=== PATIENT | male | born 1955 | race Caucasian/White ===

== ENCOUNTER 2017-05-01 21:41 | Inpatient (IN) | payer OTHER, SELFPAY ==
[2017-05-02 19:50] VITALS: BMI 29.1
--- NOTE | 2017-05-03 03:00 | PC.NURSE ---
PT IS A&OX3. HE HAS BEEN AWAKE PERIODICALLY T/O THE NIGHT. HIS BLE ARE RED AND WARM TO TOUCH. 2+ EDEMA ON BLE. BLE NOTED TO HAVE BLISTERS AND WEEPING AT TIMES. SCATTERED ABRASIONS ON BLE. PT REPORTS THAT HE IS ABLE TO WALK INDEPENDENTLY. HE IS ON 1LPM N/C WHILE SLEEPING. HE REPORTS SOA WHILE RESTING.
[2017-05-03 03:49] VITALS: BP 99/52; PULSE 71; RESP 20; TEMP 36.9; O2SAT 97
--- NOTE | 2017-05-03 07:30 | PC.NURSE ---
VERBAL REPORT GIVEN & HANDED OFF TO ZHANG- MARIKA MACIAS
[2017-05-03 08:00] VITALS: PULSE 70; O2SAT 93
[2017-05-03 08:55] VITALS: BP 119/79; PULSE 74; RESP 18; TEMP 36.8; O2SAT 93
--- NOTE | 2017-05-03 14:09 | PC.NURSE ---
report given to Francesca Vieyra
--- NOTE | 2017-05-03 15:31 | PC.NURSE ---
pt has edema and weeping in bliateral lower extermities. pt lungs are clear, bowel sounds active and heart sounds normal. call light in reach. pt has stated no complaints since arrival to unit. will continue to monitor pt condition.
[2017-05-03 16:00] VITALS: BP 100/71; PULSE 70; RESP 20; TEMP 36.1; O2SAT 97
[2017-05-03 16:50] LABS: Vancomycin,Trough 14.8 mcg/ml (10.0-20.0)
[2017-05-03 19:35] VITALS: BP 116/85; PULSE 71; TEMP 36.8; O2SAT 94
--- NOTE | 2017-05-03 20:23 | HMH.ACPN ---
Internal Medicine - PN: Subj *Date: 05/03/17 *Time: 20:00 Interval history: pt seen this pm with no c/o Exam Vital signs and Labs for Last 24 Hours: Temp Pulse Resp BP Pulse Ox 97.0 F L 70 20 100/71 97 05/03/17 16:00 05/03/17 16:00 05/03/17 16:00 05/03/17 16:00 05/03/17 16:00 Short CBC 05/02/17 Range/Units 05:50 WBC 9.1 (4.8 - 10.8) K/MM3 Hgb 13.5 L (14.1 - 18.0) g/dL Hct 44.7 (42.0 - 52.0) % Plt Count 170 (142 - 424) K/mm3 BMP 05/02/17 05:50 Sodium 142 Potassium 4.3 Chloride 109 H Carbon Dioxide 27 BUN 21 H Creatinine 1.0 D Glucose 98 Calcium 7.8 L I & O for Last 24 hours: Intake & Output 05/01/17 05/02/17 05/03/17 05/04/17 11:59 11:59 11:59 11:59 Intake Total 260 / 260 Output Total 800 / 800 Balance -540 / -540 no acute distress - *Routine HEENT Exam Head: Present: normocephalic Eye: Present: PERRL - *Routine Neck Exam Present: supple - *Routine Respiratory Exam Absent: respiratory distress - *Routine Cardiovascular Exam Present: RRR, murmur - *Routine Extremities Exam Present: edema, tenderness. Absent: calf tenderness - *Routine Skin Exam Present: erythema - *Routine Neurological Exam Present: alert, oriented X3, CN II-XII intact - Routine Psychiatric Exam Present: normal affect Assessment and Plan (1) Cellulitis Current visit: Yes Status: Acute Qualifiers: Site of cellulitis: extremity Site of cellulitis of extremity: lower extremity Laterality: right Qualified Code(s): L03.115 - Cellulitis of right lower limb Category: Medical Code(s): L03.90 - Cellulitis, unspecified
[2017-05-04] VITALS (7 sets, daily range): BP systolic 98–135; BP diastolic 68–96; PULSE 70–79; RESP 18–24; TEMP 35.9–36.5; O2SAT 92–98
--- NOTE | 2017-05-04 02:13 | PC.NURSE ---
at 195 PHARMACIST SHASHANK TERRELL NOTIFIED OF VANCO TROUGH 14.8 DRAWN @8320. MAY CONTINUE WITH CURRENT DOSING.
--- NOTE | 2017-05-04 04:51 | PC.NURSE ---
PT HAS BEEN AWAKE MOST OF NIGHT. ON 1L PER NC OF OXYGEN. WHEEZING NOTED LLL. BILAT LE WITH SWELLING AND REDNESS NOTED. MULTIPLE OPEN AREAS NOTED, SEEPING SEROUS DRAINAGE. NO COMPLAINTS OF PAIN. PT STATES HE GETS SOB WITH LYING HEAD FLAT. HOB UP.
--- NOTE | 2017-05-04 07:24 | CA_ITS ---
PROCEDURE: 2-D M-mode and color Doppler study INDICATIONS FOR THE TEST: Chest pain+ COPD Heart Murmur Tobacco Smoking+ Palpitations Fatigue Syncope Edema Hypertension+Diabetes Mellitus+ Rheumatic Fever SOB+OLMEDO Obesity Hyperlipidemia+ Family History HD Additional History Pacemaker, hx of [place], 1 stent, CHF. AFIB PATIENT INFORMATION HEIGHT: 72 WEIGHT: 230 GENDER: Male B/P: 124/74 2-D/M-MODE INTERPRETATION: Definity contrast used 2-D MEASUREMENTS OBSERVED VALUES IN CMS Right Ventricular Dimension (RVDd) Interventricular Septum (Thickness)(IVsd) 1.1 Left Ventricular Internal Dimensions(LVIDd) 6.5 Left Ventricular Posterior Wall (Thickness)(LVPWd) 1.1 Aortic Root 2.6 Aortic Cusp Separation 1.7 Left Atrial Dimensions (LAD) 4.5 2D 1. Left atrium is moderately enlarged, left ventricle is moderately dilated, there is severely reduced left ventricular systolic function, visually estimated ejection fraction 15-20%, left ventricle is globally hypokinetic. 2. The right atrium and right ventricle are normal size and contractility, there is a pacemaker lead seen in the right atrium and right ventricle. 3. The aortic valve is minimally thickened and calcified, 4. The mitral and tricuspid valve leaflets are minimally thickened. 5. The pulmonic valve is poorly visualized. 6. There is small circumferential pericardial effusion noted. DOPPLER INTERROGATION: Doppler interrogation of the aortic, mitral and tricuspid valve is presence of moderate mitral and moderate tricuspid regurgitation, calculated right ventricular systolic pressure is 63 mmHg consistent with the moderate pulmonary hypertension. CONCLUSION: 1. Moderately enlarged left atrium, moderately dilated left ventricle, severely reduced left ventricular systolic function, visually estimated ejection fraction 15-20%, left ventricle is globally hypokinetic, Doppler evidence of raised left ventricular end-diastolic pressure. 2. Moderate mitral and tricuspid regurgitation. 3. Thickened and calcified aortic valve without Doppler evidence of significant aortic stenosis or aortic insufficiency 4. Small circumferential pericardial effusion noted.
--- NOTE | 2017-05-04 09:45 | HMH.ACPN ---
Internal Medicine - PN: Subj *Date: 05/04/17 *Time: 09:45 Interval history: pt doing better and legs look better Exam Vital signs and Labs for Last 24 Hours: Temp Pulse Resp BP Pulse Ox 97.7 F 74 18 115/70 97 05/04/17 08:00 05/04/17 08:00 05/04/17 08:00 05/04/17 08:00 05/04/17 08:00 I & O for Last 24 hours: Intake & Output 05/01/17 05/02/17 05/03/17 05/04/17 11:59 11:59 11:59 11:59 Intake Total 260 / 260 760 / 760 Output Total 800 / 800 250 / 250 Balance -540 / -540 510 / 510 no acute distress - *Routine HEENT Exam Head: Present: normocephalic Eye: Present: EOMI, PERRL ENT: Present: mucous membranes moist - *Routine Neck Exam Present: supple - *Routine Respiratory Exam Absent: respiratory distress - *Routine Cardiovascular Exam Present: murmur - *Routine Abdominal Exam Present: soft - *Routine Extremities Exam Present: edema. Absent: calf tenderness (reddness improved) - *Routine Skin Exam Present: warm (see above) - *Routine Neurological Exam Present: alert, oriented X3 - Routine Psychiatric Exam Present: normal affect Assessment and Plan (1) Cellulitis Current visit: Yes Status: Acute Qualifiers: Site of cellulitis: extremity Site of cellulitis of extremity: lower extremity Laterality: right Qualified Code(s): L03.115 - Cellulitis of right lower limb Category: Medical Code(s): L03.90 - Cellulitis, unspecified The patient's infection will respond to the chosen ABx?: Yes (awaiting culture)
[2017-05-04 10:18] LABS: POC Glucose,Bedside 127 mg/dL
--- NOTE | 2017-05-04 11:22 | XR_ITS ---
XR chest 2V CLINICAL INDICATION: Congestive heart failure ITS.REASON: chf ORDERING PHYSICIAN: Jonny Freeman MD PATIENT AGE: 62 years COMPARISON: 01/30/2016 FINDINGS: There is cardiomegaly with pulmonary venous congestion along with interstitial and alveolar edema consistent with congestive heart failure with small bilateral pleural effusions. Tripolar cardiac pacemaker device is present. IMPRESSION: Congestive heart failure with pulmonary edema and bilateral effusions
[2017-05-04 11:40] LABS: POC Glucose,Bedside 137 mg/dL
[2017-05-04 11:44] LABS: POC Glucose,Bedside 133 mg/dL
[2017-05-04 11:46] LABS: POC Glucose,Bedside 109 mg/dL
[2017-05-04 11:47] LABS: POC Glucose,Bedside 105 mg/dL
--- NOTE | 2017-05-04 12:42 | HMH.CARDCON2 ---
History of Present Illness Consult date: 05/04/17 Requesting physician: Jonny Freeman Consult reason: congestive heart failure, shortness of breath Chief complaint: shortness of breath History of present illness: 62 yo WM with known ischemic cardiomyopathy and EF of 10-15% for which he has an AICD. He is followed by Dr. Woods in [place] and has an appointment next week. Recent wt gain of about 20 lbs with dietary indiscretion. Pt was admitted for increasing swelling into abdomen and scrotum along with increasing SOA. At this time he has noted some improvement with diuresis. Denies any chest pains. Review of Systems - *Respiratory Reports shortness of breath, Reports shortness of breath with activity [facility] History Medical History: Reports:: Congestive Heart Failure, Diabetes Mellitus Type 2 - *Social History Smoking Status: Current every day smoker Tobacco Type: cigarettes # Packs/Day (cigarettes): 1 Alcohol Intake: never Occupational Status: retired - Psychiatric History Expresses thoughts of harming self/others: None Suicide Plan Description: No Plan *Family Hx:: No significant family history Meds Home Medications Medication Instructions Recorded Confirmed Type Amiodarone HCl [Amiodarone 200mg 200 mg PO DAILY 05/02/17 05/03/17 History Tab] Bisoprolol Fumarate [Zebeta 5mg 2.5 mg PO DAILY 05/02/17 05/03/17 History tablet] Furosemide [Lasix 40mg tab] 40 mg PO DAILY 05/02/17 05/03/17 History Lisinopril [Lisinopril 2.5mg Tab] 2.5 mg PO DAILY 05/02/17 05/03/17 History Potassium Chloride [Klor-con 20 20 meq PO DAILY 05/02/17 05/03/17 History mEq tablet] Pravastatin Sodium [Pravachol] 40 mg PO HS 05/02/17 05/03/17 History Rivaroxaban [Xarelto] 20 mg PO DAILY 05/02/17 05/03/17 History Allergies Allergy/AdvReac Type Severity Reaction Status Date / Time No Known Allergies Allergy Unverified 05/01/17 18:09 Exam Vital signs and Labs for Last 24 Hours: Temp Pulse Resp BP Pulse Ox 97.7 F 74 18 115/70 96 05/04/17 08:00 05/04/17 08:00 05/04/17 08:00 05/04/17 08:00 05/04/17 08:00 I & O for Last 24 hours: Intake & Output 05/02/17 05/03/17 05/04/17 05/05/17 11:59 11:59 11:59 11:59 Intake Total 260 / 260 770 / 770 Output Total 800 / 800 250 / 250 Balance -540 / -540 520 / 520 Results 05/02/17 05:50 05/02/17 05:50 Intake and Output 05/04/17 05/04/17 05/04/17 03:59 11:59 19:59 Intake Total 770 / 770 Output Total 250 / 250 Balance 520 / 520 Intake: Intake, Other Amount 270 / 270 Intake, Total IV Amount 500 / 500 Vancomycin HCl 1,000 mg 500 / 500 Vancomycin HCl 500 mg In 0.9 % Sodium Chloride 250 ml @ 125 mls/hr IV Q12H [facility] Rx#:[id number] Output: Output, Urine Amount 250 / 250 Other: Intake, Other Source Saline Solution Number of Voids 3 Number of Unmeasured Voids 3 Number of Bowel Movements 3 Assessment and Plan (1) CHF (congestive heart failure), NYHA class IV Current visit: Yes Status: Acute Category: Medical Code(s): I50.9 - Heart failure, unspecified Patient with congestive heart failure class IV at this time. This is acute on chronic systolic congestive heart failure. He has responded well to diuresis. No further cardiac intervention at this time as echocardiogram at this time shows continued severly diffuse left ventricular ejection fraction in the 10-15% range. Recommend he follow-up with his lead etl developer next week. He has his AICD checked through his cardiology office in [place]. (2) Ischemic cardiomyopathy Current visit: Yes Status: Acute Category: Medical Code(s): I25.5 - Ischemic cardiomyopathy Continue current medical therapy of TAMAR inhibitor, beta-erasmo and adjusting diuretics as needed. (3) Cardiac arrhythmia Current visit: Yes Status: Acute Category: Medical Code(s): I49.9 - Cardiac arrhythmia, unspecif
--- NOTE | 2017-05-04 12:47 | P.CONS_ITS ---
History of Present Illness Consult date: 05/04/17 Requesting physician: Jonny Freeman Consult reason: congestive heart failure, shortness of breath Chief complaint: shortness of breath History of present illness: 62 yo WM with known ischemic cardiomyopathy and EF of 10-15% for which he has an AICD. He is followed by Dr. Woods in [place] and has an appointment next week. Recent wt gain of about 20 lbs with dietary indiscretion. Pt was admitted for increasing swelling into abdomen and scrotum along with increasing SOA. At this time he has noted some improvement with diuresis. Denies any chest pains. Review of Systems - *Respiratory Reports shortness of breath, Reports shortness of breath with activity [facility] History Medical History: Reports:: Congestive Heart Failure, Diabetes Mellitus Type 2 - *Social History Smoking Status: Current every day smoker Tobacco Type: cigarettes # Packs/Day (cigarettes): 1 Alcohol Intake: never Occupational Status: retired - Psychiatric History Expresses thoughts of harming self/others: None Suicide Plan Description: No Plan *Family Hx:: No significant family history Meds Home Medications Medication Instructions Recorded Confirmed Type Amiodarone HCl [Amiodarone 200mg 200 mg PO DAILY 05/02/17 05/03/17 History Tab] Bisoprolol Fumarate [Zebeta 5mg 2.5 mg PO DAILY 05/02/17 05/03/17 History tablet] Furosemide [Lasix 40mg tab] 40 mg PO DAILY 05/02/17 05/03/17 History Lisinopril [Lisinopril 2.5mg Tab] 2.5 mg PO DAILY 05/02/17 05/03/17 History Potassium Chloride [Klor-con 20 20 meq PO DAILY 05/02/17 05/03/17 History mEq tablet] Pravastatin Sodium [Pravachol] 40 mg PO HS 05/02/17 05/03/17 History Rivaroxaban [Xarelto] 20 mg PO DAILY 05/02/17 05/03/17 History Allergies Allergy/AdvReac Type Severity Reaction Status Date / Time No Known Allergies Allergy Unverified 05/01/17 18:09 Exam Vital signs and Labs for Last 24 Hours: Temp Pulse Resp BP Pulse Ox 97.7 F 74 18 115/70 96 05/04/17 08:00 05/04/17 08:00 05/04/17 08:00 05/04/17 08:00 05/04/17 08:00 I & O for Last 24 hours: Intake & Output 05/02/17 05/03/17 05/04/17 05/05/17 11:59 11:59 11:59 11:59 Intake Total 260 / 260 770 / 770 Output Total 800 / 800 250 / 250 Balance -540 / -540 520 / 520 Results 05/02/17 05:50 05/02/17 05:50 Intake and Output 05/04/17 05/04/17 05/04/17 03:59 11:59 19:59 Intake Total 770 / 770 Output Total 250 / 250 Balance 520 / 520 Intake: Intake, Other Amount 270 / 270 Intake, Total IV Amount 500 / 500 Vancomycin HCl 1,000 mg 500 / 500 Vancomycin HCl 500 mg In 0.9 % Sodium Chloride 250 ml @ 125 mls/hr IV Q12H [facility] Rx#:[id number] Output: Output, Urine Amount 250 / 250 Other: Intake, Other Source Saline Solution Number of Voids 3 Number of Unmeasured Voids 3 Number of Bowel Movements 3 Assessment and Plan (1) CHF (congestive heart failure), NYHA class IV Current visit: Yes Status: Acute Category: Medical Code(s): I50.9 - Heart failure, unspecified Patient with congestive
[2017-05-04 14:06] LABS: Blood Urea Nitrogen 20 mg/dL (7-18); Carbon Dioxide 29 mmol/L (21.0-32.0); Chloride 103 mmol/L (98-107); Creatinine Clearance Estimated 95 mg/ml (0-300); Creatinine,Serum 1.19 mg/dL (0.70-1.30); Estimated Glomerular Filt Rate > 60 ml/min (>60); GFR (African American) > 60 ML/MIN (>60); Glucose 210 mg/dL (74-106); Sodium 137 mmol/L (136-145)
--- NOTE | 2017-05-04 14:22 | HMH.PHACONS ---
- Pharmacy Consult Date: 05/04/17 Time: 14:22 Referring provider: RAJAN Reason for Consult:: VANCOMYCIN TROUGH LEVEL Allergies and ADEs:: Allergies Allergy/AdvReac Type Severity Reaction Status Date / Time No Known Allergies Allergy Unverified 05/01/17 18:09 Home Medications:: Home Medications Medication Instructions Recorded Confirmed Type Amiodarone HCl [Amiodarone 200mg 200 mg PO DAILY 05/02/17 05/03/17 History Tab] Bisoprolol Fumarate [Zebeta 5mg 2.5 mg PO DAILY 05/02/17 05/03/17 History tablet] Furosemide [Lasix 40mg tab] 40 mg PO DAILY 05/02/17 05/03/17 History Lisinopril [Lisinopril 2.5mg Tab] 2.5 mg PO DAILY 05/02/17 05/03/17 History Potassium Chloride [Klor-con 20 20 meq PO DAILY 05/02/17 05/03/17 History mEq tablet] Pravastatin Sodium [Pravachol] 40 mg PO HS 05/02/17 05/03/17 History Rivaroxaban [Xarelto] 20 mg PO DAILY 05/02/17 05/03/17 History Height: 1.83 m Weight: 104.326 kg Laboratory Results:: Laboratory Results - last 24 hr 05/03/17 05/03/17 05/03/17 05:56 12:29 16:27 Sodium Potassium Chloride Carbon Dioxide Anion Gap BUN Creatinine Estimated Creat Clear Estimated GFR Est GFR ( Amer) Glucose POC Glucose 105 mg/dL mg/dL 127 mg/dL mg/dL B-Natriuretic Peptide Vancomycin Trough 14.8 mcg/ml mcg/ml (10.0-20.0) 05/03/17 05/03/17 05/04/17 16:31 21:23 06:09 Sodium Potassium Chloride Carbon Dioxide Anion Gap BUN Creatinine Estimated Creat Clear Estimated GFR Est GFR ( Amer) Glucose POC Glucose 137 mg/dL mg/dL 133 mg/dL mg/dL 109 mg/dL mg/dL B-Natriuretic Peptide Vancomycin Trough 05/04/17 05/04/17 13:45 13:45 Sodium 137 mmol/L mmol/L (136-145) Potassium 5.0 mmoL/L mmoL/L (3.5-5.1) Chloride 103 mmol/L mmol/L (98-107) Carbon Dioxide 29 mmol/L mmol/L (21.0-32.0) Anion Gap 10.0 mEq/L mEq/L (5-15) BUN 20 mg/dL H mg/dL (7-18) Creatinine 1.19 mg/dL mg/dL (0.70-1.30) Estimated Creat Clear 95 mg/ml mg/ml (0-300) Estimated GFR > 60 ml/min ml/min (>60) Est GFR ( Amer) > 60 ML/MIN ML/MIN (>60) Glucose 210 mg/dL H mg/dL (74-106) POC Glucose B-Natriuretic Peptide 834 pg/mL H pg/mL (0-100) Vancomycin Trough Medical History: Reports:: Congestive Heart Failure, Diabetes Mellitus Type 2 Assessment and Plan (1) Cellulitis Current visit: Yes Status: Acute Qualifiers: Site of cellulitis: extremity Site of cellulitis of extremity: lower extremity Laterality: right Qualified Code(s): L03.115 - Cellulitis of right lower limb Category: Medical Code(s): L03.90 - Cellulitis, unspecified - Assessment and plan all Dx Assessment and Plan for all problems:: BASED ON VANCOMYCIN TROUGH LEVEL AND PATIENT FACTORS, RECOMMEND CONTINUING VANCOMYCIN 1500 MG IV Q12H. PHARMACY WILL CONTINUE TO MONITOR DAILY AND ADJUST APPROPRIATE.
--- NOTE | 2017-05-04 14:25 | P.CONPHA_ITS ---
- Pharmacy Consult Date: 05/04/17 Time: 14:22 Referring provider: RAJAN Reason for Consult:: VANCOMYCIN TROUGH LEVEL Allergies and ADEs:: Allergies Allergy/AdvReac Type Severity Reaction Status Date / Time No Known Allergies Allergy Unverified 05/01/17 18:09 Home Medications:: Home Medications Medication Instructions Recorded Confirmed Type Amiodarone HCl [Amiodarone 200mg 200 mg PO DAILY 05/02/17 05/03/17 History Tab] Bisoprolol Fumarate [Zebeta 5mg 2.5 mg PO DAILY 05/02/17 05/03/17 History tablet] Furosemide [Lasix 40mg tab] 40 mg PO DAILY 05/02/17 05/03/17 History Lisinopril [Lisinopril 2.5mg Tab] 2.5 mg PO DAILY 05/02/17 05/03/17 History Potassium Chloride [Klor-con 20 20 meq PO DAILY 05/02/17 05/03/17 History mEq tablet] Pravastatin Sodium [Pravachol] 40 mg PO HS 05/02/17 05/03/17 History Rivaroxaban [Xarelto] 20 mg PO DAILY 05/02/17 05/03/17 History Height: 1.83 m Weight: 104.326 kg Laboratory Results:: Laboratory Results - last 24 hr 05/03/17 05/03/17 05/03/17 05:56 12:29 16:27 Sodium Potassium Chloride Carbon Dioxide Anion Gap BUN Creatinine Estimated Creat Clear Estimated GFR Est GFR ( Amer) Glucose POC Glucose 105 mg/dL mg/dL 127 mg/dL mg/dL B-Natriuretic Peptide Vancomycin Trough 14.8 mcg/ml mcg/ml (10.0-20.0) 05/03/17 05/03/17 05/04/17 16:31 21:23 06:09 Sodium Potassium Chloride Carbon Dioxide Anion Gap BUN Creatinine Estimated Creat Clear Estimated GFR Est GFR ( Amer) Glucose POC Glucose 137 mg/dL mg/dL 133 mg/dL mg/dL 109 mg/dL mg/dL B-Natriuretic Peptide Vancomycin Trough 05/04/17 05/04/17 13:45 13:45 Sodium 137 mmol/L mmol/L (136-145) Potassium 5.0 mmoL/L mmoL/L (3.5-5.1) Chloride 103 mmol/L mmol/L (98-107) Carbon Dioxide 29 mmol/L mmol/L (21.0-32.0) Anion Gap 10.0 mEq/L mEq/L (5-15) BUN 20 mg/dL H mg/dL (7-18) Creatinine 1.19 mg/dL mg/dL (0.70-1.30) Estimated Creat Clear 95 mg/ml mg/ml (0-300) Estimated GFR > 60 ml/min ml/min (>60) Est GFR ( Amer) > 60 ML/MIN ML/MIN (>60) Glucose 210 mg/dL H mg/dL (74-106) POC Glucose B-Natriuretic Peptide 834 pg/mL H pg/mL (0-100) Vancomycin Trough Medical History: Reports:: Congestive Heart Failure, Diabetes Mellitus Type 2
--- NOTE | 2017-05-04 14:33 | CARE MANAGER ---
Addendum entered by Anjelica Blanco 05/04/17 15:51: Patients sister concurred with plan of being discharged to live with sister. Original Note: Spoke with patient regarding discharge plans. Patient stated that before admitting to hospital he was living in [place]. Patients plan at time of discharge is to go home with his sister in [place] on [facility]. I have called his sister Leyda to confirm this plan. There was no answer from Leyda but I left her a voice message to call me back. I will follow up with patient, sister, and MD once discharge plan is known.
[2017-05-05] VITALS (16 sets, daily range): BP systolic 102–175; BP diastolic 51–94; PULSE 70–84; RESP 13–24; TEMP 35.8–36.9; O2SAT 88–98
--- NOTE | 2017-05-05 09:04 | HMH.ACPN ---
Internal Medicine - PN: Subj *Date: 05/05/17 *Time: 09:05 Interval history: pt doing better with dec reddness and dr ruiz at bedside and has seen card Exam Vital signs and Labs for Last 24 Hours: Temp Pulse Resp BP Pulse Ox 97.0 F L 70 16 132/91 96 05/05/17 04:00 05/05/17 04:00 05/05/17 04:00 05/05/17 04:00 05/05/17 04:00 BMP 05/04/17 13:45 Sodium 137 Potassium 5.0 Chloride 103 Carbon Dioxide 29 BUN 20 H Creatinine 1.19 Glucose 210 H I & O for Last 24 hours: Intake & Output 05/02/17 05/03/17 05/04/17 05/05/17 11:59 11:59 11:59 11:59 Intake Total 260 / 260 770 / 770 167 / 167 Output Total 800 / 800 250 / 250 3450 / 3450 Balance -540 / -540 520 / 520 -3283 / -3283 Microbiology Reports for the Last 24 Hours: Microbiology 05/04/17 09:00 Leg,Right Gram Stain - Final 05/04/17 09:00 Leg,Right Wound Culture - Preliminary Gram Negative Rods Gram Positive Cocci no acute distress - *Routine HEENT Exam Head: Present: normocephalic Eye: Present: PERRL ENT: Present: mucous membranes dry - *Routine Neck Exam Absent: JVD - *Routine Respiratory Exam Present: decreased breath sounds, diminished air movement. Absent: respiratory distress - *Routine Cardiovascular Exam Present: murmur - *Routine Abdominal Exam Present: soft - *Routine Extremities Exam Present: edema. Absent: Amena's sign Comments: dec reddness lower ext - *Routine Skin Exam Present: erythema - *Routine Neurological Exam Present: alert, CN II-XII intact - Routine Psychiatric Exam Present: normal affect Assessment and Plan (1) Cellulitis Current visit: Yes Status: Acute Qualifiers: Site of cellulitis: extremity Site of cellulitis of extremity: lower extremity Laterality: right Qualified Code(s): L03.115 - Cellulitis of right lower limb Category: Medical Code(s): L03.90 - Cellulitis, unspecified (2) CHF (congestive heart failure), NYHA class IV Current visit: Yes Status: Acute Qualifiers: Congestive heart failure type: unspecified congestive heart failure type Qualified Code(s): I50.9 - Heart failure, unspecified Category: Medical Code(s): I50.9 - Heart failure, unspecified
--- NOTE | 2017-05-05 09:09 | US_ITS ---
US Arterial Ankle Brachial Ind ITS.REASON: Nonpalpable pedal pulses b/l, current smoker, diabetes, claudication, leg pain this: The ORDERING PHYSICIAN: Jonny Freeman MD PATIENT AGE: 62 years TECHNIQUE: Segmental pressures obtained of both right and left leg. These are compared to brachial blood pressure to yield index at each level sampled including summary LEO. The data sheets from the procedure are available in PACS FINDINGS Rest study only performed today No prior studies available for comparison. Blood pressures reported are in millimeters mercury. The pressures in the right ankle were obtained utilizing the calf cuff and not the ankle, due to overlying wound. RIGHT LEG LEO = 0.8. The TBI on the right is 0.5 Brachial BP: 120 Thigh BP: 111 Calf BP: 96 Ankle PT: Not obtained due to overlying wound Ankle DP : 95 Digit =52 LEFT LEG LEO = 0.9 The left TBI is 0.5 Brachial BPD: 122 Thigh BP: 103 Calf BP: 101 Ankle PT:111 Ankle DP: 78 Digit = 66 Pulses and waveforms: Depressed pulses and waveforms IMPRESSION: 1. Low TBI's bilaterally consistent with small vessel disease. 2. Slightly depressed right LEO and normal left LEO. 3. Depressed pulses and waveforms
--- NOTE | 2017-05-05 09:14 | HMH.ORTHOCON ---
*Admission Date: 05/01/17 *Chief complaint: Cellulitis *History of present illness: Mr. Gallego is a 62 y/o male who presented 05/01/17 with c/o cellulitis. Patient states that he has had weeping and drainage from both legs for several days. He denies this ever happening before. He is a Diabetic. Patient reports a history of osteomyelitis in October 2016, which required surgical intervention. He last followed up with Dr. Cristian Tiwari in [place] in December 2016. Review of Systems - Review of Systems Review of systems:: pertinent systems reviewed and negative unless documented below - Constitutional Comments: Denies N/V, F/C - *Cardiovascular Reports shortness of breath, Reports leg swelling - *Respiratory Reports shortness of breath - *Gastrointestinal Reports bloating - *Genitourinary Denies difficulty urinating - *Musculoskeletal Reports numbness, Reports tingling - *Neurologic Reports tingling/numbness/burning sensations [facility] History Medical History: Reports:: Congestive Heart Failure, Diabetes Mellitus Type 2 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) - *Social History Smoking Status: Current every day smoker Tobacco Type: cigarettes # Packs/Day (cigarettes): 1 Alcohol Intake: never Occupational Status: retired - Psychiatric History Expresses thoughts of harming self/others: None Suicide Plan Description: No Plan *Family Hx:: No significant family history Meds Home Medications Medication Instructions Recorded Confirmed Type Amiodarone HCl [Amiodarone 200mg 200 mg PO DAILY 05/02/17 05/03/17 History Tab] Bisoprolol Fumarate [Zebeta 5mg 2.5 mg PO DAILY 05/02/17 05/03/17 History tablet] Furosemide [Lasix 40mg tab] 40 mg PO DAILY 05/02/17 05/03/17 History Lisinopril [Lisinopril 2.5mg Tab] 2.5 mg PO DAILY 05/02/17 05/03/17 History Potassium Chloride [Klor-con 20 20 meq PO DAILY 05/02/17 05/03/17 History mEq tablet] Pravastatin Sodium [Pravachol] 40 mg PO HS 05/02/17 05/03/17 History Rivaroxaban [Xarelto] 20 mg PO DAILY 05/02/17 05/03/17 History Allergies Allergy/AdvReac Type Severity Reaction Status Date / Time No Known Allergies Allergy Unverified 05/01/17 18:09 Exam Vital signs and Labs for Last 24 Hours: Temp Pulse Resp BP Pulse Ox 97.0 F L 70 16 132/91 96 05/05/17 04:00 05/05/17 04:00 05/05/17 04:00 05/05/17 04:00 05/05/17 04:00 BMP 05/04/17 13:45 Sodium 137 Potassium 5.0 Chloride 103 Carbon Dioxide 29 BUN 20 H Creatinine 1.19 Glucose 210 H I & O for Last 24 hours: Intake & Output 05/02/17 05/03/17 05/04/17 05/05/17 11:59 11:59 11:59 11:59 Intake Total 260 / 260 770 / 770 167 / 167 Output Total 800 / 800 250 / 250 3450 / 3450 Balance -540 / -540 520 / 520 -3283 / -3283 Microbiology Reports for the Last 24 Hours: Microbiology 05/04/17 09:00 Leg,Right Gram Stain - Final 05/04/17 09:00 Leg,Right Wound Culture - Preliminary Gram Negative Rods Gram Positive Cocci - *Routine Extremities Exam Present: edema (b/l LE), amputation (Left partial 5th met). Absent: normal capillary refill Comments: Non palpable pedal pulses noted b/l. Erythema and 2+ pitting edema, b/l LE with right worse than the left. CFT delayed, skin temp cool to left warm secondary to cellulitis on the right. No calf or foot pain b/l. Several patches of erythema on the dorsal anterior leg, b/l. The legs have clear serous weeping fluids with no purulence noted. No deep ulcerations noted. No malodor. - *Routine Skin Exam Present: erythema (b/l LE), scars (Left 5th met healed incision) - *Routine Neurological Exam Present: oriented X3 Results - Labs Result Diagrams: 05/02/17 05:50 05/04/17 13:45 Labs: Abnormal lab results 05/04/17 05/04/17 Range/Units 13:45 13:45 BUN 20 H (7-18) mg/dL Glucose 210 H (74-106) mg/dL B-Natriu
--- NOTE | 2017-05-05 09:21 | P.CONS_ITS ---
*Admission Date: 05/01/17 *Chief complaint: Cellulitis *History of present illness: Mr. Gallego is a 62 y/o male who presented 05/01/17 with c/o cellulitis. Patient states that he has had weeping and drainage from both legs for several days. He denies this ever happening before. He is a Diabetic. Patient reports a history of osteomyelitis in October 2016, which required surgical intervention. He last followed up with Dr. Cristian Tiwari in [place] in December 2016. Review of Systems - Review of Systems Review of systems:: pertinent systems reviewed and negative unless documented below - Constitutional Comments: Denies N/V, F/C - *Cardiovascular Reports shortness of breath, Reports leg swelling - *Respiratory Reports shortness of breath - *Gastrointestinal Reports bloating - *Genitourinary Denies difficulty urinating - *Musculoskeletal Reports numbness, Reports tingling - *Neurologic Reports tingling/numbness/burning sensations [facility] History Medical History: Reports:: Congestive Heart Failure, Diabetes Mellitus Type 2 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) - *Social History Smoking Status: Current every day smoker Tobacco Type: cigarettes # Packs/Day (cigarettes): 1 Alcohol Intake: never Occupational Status: retired - Psychiatric History Expresses thoughts of harming self/others: None Suicide Plan Description: No Plan *Family Hx:: No significant family history Meds Home Medications Medication Instructions Recorded Confirmed Type Amiodarone HCl [Amiodarone 200mg 200 mg PO DAILY 05/02/17 05/03/17 History Tab] Bisoprolol Fumarate [Zebeta 5mg 2.5 mg PO DAILY 05/02/17 05/03/17 History tablet] Furosemide [Lasix 40mg tab] 40 mg PO DAILY 05/02/17 05/03/17 History Lisinopril [Lisinopril 2.5mg Tab] 2.5 mg PO DAILY 05/02/17 05/03/17 History Potassium Chloride [Klor-con 20 20 meq PO DAILY 05/02/17 05/03/17 History mEq tablet] Pravastatin Sodium [Pravachol] 40 mg PO HS 05/02/17 05/03/17 History Rivaroxaban [Xarelto] 20 mg PO DAILY 05/02/17 05/03/17 History Allergies Allergy/AdvReac Type Severity Reaction Status Date / Time No Known Allergies Allergy Unverified 05/01/17 18:09 Exam Vital signs and Labs for Last 24 Hours: Temp Pulse Resp BP Pulse Ox 97.0 F L 70 16 132/91 96 05/05/17 04:00 05/05/17 04:00 05/05/17 04:00 05/05/17 04:00 05/05/17 04:00 BMP 05/04/17 13:45 Sodium 137 Potassium 5.0 Chloride 103 Carbon Dioxide 29 BUN 20 H Creatinine 1.19 Glucose 210 H I & O for Last 24 hours: Intake & Output 05/02/17 05/03/17 05/04/17 05/05/17 11:59 11:59 11:59 11:59 Intake Total 260 / 260 770 / 770 167 / 167 Output Total 800 / 800 250 / 250 3450 / 3450 Balance -540 / -540 520 / 520 -3283 / -3283 Microbiology Reports for the Last 24 Hours: Microbiology 05/04/17 09:00 Leg,Right Gram Stain - Final 05/04/17 09:00 Leg,Right Wound Culture - Preliminary Gram Negative Rods Gram Positive Cocci - *Routine Extremities Exam Present: edema (b/l LE), amputation (Left partial 5th met). Absent: normal capillary refill Comments: Non palpable pe
[2017-05-05 12:11] LABS: POC Glucose,Bedside 136 mg/dL
--- NOTE | 2017-05-05 15:08 | HMH.CARDPN2 ---
Subjective PN (PG) Date: 05/05/17 Time: 14:30 Principal diagnosis: CHF, Isch CM, Cellulitis Interval history: No complaints of chest pain. SOA and Edema improving. Sitting in chair with puddle of fluid around feet due to weeping from legs. PN Exam ([facility] Owned) Vital signs: Temp Pulse Resp BP Pulse Ox 97.2 F L 71 18 102/69 93 L 05/05/17 12:30 05/05/17 12:30 05/05/17 12:30 05/05/17 12:30 05/05/17 12:30 - Routine Respiratory Exam Present: CTA bilaterally - Routine Cardiovascular Exam Present: RRR - Routine Extremities Exam Present: edema Comments: Redness and edema of LE's improving. A/P Progress Note ([facility] Owned) (1) CHF (congestive heart failure), NYHA class IV Status: Acute Assessment and plan: Will start IV milrinone to help with inotropic support. Increase lasix to 40 mg BID. Daily BMP. Current Visit: Yes (2) Ischemic cardiomyopathy Status: Acute Current Visit: Yes (3) Cardiac arrhythmia Status: Acute Assessment and plan: AICD in place. On amiodarone. Current Visit: Yes (4) CAD (coronary artery disease) Status: Acute Current Visit: Yes (5) Edema Status: Acute Assessment and plan: Likely some component of right heart failure and venous insufficiency also Current Visit: Yes
--- NOTE | 2017-05-05 15:12 | P.PN_ITS ---
Subjective PN (PG) Date: 05/05/17 Time: 14:30 Principal diagnosis: CHF, Isch CM, Cellulitis Interval history: No complaints of chest pain. SOA and Edema improving. Sitting in chair with puddle of fluid around feet due to weeping from legs. PN Exam ([facility] Owned) Vital signs: Temp Pulse Resp BP Pulse Ox 97.2 F L 71 18 102/69 93 L 05/05/17 12:30 05/05/17 12:30 05/05/17 12:30 05/05/17 12:30 05/05/17 12:30 - Routine Respiratory Exam Present: CTA bilaterally - Routine Cardiovascular Exam Present: RRR - Routine Extremities Exam Present: edema Comments: Redness and edema of LE's improving. A/P Progress Note ([facility] Owned) (1) CHF (congestive heart failure), NYHA class IV Status: Acute Assessment and plan: Will start IV milrinone to help with inotropic support. Increase lasix to 40 mg BID. Daily BMP. Current Visit: Yes (2) Ischemic cardiomyopathy Status: Acute Current Visit: Yes (3) Cardiac arrhythmia Status: Acute Assessment and plan: AICD in place. On amiodarone. Current Visit: Yes (4) CAD (coronary artery disease) Status: Acute Current Visit: Yes (5) Edema Status: Acute Assessment and plan: Likely some component of right heart failure and venous insufficiency also Current Visit: Yes
--- NOTE | 2017-05-05 18:07 | PC.NURSE ---
PATIENT IS CURRENTLY SITTING UP IN THE BED VISITING WITH FAMILY. HE HAS BEEN MOVED TO STEP DOWN BECAUSE HE IS ON A MILRINONE DRIP AT THIS TIME. HE IS PACED ON THE MONITOR. VSS ARE STABLE AT THIS TIME. DENIES PAIN. HE WEARS 1LNS AT TIMES WHEN HE IS FEELING SOA. FSBS HAVE BEEN IN 130S THIS SHIFT. HIS BLE CONTINUE TO WEEP AND PULSES ARE NOT PALPABLE. CALL LIGHT WITHIN REACH WILL CONTINUE TO MONITOR
[2017-05-05 21:29] LABS: POC Glucose,Bedside 204 mg/dL
[2017-05-05 21:29] LABS: POC Glucose,Bedside 133 mg/dL
[2017-05-06] VITALS (25 sets, daily range): BP systolic 100–146; BP diastolic 62–85; PULSE 70–84; RESP 14–20; TEMP 35.9–37.1; O2SAT 88–100
[2017-05-06 06:29] LABS: POC Glucose,Bedside 86 mg/dL
--- NOTE | 2017-05-06 06:42 | PC.NURSE ---
Pt had a good night, rested more so than not. Edema in legs has gone down and not weeping near as much as last night. Right leg > left leg, both legs with 2+pitting edema. Milrinone drip infusing per order with no problems identified. Pt had no c/o pain and remained safe this shift.
[2017-05-06 07:11] LABS: Blood Urea Nitrogen 19 mg/dL (7-18); Carbon Dioxide 30 mmol/L (21.0-32.0); Chloride 107 mmol/L (98-107); Creatinine Clearance Estimated 105 mg/ml (0-300); Creatinine,Serum 1.03 mg/dL (0.70-1.30); Estimated Glomerular Filt Rate > 60 ml/min (>60); GFR (African American) > 60 ML/MIN (>60); Glucose 94 mg/dL (74-106); Sodium 141 mmol/L (136-145)
[2017-05-06 07:54] LABS: POC Glucose,Bedside 133 mg/dL
[2017-05-06 07:57] LABS: POC Glucose,Bedside 140 mg/dL
[2017-05-06 07:57] LABS: POC Glucose,Bedside 160 mg/dL
[2017-05-06 08:01] LABS: POC Glucose,Bedside 99 mg/dL
--- NOTE | 2017-05-06 08:16 | HMH.CARDPN2 ---
Subjective PN (PG) Date: 05/06/17 Time: 07:45 Principal diagnosis: CHF, Isch CM, Cellulitis Interval history: No complaints of chest pain. SOA and Edema improving. Lieing in bed eating breakfast in NAD. Relates no further weeping from legs. Wt reportedly 220 lbs this AM (down from 230 on admission per patient). Continues on IV milrinone. PN Exam ([facility] Owned) Vital signs: Temp Pulse Resp BP Pulse Ox 98.6 F 74 16 111/73 93 L 05/06/17 04:52 05/06/17 06:00 05/06/17 06:00 05/06/17 06:00 05/06/17 06:00 - Routine Respiratory Exam Present: rales, rhonchi, wheezes - Routine Cardiovascular Exam Present: RRR, murmur - Routine Extremities Exam Present: edema, tenderness A/P Progress Note ([facility] Owned) (1) CHF (congestive heart failure), NYHA class IV Status: Acute Assessment and plan: Clinically improving with IV lasix and IV milrinone. BMP today ok. Likely will stop milrinone tomorrow and possibly discharge home. Current Visit: Yes (2) Ischemic cardiomyopathy Status: Chronic Current Visit: Yes (3) Cardiac arrhythmia Status: Chronic Current Visit: Yes (4) CAD (coronary artery disease) Status: Chronic Assessment and plan: clinically stable. Current Visit: Yes (5) Edema Status: Acute Current Visit: Yes
--- NOTE | 2017-05-06 08:19 | P.PN_ITS ---
Subjective PN (PG) Date: 05/06/17 Time: 07:45 Principal diagnosis: CHF, Isch CM, Cellulitis Interval history: No complaints of chest pain. SOA and Edema improving. Lieing in bed eating breakfast in NAD. Relates no further weeping from legs. Wt reportedly 220 lbs this AM (down from 230 on admission per patient). Continues on IV milrinone. PN Exam ([facility] Owned) Vital signs: Temp Pulse Resp BP Pulse Ox 98.6 F 74 16 111/73 93 L 05/06/17 04:52 05/06/17 06:00 05/06/17 06:00 05/06/17 06:00 05/06/17 06:00 - Routine Respiratory Exam Present: rales, rhonchi, wheezes - Routine Cardiovascular Exam Present: RRR, murmur - Routine Extremities Exam Present: edema, tenderness A/P Progress Note ([facility] Owned) (1) CHF (congestive heart failure), NYHA class IV Status: Acute Assessment and plan: Clinically improving with IV lasix and IV milrinone. BMP today ok. Likely will stop milrinone tomorrow and possibly discharge home. Current Visit: Yes (2) Ischemic cardiomyopathy Status: Chronic Current Visit: Yes (3) Cardiac arrhythmia Status: Chronic Current Visit: Yes (4) CAD (coronary artery disease) Status: Chronic Assessment and plan: clinically stable. Current Visit: Yes (5) Edema Status: Acute Current Visit: Yes
--- NOTE | 2017-05-06 08:45 | PC.NURSE ---
CALLED PHARMACY ABOUT UNABLE TO SEE TIME ON A MEDICATION (FUROSEMIDE). PHARMACY STATED ON THEIR END IT SHOWED DUE AT 9 AND IT WAS OKAY TO GIVE
--- NOTE | 2017-05-06 09:08 | HMH.ACPN ---
Internal Medicine - PN: Subj *Date: 05/06/17 *Time: 09:08 Interval history: No complaints of chest pain. SOA and Edema improving. Lieing in bed eating breakfast in NAD. Relates no further weeping from legs. Wt reportedly 220 lbs this AM (down from 230 on admission per patient). Continues on IV milrinone. Exam Vital signs and Labs for Last 24 Hours: Temp Pulse Resp BP Pulse Ox 97.5 F L 74 16 111/73 90 L 05/06/17 08:00 05/06/17 06:00 05/06/17 06:00 05/06/17 06:00 05/06/17 08:46 BMP 05/06/17 06:30 Sodium 141 Potassium 4.0 Chloride 107 Carbon Dioxide 30 BUN 19 H Creatinine 1.03 Glucose 94 I & O for Last 24 hours: Intake & Output 05/03/17 05/04/17 05/05/17 05/06/17 11:59 11:59 11:59 11:59 Intake Total 260 / 260 770 / 770 417 / 417 1463.013 / 1463.013 Output Total 800 / 800 250 / 250 4450 / 4450 2150 / 2150 Balance -540 / -540 520 / 520 -4033 / -4033 -686.987 / -686.987 Microbiology Reports for the Last 24 Hours: Microbiology 05/04/17 09:00 Leg,Right Gram Stain - Final 05/04/17 09:00 Leg,Right Wound Culture - Final Staphylococcus aureus Enterobact cloac comp no acute distress - *Routine HEENT Exam Head: Present: normocephalic Eye: Present: PERRL ENT: Present: mucous membranes moist - *Routine Neck Exam Present: supple, full ROM - *Routine Respiratory Exam Present: CTA bilaterally - *Routine Cardiovascular Exam Present: RRR, Normal S1, Normal S2 - *Routine Abdominal Exam Present: soft, normoactive bowel sounds - *Routine Extremities Exam Present: full ROM - Routine Back/Spine/Pelvis Exam Back/Spine: Present: full ROM - *Routine Skin Exam Comments: see note - Detailed Skin Exam right leg Type of rash: Present: blisters Description of rash: Present: crusting Body image: 1 - multiple open areas with dry skin Assessment and Plan (1) CHF (congestive heart failure), NYHA class IV Current visit: Yes Status: Acute Qualifiers: Congestive heart failure type: unspecified congestive heart failure type Qualified Code(s): I50.9 - Heart failure, unspecified Category: Medical Code(s): I50.9 - Heart failure, unspecified (2) Cellulitis Current visit: Yes Status: Acute Qualifiers: Site of cellulitis: extremity Site of cellulitis of extremity: lower extremity Laterality: right Qualified Code(s): L03.115 - Cellulitis of right lower limb Category: Medical Code(s): L03.90 - Cellulitis, unspecified (3) Edema Current visit: Yes Status: Acute Category: Medical Code(s): R60.9 - Edema, unspecified (4) CAD (coronary artery disease) Current visit: Yes Status: Chronic Category: Medical Code(s): I25.10 - Atherosclerotic heart disease of [place] coronary artery without angina pectoris (5) Cardiac arrhythmia Current visit: Yes Status: Chronic Category: Medical Code(s): I49.9 - Cardiac arrhythmia, unspecified (6) Ischemic cardiomyopathy Current visit: Yes Status: Chronic Category: Medical Code(s): I25.5 - Ischemic cardiomyopathy - Assessment and plan all Dx Assessment and Plan for all problems:: contiune care poss dc to swing bed once iv drips off
--- NOTE | 2017-05-06 09:11 | P.PN_ITS ---
Internal Medicine - PN: Subj *Date: 05/06/17 *Time: 09:08 Interval history: No complaints of chest pain. SOA and Edema improving. Lieing in bed eating breakfast in NAD. Relates no further weeping from legs. Wt reportedly 220 lbs this AM (down from 230 on admission per patient). Continues on IV milrinone. Exam Vital signs and Labs for Last 24 Hours: Temp Pulse Resp BP Pulse Ox 97.5 F L 74 16 111/73 90 L 05/06/17 08:00 05/06/17 06:00 05/06/17 06:00 05/06/17 06:00 05/06/17 08:46 BMP 05/06/17 06:30 Sodium 141 Potassium 4.0 Chloride 107 Carbon Dioxide 30 BUN 19 H Creatinine 1.03 Glucose 94 I & O for Last 24 hours: Intake & Output 05/03/17 05/04/17 05/05/17 05/06/17 11:59 11:59 11:59 11:59 Intake Total 260 / 260 770 / 770 417 / 417 1463.013 / 1463.013 Output Total 800 / 800 250 / 250 4450 / 4450 2150 / 2150 Balance -540 / -540 520 / 520 -4033 / -4033 -686.987 / -686.987 Microbiology Reports for the Last 24 Hours: Microbiology 05/04/17 09:00 Leg,Right Gram Stain - Final 05/04/17 09:00 Leg,Right Wound Culture - Final Staphylococcus aureus Enterobact cloac comp no acute distress - *Routine HEENT Exam Head: Present: normocephalic Eye: Present: PERRL ENT: Present: mucous membranes moist - *Routine Neck Exam Present: supple, full ROM - *Routine Respiratory Exam Present: CTA bilaterally - *Routine Cardiovascular Exam Present: RRR, Normal S1, Normal S2 - *Routine Abdominal Exam Present: soft, normoactive bowel sounds - *Routine Extremities Exam Present: full ROM - Routine Back/Spine/Pelvis Exam Back/Spine: Present: full ROM - *Routine Skin Exam Comments: see note - Detailed Skin Exam right leg Type of rash: Present: blisters Description of rash: Present: crusting Body image: 1 - multiple open areas with dry skin Assessment and Plan (1) CHF (congestive heart failure), NYHA class IV Current visit: Yes Status: Acute Qualifiers: Congestive heart failure type: unspecified congestive heart failure type Qualified Code(s): I50.9 - Heart failure, unspecified Category: Medical Code(s): I50.9 - Heart failure, unspecified (2) Cellulitis Current visit: Yes Status: Acute Qualifiers: Site of cellulitis: extremity Site of cellulitis of extremity: lower extremity Laterality: right Qualified Code(s): L03.115 - Cellulitis of right lower limb Category: Medical Code(s): L03.90 - Cellulitis, unspecified (3) Edema Current visit: Yes Status: Acute Category: Medical Code(s): R60.9 - Edema , unspecified (4) CAD (coronary artery disease) Current visit: Yes Status: Chronic Category: Medical Code(s): I25.10 - Atherosclerotic heart disease of [place] coronary artery without angina pectoris (5) Cardiac arrhythmia Current visit: Yes Status: Chronic Category: Medical Code(s): I49.9 - Cardiac arrhythmia, unspecified (6) Ischemic cardiomyopathy Current visit: Yes Status: Chronic Category: Medical Code(s): I25.5 - Ischemic cardiomyopathy - Assessment and plan all Dx Assessment and Plan for all problems::
--- NOTE | 2017-05-06 09:59 | HMH.ORTHPN ---
Subjective Date: 05/06/17 Time: 09:59 Principal diagnosis: CHF, Isch CM, Cellulitis Interval history: No complaints of chest pain. SOA and Edema improving. Lieing in bed eating breakfast in NAD. Relates no further weeping from legs. Wt reportedly 220 lbs this AM (down from 230 on admission per patient). Continues on IV milrinone. PN: Obj Ex Vital signs: Temp Pulse Resp BP Pulse Ox 97.5 F L 74 16 111/73 90 L 05/06/17 08:00 05/06/17 06:00 05/06/17 06:00 05/06/17 06:00 05/06/17 08:46 Narrative: Mr. Gallego is a 62 y/o male who presented 05/01/17 with c/o cellulitis. Patient states there is no pain to either leg. The redness and weeping drainage from both legs has improved. - Constitutional no acute distress Comments: Nonpalpable pedal pulses noted on right and weakly palpable DP 1+ on left. Erythema and 2+ pitting edema, b/l LE with right worse than the left. CFT delayed, skin temp cool to left, but warm secondary to cellulitis on the right. No calf or foot pain b/l. Several patches of erythema on the dorsal anterior leg, b/l. The legs have clear serous weeping fluids with no purulence noted. No deep ulcerations noted. No malodor. Overall less fluid drainage and improved cellulitis compared to yesterday. - Routine HEENT Exam Head: Present: normocephalic Eye: Present: PERRL ENT: Present: mucous membranes moist - Routine Neck Exam Present: trachea midline. Absent: JVD - Routine Cardiovascular Exam Comments: Weakly palpable 1+ DP left, non palpable pulses on right LE - Routine Extremities Exam Present: edema (right worse than left LE), amputation (left 5th partial met). Absent: normal capillary refill, calf tenderness - Detailed Extremities Exam: Vascular Peripheral pulses: 0 posterior tibialis (R), 0 dorsalis pedis (R), 1+ posterior tibialis (L), 1+ dorsalis pedis (L) - Detailed Lower Extremity Exam Lower leg: Right wound, Right warmth, Bilateral swelling, Bilateral erythema - Routine Skin Exam Present: erythema, scars, wounds - Routine Neurological Exam Present: alert, oriented X3 - Routine Psychiatric Exam Present: normal affect, normal thought process Progress Note: A&P (1) Cellulitis Start date: 04/30/17 Problem details: Cellulitis with seeping drainage< MRSA RLE Status: Acute Assessment and plan: Right > Left LE Cellulitis Cellulitis improving with IV Vanco. Wound cultures: positive for MRSA, Enterobacter 1. No plans for surgical podiatry intervention 2. Follow up on report for LEO/toe pressures b/l to evaluate vascular statues due to history of OM and delayed healing, weakly palpable pedal pulses 3. Discussed care with Maria Elena Gomez at [facility] 4. Applied unna boots b/l today, with coban 5. Continue antibiotics, agree with outpt oral abx therapy 6. Will need to follow up with [facility] upon discharge for continued therapy 7. Follow up with co out patient for routine DFC in 2 weeks Current Visit: Yes - Time Spent With Patient less than 15 minutes
[2017-05-06 12:00] LABS: POC Glucose,Bedside 167 mg/dL
--- NOTE | 2017-05-06 19:25 | PC.NURSE ---
PATIENT HAS HAD GOOD DAY. NO COMPLAINTS. DRESSING ON LEGS C/D/I. REMAINS PACED. VSS WILL CONTINUE TO MONITOR
[2017-05-06 19:38] LABS: POC Glucose,Bedside 113 mg/dL
[2017-05-07] VITALS (22 sets, daily range): BP systolic 91–124; BP diastolic 45–78; PULSE 70–86; RESP 15–20; TEMP 36.6–36.8; O2SAT 71–98
[2017-05-07 01:27] LABS: POC Glucose,Bedside 163 mg/dL
[2017-05-07 06:26] LABS: POC Glucose,Bedside 74 mg/dL
--- NOTE | 2017-05-07 07:46 | HMH.CARDPN2 ---
Subjective PN (PG) Date: 05/07/17 Time: 07:30 Principal diagnosis: CHF, Isch CM, Cellulitis Interval history: 62-year-old white male in bed eating breakfast in no acute distress. States he continues to improve. Weight is down to 215 pounds this morning. He has been ambulating in the room without difficulty. Both lower extremities are wrapped. He continues to have greater urine output than intake. He continues on IV milrinone. PN Exam ([facility]) Vital signs: Temp Pulse Resp BP Pulse Ox 97.8 F 74 17 97/60 98 05/07/17 06:15 05/07/17 02:00 05/07/17 01:00 05/07/17 02:00 05/07/17 06:39 - Constitutional no acute distress - Routine Respiratory Exam Comments: Improved breath sounds and air movement with no rales or wheezing. - Routine Cardiovascular Exam Present: RRR - Routine Extremities Exam Comments: Both lower extremities are wrapped below the knee. A/P Progress Note ([facility]) (1) CHF (congestive heart failure), NYHA class IV Status: Acute Assessment and plan: Patient continues on IV milrinone with Lasix 40 mg IV twice daily. Intake less than output. Will await BMP today. Ideally, we would continue milrinone and IV Lasix until creatinine starts to rise to find the patient's dry weight and to prevent readmission in the near future. Current Visit: Yes (2) Ischemic cardiomyopathy Status: Chronic Current Visit: Yes (3) Cardiac arrhythmia Status: Chronic Assessment and plan: No arrhythmias noted on telemetry he continues on amiodarone. Current Visit: Yes (4) CAD (coronary artery disease) Status: Chronic Assessment and plan: Likely stable without complaints. Current Visit: Yes (5) Edema Status: Acute Assessment and plan: Significant improvement since admission. Weight is down at least 15 pounds. Edema has resolved. Mild abdominal edema. Current Visit: Yes
[2017-05-07 07:48] LABS: Vancomycin,Trough 25.4 mcg/ml (10.0-20.0)
--- NOTE | 2017-05-07 07:50 | P.PN_ITS ---
Subjective PN (PG) Date: 05/07/17 Time: 07:30 Principal diagnosis: CHF, Isch CM, Cellulitis Interval history: 62-year-old white male in bed eating breakfast in no acute distress. States he continues to improve. Weight is down to 215 pounds this morning. He has been ambulating in the room without difficulty. Both lower extremities are wrapped. He continues to have greater urine output than intake. He continues on IV milrinone. PN Exam ([facility]) Vital signs: Temp Pulse Resp BP Pulse Ox 97.8 F 74 17 97/60 98 05/07/17 06:15 05/07/17 02:00 05/07/17 01:00 05/07/17 02:00 05/07/17 06:39 - Constitutional no acute distress - Routine Respiratory Exam Comments: Improved breath sounds and air movement with no rales or wheezing. - Routine Cardiovascular Exam Present: RRR - Routine Extremities Exam Comments: Both lower extremities are wrapped below the knee. A/P Progress Note ([facility]) (1) CHF (congestive heart failure), NYHA class IV Status: Acute Assessment and plan: Patient continues on IV milrinone with Lasix 40 mg IV twice daily. Intake less than output. Will await BMP today. Ideally, we would continue milrinone and IV Lasix until creatinine starts to rise to find the patient's dry weight and to prevent readmission in the near future. Current Visit: Yes (2) Ischemic cardiomyopathy Status: Chronic Current Visit: Yes (3) Cardiac arrhythmia Status: Chronic Assessment and plan: No arrhythmias noted on telemetry he continues on amiodarone. Current Visit: Yes (4) CAD (coronary artery disease) Status: Chronic Assessment and plan: Likely stable without complaints. Current Visit: Yes (5) Edema Status: Acute Assessment and plan: Significant improvement since admission. Weight is down at least 15 pounds. Edema has resolved. Mild abdominal edema. Current Visit: Yes
[2017-05-07 07:58] LABS: Anion Gap 9.3 mEq/L (5-15); Blood Urea Nitrogen 17 mg/dL (7-18); Carbon Dioxide 29 mmol/L (21.0-32.0); Chloride 104 mmol/L (98-107); Creatinine Clearance Estimated 106 mg/ml (0-300); Estimated Glomerular Filt Rate > 60 ml/min (>60); GFR (African American) > 60 ML/MIN (>60); Glucose 84 mg/dL (74-106); Potassium 4.3 mmoL/L (3.5-5.1); Sodium 138 mmol/L (136-145)
--- NOTE | 2017-05-07 08:25 | HMH.DCSUM ---
General - General Admission date: 05/01/17 Discharge date: 05/07/17 HPI HPI: 62 yo WM with known ischemic cardiomyopathy and EF of 10-15% for which he has an AICD. He is followed by Dr. Woods in [place] and has an appointment next week. Recent wt gain of about 20 lbs with dietary indiscretion. Pt was admitted for increasing swelling into abdomen and scrotum along with increasing SOA. At this time he has noted some improvement with diuresis. Denies any chest pains. Objective Vital signs: Temp Pulse Resp BP Pulse Ox 97.8 F 76 15 114/67 95 05/07/17 06:15 05/07/17 07:00 05/07/17 04:00 05/07/17 07:00 05/07/17 07:00 no acute distress - *Routine HEENT Exam Head: Present: normocephalic Eye: Present: PERRL ENT: Present: mucous membranes moist - *Routine Neck Exam Present: supple, full ROM - *Routine Respiratory Exam Present: CTA bilaterally - *Routine Cardiovascular Exam Present: RRR, Normal S1 - *Routine Abdominal Exam Present: soft, normoactive bowel sounds - *Routine Extremities Exam Present: full ROM - Detailed Lower Extremity Exam Leg image: 1 - unaboot in place 2 - unaboot in place Hospital Course Hospital Course: Patient was on IV milrinone with Lasix 40 mg IV twice daily. cardiology consult, duc consult- unaboot in place. will dc home if ok with cardiology. Pt will follow up with cardiology and duc as out pt. Results Labs on day of discharge: Labs from last 24 hours 05/07/17 05/07/17 05/07/17 06:21 06:21 06:17 Sodium 138 Potassium 4.3 Chloride 104 Carbon Dioxide 29 Anion Gap 9.3 BUN 17 Creatinine 1.00 Estimated Creat Clear 106 Estimated GFR > 60 Est GFR ( Amer) > 60 Glucose 84 POC Glucose 74 Vancomycin Trough 25.4 H 05/06/17 05/06/17 05/06/17 21:36 16:59 11:40 Sodium Potassium Chloride Carbon Dioxide Anion Gap BUN Creatinine Estimated Creat Clear Estimated GFR Est GFR ( Amer) Glucose POC Glucose 163 113 167 Vancomycin Trough DS: Diagnosis - Discharge Diagnosis (1) CHF (congestive heart failure), NYHA class IV Status: Chronic (2) Cellulitis Status: Acute (3) Edema Status: Acute (4) CAD (coronary artery disease) Status: Chronic (5) Cardiac arrhythmia Status: Chronic (6) Ischemic cardiomyopathy Status: Chronic Meds Home Medications Medication Instructions Recorded Confirmed Type Amiodarone HCl [Amiodarone 200mg 200 mg PO DAILY 05/02/17 05/06/17 History Tab] Bisoprolol Fumarate [Zebeta 5mg 2.5 mg PO DAILY 05/02/17 05/06/17 History tablet] Lisinopril [Lisinopril 2.5mg Tab] 2.5 mg PO DAILY 05/02/17 05/06/17 History Potassium Chloride [Klor-con 20 20 meq PO DAILY 05/02/17 05/06/17 History mEq tablet] Pravastatin Sodium [Pravachol] 40 mg PO HS 05/02/17 05/06/17 History Allergies Allergy/AdvReac Type Severity Reaction Status Date / Time No Known Allergies Allergy Verified 05/17/17 16:19 Discharge Plan - Patient Discharge Instructions Patient Instructions: DI for Cellulitis -- Adult, Heart Failure, Cellulitis, Arrhythmias, Antibiotic-associated Colitis -- C difficile, DI for Heart Failure - Follow up Plan Disposition: Home, Self-Retirement Medications: Home Medications Medication Instructions Recorded Confirmed Type Amiodarone HCl [Amiodarone 200mg 200 mg PO DAILY 05/02/17 05/06/17 History Tab] Bisoprolol Fumarate [Zebeta 5mg 2.5 mg PO DAILY 05/02/17 05/06/17 History tablet] Lisinopril [Lisinopril 2.5mg Tab] 2.5 mg PO DAILY 05/02/17 05/06/17 History Potassium Chloride [Klor-con 20 20 meq PO DAILY 05/02/17 05/06/17 History mEq tablet] Pravastatin Sodium [Pravachol] 40 mg PO HS 05/02/17 05/06/17 History Prescriptions/Medication Reconciliation: New Furosemide
--- NOTE | 2017-05-07 08:36 | HMH.ACPN ---
Internal Medicine - PN: Subj *Date: 05/07/17 *Time: 08:36 Interval history: 62-year-old white male in bed eating breakfast in no acute distress. States he continues to improve. Weight is down to 215 pounds this morning. He has been ambulating in the room without difficulty. Both lower extremities are wrapped. He continues to have greater urine output than intake. He continues on IV milrinone. Exam Vital signs and Labs for Last 24 Hours: Temp Pulse Resp BP Pulse Ox 97.8 F 76 15 114/67 95 05/07/17 06:15 05/07/17 07:00 05/07/17 04:00 05/07/17 07:00 05/07/17 07:00 BMP 05/07/17 06:21 Sodium 138 Potassium 4.3 Chloride 104 Carbon Dioxide 29 BUN 17 Creatinine 1.00 Glucose 84 I & O for Last 24 hours: Intake & Output 05/04/17 05/05/17 05/06/17 05/07/17 11:59 11:59 11:59 11:59 Intake Total 770 / 770 417 / 417 1563.013 / 3763.154 5606.697 / 1287.697 Output Total 250 / 250 4450 / 4450 2150 / 2150 2325 / 2325 Balance 520 / 520 -4033 / -4033 -586.987 / -586.987 -1037.303 / -1037.303 Microbiology Reports for the Last 24 Hours: Microbiology 05/04/17 09:00 Leg,Right Gram Stain - Final 05/04/17 09:00 Leg,Right Wound Culture - Final Staphylococcus aureus Enterobact cloac comp no acute distress - *Routine HEENT Exam Head: Present: normocephalic Eye: Present: PERRL ENT: Present: mucous membranes moist - *Routine Neck Exam Present: supple, full ROM - *Routine Respiratory Exam Present: CTA bilaterally - *Routine Cardiovascular Exam Present: RRR - *Routine Abdominal Exam Present: soft, normoactive bowel sounds - *Routine Extremities Exam Comments: unaboots in place bobbi lower ext - Detailed Lower Extremity Exam Leg image: 1 - unaboots in place Assessment and Plan (1) CHF (congestive heart failure), NYHA class IV Current visit: Yes Status: Acute Qualifiers: Congestive heart failure type: unspecified congestive heart failure type Qualified Code(s): I50.9 - Heart failure, unspecified Category: Medical Code(s): I50.9 - Heart failure, unspecified (2) Cellulitis Problem details: Cellulitis with seeping drainage< MRSA RLE Current visit: Yes Status: Acute Qualifiers: Site of cellulitis: extremity Site of cellulitis of extremity: lower extremity Laterality: right Qualified Code(s): L03.115 - Cellulitis of right lower limb Category: Medical Code(s): L03.90 - Cellulitis, unspecified (3) Edema Current visit: Yes Status: Acute Category: Medical Code(s): R60.9 - Edema, unspecified (4) CAD (coronary artery disease) Current visit: Yes Status: Chronic Category: Medical Code(s): I25.10 - Atherosclerotic heart disease of [place] coronary artery without angina pectoris (5) Cardiac arrhythmia Current visit: Yes Status: Chronic Category: Medical Code(s): I49.9 - Cardiac arrhythmia, unspecified (6) Ischemic cardiomyopathy Current visit: Yes Status: Chronic Category: Medical Code(s): I25.5 - Ischemic cardiomyopathy - Assessment and plan all Dx Assessment and Plan for all problems:: astrid frazier
--- NOTE | 2017-05-07 08:39 | P.PN_ITS ---
Internal Medicine - PN: Subj *Date: 05/07/17 *Time: 08:36 Interval history: 62-year-old white male in bed eating breakfast in no acute distress. States he continues to improve. Weight is down to 215 pounds this morning. He has been ambulating in the room without difficulty. Both lower extremities are wrapped. He continues to have greater urine output than intake. He continues on IV milrinone. Exam Vital signs and Labs for Last 24 Hours: Temp Pulse Resp BP Pulse Ox 97.8 F 76 15 114/67 95 05/07/17 06:15 05/07/17 07:00 05/07/17 04:00 05/07/17 07:00 05/07/17 07:00 BMP 05/07/17 06:21 Sodium 138 Potassium 4.3 Chloride 104 Carbon Dioxide 29 BUN 17 Creatinine 1.00 Glucose 84 I & O for Last 24 hours: Intake & Output 05/04/17 05/05/17 05/06/17 05/07/17 11:59 11:59 11:59 11:59 Intake Total 770 / 770 417 / 417 1563.013 / 3483.372 1259.697 / 1287.697 Output Total 250 / 250 4450 / 4450 2150 / 2150 2325 / 2325 Balance 520 / 520 -4033 / -4033 -586.987 / -586.987 -1037.303 / -1037.303 Microbiology Reports for the Last 24 Hours: Microbiology 05/04/17 09:00 Leg,Right Gram Stain - Final 05/04/17 09:00 Leg,Right Wound Culture - Final Staphylococcus aureus Enterobact cloac comp no acute distress - *Routine HEENT Exam Head: Present: normocephalic Eye: Present: PERRL ENT: Present: mucous membranes moist - *Routine Neck Exam Present: supple, full ROM - *Routine Respiratory Exam Present: CTA bilaterally - *Routine Cardiovascular Exam Present: RRR - *Routine Abdominal Exam Present: soft, normoactive bowel sounds - *Routine Extremities Exam Comments: unaboots in place bobbi lower ext - Detailed Lower Extremity Exam Leg image: 1 - unaboots in place Assessment and Plan (1) CHF (congestive heart failure), NYHA class IV Current visit: Yes Status: Acute Qualifiers: Congestive heart failure type: unspecified congestive heart failure type Qualified Code(s): I50.9 - Heart failure, unspecified Category: Medical Code(s): I50.9 - Heart failure, unspecified (2) Cellulitis Problem details: Cellulitis with seeping drainage< MRSA RLE Current visit: Yes Status: Acute Qualifiers: Site of cellulitis: extremity Site of cellulitis of extremity: lower extremity Laterality: right Qualified Code(s): L03.115 - Cellulitis of right lower limb Category: Medical Code(s): L03.90 - Cellulitis, unspecified (3) Edema Current visit: Yes Status: Acute Category: Medical Code(s): R60.9 - Edema , unspecified (4) CAD (coronary artery disease) Current visit: Yes Status: Chronic Category: Medical Code(s): I25.10 - Atherosclerotic heart disease of [place] coronary artery without angina pectoris (5) Cardiac arrhythmia Current visit: Yes Status: Chronic Category: Medical Code(s): I49.9 - Cardiac arrhythmia, unspecified (6) Ischemic cardiomyopathy Current visit: Yes Status: Chronic Category: Medical Code(s): I25.5 - Ischemic cardiomyopathy - Assessment and plan all Dx Assessment and Plan for all problems:: astrid frazier
--- NOTE | 2017-05-07 09:51 | HMH.PHACONS ---
- Pharmacy Consult Date: 05/07/17 Time: 09:51 Referring provider: DR. TOLENTINO Reason for Consult:: VANCOMYCIN TROUGH LEVEL Allergies and ADEs:: Allergies Allergy/AdvReac Type Severity Reaction Status Date / Time No Known Allergies Allergy Unverified 05/01/17 18:09 Home Medications:: Home Medications Medication Instructions Recorded Confirmed Type Amiodarone HCl [Amiodarone 200mg 200 mg PO DAILY 05/02/17 05/06/17 History Tab] Bisoprolol Fumarate [Zebeta 5mg 2.5 mg PO DAILY 05/02/17 05/06/17 History tablet] Furosemide [Lasix 40mg tab] 40 mg PO DAILY 05/02/17 05/06/17 History Lisinopril [Lisinopril 2.5mg Tab] 2.5 mg PO DAILY 05/02/17 05/06/17 History Potassium Chloride [Klor-con 20 20 meq PO DAILY 05/02/17 05/06/17 History mEq tablet] Pravastatin Sodium [Pravachol] 40 mg PO HS 05/02/17 05/06/17 History Rivaroxaban [Xarelto] 20 mg PO DAILY 05/02/17 05/06/17 History Height: 1.83 m Weight: 97.522 kg Laboratory Results:: Laboratory Results - last 24 hr 05/06/17 05/06/17 05/06/17 11:40 16:59 21:36 Sodium Potassium Chloride Carbon Dioxide Anion Gap BUN Creatinine Estimated Creat Clear Estimated GFR Est GFR ( Amer) Glucose POC Glucose 167 mg/dL mg/dL 113 mg/dL mg/dL 163 mg/dL mg/dL Vancomycin Trough 05/07/17 05/07/17 05/07/17 06:17 06:21 06:21 Sodium 138 mmol/L mmol/L (136-145) Potassium 4.3 mmoL/L mmoL/L (3.5-5.1) Chloride 104 mmol/L mmol/L (98-107) Carbon Dioxide 29 mmol/L mmol/L (21.0-32.0) Anion Gap 9.3 mEq/L mEq/L (5-15) BUN 17 mg/dL mg/dL (7-18) Creatinine 1.00 mg/dL mg/dL (0.70-1.30) Estimated Creat Clear 106 mg/ml mg/ml (0-300) Estimated GFR > 60 ml/min ml/min (>60) Est GFR ( Amer) > 60 ML/MIN ML/MIN (>60) Glucose 84 mg/dL mg/dL (74-106) POC Glucose 74 mg/dL mg/dL Vancomycin Trough 25.4 mcg/ml H mcg/ml (10.0-20.0) Medical History: Reports:: Congestive Heart Failure, Diabetes Mellitus Type 2 Assessment and Plan (1) Cellulitis Problem details: Cellulitis with seeping drainage< MRSA RLE Current visit: Yes Status: Acute Qualifiers: Site of cellulitis: extremity Site of cellulitis of extremity: lower extremity Laterality: right Qualified Code(s): L03.115 - Cellulitis of right lower limb Category: Medical Code(s): L03.90 - Cellulitis, unspecified - Assessment and plan all Dx Assessment and Plan for all problems:: BASED ON VANCOMYCIN TROUGH LEVEL, RECOMMEND HOLDING DOSE THIS MORNING. WILL RESTART VANCOMYCIN TONIGHT AT A LOWER DOSE, VANCOMYCIN 1 GM IV Q12H. PHARMACY WILL CONTINUE TO MONITOR DAILY AND ADJUST APPROPRIATE.
[2017-05-07 11:32] LABS: POC Glucose,Bedside 172 mg/dL
--- NOTE | 2017-05-07 19:16 | PC.NURSE ---
Report given to Pretty Woodard RN.
[2017-05-07 21:07] LABS: POC Glucose,Bedside 100 mg/dL
[2017-05-08] VITALS (21 sets, daily range): BP systolic 91–116; BP diastolic 59–76; PULSE 50–85; RESP 17–22; TEMP 36.1–37; O2SAT 71–99
[2017-05-08 04:01] LABS: POC Glucose,Bedside 238 mg/dL
--- NOTE | 2017-05-08 04:11 | PC.NURSE ---
PT IS A&OX3. HE CONTINUES ON A MILRINONE GTT. HIS BLE ARE WRAPPED. HE IS VOIDING PER THE URINAL. HIS URINE IS YELLOW, CLEAR. SCATTERED ABRASIONS ON ALL EXTREMITIES. HE HAS BEEN WEARING O2 AT NIGHT WHILE HE SLEEPS.
[2017-05-08 06:27] LABS: POC Glucose,Bedside 80 mg/dL
--- NOTE | 2017-05-08 07:25 | PC.PHONENOTE ---
REPORT GIVEN TO MANSI
--- NOTE | 2017-05-08 07:27 | PC.NURSE ---
Report given to Kal Hudson WC/SRNA
--- NOTE | 2017-05-08 08:53 | PC.NURSE ---
spoke with jayson in pharmacy who verifies that rocephin and vancomycin is compatible with milrinone
--- NOTE | 2017-05-08 09:43 | PC.NURSE ---
pt removes oxygen during the day. pt fell asleep and oz noted to drop to 82%-89% on RA. oxygen placed on pt and sats 94-98% while sleeping.
--- NOTE | 2017-05-08 12:00 | HMH.ACPN ---
Internal Medicine - PN: Subj *Date: 05/08/17 *Time: 12:00 Interval history: pt seen and no c/o - doing better Exam Vital signs and Labs for Last 24 Hours: Temp Pulse Resp BP Pulse Ox 97.0 F L 70 22 107/74 97 05/08/17 08:00 05/08/17 10:00 05/08/17 10:00 05/08/17 10:00 05/08/17 10:00 I & O for Last 24 hours: Intake & Output 05/06/17 05/07/17 05/08/17 05/09/17 11:59 11:59 11:59 11:59 Intake Total 1563.013 / 4231.200 3982.697 / 7450.786 7150 / 1080 Output Total 2150 / 2150 2325 / 2325 3345 / 3345 Balance -586.987 / -586.987 -797.303 / -797.303 -2265 / -2265 Microbiology Reports for the Last 24 Hours: Microbiology 05/04/17 09:00 Leg,Right Gram Stain - Final 05/04/17 09:00 Leg,Right Wound Culture - Final Staphylococcus aureus Enterobact cloac comp no acute distress - *Routine HEENT Exam Head: Present: normocephalic Eye: Present: PERRL ENT: Present: mucous membranes dry - *Routine Neck Exam Present: supple - *Routine Respiratory Exam Present: decreased breath sounds. Absent: respiratory distress - *Routine Cardiovascular Exam Present: murmur. Absent: S3 - *Routine Abdominal Exam Present: soft - *Routine Extremities Exam Present: edema - *Routine Skin Exam Present: intact - *Routine Neurological Exam Present: alert, oriented X3, CN II-XII intact - Routine Psychiatric Exam Present: normal affect Assessment and Plan (1) Cellulitis Problem details: Cellulitis with seeping drainage< MRSA RLE Current visit: Yes Status: Acute Qualifiers: Site of cellulitis: extremity Site of cellulitis of extremity: lower extremity Laterality: right Qualified Code(s): L03.115 - Cellulitis of right lower limb Category: Medical Code(s): L03.90 - Cellulitis, unspecified (2) CHF (congestive heart failure), NYHA class IV Current visit: Yes Status: Acute Qualifiers: Congestive heart failure type: unspecified congestive heart failure type Qualified Code(s): I50.9 - Heart failure, unspecified Category: Medical Code(s): I50.9 - Heart failure, unspecified
--- NOTE | 2017-05-08 12:04 | P.PN_ITS ---
Internal Medicine - PN: Subj *Date: 05/08/17 *Time: 12:00 Interval history: pt seen and no c/o - doing better Exam Vital signs and Labs for Last 24 Hours: Temp Pulse Resp BP Pulse Ox 97.0 F L 70 22 107/74 97 05/08/17 08:00 05/08/17 10:00 05/08/17 10:00 05/08/17 10:00 05/08/17 10:00 I & O for Last 24 hours: Intake & Output 05/06/17 05/07/17 05/08/17 05/09/17 11:59 11:59 11:59 11:59 Intake Total 1563.013 / 8170.593 6873.697 / 6626.269 9475 / 1080 Output Total 2150 / 2150 2325 / 2325 3345 / 3345 Balance -586.987 / -586.987 -797.303 / -797.303 -2265 / -2265 Microbiology Reports for the Last 24 Hours: Microbiology 05/04/17 09:00 Leg,Right Gram Stain - Final 05/04/17 09:00 Leg,Right Wound Culture - Final Staphylococcus aureus Enterobact cloac comp no acute distress - *Routine HEENT Exam Head: Present: normocephalic Eye: Present: PERRL ENT: Present: mucous membranes dry - *Routine Neck Exam Present: supple - *Routine Respiratory Exam Present: decreased breath sounds. Absent: respiratory distress - *Routine Cardiovascular Exam Present: murmur. Absent: S3 - *Routine Abdominal Exam Present: soft - *Routine Extremities Exam Present: edema - *Routine Skin Exam Present: intact - *Routine Neurological Exam Present: alert, oriented X3, CN II-XII intact - Routine Psychiatric Exam Present: normal affect Assessment and Plan (1) Cellulitis Problem details: Cellulitis with seeping drainage< MRSA RLE Current visit: Yes Status: Acute Qualifiers: Site of cellulitis: extremity Site of cellulitis of extremity: lower extremity Laterality: right Qualified Code(s): L03.115 - Cellulitis of right lower limb Category: Medical Code(s): L03.90 - Cellulitis, unspecified (2) CHF (congestive heart failure), NYHA class IV Current visit: Yes Status: Acute Qualifiers: Congestive heart failure type: unspecified congestive heart failure type Qualified Code(s): I50.9 - Heart failure, unspecified Category: Medical Code(s): I50.9 - Heart failure, unspecified
--- NOTE | 2017-05-08 12:44 | PC.NURSE ---
PT OXYGEN SATS IN THE MID 80s ON RA WHILE AWAKE AND EATING. PT PLACED BACK ON O2.
[2017-05-08 12:55] LABS: Anion Gap 7.4 mEq/L (5-15); Blood Urea Nitrogen 16 mg/dL (7-18); Carbon Dioxide 35 mmol/L (21.0-32.0); Chloride 101 mmol/L (98-107); Creatinine Clearance Estimated 98 mL/min (0-300); Creatinine,Serum 1.08 mg/dL (0.70-1.30); Estimated Glomerular Filt Rate > 60 ml/min (>60); GFR (African American) > 60 ML/MIN (>60); Glucose 127 mg/dL (74-106); Potassium 4.4 mmoL/L (3.5-5.1); Sodium 139 mmol/L (136-145)
--- NOTE | 2017-05-08 19:27 | PC.NURSE ---
report given to johnny briseno rn
[2017-05-09] VITALS (15 sets, daily range): BP systolic 99–127; BP diastolic 40–66; PULSE 60–701; RESP 15–20; TEMP 36.3–37.2; O2SAT 91–100
--- NOTE | 2017-05-09 02:10 | PC.NURSE ---
PT IS A&OX3. HE CONTINUES WITH NIKKI BOOTS ON BLE. SCATTERED ABRASIONS ON BUE. HE IS VOIDING PER URINAL. URINE IS YELLOW, CLEAR. PACED ON TELEMETRY.
[2017-05-09 02:43] LABS: POC Glucose,Bedside 140 mg/dL
[2017-05-09 06:21] LABS: POC Glucose,Bedside 110 mg/dL
[2017-05-09 06:48] LABS: Blood Urea Nitrogen 15 mg/dL (7-18); Carbon Dioxide 32 mmol/L (21.0-32.0); Chloride 103 mmol/L (98-107); Creatinine Clearance Estimated 97 mL/min (0-300); Creatinine,Serum 0.95 mg/dL (0.70-1.30); Estimated Glomerular Filt Rate > 60 ml/min (>60); GFR (African American) > 60 ML/MIN (>60); Sodium 139 mmol/L (136-145)
[2017-05-09 06:58] LABS: Glucose 98 mg/dL (74-106)
--- NOTE | 2017-05-09 08:00 | PC.NURSE ---
late entry: pt has bobbi unna boots in place
--- NOTE | 2017-05-09 09:49 | P.PN_ITS ---
Internal Medicine - PN: Subj *Date: 05/22/17 *Time: 09:26 Interval history: pt seen and no c/o - doing better Exam Vital signs and Labs for Last 24 Hours: Temp Pulse Resp BP Pulse Ox 97.5 F L 71 20 99/52 99 05/09/17 05:10 05/09/17 08:18 05/09/17 08:18 05/09/17 08:18 05/09/17 08:18 Laboratory Results - last 24 hr 05/08/17 12:40: Sodium 139, Potassium 4.4, Chloride 101, Carbon Dioxide 35 H D, Anion Gap 7.4, BUN 16, Creatinine 1.08, Estimated Creat Clear 98, Estimated GFR > 60, Est GFR ( Amer) > 60, Glucose 127 H 05/08/17 19:53: POC Glucose 140 05/09/17 06:03: POC Glucose 110 05/09/17 06:20: Sodium 139, Potassium 4.0, Chloride 103, Carbon Dioxide 32, Anion Gap 8.0, BUN 15, Creatinine 0.95, Estimated Creat Clear 97, Estimated GFR > 60, Est GFR ( Amer) > 60, Glucose 98 D I & O for Last 24 hours: Intake & Output 05/06/17 05/07/17 05/08/17 05/09/17 11:59 11:59 11:59 11:59 Intake Total 1563.013 / 2163.292 6177.697 / 5010.374 6394 / 1080 1200 / 1200 Output Total 2150 / 2150 2325 / 2325 3345 / 3345 5250 / 5250 Balance -586.987 / -586.987 -797.303 / -797.303 -2265 / -2265 -4050 / -4050 - Constitutional no acute distress - *Routine HEENT Exam Head: Present: normocephalic Eye: Present: PERRL ENT: Present: mucous membranes moist - *Routine Neck Exam Present: supple, full ROM - *Routine Respiratory Exam Present: wheezes - *Routine Cardiovascular Exam Present: RRR - *Routine Abdominal Exam Present: soft, normoactive bowel sounds Assessment and Plan (1) CHF (congestive heart failure), NYHA class IV Status: Chronic Qualifiers: Congestive heart failure type: unspecified congestive heart failure type Category: Medical Code(s): I50.9 - Heart failure, unspecified (2) Cellulitis Status: Acute Qualifiers: Site of cellulitis: extremity Site of cellulitis of extremity: lower extremity Laterality: right Qualified Code(s): L03.115 - Cellulitis of right lower limb Category: Medical Code(s): L03.90 - Cellulitis, unspecified (3) Edema Status: Acute Qualifiers: Edema type: unspecified Qualified Code(s): R60.9 - Edema, unspecified Category: Medical Code(s): R60.9 - Edema, unspecified (4) CAD (coronary artery disease) Status: Chronic Qualifiers: Coronary Disease-Associated Artery/Lesion type: [place] artery [place] vs. transplanted heart: eagle heart Associated angina: without angina Qualified Code(s): I25.10 - Atherosclerotic heart disease of eagle coronary artery without angina pectoris Category: Medical Code(s): I25.10 - Atherosclerotic heart disease of eagle coronary artery without angina pectoris (5) Cardiac arrhythmia Status: Chronic Qualifiers: Arrhythmia type: unspecified cardiac arrhythmia Qualified Code(s): I49.9 - Cardiac arrhythmia, unspecified Category: Medical Code(s): I49.9 - Cardiac arrhythmia, unspecified (6) Ischemic cardiomyopathy Status: Chronic Category: Medical Code(s): I25.5 - Ischemic cardiomyopathy - Assessment and plan all Dx Assessment and Plan for all problems:: cardiology consul;t
[2017-05-09 18:34] LABS: POC Glucose,Bedside 134 mg/dL
[2017-05-09 20:00] LABS: POC Glucose,Bedside 173 mg/dL
[2017-05-09 21:09] LABS: Adenovirus F 40/41, stool Not Detected (NotDetected); Astrovirus Not Detected (NotDetected); Campylobacter Not Detected (NotDetected); Cryptosporidium Not Detected (NotDetected); Cyclospora Cayetanesis Not Detected (NotDetected); Entamoeba histolytica Not Detected (NotDetected); Enteroaggregative E coli Not Detected (NotDetected); Enteropathogenic E coli Not Detected (NotDetected); Enterotoxigenic E coli Not Detected (NotDetected); Giardia lamblia Not Detected (NotDetected); Norovirus Not Detected (NotDetected); Plesimonas Shigalloides, PCR Not Detected (NotDetected); Rotavirus A Not Detected (NotDetected); Salmonella, PCR Not Detected (NotDetected); Sapovirus Not Detected (NotDetected); Shiga-like toxin E coli Not Detected (NotDetected); Shigella Enterovasive E coli Not Detected (NotDetected); Vibrio Cholerae Not Detected (NotDetected); Vibrio, PCR Not Detected (NotDetected); Yersinia Entercolitica, PCR Not Detected (NotDetected)
[2017-05-09 21:10] LABS: Clostridium Difficile A/B, PCR Detected (NotDetected)
[2017-05-10] VITALS (13 sets, daily range): BP systolic 91–112; BP diastolic 50–68; PULSE 68–80; RESP 12–20; TEMP 36.6–36.8; O2SAT 94–99
--- NOTE | 2017-05-10 05:02 | PC.NURSE ---
PT IS A&OX3. HE CONTINUES ON CONTACT PRECAUTIONS FOR CDIFF. HE HAD MULTIPLE LOOSE STOOLS T/O THE NIGHT. VOIDING PER URINAL. URINE IS YELLOW, CLEAR. VSS. HE CONTINUES ON MILIRINONE GTT.
[2017-05-10 05:41] LABS: Alanine Aminotransferase 18 U/L (12-78); Albumin Level 2.6 gm/dL (3.4-5.0); Albumin/Globulin Ratio 0.6 (1.1-1.8); Alkaline Phosphatase 138 U/L (46-116); Aspartate Amino Transferase 19 U/L (15-37); Bilirubin,Total 0.8 mg/dL (0.2-1.0); Blood Urea Nitrogen 17 mg/dL (7-18); Calcium 8.3 mg/dL (8.5-10.1); Carbon Dioxide 31 mmol/L (21.0-32.0); Chloride 102 mmol/L (98-107); Creatinine Clearance Estimated 81 mL/min (0-300); Creatinine,Serum 1.12 mg/dL (0.70-1.30); Estimated Glomerular Filt Rate > 60 ml/min (>60); GFR (African American) > 60 ML/MIN (>60); Globulin 4.6 gm/dl (1.3-3.2); Glucose 95 mg/dL (74-106); Sodium 138 mmol/L (136-145); Total Protein,Serum 7.2 gm/dL (6.4-8.2)
[2017-05-10 06:11] LABS: Basophils % 0.7 % (0.1-2.0); Hematocrit 45.6 % (42.0-52.0); Hemoglobin 14.1 g/dL (14.1-18.0); Lymphocytes % 12.7 K/mm3 (10-50); Mean Corpuscular Hemoglobin 29.3 pg (27.0-31.2); Mean Corpuscular Volume 94.6 fl (80-94); Mean Platelet Volume 9.4 fl (7.4-10.4); Monocytes % 6.4 % (1.7-9.3); Neutrophils # 7.8 K/mm3 (1.8-7.8); Neutrophils % 77.2 % (37.0-80.0); Platelet Count 194 K/mm3 (142-424); Red Blood Count 4.82 M/mm3 (4.60-6.20); Red Cell Distribution Width 14.9 % (11.5-17.5); White Blood Count 10.1 K/mm3 (4.8-10.8)
[2017-05-10 06:12] LABS: Basophils # 0.1 K/mm3 (0-0.2); Eosinophils # 0.3 K/mm3 (0.0-0.4); Lymphocytes # 1.3 K/mm3 (0.7-4.5); Monocytes # 0.7 K/mm3 (0.1-1.0)
[2017-05-10 06:31] LABS: POC Glucose,Bedside 83 mg/dL
--- NOTE | 2017-05-10 08:48 | HMH.ACPN ---
Internal Medicine - PN: Subj *Date: 05/10/17 *Time: 08:48 Interval history: doing better Exam Vital signs and Labs for Last 24 Hours: Temp Pulse Resp BP Pulse Ox 97.8 F 80 16 106/62 95 05/10/17 04:06 05/10/17 08:34 05/10/17 06:36 05/10/17 06:36 05/10/17 06:36 Laboratory Results - last 24 hr 05/09/17 17:32: POC Glucose 134 05/09/17 19:19: POC Glucose 173 05/09/17 : Stl Aeromonas (PCR) Not detected, Stl C. cayetanensis PCR Not detected, Stool Rotavirus (PCR) Not detected, Stl Adenov F 40/41 PCR Not detected, Stool Astrovirus (PCR) Not detected, Stool Cryptosporidium PCR Not detected, Stl E.coli Shiga Tox PCR Not detected, Stool E coli O157 PCR Not detected, Stl Enterotoxigenic E PCR Not detected, Stool EPEC (PCR) Not detected, Stool EAEC (PCR) Not detected, Stl E. histolytica PCR Not detected, Stool Giardia Lamblia PCR Not detected, Stool Sapovirus (PCR) Not detected, Stl P. shigelloides PCR Not detected, Stl Shigella/EIEC PCR Not detected, St Y.enterocolitica PCR Not detected, Stool Vibrio (PCR) Not detected, Stl Vibrio cholerae PCR Not detected, Stl Norovirus GI/GII PCR Not detected, Campylobacter (PCR) Not detected, C. difficile (PCR) Detected A, Salmonella (PCR) Not detected 05/10/17 05:20: Sodium 138, Potassium 4.0, Chloride 102, Carbon Dioxide 31, Anion Gap 9.0, BUN 17, Creatinine 1.12, Estimated Creat Clear 81, Estimated GFR > 60, Est GFR ( Amer) > 60, Glucose 95, Calcium 8.3 L, Total Bilirubin 0.8, AST 19, ALT 18, Alkaline Phosphatase 138 H, Total Protein 7.2, Albumin 2.6 L, Globulin 4.6 H, Albumin/Globulin Ratio 0.6 L 05/10/17 05:20: WBC 10.1, RBC 4.82, Hgb 14.1, Hct 45.6, MCV 94.6 H, MCH 29.3, MCHC 31.0 L, RDW 14.9, Plt Count 194, MPV 9.4, Neut % (Auto) 77.2, Lymph % (Auto) 12.7, [place] % (Auto) 6.4, Eos % (Auto) 3.0, Baso % (Auto) 0.7, Neut # (Auto) 7.8, Lymph # (Auto) 1.3, [place] # (Auto) 0.7, Eos # (Auto) 0.3, Baso # (Auto) 0.1 05/10/17 05:56: POC Glucose 83 I & O for Last 24 hours: Intake & Output 05/07/17 05/08/17 05/09/17 05/10/17 11:59 11:59 11:59 11:59 Intake Total 1527.697 / 5026.148 3775 / 1080 1200 / 1200 1388 / 1388 Output Total 2325 / 2325 3345 / 3345 5250 / 5250 2380 / 2380 Balance -797.303 / -797.303 -2265 / -2265 -4050 / -4050 -992 / -992 - Constitutional no acute distress - *Routine HEENT Exam Head: Present: normocephalic Eye: Present: EOMI, PERRL ENT: Present: mucous membranes dry - *Routine Neck Exam Present: supple - *Routine Respiratory Exam Present: decreased breath sounds. Absent: respiratory distress - *Routine Cardiovascular Exam Present: murmur - *Routine Abdominal Exam Present: soft - *Routine Extremities Exam Comments: bilat lower ext wraps - *Routine Skin Exam Comments: lower ext wraps - *Routine Neurological Exam Present: oriented X3, CN II-XII intact - Routine Psychiatric Exam Present: normal affect Assessment and Plan (1) Cellulitis Problem details: Cellulitis with seeping drainage< MRSA RLE Current visit: Yes Status: Acute Qualifiers: Site of cellulitis: extremity Site of cellulitis of extremity: lower extremity Laterality: right Qualified Code(s): L03.115 - Cellulitis of right lower limb Category: Medical Code(s): L03.90 - Cellulitis, unspecified (2) CHF (congestive heart failure), NYHA class IV Current visit: Yes Status: Acute Qualifiers: Congestive heart failure type: unspecified congestive heart failure type Qualified Code(s): I50.9 - Heart failure, unspecified Category: Medical Code(s): I50.9 - Heart failure, unspecified
--- NOTE | 2017-05-10 08:51 | HMH.DCSUM ---
General - General Admission date: 05/01/17 Discharge date: 05/10/17 HPI HPI: 62 yo WM with known ischemic cardiomyopathy and EF of 10-15% for which he has an AICD. He is followed by Dr. Woods in [place] and has an appointment next week. Recent wt gain of about 20 lbs with dietary indiscretion. Pt was admitted for increasing swelling into abdomen and scrotum along with increasing SOA. At this time he has noted some improvement with diuresis. Denies any chest pains. pt with reddness bilat lower ext consistent with cellulitis - Objective Vital signs: Temp Pulse Resp BP Pulse Ox 98.2 F 80 16 109/54 97 05/10/17 08:00 05/10/17 08:34 05/10/17 08:00 05/10/17 08:00 05/10/17 08:00 - *Routine HEENT Exam Eye: Present: EOMI, PERRL ENT: Present: mucous membranes dry - *Routine Neck Exam Absent: JVD - *Routine Respiratory Exam Present: decreased breath sounds. Absent: respiratory distress - *Routine Cardiovascular Exam Present: murmur, S4 - *Routine Extremities Exam Present: edema. Absent: Amena's sign - *Routine Skin Exam Comments: cellulitis lower ext - *Routine Neurological Exam Present: oriented X3, CN II-XII intact - Routine Psychiatric Exam Present: normal affect, normal thought process Hospital Course Hospital Course: pt with slow improvement in cellulitis in lower ext and on abx - he was seen by dr ruiz and had leg wraps and will be followed as op- he was seen by card with chf and has good response to diuretics Results Labs on day of discharge: Labs from last 24 hours 05/10/17 05/10/17 05/10/17 05:56 05:20 05:20 WBC 10.1 RBC 4.82 Hgb 14.1 Hct 45.6 MCV 94.6 H MCH 29.3 MCHC 31.0 L RDW 14.9 Plt Count 194 MPV 9.4 Neut % (Auto) 77.2 Lymph % (Auto) 12.7 [place] % (Auto) 6.4 Eos % (Auto) 3.0 Baso % (Auto) 0.7 Neut # (Auto) 7.8 Lymph # (Auto) 1.3 [place] # (Auto) 0.7 Eos # (Auto) 0.3 Baso # (Auto) 0.1 Sodium 138 Potassium 4.0 Chloride 102 Carbon Dioxide 31 Anion Gap 9.0 BUN 17 Creatinine 1.12 Estimated Creat Clear 81 Estimated GFR > 60 Est GFR ( Amer) > 60 Glucose 95 POC Glucose 83 Calcium 8.3 L Total Bilirubin 0.8 AST 19 ALT 18 Alkaline Phosphatase 138 H Total Protein 7.2 Albumin 2.6 L Globulin 4.6 H Albumin/Globulin Ratio 0.6 L Stl Aeromonas (PCR) Stl C. cayetanensis PCR Stool Rotavirus (PCR) Stl Adenov F 40/ PCR Stool Astrovirus (PCR) Stool Cryptosporidium PCR Stl E.coli Shiga Tox PCR Stool E coli O157 PCR Stl Enterotoxigenic E PCR Stool EPEC (PCR) Stool EAEC (PCR) Stl E. histolytica PCR Stool Giardia Lamblia PCR Stool Sapovirus (PCR) Stl P. shigelloides PCR Stl Shigella/EIEC PCR St Y.enterocolitica PCR Stool Vibrio (PCR) Stl Vibrio cholerae PCR Stl Norovirus GI/GII PCR Campylobacter (PCR) C. difficile (PCR) Salmonella (PCR) 05/09/17 05/09/17 05/09/17 Unknown 19:19 17:32 WBC RBC Hgb Hct MCV MCH MCHC RDW Plt Count MPV Neut % (Auto) Lymph % (Auto) [place] % (Auto) Eos % (Auto) Baso % (Auto) Neut # (Auto) Lymph # (Auto) [place] # (Auto) Eos # (Auto) Baso # (Auto) Sodium Potassium Chloride Carbon Dioxide Anion Gap BUN Creatinine Estimated Creat Clear Estimated GFR Est GFR ( Amer) Glucose POC Glucose 173 134 Calcium Total Bilirubin AST ALT Alkaline Phosphatase Total Protein Albumin Globulin Albumin/Globulin Ratio Stl Aeromonas (PCR) Not detected Stl C. cayetanensis PCR Not detected Stool Rotavirus (PCR) Not detected Stl Adenov F PCR Not detected Stool Astrovirus (PCR) Not detected Stool Cryptosporidium PCR Not detected Stl E.coli Shiga Tox PCR Not detected Sto
[2017-05-10 08:52] LABS: POC Glucose,Bedside 123 mg/dL
[2017-05-10 08:53] LABS: POC Glucose,Bedside 126 mg/dL
[2017-05-10 08:53] LABS: POC Glucose,Bedside 142 mg/dL
--- NOTE | 2017-05-10 08:53 | HMH.CARDPN2 ---
Subjective PN (PG) Date: 05/10/17 Time: 08:53 Principal diagnosis: CHF, Isch CM, Cellulitis Interval history: Feeling better. Relates the edema has resolved. No chest pains. Ready to go home. PN Exam ([facility]) Vital signs: Temp Pulse Resp BP Pulse Ox 98.2 F 80 16 109/54 97 05/10/17 08:00 05/10/17 08:34 05/10/17 08:00 05/10/17 08:00 05/10/17 08:00 - Routine Respiratory Exam Present: CTA bilaterally - Routine Cardiovascular Exam Present: RRR Comments: Telemetry shows intermittent pacing otherwise NSR. - Routine Extremities Exam Absent: edema Comments: both legs wrapped below the knee. - Routine Neurological Exam Present: alert, oriented X3 A/P Progress Note ([facility]) (1) CHF (congestive heart failure), NYHA class IV Status: Acute Assessment and plan: D/C milrinone. Switch lasix to PO 40 mg BID. Continue potassium 20 meq daily along with bisoprolol 2.5 mg daily and lisinopril 2.5 mg daily. OK for discharge home. Follow up in one week. Current Visit: Yes (2) Ischemic cardiomyopathy Status: Chronic Current Visit: Yes (3) Cardiac arrhythmia Status: Chronic Assessment and plan: continue amiodarone 200 mg daily and Xarelto 20 mg daily. Current Visit: Yes (4) CAD (coronary artery disease) Status: Chronic Assessment and plan: Clinically stable. Continue pravastatin 40 mg daily. Current Visit: Yes (5) Edema Status: Acute Current Visit: Yes
--- NOTE | 2017-05-10 08:55 | P.DS_ITS ---
General - General Admission date: 05/01/17 Discharge date: 05/10/17 HPI HPI: 62 yo WM with known ischemic cardiomyopathy and EF of 10-15% for which he has an AICD. He is followed by Dr. Woods in [place] and has an appointment next week. Recent wt gain of about 20 lbs with dietary indiscretion. Pt was admitted for increasing swelling into abdomen and scrotum along with increasing SOA. At this time he has noted some improvement with diuresis. Denies any chest pains. pt with reddness bilat lower ext consistent with cellulitis - Objective Vital signs: Temp Pulse Resp BP Pulse Ox 98.2 F 80 16 109/54 97 05/10/17 08:00 05/10/17 08:34 05/10/17 08:00 05/10/17 08:00 05/10/17 08:00 - *Routine HEENT Exam Eye: Present: EOMI, PERRL ENT: Present: mucous membranes dry - *Routine Neck Exam Absent: JVD - *Routine Respiratory Exam Present: decreased breath sounds. Absent: respiratory distress - *Routine Cardiovascular Exam Present: murmur, S4 - *Routine Extremities Exam Present: edema. Absent: Amena's sign - *Routine Skin Exam Comments: cellulitis lower ext - *Routine Neurological Exam Present: oriented X3, CN II-XII intact - Routine Psychiatric Exam Present: normal affect, normal thought process Hospital Course Hospital Course: pt with slow improvement in cellulitis in lower ext and on abx - he was seen by dr ruiz and had leg wraps and will be followed as op- he was seen by card with chf and has good response to diuretics Results Labs on day of discharge: Labs from last 24 hours 05/10/17 05/10/17 05/10/17 05:56 05:20 05:20 WBC 10.1 RBC 4.82 Hgb 14.1 Hct 45.6 MCV 94.6 H MCH 29.3 MCHC 31.0 L RDW 14.9 Plt Count 194 MPV 9.4 Neut % (Auto) 77.2 Lymph % (Auto) 12.7 [place] % (Auto) 6.4 Eos % (Auto) 3.0 Baso % (Auto) 0.7 Neut # (Auto) 7.8 Lymph # (Auto) 1.3 [place] # (Auto) 0.7 Eos # (Auto) 0.3 Baso # (Auto) 0.1 Sodium 138 Potassium 4.0 Chloride 102 Carbon Dioxide 31 Anion Gap 9.0 BUN 17 Creatinine 1.12 Estimated Creat Clear 81 Estimated GFR > 60 Est GFR ( Amer) > 60 Glucose 95 POC Glucose 83 Calcium 8.3 L Total Bilirubin 0.8 AST 19 ALT 18 Alkaline Phosphatase 138 H Total Protein 7.2 Albumin 2.6 L Globulin 4.6 H Albumin/Globulin Ratio 0.6 L Stl Aeromonas (PCR) Stl C. cayetanensis PCR Stool Rotavirus (PCR) Stl Adenov F 40/41 PCR Stool Astrovirus (PCR) Stool Cryptosporidium PCR Stl E.coli Shiga Tox PCR Stool E coli O157 PCR Stl Enterotoxigenic E PCR Stool EPEC (PCR) Stool EAEC (PCR) Stl E. histolytica PCR Stool Giardia Lamblia PCR Stool Sapovirus (PCR) Stl P. shigelloides PCR Stl Shigella/EIEC PCR St Y.enterocolitica PCR Stool Vibrio (PCR) Stl Vibrio cholerae PCR Stl Norovirus GI/GII PCR Campylobacter
--- NOTE | 2017-05-10 08:56 | P.PN_ITS ---
Subjective PN (PG) Date: 05/10/17 Time: 08:53 Principal diagnosis: CHF, Isch CM, Cellulitis Interval history: Feeling better. Relates the edema has resolved. No chest pains. Ready to go home. PN Exam ([facility]) Vital signs: Temp Pulse Resp BP Pulse Ox 98.2 F 80 16 109/54 97 05/10/17 08:00 05/10/17 08:34 05/10/17 08:00 05/10/17 08:00 05/10/17 08:00 - Routine Respiratory Exam Present: CTA bilaterally - Routine Cardiovascular Exam Present: RRR Comments: Telemetry shows intermittent pacing otherwise NSR. - Routine Extremities Exam Absent: edema Comments: both legs wrapped below the knee. - Routine Neurological Exam Present: alert, oriented X3 A/P Progress Note ([facility]) (1) CHF (congestive heart failure), NYHA class IV Status: Acute Assessment and plan: D/C milrinone. Switch lasix to PO 40 mg BID. Continue potassium 20 meq daily along with bisoprolol 2.5 mg daily and lisinopril 2.5 mg daily. OK for discharge home. Follow up in one week. Current Visit: Yes (2) Ischemic cardiomyopathy Status: Chronic Current Visit: Yes (3) Cardiac arrhythmia Status: Chronic Assessment and plan: continue amiodarone 200 mg daily and Xarelto 20 mg daily. Current Visit: Yes (4) CAD (coronary artery disease) Status: Chronic Assessment and plan: Clinically stable. Continue pravastatin 40 mg daily. Current Visit: Yes (5) Edema Status: Acute Current Visit: Yes
--- NOTE | 2017-05-10 08:57 | HMH.DCTXFX ---
Discharge/Transfer - Discharge Disposition: Home, Self-Care Condition: Good - Plan of Care Resident has been informed of condition and prognosis?: Yes Mobility Status: other (as tolerated) Goal of treatment:: indep adl and iadl Rehab Potential: Good I concur with the most recent H & P: Yes Date of most recent H & P: 05/10/17 Certification: I have reviewed and agree with this resident's plan of care. I certify that post-hospital senior care facility services are required to be given on an inpatient basis because of the need for senior care care on a continuing basis for the condition(s) for which he/she is receiving inpatient hospital services prior to admission to [facility] bed. I also certify that the resident meets existing SNF level of care definition.
--- NOTE | 2017-05-10 10:25 | HMH.ORTHPN ---
Subjective Date: 05/10/17 Time: 10:25 Principal diagnosis: CHF, Isch CM, Cellulitis Interval history: Feeling better. Relates the edema has resolved. No chest pains. Ready to go home. PN: Obj Ex Vital signs: Temp Pulse Resp BP Pulse Ox 98.2 F 80 16 109/54 97 05/10/17 08:00 05/10/17 08:34 05/10/17 08:00 05/10/17 08:00 05/10/17 08:00 Narrative: Mr. Gallego is a 62 y/o male who presented 05/01/17 with c/o cellulitis. Patient states there is mild pain to the right leg and none to the left leg. The redness has improved significantly and the weeping drainage from both legs has resolved. - Constitutional no acute distress - Routine HEENT Exam Head: Present: normocephalic - Routine Neck Exam Absent: JVD, tenderness - Routine Chest/Breast/Axilla Exam Chest wall: Absent: chest tube - Routine Respiratory Exam Absent: respiratory distress - Routine Abdominal Exam Absent: tenderness, guarding - Routine Extremities Exam Present: edema (improving b/l LE ). Absent: normal capillary refill (delayed) - Detailed Lower Extremity Exam Lower leg: Right swelling (improving), Right erythema (improving), Bilateral wound (dry scabs) - Routine Skin Exam Present: dry, wounds, gangrene Comments: Superficial dry dark discoloration noted to the tip of the medial hallux and lateral distal foot - Routine Neurological Exam Present: alert, oriented X3 - Routine Psychiatric Exam Present: normal affect, normal thought process - Additional findings Additional findings: Nonpalpable pedal pulses noted on right and weakly palpable DP 1+ on left. Erythema and nonpitting edema, b/l LE with right worse than the left. CFT delayed, skin temp cool. No calf or foot pain b/l. Several patches of erythema on the dorsal anterior leg, b/l have improved. The legs have no more weeping and no purulence noted. No deep ulcerations noted. No malodor. Progress Note: A&P (1) Cellulitis Start date: 05/01/17 Problem details: Cellulitis with seeping drainage< MRSA RLE Status: Acute Assessment and plan: Right > Left LE Cellulitis Wound cultures: positive for MRSA, Enterobacter 1. No plans for surgical podiatry intervention 2. Applied unna boots b/l today, with coban 3. Continue antibiotics, agree with outpt oral abx therapy 4. Will need to follow up with wcc upon discharge for continued therapy in one week 5. Follow up with me in 2 weeks Current Visit: Yes
[2017-05-10 12:05] LABS: POC Glucose,Bedside 195 mg/dL
== END 2017-05-10 12:56 | disposition home or self-care (01) | DRG 603 ==
LOC: ICU 05-03 14:18 → 2ND 05-03 14:18 → ICU 05-05 16:25 → 2ND 05-05 16:26 → ICU 05-10 08:59
PROVIDERS: Physician Assistant; Admitting Provider Family Medicine; Emergency Provider Emergency Medicine; Family Provider Nurse Practitioner Family; Visit Provider Emergency Medicine
DX: L03.115 Cellulitis of right lower limb (principal); I50.22 Chronic systolic (congestive) heart failure; Z72.0 Tobacco use; Z95.810 Presence of automatic (implantable) cardiac defibrillator; E11.9 Type 2 diabetes mellitus without complications; I25.5 Ischemic cardiomyopathy
CPT/HCPCS: 36415; 71046; 73590; 73630; 80048; 80053; 80202; 82962; 83605; 83880; 85025; 85651; 86140; 87040; 87070; 87077; 87186; 87205; 87507; 93306; 93922; 93970; 99284; J2260; J3370; Q9957

== ENCOUNTER → 2017-05-27 06:55 | Outpatient (CLI) | payer OTHER, SELFPAY ==
--- NOTE | 2017-05-27 09:12 | HMH.ITSHM ---
amiodarone furosemide atorvastatin lisinopril potassium rivaroxban
--- NOTE | 2017-05-27 09:22 | NM_ITS ---
History and Indications: History of HI, congestive heart failure hypertension, diabetes, tobacco use family history Procedure: Patient received a 0.4 mg of Lexiscan, resting heart rate was 75 bpm, resting blood pressure 107/71, with Lexiscan maximum heart rate achieved was 89 bpm just less than 85% of the maximum predicted heart rate and a blood pressure 90/50. With Lexiscan patient complained of shortness of breath and chest, discomfort. Electrocardiogram: Resting electrocardiogram showed electronically paced rhythm with left bundle branch morphology, with Lexiscan less than 1.[address] segment depression noted from the baseline EKG. The EKG portion of the Lexiscan is nondiagnostic Cardiac stress and resting SPECT images: Cardiac stress and the rest images were obtained using technetium 99 Myoview 10.6 mCi at rest and 31.6 mCi at stress, gated SPECT further analysis of segmental wall motion and calculation of ejection fraction also done. Cardiac stress and rest SPECT images show severely reduced tracer activity in the anterior, anteroapical, apex and inferior wall with partial reversibility suggestive of Lexiscan scar in that area, in addition there is reversible ischemia seen in the lateral wall. The left ventricle is markedly dilated both stress and rest, computer derived ejection fraction is less than 15%, with severe left ventricular global hypokinesis. Right ventricle is not well visualized. Conclusion: 1. The EKG portion of the Lexiscan Myoview is nondiagnostic 2. Scintigraphic evidence of reversible ischemia involving the lateral wall, in addition Ischemia and scar seen in the anteroapical and apical wall. Computer derived ejection fraction less than 15% as described above. 3. Abnormal Lexiscan Myoview study.
== END ==
PROVIDERS: Family Provider Nurse Practitioner Family; PCP Emergency Medicine; Visit Provider Internal Medicine
DX: I25.5 Ischemic cardiomyopathy (principal); I50.9 Heart failure, unspecified; I49.9 Cardiac arrhythmia, unspecified; R94.39 Abnormal result of other cardiovascular function study; Z95.0 Presence of cardiac pacemaker; L03.115 Cellulitis of right lower limb; I25.10 Atherosclerotic heart disease of native coronary artery without angina pectoris; R60.9 Edema, unspecified; E11.9 Type 2 diabetes mellitus without complications
CPT/HCPCS: 78452; 93017; A9502; J2785

== ENCOUNTER 2017-06-01 06:56 | Day surgery (SDC) | payer OTHER, SELFPAY ==
[2017-06-01] VITALS (14 sets, daily range): BP systolic 94–107; BP diastolic 52–73; PULSE 69–78; RESP 16; TEMP 36.6; O2SAT 93–100; BMI 25.2
--- NOTE | 2017-06-01 06:59 | IR_ITS ---
CARDIAC CATHETERIZATION DATE OF CATHETERIZATION:06/01/2017 4:59 PM PROCEDURES: 1. Left heart catheterization 2. Left ventriculogram 3. Selective coronary angiogram INDICATION FOR TEST: 1. Systolic congestive heart failure ejection fraction less than 15% 2. Coronary artery disease 3. Abnormal high risk Myoview Informed consent was obtained prior to the procedure. COMPLICATIONS: None ESTIMATED BLOOD LOSS: Less than 10 ml. TECHNIQUE: One percent lidocaine used to anesthetize the right anterior aspect of the wrist. The right radial artery was accessed via the Seldinger technique. A 6 Amharic sheath was placed in the right radial artery. 2.5 mg of verapamil, 800 mcg of nitroglycerin and 5000 U Heparin were given through the arterial sheath. The trap catheter was also used to perform left heart catheterization and left ventriculography. At the end of the procedure the patient was transferred to the post-op holding area in stable condition for arterial sheath removal. ANGIOGRAPHIC RESULTS: 1. The left main artery has an ostial 20-30% nonflow limiting stenosis 2. The left anterior descending artery has a very proximal stent which is widely patent with minimal in-stent restenosis. Immediately proximal to the stent is a 10% stenosis and distal to the stent is a 30-40% stenosis. The mid LAD then has additional 30 and 40% mid vessel stenoses first diagonal artery is a 2.25 mm vessel and has a proximal 99% stenosis. 3. The ramus intermedius is a 2.5 mm vessel and has an ostial proximal 80-90% stenosis 4. The circumflex artery appears to be a dominant system and has mid vessel 40% stenoses. 5. The right coronary artery is proximally occluded with the distal segment filling via left to right collaterals 6. The PALACIOS ventriculogram reveals severe left ventricular dilatation ejection fraction 10-15% 7. The left ventricular end-diastolic pressure 30 mmHg IMPRESSION: 1. Ischemic cardiomyopathy as described above 2. Severe stenoses in the first diagonal artery and first ramus intermedius 3. Severe left ventricular dilatation with severely reduced ejection fraction 4. Elevated LVEDP PLAN: 1. I would recommend medical management at this time. Although the diagonal artery and ramus intermedius could be stented I don't believe these stenoses are contributing to patient's cardiomyopathy. Based on the elevated LVEDP there is room for additional diuretics 2. LDL less than 55 3. Standard therapy for systolic heart failure 4. Risk factor modification
[2017-06-01 08:05] LABS: Basophils # 0.1 K/mm3 (0-0.2); Basophils % 0.6 % (0.1-2.0); Eosinophils # 0.3 K/mm3 (0.0-0.4); Eosinophils % 2.8 % (0.1-12.0); Hematocrit 48.7 % (42.0-52.0); Hemoglobin 15.6 g/dL (14.1-18.0); Lymphocytes # 2.5 K/mm3 (0.7-4.5); Lymphocytes % 24.9 K/mm3 (10-50); Mean Corpuscular HGB Conc 32.1 g/dL (31.8-35.4); Mean Corpuscular Hemoglobin 29.4 pg (27.0-31.2); Mean Corpuscular Volume 91.5 fl (80-94); Mean Platelet Volume 10.2 fl (7.4-10.4); Monocytes # 0.9 K/mm3 (0.1-1.0); Monocytes % 8.7 % (1.7-9.3); Neutrophils # 6.4 K/mm3 (1.8-7.8); Neutrophils % 63.1 % (37.0-80.0); Platelet Count 161 K/mm3 (142-424); Red Blood Count 5.32 M/mm3 (4.60-6.20); White Blood Count 10.2 K/mm3 (4.8-10.8)
[2017-06-01 08:10] LABS: Anion Gap 9.4 mEq/L (5-15); Blood Urea Nitrogen 19 mg/dL (7-18); Carbon Dioxide 32 mmol/L (21.0-32.0); Chloride 101 mmol/L (98-107); Creatinine Clearance Estimated 88 mL/min (0-300); Creatinine,Serum 1.04 mg/dL (0.70-1.30); Estimated Glomerular Filt Rate 72 ml/min (>60); GFR (African American) 88 ML/MIN (>60); Glucose 137 mg/dL (74-106); Potassium 4.4 mmoL/L (3.5-5.1); Sodium 138 mmol/L (136-145)
== END 2017-06-01 13:16 | disposition home or self-care (01) ==
LOC: CATHLAB 06:57
PROVIDERS: Family Provider Nurse Practitioner Family; PCP Emergency Medicine; Visit Provider Internal Medicine
DX: I25.5 Ischemic cardiomyopathy (principal); I25.10 Atherosclerotic heart disease of native coronary artery without angina pectoris; R94.39 Abnormal result of other cardiovascular function study; I48.2 Chronic atrial fibrillation; Z95.810 Presence of automatic (implantable) cardiac defibrillator; E11.9 Type 2 diabetes mellitus without complications; Z72.0 Tobacco use; I50.22 Chronic systolic (congestive) heart failure
CPT/HCPCS: 80048; 85025; 93458; 99152; C1725; C1769; J1644; Q9967

== ENCOUNTER → 2017-06-14 12:23 | Outpatient (CLI) | payer OTHER, SELFPAY ==
[2017-06-14 12:45] LABS: Basophils # 0.1 K/mm3 (0-0.2); Basophils % 0.4 % (0.1-2.0); Eosinophils # 0.2 K/mm3 (0.0-0.4); Eosinophils % 1.2 % (0.1-12.0); Hematocrit 49.6 % (42.0-52.0); Hemoglobin 15.8 g/dL (14.1-18.0); Lymphocytes # 1.3 K/mm3 (0.7-4.5); Lymphocytes % 9.8 K/mm3 (10-50); Mean Corpuscular HGB Conc 31.8 g/dL (31.8-35.4); Mean Corpuscular Hemoglobin 28.9 pg (27.0-31.2); Mean Platelet Volume 8.5 fl (7.4-10.4); Monocytes # 1.1 K/mm3 (0.1-1.0); Monocytes % 8.7 % (1.7-9.3); Neutrophils # 10.3 K/mm3 (1.8-7.8); Neutrophils % 79.8 % (37.0-80.0); Platelet Count 255 K/mm3 (142-424); Red Blood Count 5.45 M/mm3 (4.60-6.20); Red Cell Distribution Width 14.7 % (11.5-17.5); White Blood Count 12.9 K/mm3 (4.8-10.8)
[2017-06-14 13:02] LABS: Anion Gap 11.5 mEq/L (5-15); Blood Urea Nitrogen 22 mg/dL (7-18); Carbon Dioxide 29 mmol/L (21.0-32.0); Chloride 99 mmol/L (98-107); Creatinine,Serum 1.14 mg/dL (0.70-1.30); Estimated Glomerular Filt Rate 65 ml/min (>60); Free T4 (Free Thyroxine) 1.59 ng/dl (0.76-1.46); GFR (African American) 79 ML/MIN (>60); Glucose 318 mg/dL (74-106); Potassium 4.5 mmoL/L (3.5-5.1); Sodium 135 mmol/L (136-145); Thyroid Stimulating Hormone 4.76 uIU/ml (0.358-3.740)
== END ==
PROVIDERS: Visit Provider Physician Assistant
DX: I48.91 Unspecified atrial fibrillation (principal)
CPT/HCPCS: 36415; 80048; 83880; 84439; 84443; 85025; 93005

== ENCOUNTER → 2017-06-18 10:44 | Outpatient (CLI) | payer OTHER, SELFPAY | PROVIDERS: Family Provider Nurse Practitioner Family; PCP Emergency Medicine; Visit Provider Physician Assistant | DX: I73.9 Peripheral vascular disease, unspecified (principal) | CPT/HCPCS: 93925 ==

== ENCOUNTER 2017-06-28 09:00 | Outpatient (RCR) | payer OTHER, SELFPAY ==
--- NOTE | 2017-05-20 17:51 | HMH.PTOPWND ---
Rehab Outpt Wound Evaluation Rehab OP Wound Evaluation Start: 05/20/17 15:28 Freq: Status: Active Protocol: Document 05/20/17 15:28 [email or web address] (Rec: 05/20/17 15:37 [email or web address] [id number]) Electronically Signed By Manny Gillespie, AMANDA 05/20/17 15:28 Subjective/History History History This is the initial Physical Therapy wound Evaluation for Tim Gallego. PT is a 62 y/o male referred to PT wound care s/p attack of BLE cellulitis. Pt reports incident began right after deborah. Pt reports he noted significant swelling and redness and pain in BLE. Pt reports he was hospitalized x 10 days for IV antibiotics. Subjective Subjective Pt reports he is newly diagnosed diabetic Wound Eval Side Right Side central Wound Left Lower [place] Wound Type Abrasion Is This a Chronic Wound No Wound Length (cm) 0.1 Wound Width (cm) 2.0 Wound Bed Appearance Luther Percentage Granulated (%) 100 Wound Margins Description Well Defined Surrounding Tissue Appearance Luther Indurated Surrounding Tissue Temperature Cool Drainage Description Serous Drainage Amount None Drainage Odor No Odor Dressing Status Dry & Intact Changed Soiled Wound Topical Solution/Irrigant Saline Irrigant Primary Dressing Silver Dressing Comment polymem silver Wound Secondary Dressing Type Gauze Roll/Wrap Wound Debridement Method Gauze Mechanical Wound Debridement Amount of Tissue Minimal Removed Wound Debridement Result Healthy Tissue Revealed Dressing Change Date 05/20/17 Eval Complexity Eval Charge Codes 30004 - Low Complexity Wound Problems/Impairments Impairments Problems/Impairmments Palpation Tenderness Impaired Walking Wound Care Needs Subjective C/O Pain Impaired Self Care/Self Management Prognosis Rehab Potential Fair Comment sunil r2nd to newly dx of diabetes Clinical Impress
== END 2017-06-28 09:01 | disposition home or self-care (01) ==
LOC: PT 09:00
PROVIDERS: Family Provider Nurse Practitioner Family; PCP Emergency Medicine; Visit Provider Podiatrist
DX: E11.9 Type 2 diabetes mellitus without complications (principal); Z51.89 Encounter for other specified aftercare; L03.116 Cellulitis of left lower limb; L03.115 Cellulitis of right lower limb
CPT/HCPCS: 29580; 97161; 97597; 97598

== ENCOUNTER → 2018-09-27 14:24 | Outpatient (CLI) | payer OTHER, SELFPAY ==
[2018-09-27 15:02] LABS: Basophils # 0.1 K/mm3 (0-0.2); Basophils % 0.6 % (0.1-2.0); Eosinophils # 0.2 K/mm3 (0.0-0.4); Eosinophils % 2.1 % (0.1-12.0); Hematocrit 47.7 % (42.0-52.0); Hemoglobin 15.2 g/dL (14.1-18.0); Lymphocytes # 2.1 K/mm3 (0.7-4.5); Lymphocytes % 25.8 % (10-50); Mean Corpuscular HGB Conc 31.9 g/dL (31.8-35.4); Mean Corpuscular Hemoglobin 30.6 pg (27.0-31.2); Mean Corpuscular Volume 95.9 fl (80-94); Mean Platelet Volume 9.4 fl (7.4-10.4); Monocytes # 0.7 K/mm3 (0.1-1.0); Monocytes % 8.1 % (1.7-9.3); Neutrophils # 5.1 K/mm3 (1.8-7.8); Neutrophils % 63.4 % (37.0-80.0); Platelet Count 191 K/mm3 (142-424); Red Blood Count 4.98 M/mm3 (4.60-6.20); Red Cell Distribution Width 13.6 % (11.5-17.5); White Blood Count 8.1 K/mm3 (4.8-10.8)
[2018-09-27 15:13] LABS: Alanine Aminotransferase 23 U/L (12-78); Albumin Level 3.4 gm/dL (3.4-5.0); Alkaline Phosphatase 151 U/L (46-116); Anion Gap 16.6 mEq/L (5-15); Aspartate Amino Transferase 13 U/L (15-37); Bilirubin,Total 0.4 mg/dL (0.2-1.0); Blood Urea Nitrogen 22 mg/dL (7-18); Calcium 8.5 mg/dL (8.5-10.1); Carbon Dioxide 25 mmol/L (21.0-32.0); Chloride 106 mmol/L (98-107); Chol/HDL Ratio 3.9 (1-3.5); Cholesterol 138 mg/dL (140-200); Creatinine,Serum 0.96 mg/dL (0.70-1.30); Estimated Glomerular Filt Rate 79 ml/min (>60); Free T4 (Free Thyroxine) 1.04 ng/dl (0.76-1.46); GFR (African American) 96 ML/MIN (>60); Globulin 3.5 gm/dl (1.3-3.2); Glucose 106 mg/dL (74-106); HDL Cholesterol 35 mg/dL (27-67); LDL Cholesterol 94 mg/dL (0-130); Potassium 4.6 mmoL/L (3.5-5.1); Sodium 143 mmol/L (136-145); Thyroid Stimulating Hormone 5.72 uIU/ml (0.358-3.740); Total Protein,Serum 6.9 gm/dL (6.4-8.2); Triglycerides 44 mg/dL (30-200); VLDL Cholesterol 9 mg/dL (0-40)
[2018-09-27 17:07] LABS: Hemoglobin A1C 6.6 % (0.0-7.0)
[2018-09-29 08:31] LABS: Vitamin D 25 Hydroxy 11.1 ng/mL (30.0-100.0)
== END ==
PROVIDERS: Visit Provider Emergency Medicine
DX: E11.9 Type 2 diabetes mellitus without complications (principal); E55.9 Vitamin D deficiency, unspecified; Z79.84 Long term (current) use of oral hypoglycemic drugs
CPT/HCPCS: 80053; 80061; 82652; 83036; 84439; 84443; 85025

== ENCOUNTER → 2019-09-29 15:04 | Outpatient (CLI) | payer MEDICAID, SELFPAY ==
[2019-09-29 15:20] LABS: Chloride 105 mmol/L (98-107); Potassium 4.4 mmoL/L (3.5-5.1); Sodium 137 mmol/L (136-145)
[2019-09-29 15:21] LABS: Basophils # 0.1 K/mm3 (0-0.2); Eosinophils # 0.3 K/mm3 (0.0-0.4); Eosinophils % 3.7 % (0.1-12.0); Hematocrit 47.6 % (42.0-52.0); Hemoglobin 15.9 g/dL (14.1-18.0); Lymphocytes # 2.4 K/mm3 (0.7-4.5); Lymphocytes % 29.7 % (10-50); Mean Corpuscular HGB Conc 33.3 g/dL (31.8-35.4); Mean Corpuscular Hemoglobin 31.5 pg (27.0-31.2); Mean Corpuscular Volume 94.5 fl (80-94); Mean Platelet Volume 10.1 fl (7.4-10.4); Monocytes # 0.6 K/mm3 (0.1-1.0); Monocytes % 6.9 % (1.7-9.3); Neutrophils # 4.7 K/mm3 (1.8-7.8); Neutrophils % 58.6 % (37.0-80.0); Platelet Count 184 K/mm3 (142-424); Red Blood Count 5.04 M/mm3 (4.60-6.20)
[2019-09-29 15:22] LABS: Blood Urea Nitrogen 21 mg/dl (9-20); Estimated Glomerular Filt Rate 75 ml/min (>60); GFR (African American) 91 ML/MIN (>60)
[2019-09-29 15:23] LABS: Albumin Level 3.8 g/dl (3.5-5.0); Albumin/Globulin Ratio 1.1 (1.1-1.8); Alkaline Phosphatase 169 U/L (38-126); Anion Gap 11.4 mEq/L (5-15); Bilirubin,Total 0.7 mg/dl (0.2-1.3); Calcium 9.3 mg/dl (8.4-10.2); Carbon Dioxide 25 mmol/L (22.0-30.0); Chol/HDL Ratio 4.5 (1-3.5); Cholesterol 147 mg/dl (140-200); Globulin 3.5 g/dL (1.3-3.2); Glucose 120 mg/dl (74-100); HDL Cholesterol 33 mg/dl (40-60); Total Protein,Serum 7.3 g/dl (6.3-8.2); Triglycerides 79 mg/dl (30-150); VLDL Cholesterol 16 mg/dL (0-40)
[2019-09-29 15:28] LABS: Alanine Aminotransferase 21 U/L (12-78); Aspartate Amino Transferase 29 U/L (17-59)
[2019-09-29 15:38] LABS: Direct LDL Cholesterol 113.39 mg/dL (100-129)
[2019-09-29 15:45] LABS: Free T4 (Free Thyroxine) 1.27 ng/dl (0.78-2.19)
[2019-09-29 17:43] LABS: Hemoglobin A1C 6.5 % (4.0-6.0)
[2019-10-01 06:40] LABS: Creatinine, Urine 165.7 mg/dL (Not Estab.); Microalbumin, Urine 15.7 ug/mL (Not Estab.)
== END ==
PROVIDERS: Visit Provider Emergency Medicine
DX: E11.9 Type 2 diabetes mellitus without complications (principal); Z79.84 Long term (current) use of oral hypoglycemic drugs
CPT/HCPCS: 80053; 80061; 82043; 82570; 82652; 83036; 84439; 84443; 85025

== ENCOUNTER → 2019-10-24 13:17 | Outpatient (CLI) | payer MEDICAID, SELFPAY ==
--- NOTE | 2019-10-24 13:21 | US_ITS ---
APPROVED REPORT Exam Type: Lower Extremity Segmental Pressures Forming Process Worker: Margarita Palm RDCS Indications Non-healing Ulcer: Rest Pain: PAD Current Smoker History of Smoking Pressures/Indices Right Indices Left Indices Brachial Brachial 117.00 mmHg Low Thigh Low Thigh 86.00 mmHg 0.74 Calf Calf 108.00 mmHg 0.92 Ankle(DP) Ankle(DP) 250.00 mmHg 2.14 Digit Digit 31.00 mmHg 0.26 Findings RIGHT ABOVE KNEE AMPUTEE NO PRESSURES ABTAINED FROM RIGHT L LEO NON COMPRESSABLE' L TBI .3 NO WAVEFORMS FROM RIGHT WAVEFORMSON LEFT DIMINISHED AT ANKLES AND DIMINISHED PUSLSES Conclusion Medial calcinosis (rigid vessels) is suggested due to non compressible vessels. Electronically signed by : Bruno Delgado MD 10/26/2019 15:02:16
== END ==
PROVIDERS: PCP Emergency Medicine; Visit Provider Nurse Practitioner
DX: R09.89 Other specified symptoms and signs involving the circulatory and respiratory systems (principal)
CPT/HCPCS: 93923

== ENCOUNTER 2019-11-08 08:34 | Day surgery (SDC) | payer MEDICAID, SELFPAY ==
[2019-11-08] VITALS (13 sets, daily range): BP systolic 106–144; BP diastolic 60–89; PULSE 74–76; RESP 16; TEMP 36.6; O2SAT 95–100; BMI 29.1
--- NOTE | 2019-11-08 | IR_ITS ---
APPROVED REPORT Patient Location: Outpatient Operator And Truck Driver: ZHANNA Contreras RT (R) PROCEDURES Catheter placed in the abdominal aorta Abdominal aortography Repositioning of the catheter in the abdominal aorta Unilateral runoff to the left foot Attempted angioplasty of the left superficial femoral artery INDICATION Abnormal LEO, Peripheral artery disease Informed consent was obtained prior to the procedure. COMPLICATIONS None Estimated Blood Loss: less than 10ml TECHNIQUE 1% lidocaine used to anesthetize the right groin. The right femoral artery was accessed via the Salinger technique and a 4 [place] sheath was placed in the right femoral artery. Pigtail catheter was placed in the dominant aorta and abdominal iliofemoral angiography was performed. The catheter was then repositioned and unilateral runoff to the left foot was performed. At the end of the procedure the 4 [place] African sheath was exchanged for a 6 [place] sheath therapeutic heparin was administered and an advantage wire was placed distally into the SFA. The wire continually entered the collateral branching off the SFA therefore it was decided to terminate the procedure rather than proceeding and having potential complications. The apparatus was removed the patient was transferred to the postop holding in stable condition for sheath removal ANGIOGRAPHIC RESULTS The infrarenal abdominal aorta is mild to moderately atheromatous with no focal stenosis greater than 20%. The right common iliac artery has an ostial 20% stenosis and a distal 60 to 70% concentric stenosis. The right internal iliac artery is patent. The right external iliac artery has a long tubular 50% stenosis and extends into a [place]-Mic graft in the right common femoral artery which is widely patent. The right profunda femoris artery is patent whereas the right superficial femoral artery is occluded The left common iliac artery has an ostial 10 to 20% stenosis the distal 40 to 50% stenosis. The left internal iliac artery is diseased but widely patent. The left common femoral artery is moderately atheromatous with diffuse 30% stenoses. The left profunda femoris artery is patent. The left superficial femoral artery is patent as proximal segment and then occluded. A large collateral through the superficial femoral artery and the profunda femoris artery collateralizes a large caliber popliteal artery. The popliteal artery has distal 60% stenosis and then gives rise to the peroneal artery and the posterior tibialis artery. Both arteries appear to supply the left foot via distal collaterals. There is crossover into the dorsalis pedis artery. IMPRESSION Peripheral artery disease as described above PLAN 1. Medical management. 2. The very dense calcified and large collaterals of the left leg are providing adequate distal flow. I do not recommend trying to open this vessel unless limb threatening ischemia occurs. Due to the large dense collateralization in the superficial femoral artery only a popliteal artery retrograde revascularization approach would be advised. 3. Consideration of Xarelto 2.5 twice daily combined with aspirin 81 mg daily for PAD 4. Aggressive risk factor modification 5. Avoidance of tobacco products 6. LDL less than 55 Electronically signed by : Scout Stiles, 11/08/2019 13:31:37
[2019-11-08 09:19] LABS: Basophils # 0.1 K/mm3 (0-0.2); Basophils % 0.6 % (0.1-2.0); Eosinophils # 0.4 K/mm3 (0.0-0.4); Eosinophils % 3.4 % (0.1-12.0); Hematocrit 45.1 % (42.0-52.0); Hemoglobin 15.1 g/dL (14.1-18.0); Lymphocytes # 2.8 K/mm3 (0.7-4.5); Lymphocytes % 26.2 % (10-50); Mean Corpuscular HGB Conc 33.4 g/dL (31.8-35.4); Mean Corpuscular Volume 95.9 fl (80-94); Mean Platelet Volume 9.5 fl (7.4-10.4); Monocytes # 0.8 K/mm3 (0.1-1.0); Monocytes % 7.5 % (1.7-9.3); Neutrophils # 6.8 K/mm3 (1.8-7.8); Neutrophils % 62.4 % (37.0-80.0); Platelet Count 181 K/mm3 (142-424); Red Blood Count 4.71 M/mm3 (4.60-6.20); Red Cell Distribution Width 13.9 % (11.5-17.5); White Blood Count 10.8 K/mm3 (4.8-10.8)
[2019-11-08 10:08] LABS: Chloride 107 mmol/L (98-107)
[2019-11-08 10:09] LABS: Potassium 4.3 mmoL/L (3.5-5.1); Sodium 137 mmol/L (136-145)
[2019-11-08 10:12] LABS: Anion Gap 11.3 mEq/L (5-15); Blood Urea Nitrogen 19 mg/dl (9-20); Calcium 8.5 mg/dl (8.4-10.2); Carbon Dioxide 23 mmol/L (22.0-30.0); Creatinine Clearance Estimated 103 mL/min (50-200); Estimated Glomerular Filt Rate 85 ml/min (>60); GFR (African American) 103 ML/MIN (>60); Glucose 148 mg/dl (74-100)
[2019-11-08 14:43] LABS: CATHL Activated Clotting Time 359 SEC (74-125)
== END 2019-11-08 15:01 | disposition home or self-care (01) ==
LOC: CATHLAB 08:35
PROVIDERS: PCP Emergency Medicine; Visit Provider Internal Medicine
DX: I25.10 Atherosclerotic heart disease of native coronary artery without angina pectoris (principal); I77.1 Stricture of artery; I25.5 Ischemic cardiomyopathy; Z95.810 Presence of automatic (implantable) cardiac defibrillator; Z72.0 Tobacco use; Z89.511 Acquired absence of right leg below knee
CPT/HCPCS: 36247; 75716; 80048; 85025; 85347; 99152; 99153; C1725; C1760; C1766; C1769; C1894; J1644; Q9966

== ENCOUNTER 2020-05-21 07:48 | Day surgery (SDC) | payer MEDICARE, MEDICAID, SELFPAY ==
--- NOTE | 2020-05-21 | IR_ITS ---
APPROVED REPORT Patient Location: Outpatient Fire Sprinkler Fitter: ZHANNA Villa RT (R) PROCEDURES 1. Pocket Revision 2. Removal of old permanent cardiac resynchronization therapy with ICD implantation/biventricular pacemaker. 3. Implant of permanent cardiac resynchronization therapy with ICD implantation/biventricular pacemaker. INDICATION End of battery life Informed consent was obtained prior to the procedure. COMPLICATIONS None Estimated Blood Loss: less than 10ml TECHNIQUE 1% lidocaine with epinephrine used to anesthetize the left anterior aspect of the chest. Scalpel was used to make the initial cutaneous incision and then used to dissect down to the existing pacemaker generator. The generator was removed from the existing pocket. Digital manipulation was required along with intermittent usage of scalpel in order to revise the pocket. The leads were removed from the old generator. The new generator was screwed to the existing leads and secured into place. Electronic interrogation proved acceptable thresholds and voltage within the lead. Antibiotics were used to flush the pocket and the pacemaker was secured using 3-0 silk into the newly revised pocket. Monocryl was used to close the subcutaneous tissue and then bishnu were placed on the cutaneous area in order to approximate the incision. Patient was transferred to the postop holding area in stable condition. INTERROGATION Explanted Generator Model Number: Jacob Lennon Explanted Generator Serial number: [id number] New Generator Model number: [id number] New Generator Serial number: [id number] Chronic Atrial lead model number: Fineline II 4470 Chronic Atrial lead serial number: [id number] P-wave: 3.0 mV Impedence: AFIB Threshold: Chronic Left Ventricular lead model number: Chronic Left Ventricular lead serial number R-wave: Impedence: 428 Ohms Threshold: 0.4V @ 0.4ms Right Ventricular lead model number: 0175 [place] Chloe + Isabel Right Ventricular lead serial number: [id number] R-wave: Impedence: 699 Ohms Threshold: 0.8V @ 0.4ms Pacing Parameters: Mode: VVIR Base/Max Track: 75/130 ppm ICD Rate Cutoffs: VT: 200 bpm 2.5 sec Quick Convert, 41J x 8 VF: 170 bpm 5.0, Monitor Only No diaphragmatic stimulation at 10 volts. IMPRESSION Successful pocket Revision Successful removal of old Pacemaker Successful implant of Permanent Pacemaker. PLAN 1. Postop wound care. Electronically signed by : Scout Stiles, 05/22/2020 14:16:17
[2020-05-21 07:58] VITALS: BMI 29.8
[2020-05-21 08:13] VITALS: BP 123/83; PULSE 75; RESP 18; TEMP 36.7; O2SAT 98
[2020-05-21 08:37] LABS: Basophils # 0.1 K/mm3 (0-0.2); Basophils % 0.7 % (0.1-2.0); Eosinophils # 0.3 K/mm3 (0.0-0.4); Eosinophils % 2.6 % (0.1-12.0); Hematocrit 49.4 % (42.0-52.0); Hemoglobin 15.9 g/dL (14.1-18.0); Lymphocytes # 2.5 K/mm3 (0.7-4.5); Lymphocytes % 25.3 % (10-50); Mean Corpuscular HGB Conc 32.3 g/dL (31.8-35.4); Mean Corpuscular Hemoglobin 30.8 pg (27.0-31.2); Mean Corpuscular Volume 95.5 fl (80-94); Mean Platelet Volume 9.3 fl (7.4-10.4); Monocytes # 0.7 K/mm3 (0.1-1.0); Monocytes % 7.4 % (1.7-9.3); Neutrophils # 6.2 K/mm3 (1.8-7.8); Platelet Count 185 K/mm3 (142-424); Red Blood Count 5.17 M/mm3 (4.60-6.20); Red Cell Distribution Width 14.5 % (11.5-17.5); White Blood Count 9.7 K/mm3 (4.8-10.8)
[2020-05-21 08:38] LABS: Anion Gap 12.6 mEq/L (5-15); Blood Urea Nitrogen 23 mg/dl (9-20); Carbon Dioxide 24 mmol/L (22.0-30.0); Chloride 106 mmol/L (98-107); Creatinine Clearance Estimated 92 mL/min (50-200); Estimated Glomerular Filt Rate 67 ml/min (>60); GFR (African American) 81 ML/MIN (>60); Glucose 144 mg/dl (74-100); Potassium 4.6 mmoL/L (3.5-5.1); Sodium 138 mmol/L (136-145)
[2020-05-21 09:12] LABS: Coronavirus 19 IgG Antibody Negative (Negative); Coronavirus 19 IgM Antibody Negative (Negative)
[2020-05-21 11:05] VITALS: BP 106/67; PULSE 75; RESP 20; O2SAT 97
[2020-05-21 11:15] VITALS: BP 106/67; PULSE 75; RESP 20; O2SAT 95
[2020-05-21 11:30] VITALS: BP 97/68; PULSE 78; RESP 20; O2SAT 92
[2020-05-21 11:45] VITALS: BP 109/60; PULSE 78; RESP 20; O2SAT 95
== END 2020-05-21 12:23 | disposition home or self-care (01) ==
LOC: CATHLAB 07:49
PROVIDERS: PCP Emergency Medicine; Visit Provider Internal Medicine
DX: Z45.02 Encounter for adjustment and management of automatic implantable cardiac defibrillator (principal); I48.91 Unspecified atrial fibrillation; Z72.0 Tobacco use; I25.10 Atherosclerotic heart disease of native coronary artery without angina pectoris; I25.5 Ischemic cardiomyopathy; I50.20 Unspecified systolic (congestive) heart failure; I11.0 Hypertensive heart disease with heart failure; Z89.511 Acquired absence of right leg below knee; E03.9 Hypothyroidism, unspecified; Z79.82 Long term (current) use of aspirin; Z79.01 Long term (current) use of anticoagulants; Z79.84 Long term (current) use of oral hypoglycemic drugs; Z79.899 Other long term (current) drug therapy
CPT/HCPCS: 33264; 80048; 85025; 86328; C1882

== ENCOUNTER 2021-01-17 16:05 | Inpatient (IN) | payer MEDICARE, MEDICAID, SELFPAY ==
[2021-01-17] VITALS (10 sets, daily range): BP systolic 86–111; BP diastolic 39–70; PULSE 63–75; RESP 15–19; TEMP 37.2–37.5; O2SAT 92–99; BMI 27.8; BMI 28.5
--- NOTE | 2021-01-17 16:23 | XR_ITS ---
PROCEDURE INFORMATION: Exam: XR Left Foot Exam date and time: 01/17/2021 4:23 PM Age: 65 years old Clinical indication: Pain; Foot; Left; Prior surgery; Surgery date: 6+ months; Additional info: Necrosis TECHNIQUE: Imaging protocol: XR Left foot. Views: 3 or more views. COMPARISON: CR FTL3 FOOT-LT-3 VIEWS 05/01/2017 6:29 PM FINDINGS: Bones/joints: Again noted is diffuse osteopenia. Again noted is the osteotomy of the 5th metatarsal. No acute fractures. No dislocations. No periostitis or cortical erosion. Soft tissues: Extensive gas and swelling in the soft tissues of the forefoot. IMPRESSION: Extensive gas in the soft tissues of the forefoot are consistent with a gas-forming infection. No obvious evidence of osteomyelitis. If clinical concern remains, further evaluation with MRI is recommended.
[2021-01-17 17:14] LABS: Chloride 97 mmol/L (98-107); Potassium 5.5 mmoL/L (3.5-5.1); Sodium 132 mmol/L (136-145)
[2021-01-17 17:16] LABS: Alanine Aminotransferase 37 U/L (12-78); Aspartate Amino Transferase 52 U/L (17-59); Blood Urea Nitrogen 21 mg/dl (9-20); Creatinine Clearance Estimated 59 mL/min (50-200); Estimated Glomerular Filt Rate 44 ml/min (>60); GFR (African American) 53 ML/MIN (>60)
[2021-01-17 17:17] LABS: Albumin/Globulin Ratio 0.7 (1.1-1.8); Alkaline Phosphatase 133 U/L (38-126); Anion Gap 16.5 mEq/L (5-15); Bilirubin,Total 1.1 mg/dl (0.2-1.3); Calcium 8.3 mg/dl (8.4-10.2); Carbon Dioxide 24 mmol/L (22.0-30.0); Globulin 4.2 g/dL (1.3-3.2); Glucose 243 mg/dl (74-100); Total Protein,Serum 7.2 g/dl (6.3-8.2)
[2021-01-17 17:22] LABS: Lactic Acid 2.7 mmol/L (0.7-2.1)
[2021-01-17 17:26] LABS: Activated Partial Thrombo Time 35.9 seconds (22.8-30.6); Prothrombin Time 14.5 seconds (10.1-12.5)
--- NOTE | 2021-01-17 17:26 | PC.NURSE ---
Ortho board of [employer] secretary paged.
--- NOTE | 2021-01-17 17:27 | HMH.EDGENADL ---
ED Disposition Clinical Impression: Gas gangrene of foot, Acute sepsis, PAD (peripheral artery disease) Osteomyelitis of left foot Qualifiers: Osteomyelitis type: acute hematogenous Qualified Code(s): M86.072 - Acute hematogenous osteomyelitis, left ankle and foot Type 2 diabetes mellitus Qualifiers: Diabetes mellitus chcf insulin use: with research epidemiologist use Diabetes mellitus complication status: with kidney complications Diabetes mellitus complication detail: with chronic kidney disease Chronic kidney disease stage: unspecified stage Qualified Code(s): E11.22 - Type 2 diabetes mellitus with diabetic chronic kidney disease; Z79.4 - snf (current) use of insulin Cellulitis Qualifiers: Site of cellulitis: extremity Site of cellulitis of extremity: toe Laterality: left Qualified Code(s): L03.032 - Cellulitis of left toe Disposition: Admitted As Inpatient Condition on Discharge: Serious Instructions: DI for Laceration Repair Referrals: Jonny Freeman MD [Primary Care Provider] - - Critical Care Critical Care Time: No Attestation: On 01/17/21, the high probability of a clinically significant, sudden or life threatening deterioration of the following system(s) required my full and direct attention, intervention and personal management. The time I documented below is in addition to time spent performing reported procedures but includes the following listed in this critical care notation. Medical Decision Making - Medical Records Medical records reviewed: Yes: I reviewed the patient's medical records. - [place] Inquiry Pt receiving controlled substance: No Vital Signs: 01/17/21 16:05 01/17/21 16:30 01/17/21 17:00 Temperature 99.5 F Temperature Source Oral Pulse Rate 75 75 Pulse Rate [Left Radial] 73 Respiratory Rate 18 15 Blood Pressure 109/58 L 86/53 L Blood Pressure [Right Arm] 111/63 Blood Pressure Mean 72 64 Blood Pressure Mean [Right Arm] 79 Blood Pressure Source [Right Arm] Automatic Cuff Blood Pressure Position [Right Arm] Sitting 02 Sat by Pulse Oximetry 99 99 98 Oxygen Delivery Method Room Air - Lab Data Lab Results 01/17/21 16:45: WBC 25.0 H*, RBC 3.82 L, Hgb 11.7 L, Hct 36.0 L, MCV 94.4 H, MCH 30.6, MCHC 32.4, RDW 12.7, Plt Count 313, MPV 8.6, Neut % (Auto) 89.8 H, Lymph % (Auto) 2.6 L, [place] % (Auto) 7.4, Eos % (Auto) 0.1, Baso % (Auto) 0.1, Neut # (Auto) 22.4 H, Lymph # (Auto) 0.7, [place] # (Auto) 1.9 H, Eos # (Auto) 0.0, Baso # (Auto) 0.0 01/17/21 16:45: PT 14.5 H, INR 1.25 H, APTT 35.9 H 01/17/21 16:45: Sodium 132 L, Potassium 5.5 H, Chloride 97 L, Carbon Dioxide 24, Anion Gap 16.5 H, BUN 21 H, Creatinine 1.60 H, Estimated Creat Clear 59, Estimated GFR 44 L, Est GFR ( Amer) 53 L, Glucose 243 H, Calcium 8.3 L, Total Bilirubin 1.1, AST 52, ALT 37, Alkaline Phosphatase 133 H, Total Protein 7.2, Albumin 3.0 L, Globulin 4.2 H, Albumin/Globulin Ratio 0.7 L 01/17/21 16:45: Lactate 2.7 H Result diagrams: 01/17/21 16:45 01/17/21 16:45 Orders (Tests/Meds): ED MEDICATIONS Generic Name Dose Route Start Last Admin Trade Name Freq PRN Reason Stop Dose Admin Clindamycin Phosphate 600 mg/ 104 mls @ 100 mls/hr 01/17/21 17:00 01/17/21 17:29 Sodium Chloride IV 01/17/21 18:02 100 mls/hr Q6 STA Administration Calcium Gluconate 1,000 mg/ 35 mls @ 100 mls/hr 01/17/21 17:30 Sodium Chloride IV 01/17/21 17:50 ONCE ONE Sodium Chloride 2,260 mls @ 1,130 mls/hr 01/17/21 17:43 Sod Chlor 0.9% 1000ml Bag 30 ml/kg infuse over 2 hr (2260 ml) 01/17/21 19:42 IV .Q2H ONE Discontinued Medications Generic Name Dose Route Start Last Admin Trade Name Freq PRN Reason Stop Dose Admin Albuterol Sulfate 2.5 mg 01/17/21 17:30 Albuterol 0.083% 2.5 Mg/3 Ml Neb IH 01/17/21 17:31 ONCE ONE Dextrose 25 ml 01/17/21 17:30 Dextrose 50% 50ml Syringe (Crash Cart) IVP 01/17/21 17:31 ONCE ONE Sodium Chloride 1,000 mls @ 999 mls/hr
[2021-01-17 17:28] LABS: INR 1.25 (0.9-1.1)
[2021-01-17 17:41] LABS: Basophils % 0.1 % (0.1-2.0); Eosinophils % 0.1 % (0.1-12.0); Hemoglobin 11.7 g/dL (14.1-18.0); Lymphocytes # 0.7 K/mm3 (0.7-4.5); Lymphocytes % 2.6 % (10-50); Mean Corpuscular HGB Conc 32.4 g/dL (31.8-35.4); Mean Corpuscular Hemoglobin 30.6 pg (27.0-31.2); Mean Corpuscular Volume 94.4 fl (80-94); Mean Platelet Volume 8.6 fl (7.4-10.4); Monocytes # 1.9 K/mm3 (0.1-1.0); Monocytes % 7.4 % (1.7-9.3); Neutrophils # 22.4 K/mm3 (1.8-7.8); Neutrophils % 89.8 % (37.0-80.0); Platelet Count 313 K/mm3 (142-424); Red Blood Count 3.82 M/mm3 (4.60-6.20); Red Cell Distribution Width 12.7 % (11.5-17.5)
[2021-01-17 17:43] LABS: MANUAL DIFFERENTIAL MANUAL DIFFERENTIAL (MANUAL DIFF)
--- NOTE | 2021-01-17 18:00 | PC.NURSE ---
[id number] BED ASSIGNMENT REQUESTED ROOM 209, ALL STAFF NOTIFIED
[2021-01-17 18:19] LABS: Lymphocytes % 4 % (10-50); Monocytes % 1 % (2-9); Neutrophils % 88 % (42-76); Total Cells Counted 100
[2021-01-17 18:20] LABS: Platelet Estimate Normal; RBC Morphology Normal; Rouleaux 1+
[2021-01-17 18:35] LABS: Acetone, Serum (Rapid) None Detected (None Detect)
[2021-01-17 18:43] LABS: POC Glucose,Bedside 199 (70-110)
[2021-01-17 18:43] LABS: Coronavirus 19, PCR Not Detected (NotDetected); Influenza A, PCR Not Detected (NotDetected); Influenza B, PCR Not Detected (NotDetected)
--- NOTE | 2021-01-17 20:49 | PC.NURSE ---
patient up to floor via wheelchair
[2021-01-17 21:04] LABS: Reflex Lactic Add Lactic Reflex
[2021-01-17 21:16] LABS: POC Glucose,Bedside 83 (70-110)
[2021-01-17 21:40] LABS: Lactic Acid Follow Up (RFLX 1) 2.6 mmol/L (0.7-2.1)
[2021-01-17 23:27] LABS: Reflex Lactic (2 hrs) Add Lactic Reflex
[2021-01-17 23:52] LABS: Lactic Acid Follow up (RFLX 2) 0.9 mmol/L (0.7-2.1)
[2021-01-18] VITALS (21 sets, daily range): BP systolic 98–157; BP diastolic 49–77; PULSE 68–81; RESP 16–20; TEMP 36.4–37.2; O2SAT 91–97
--- NOTE | 2021-01-18 03:35 | PC.NURSE ---
A&OX4. TOLERATING RA WELL. PT IS ABLE TO MOVE HIMSELF WELL FROM WHEELCHAIR TO BED. PT HAS HAD NO C/O PAIN THUS FAR. R AKA PRESENT. LLE WARM AND REDDENED. WEAK PEDAL PULSE. L FOOT WITH GANGRENOUS ULCER PRESENT, BLACK ON BOTTOM OF FOOT. TOP OF FOOT RED WITH SEROSANG DRAINAGE, SOME SLOUGHING PRESENT. FOUL ODOR NOTED. WRAPPED FOOT LIGHTLY IN KERLEX, CHUCKS UNDERNEATH. PT HAS RECEIVED FLUIDS AND ABX PER JUL. HAS SLEPT MAJORITY OF SHIFT. TOLERATING NPO DIET SINCE MIDNIGHT. VSS WILL CONTINUE TO MONITOR.
--- NOTE | 2021-01-18 07:23 | PC.WOUNDNOTE ---
L FOOT. GANGRENOUS ULCER PRESENT.
--- NOTE | 2021-01-18 07:30 | HMH.ORTHOCON ---
*Admission Date: 01/17/21 *Reason for consult:: Left Foot gangrene *History of present illness: 65-year-old male with diabetes, multiple medical comorbidities, status post right lower extremity amputation previously, with multiple week history of worsening gangrenous changes to the left foot. He was admitted overnight, n.p.o. Consulted regarding his left foot. [facility] History Medical History: Reports:: Atrial Fibrillation, Congestive Heart Failure, Coronary Artery Disease, Diabetes Mellitus Type 2, Hyperlipidemia, Hypertension, Internal Pacemaker, Myocardial Infarction, Peripheral Artery Disease Denies:: Cancer, Diabetes Mellitus Type 1, MRSA, Seizures *Have you ever received a pneumonia vaccine?: No *Have you received a flu vaccine this season?: No Other Medical History: Reports: Arthritis, Hypothyroidism. Denies: Cataracts, Glaucoma, Thyroid Disease Laterality Cases: Left: Other Other Surgeries: Yes: Angiogram, Cardiac Catheterization, Coronary Stent, Pacemaker, Other Amputation: Yes (RT lower leg) Fractures: No - *Social History Smoking Status: Current every day smoker Tobacco Type: cigarettes # Packs/Day (cigarettes): 1 Alcohol Intake: never Alcohol Intake Frequency:: other Substance Use Type: denies use *Occupational Status:: disabled Housing: house Household Members: family *Travel in the last 8 weeks: None Family Hx:: Cancer, Coronary Artery Disease, Heart Attack Review of Systems - Review of Systems Review of systems:: pertinent systems reviewed and negative unless documented below - *Musculoskeletal Reports abnormal walking - *Neurologic Denies headache(s) Meds Home Medications Medication Instructions Recorded Confirmed Type bisoprolol fumarate 5 mg tablet 2.5 mg PO DAILY tab 09/20/20 01/17/21 History Aspirin [Low Dose Aspirin EC] 81 mg PO DAILY 01/17/21 01/17/21 History Atorvastatin Calcium [Lipitor 40mg 40 mg PO DAILY 01/17/21 01/17/21 History Tab] Docusate Sodium 100 mg PO DAILY 01/17/21 01/17/21 History Ergocalciferol (Vitamin D2) 1,250 mg PO DAILY 01/17/21 01/17/21 History [Drisdol] Furosemide [Furosemide 20mg Tab*] 20 mg PO DAILY 01/17/21 01/17/21 History Levothyroxine Sodium [Synthroid 50 mcg PO DAILY 01/17/21 01/17/21 History 50mcg (0.05mg) tab] Loratadine [Allergy Relief] 10 mg PO DAILY 01/17/21 01/17/21 History Rivaroxaban [Xarelto] 20 mg PO DAILY 01/17/21 01/17/21 History lisinopriL [Lisinopril 2.5mg Tab] 2.5 mg PO DAILY 01/17/21 01/17/21 History Allergies Allergy/AdvReac Type Severity Reaction Status Date / Time No Known Allergies Allergy Verified 09/20/20 11:50 Exam Vital signs and Labs for Last 24 Hours: Temp Pulse Resp BP Pulse Ox 98.7 F 75 16 109/59 L 93 L 01/18/21 04:00 01/18/21 04:00 01/18/21 04:00 01/18/21 04:00 01/18/21 04:00 Laboratory Results - last 24 hr 01/17/21 16:45: WBC 25.0 H*, RBC 3.82 L, Hgb 11.7 L, Hct 36.0 L, MCV 94.4 H, MCH 30.6, MCHC 32.4, RDW 12.7, Plt Count 313, MPV 8.6, Neut % (Auto) 89.8 H, Lymph % (Auto) 2.6 L, [place] % (Auto) 7.4, Eos % (Auto) 0.1, Baso % (Auto) 0.1, Neut # (Auto) 22.4 H, Lymph # (Auto) 0.7, [place] # (Auto) 1.9 H, Eos # (Auto) 0.0, Baso # (Auto) 0.0, Total Counted 100, Neutrophils % (Manual) 88 H, Band Neutrophils % 7.0, Lymphocytes % (Manual) 4 L, Monocytes % (Manual) 1 L, Platelet Estimate Normal, RBC Morphology Normal, Rouleaux 1+ 01/17/21 16:45: PT 14.5 H, INR 1.25 H, APTT 35.9 H 01/17/21 16:45: Sodium 132 L, Potassium 5.5 H, Chloride 97 L, Carbon Dioxide 24, Anion Gap 16.5 H, BUN 21 H, Creatinine 1.60 H, Estimated Creat Clear 59, Estimated GFR 44 L, Est GFR ( Amer) 53 L, Glucose 243 H, Calcium 8.3 L, Total Bilirubin 1.1, AST 52, ALT 37, Alkaline Phosphatase 133 H, Total Protein 7.2, Albumin 3.0 L, Globulin 4.2 H, Albumin/Globulin Ratio 0.7 L, Acetone Level None detected 01/17/21 16:45: Lactate 2.7 H 01/17/21 18:35: POC Glucose 199 H 01/17/21 18:38: SARS-CoV-2 (PCR) Not detected, Influenza A Untype (PCR
--- NOTE | 2021-01-18 09:34 | HMH.OPNOTE ---
Date of procedure: 01/18/21 Pre-op Diagnosis:: Left foot wet gangrene Post-op Diagnosis:: Same Procedure performed:: 58880: Left foot debridement, skin, subcutaneous tissue, muscle, bone 77012: Left foot transmetatarsal amputation 15875: Left foot wound vacuum-assisted closure placement Surgeon:: Javier Matos JR, MD Anesthesia: LMA Estimated blood loss (mL): 30 Operative findings:: There is significant necrotic tissue on the plantar aspect of the forefoot which reached proximally to just anterior of the plantar fascial origin as well as dorsally up near the first tarsometatarsal joint. All remaining tissue after thorough debridement appeared viable, but there was a resulting wound measuring approximately 10 cm x 3 cm. Operative note:: Indications: 65-year-old male with multiple medical comorbidities including diabetes, peripheral vascular disease. He continues to smoke. He developed necrotic, foul-smelling drainage of his left foot over period of weeks. He was admitted overnight, met septic criteria, was made n.p.o. over midnight. I had a discussion with him regarding the poor prognosis with regard to his foot given the extensive degree of necrosis and his multiple medical comorbidities. He previously underwent right above-knee amputation, and was adamant that he did not want to proceed with below-knee amputation acutely. As such, I told him we could plan for transmetatarsal amputation with wound vacuum-assisted closure. He understood that despite these efforts, he was still at high risk of losing his entire foot. He was amenable with the plan. Plan for left foot debridement, irrigation, transmetatarsal amputation, wound vacuum-assisted closure. Patient was identified in preoperative holding. Operative site was marked in indelible ink. History, physical, consent were reviewed and updated. Patient was surrendered to the anesthesia team, taken to the operative suite, placed supine on a well-padded operative table. Ipsilateral hip bump was placed as was a nonsterile thigh tourniquet. Anesthesia was induced. The operative extremity was prepped and draped in the usual sterile fashion. The operative team donned sterile gowns and gloves and a timeout was called. All in attendance agreed regarding the patient's identity, procedure, operative site. Weight-based dose of antibiotics was given prior to incision. My attention to the plantar foot. I took a swab specimen of the purulent drainage and sent this for culture. I made longitudinal incision along the first ray carried it dorsally over the metatarsal phalangeal joints, and proximally over the lateral aspect of the foot along the fifth ray. I raised full-thickness soft tissue flaps dorsally, identified the metatarsals, and transected them using a sagittal saw. I can continue the incision plantarly, was able to remove the toes and metatarsals which is sent for pathology. At this point I began debriding devitalized skin, subcutaneous tissue, muscle, bone. This was done sharply with a 15 blade scalpel as well as a rongeur. This was an excisional debridement. There was significant necrotic tissue that was not immediately apparent on physical examination. Tract proximally on the plantar aspect of the foot near the origin of the plantar fascia as well as undermine the medial skin near the first tarsometatarsal joint. After thorough debridement, I copiously irrigated the wound with normal saline to gravity flow through cystoscopy tubing. I let the tourniquet down, achieved hemostasis. I loosely close the medial lateral wound edges, incorporating some of the healthy skin and over laid the first metatarsal head medially over the first and second residual metatarsal shafts. This resulted in plantar wound measuring approximately 3 cm x 10 cm. I placed a wound vacuum-assisted closure device which was noted to have good seal. Sterile dressings applied. Counts were correct x2. There were no
--- NOTE | 2021-01-18 09:35 | HMH.ANESCL ---
[facility] Anesthesia Checklist - Patient Identification Patient Identification: Arm Band, Verbal (Name & ) - Structural Data Admitted From: Inpatient Planned Operative Procedure/s: left foot tma Consent for Planned Operative Procedure(s) Verified: Yes Verified Documents: History and Physical - NPO Status Verified Time NPO: 00:00 - Additional verifications Patient : No Anesthesia Reactions: No Hx Blood Transfusions: No Blood Transfusion Reaction: No Cephalosporin Allergy: No Previous Colonoscopy: No - Cardiovascular Assessment Heart Sounds: S1 & S2 Pulse Strength: Baseline Pulse Rhythm: Regular Peripheral Edema: No - Airway Assessment C-Spine Mobility Assessed: Yes TMJ Mobility Assessed: Yes Dentition: Poor Dentition - Neurological Assessment Level of Consciousness: Awake, Alert, Appropriate Hx Seizures: No Numbness or tingling in extremities: No - Anesthesia Plan Anesthesia Risk discussed: Yes Anesthesia Plan: Verified ASA Class: III Anesthesia Type: General [facility] History I have reviewed the patient's past medical history: Yes Medical History: Reports:: Atrial Fibrillation, Congestive Heart Failure, Coronary Artery Disease, Diabetes Mellitus Type 2, Hyperlipidemia, Hypertension, Internal Pacemaker, Myocardial Infarction, Peripheral Artery Disease Denies:: Cancer, Diabetes Mellitus Type 1, MRSA, Seizures *Have you ever received a pneumonia vaccine?: No *Have you received a flu vaccine this season?: No Other Medical History: Reports: Arthritis, Hypothyroidism. Denies: Cataracts, Glaucoma, Thyroid Disease Anesthesia experience/problems:: none Laterality Cases: Left: Other Other Surgeries: Yes: Angiogram, Cardiac Catheterization, Coronary Stent, Pacemaker, Other Amputation: Yes (RT lower leg) Fractures: No - *Social History Smoking Status: Current every day smoker Tobacco Type: cigarettes # Packs/Day (cigarettes): 1 Alcohol Intake: never Alcohol Intake Frequency:: other Substance Use Type: denies use *Occupational Status:: disabled Housing: house Household Members: family *Travel in the last 8 weeks: None Family Hx:: Cancer, Coronary Artery Disease, Heart Attack
--- NOTE | 2021-01-18 09:38 | HMH.ANESI ---
[facility] Anesthesia Record Part I Intake, IV Amount: 400 Estimated blood loss (mL): 10 Urine output (mL): 0 Blood Products used (#): none Blood Pressure: 106/68 SaO2: 95 Pulse Rate: 75 Respiratory Rate: 20 Temperature: 97.9 F Patient is:: Drowsy, Stable Stable to PACU at:: 08:33
--- NOTE | 2021-01-18 10:01 | SUR.PHASEI ---
0938-checked fsbs with results of 122, notified [employer] TECHNICIAN with no further orders at this time
--- NOTE | 2021-01-18 10:22 | PC.NURSE ---
1009-detailed report called to KENNETH Olsen 1014-pt transported to 2nd floor room 209 via hospital bed with bobbi rails up and left in care of KENNETH Olsen with bed locked in lowest position, vss, pt stable
--- NOTE | 2021-01-18 10:31 | HMH.HP ---
*Admission Date: 01/17/21 *Chief complaint: infected foot *History of present illness: this pt presented to the ed draining foul smelling wound on the left bottom foot for a few weeks, he thinks he bumped his foot on something at that is how it started This is a 65-year-old male presented to the emergency department with an ulcer on the bottom of his left foot. Patient is a longstanding history of diabetes. He had a right [id number] amputation secondary to necrotic ulcer. Patient states that a few weeks ago he stubbed his toe and he had open laceration to his left foot. He states that has been getting worse over the last few days. He noticed that it started getting black over the last week. Has had a foul smell. He is complaining of some minor pain in the area. He does not have any fevers or chills. No chest pain or shortness of breath. No headache or change in vision. No focal weakness. pt was admitted and will get surg consult [facility] History I have reviewed the patient's past medical history: Yes Medical History: Reports:: Atrial Fibrillation, Congestive Heart Failure, Coronary Artery Disease, Diabetes Mellitus Type 2, Hyperlipidemia, Hypertension, Internal Pacemaker, Myocardial Infarction, Peripheral Artery Disease Denies:: Cancer, Diabetes Mellitus Type 1, MRSA, Seizures *Have you ever received a pneumonia vaccine?: No *Have you received a flu vaccine this season?: No Other Medical History: Reports: Arthritis, Hypothyroidism. Denies: Blood Transfusion Reaction, Cataracts, Glaucoma, Thyroid Disease Anesthesia experience/problems:: none Laterality Cases: Left: Other Other Surgeries: Yes: Angiogram, Cardiac Catheterization, Coronary Stent, Pacemaker, Other Amputation: Yes (RT lower leg) Fractures: No - *Social History Smoking Status: Current every day smoker Tobacco Type: cigarettes # Packs/Day (cigarettes): 1 Alcohol Intake: never Alcohol Intake Frequency:: other Substance Use Type: denies use *Occupational Status:: disabled Housing: house Household Members: family *Travel in the last 8 weeks: None Family Hx:: Cancer, Coronary Artery Disease, Heart Attack Review of Systems - Review of Systems Review of systems:: pertinent systems reviewed and negative unless documented below - Constitutional Denies fever(s) - Eyes Denies change in vision - ENT Denies change in voice - *Cardiovascular Denies chest pain - *Respiratory Denies cough - *Gastrointestinal Denies abdominal pain - *Genitourinary Denies blood in urine - *Musculoskeletal Reports joint pain - Integumentary/Breasts Reports other (changes to foot lt) - *Neurologic Reports abnormal walking, Denies headache(s) - Psychiatric Denies behavioral changes Meds Home Medications Medication Instructions Recorded Confirmed Type bisoprolol fumarate 5 mg tablet 2.5 mg PO DAILY tab 09/20/20 01/17/21 History Aspirin [Low Dose Aspirin EC] 81 mg PO DAILY 01/17/21 01/17/21 History Atorvastatin Calcium [Lipitor 40mg 40 mg PO DAILY 01/17/21 01/17/21 History Tab] Docusate Sodium 100 mg PO BID 01/17/21 01/18/21 History Ergocalciferol (Vitamin D2) 1,250 mg PO WEEKLY 01/17/21 01/18/21 History [Drisdol] Furosemide [Furosemide 20mg Tab*] 20 mg PO DAILY 01/17/21 01/17/21 History Levothyroxine Sodium [Synthroid 50 mcg PO DAILY 01/17/21 01/17/21 History 50mcg (0.05mg) tab] Loratadine [Allergy Relief] 10 mg PO DAILY 01/17/21 01/17/21 History Rivaroxaban [Xarelto] 20 mg PO QPMWITHMEAL 01/17/21 01/18/21 History lisinopriL [Lisinopril 2.5mg Tab] 2.5 mg PO DAILY 01/17/21 01/17/21 History Allergies Allergy/AdvReac Type Severity Reaction Status Date / Time No Known Allergies Allergy Verified 09/20/20 11:50 Exam Vital signs and Labs for Last 24 Hours: Temp Pulse Resp BP Pulse Ox 98.1 F 76 18 111/50 L 97 01/18/21 10:03 01/18/21 10:13 01/18/21 10:13 01/18/21 10:13 01/18/21 10:13 Laboratory Results - last 24 hr
--- NOTE | 2021-01-18 11:39 | HMH.PHACONS ---
- Pharmacy Consult Date: 01/18/21 Time: 11:39 Referring provider: DR. TOLENTINO Reason for Consult:: VANCOMYCIN DOSING Allergies and ADEs:: Allergies Allergy/AdvReac Type Severity Reaction Status Date / Time No Known Allergies Allergy Verified 09/20/20 11:50 Home Medications:: Home Medications Medication Instructions Recorded Confirmed Type bisoprolol fumarate 5 mg tablet 2.5 mg PO DAILY tab 09/20/20 01/17/21 History Aspirin [Low Dose Aspirin EC] 81 mg PO DAILY 01/17/21 01/17/21 History Atorvastatin Calcium [Lipitor 40mg 40 mg PO DAILY 01/17/21 01/17/21 History Tab] Docusate Sodium 100 mg PO DAILY 01/17/21 01/17/21 History Ergocalciferol (Vitamin D2) 1,250 mg PO DAILY 01/17/21 01/17/21 History [Drisdol] Furosemide [Furosemide 20mg Tab*] 20 mg PO DAILY 01/17/21 01/17/21 History Levothyroxine Sodium [Synthroid 50 mcg PO DAILY 01/17/21 01/17/21 History 50mcg (0.05mg) tab] Loratadine [Allergy Relief] 10 mg PO DAILY 01/17/21 01/17/21 History Rivaroxaban [Xarelto] 20 mg PO DAILY 01/17/21 01/17/21 History lisinopriL [Lisinopril 2.5mg Tab] 2.5 mg PO DAILY 01/17/21 01/17/21 History Height: 1.8 m Weight: 92.7 kg Laboratory Results:: Laboratory Results - last 24 hr 01/17/21 16:45: WBC 25.0 H*, RBC 3.82 L, Hgb 11.7 L, Hct 36.0 L, MCV 94.4 H, MCH 30.6, MCHC 32.4, RDW 12.7, Plt Count 313, MPV 8.6, Neut % (Auto) 89.8 H, Lymph % (Auto) 2.6 L, [place] % (Auto) 7.4, Eos % (Auto) 0.1, Baso % (Auto) 0.1, Neut # (Auto) 22.4 H, Lymph # (Auto) 0.7, [place] # (Auto) 1.9 H, Eos # (Auto) 0.0, Baso # (Auto) 0.0, Total Counted 100, Neutrophils % (Manual) 88 H, Band Neutrophils % 7.0, Lymphocytes % (Manual) 4 L, Monocytes % (Manual) 1 L, Platelet Estimate Normal, RBC Morphology Normal, Rouleaux 1+ 01/17/21 16:45: PT 14.5 H, INR 1.25 H, APTT 35.9 H 01/17/21 16:45: Sodium 132 L, Potassium 5.5 H, Chloride 97 L, Carbon Dioxide 24, Anion Gap 16.5 H, BUN 21 H, Creatinine 1.60 H, Estimated Creat Clear 59, Estimated GFR 44 L, Est GFR ( Amer) 53 L, Glucose 243 H, Calcium 8.3 L, Total Bilirubin 1.1, AST 52, ALT 37, Alkaline Phosphatase 133 H, Total Protein 7.2, Albumin 3.0 L, Globulin 4.2 H, Albumin/Globulin Ratio 0.7 L, Acetone Level None detected 01/17/21 16:45: Lactate 2.7 H 01/17/21 18:35: POC Glucose 199 H 01/17/21 18:38: SARS-CoV-2 (PCR) Not detected, Influenza A Untype (PCR) Not detected, Influenza Type B (PCR) Not detected 01/17/21 20:56: POC Glucose 83 01/17/21 21:27: Lactate 2.6 H 01/17/21 23:38: Lactate 0.9 Medical History: Reports:: Atrial Fibrillation, Congestive Heart Failure, Coronary Artery Disease, Diabetes Mellitus Type 2, Hyperlipidemia, Hypertension, Internal Pacemaker, Myocardial Infarction, Peripheral Artery Disease Denies:: Cancer, Diabetes Mellitus Type 1, MRSA, Seizures Assessment and Plan (1) Acute sepsis Status: Acute Category: Medical Code(s): A41.9 - Sepsis, unspecified organism (2) Cellulitis Status: Acute Qualifiers: Site of cellulitis: extremity Site of cellulitis of extremity: toe Laterality: left Qualified Code(s): L03.032 - Cellulitis of left toe Category: Medical Code(s): L03.90 - Cellulitis, unspecified (3) Gas gangrene of foot Status: Acute Category: Medical Code(s): A48.0 - Gas gangrene (4) Osteomyelitis of left foot Status: Acute Qualifiers: Osteomyelitis type: acute hematogenous Qualified Code(s): M86.072 - Acute hematogenous osteomyelitis, left ankle and foot Category: Medical Code(s): M86.9 - Osteomyelitis, unspecified (5) Type 2 diabetes mellitus Status: Acute Qualifiers: Diabetes mellitus fci insulin use: with termite exterminator helper use Diabetes mellitus complication status: with kidney complications Diabetes mellitus complication detail: with chronic kidney disease Chronic kidney disease stage: unspecified stage Qualified Code(s): E11.22 - Type 2 diabetes mellitus with diabetic chronic kidney disease; Z79.4 - termite exterminator helper (current) use
[2021-01-18 11:42] LABS: POC Glucose,Bedside 199 (70-110)
[2021-01-18 11:50] LABS: POC Glucose,Bedside 116 (70-110)
--- NOTE | 2021-01-18 12:26 | HMH.ANESII ---
[facility] Anesthesia Record Part II Discharge Time: 10:03 Destination: Medical Surgical Department PACU nurse assessment reviewed?: Yes Patient Condition:: Good Anesthesia Complications:: None Swallowing reflex intact?: Yes Cyanosis?: No Blood Pressure: 111/50 Pulse Rate: 76 Temperature: 97.5 F Mental Status: Alert & Oriented Pain level:: 0 Nausea and/or vomitting:: None Intake, IV Amount: 35
[2021-01-18 12:55] LABS: Basophils % 0.2 % (0.1-2.0); Eosinophils % 0.1 % (0.1-12.0); Hematocrit 34.5 % (42.0-52.0); Hemoglobin 10.6 g/dL (14.1-18.0); Lymphocytes # 0.4 K/mm3 (0.7-4.5); Mean Corpuscular HGB Conc 30.8 g/dL (31.8-35.4); Mean Corpuscular Hemoglobin 29.7 pg (27.0-31.2); Mean Corpuscular Volume 96.3 fl (80-94); Mean Platelet Volume 8.4 fl (7.4-10.4); Monocytes # 1.2 K/mm3 (0.1-1.0); Monocytes % 5.8 % (1.7-9.3); Neutrophils # 18.2 K/mm3 (1.8-7.8); Neutrophils % 91.9 % (37.0-80.0); Platelet Count 238 K/mm3 (142-424); Red Blood Count 3.58 M/mm3 (4.60-6.20); Red Cell Distribution Width 12.8 % (11.5-17.5); White Blood Count 19.8 K/mm3 (4.8-10.8)
[2021-01-18 12:57] LABS: MANUAL DIFFERENTIAL MANUAL DIFFERENTIAL (MANUAL DIFF)
[2021-01-18 13:01] LABS: Chloride 104 mmol/L (98-107); Potassium 5.2 mmoL/L (3.5-5.1); Sodium 134 mmol/L (136-145)
[2021-01-18 13:04] LABS: Anion Gap 14.2 mEq/L (5-15); Blood Urea Nitrogen 25 mg/dl (9-20); Carbon Dioxide 21 mmol/L (22.0-30.0); Creatinine Clearance Estimated 64 mL/min (50-200); Estimated Glomerular Filt Rate 47 ml/min (>60); GFR (African American) 57 ML/MIN (>60)
[2021-01-18 13:05] LABS: Calcium 7.5 mg/dl (8.4-10.2); Glucose 238 mg/dl (74-100)
--- NOTE | 2021-01-18 13:10 | HMH.PHAVTE ---
[facility] Pharmacy VTE Monitoring - Patient Demographics Admission date: 01/17/21 Report Date: 01/18/21 Time: 13:10 Allergies/Adverse Reactions: Patient Allergies No Known Allergies Allergy (Verified 09/20/20 11:50) Height: 1.8 m Weight: 92.7 kg Patient Problems: Current Active Problems Gas gangrene of foot (Acute) Osteomyelitis of left foot (Acute) Acute sepsis (Acute) Abnormal ankle brachial index (LEO) (Acute) Discoloration of skin of lower leg (Acute) Type 2 diabetes mellitus (Acute) PAD (peripheral artery disease) (Chronic) Decreased pedal pulses (Acute) History of amputation below knee (Chronic) Diabetic foot (Acute) Tobacco use (Chronic) Systolic heart failure (Chronic) NYHA class 3 heart failure with reduced ejection fraction (Chronic) Abnormal stress test (Acute) Ischemic cardiomyopathy (Chronic) Cellulitis (Acute) - VTE Risk Labs: VTE Related Lab Results Hgb 10.6 g/dL (14.1-18.0) L 01/18/21 12:39 Hct 34.5 % (42.0-52.0) L 01/18/21 12:39 Plt Count 238 K/mm3 (142-424) 01/18/21 12:39 PT 14.5 seconds (10.1-12.5) H 01/17/21 16:45 INR 1.25 (0.9-1.1) H 01/17/21 16:45 APTT 35.9 seconds (22.8-30.6) H 01/17/21 16:45 BUN 25 mg/dl (9-20) H 01/18/21 12:39 Creatinine 1.50 mg/dl (0.66-1.25) H 01/18/21 12:39 Estimated Creat Clear 64 mL/min (50-200) 01/18/21 12:39 - Prophylaxis VTE Prophylaxis Ordered?: Yes Types of VTE Prophylaxis: Pharmacological Pharmacologic Type: Enoxaparin
--- NOTE | 2021-01-18 13:27 | HMH.PHAINT ---
MEDICATION RECONCILIATION COMPLETED ON PATIENT USING EXTERNAL FILL HISTORY FROM PHARMACY. -LIZETTE VALERO, JAMIED
[2021-01-18 13:46] LABS: Hypochromasia 1+; Lymphocytes % 2 % (10-50); Monocytes % 1 % (2-9); Neutrophils % 97 % (42-76); Platelet Estimate Normal; Total Cells Counted 100
[2021-01-18 18:00] LABS: POC Glucose,Bedside 315 (70-110)
--- NOTE | 2021-01-18 19:50 | PC.NURSE ---
PT IS RESTING IN BED. NO COMPLAINTS OF DISCOMFORT. EATING AND DRINKING WELL. ALERT AND ORIENTED X4. DRESSING WITH WOUND VAC NOTED TO LLE. PT HAS BEEN TURNING AND REPOSITIONING IN BED. POST OP VSS. WILL CONTINUE TO MONITOR.
[2021-01-18 21:01] LABS: POC Glucose,Bedside 340 (70-110)
[2021-01-19] VITALS: BP 109/57; PULSE 73; RESP 20; TEMP 36.7; O2SAT 91
--- NOTE | 2021-01-19 02:39 | PC.NURSE ---
Pt is A/O x4, no acute changes t/o night. Pt denies of any pain. Left foot has dressing C/D/I with wound vac in place. Pt can use the urinal independently. BKA on right side noted. IV is patent and infusing NS @ 100ml. VSS, call light within reach, will continue to monitor.
[2021-01-19 04:00] VITALS: BP 118/70; PULSE 75; RESP 16; TEMP 36.5; O2SAT 91
[2021-01-19 04:40] LABS: POC Glucose,Bedside 122 (70-110)
[2021-01-19 06:07] LABS: POC Glucose,Bedside 178 (70-110)
--- NOTE | 2021-01-19 07:33 | P.PN_ITS ---
Subjective Date: 01/19/21 Time: 07:33 Principal diagnosis: Left foot gangrene Interval history: Status post debridement irrigation, transmetatarsal amputation, wound vacuum- assisted closure January 18, 2021. He is comfortable. No fever or constitutional symptoms. PN: Obj Ex Vital signs: Temp Pulse Resp BP Pulse Ox 97.7 F 75 16 118/70 91 L 01/19/21 04:00 01/19/21 04:00 01/19/21 04:00 01/19/21 04:00 01/19/21 04:00 - Constitutional no acute distress - Routine HEENT Exam Head: Present: normocephalic Eye: Present: EOMI ENT: Present: mucous membranes moist - Routine Neck Exam Present: supple - Routine Respiratory Exam Absent: accessory muscle use, respiratory distress - Routine Cardiovascular Exam Present: RRR - Detailed Lower Extremity Exam Comments: Left lower extremity with wound VAC in place, good seal, surgical dressing in place. Progress Note: A&P (1) Acute sepsis Status: Acute (2) Cellulitis Status: Acute (3) Gas gangrene of foot Status: Acute Assessment and plan: He is status post debridement irrigation, transmetatarsal amputation, wound vacuum-assisted closure January 18, 2021. This is a limb threatening situation. I think in all likelihood he may eventually need a below-knee amputation. 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 He has known history of peripheral vascular disease. I plan to obtain a CTA to evaluate distal runoff and determine whether vascular intervention may potentially improve his blood flow and give him a chance to heal what is now a large, limb threatening foot wound. For now, protected, heel weightbearing only, every 72 hour wound VAC changes. Plan for him to follow-up with me every Wednesday versus follow-up in wound care with Dr. Moeller (4) Osteomyelitis of left foot Status: Acute (5) Type 2 diabetes mellitus Status: Acute (6) PAD (peripheral artery disease) Status: Chronic (7) Abnormal ankle brachial index (LEO) Status: Acute (8) Abnormal stress test Status: Acute (9) Decreased pedal pulses Status: Acute (10) Diabetic foot Status: Acute (11) Discoloration of skin of lower leg Status: Acute (12) History of amputation below knee Status: Chronic (13) Ischemic cardiomyopathy Status: Chronic (14) NYHA class 3 heart failure with reduced ejection fraction Status: Chronic (15) Systolic heart failure Status: Chronic (16) Tobacco use Status: Chronic
--- NOTE | 2021-01-19 07:38 | CT_ITS ---
PROCEDURE INFORMATION: Exam: CTA Left Lower Extremity With Contrast Exam date and time: 01/19/2021 7:38 AM Age: 65 years old Clinical indication: Pain; Foot; Left; Additional info: Left foot gangrene, peripheral vascular disease TECHNIQUE: Imaging protocol: Computed tomographic angiography of the Left lower extremity with intravenous contrast. 3D rendering (Not supervised by radiologist): MIP and/or 3D reconstructed images were created by the technologist. Radiation optimization: All CT scans at this facility use at least one of these dose optimization techniques: automated exposure control; mA and/or kV adjustment per patient size (includes targeted exams where dose is matched to clinical indication); or iterative reconstruction. Contrast material: ISOVUE; Contrast volume: 120 ml; Contrast route: INTRAVENOUS (IV); COMPARISON: US ARTERIAL LOWER EXT REST 10/24/2019 1:24 PM FINDINGS: There are 3.9 cm left and 2.9 cm right hypoattenuating adrenal adenomas. Bilateral nonspecific perinephric and retroperitoneal fat stranding. Small fat containing periumbilical hernia with mild inflammation. Mild generalized body wall edema. Small scrotal hydroceles. Severe calcified and noncalcified lobular atherosclerotic disease throughout the abdominal aorta without aneurysm or severe narrowing. Extensive atherosclerotic calcifications mildly narrowing the celiac axis and superior mesenteric arteries. Inferior mesenteric artery and renal arteries are patent. Right above the knee amputation. Severe atherosclerotic narrowing of the right common and internal iliac arteries. Surgical change from previous vascular access in the right inguinal region with fusiform dilation of the superficial femoral artery and vein. There is non opacification of the distal aspect of the right superficial femoral artery, on a background of severe calcified atherosclerosis. Severe calcified atherosclerosis of the left common, superficial and deep iliac arteries without severe narrowing. Severe atherosclerotic calcifications of the common and superficial femoral arteries., with severe narrowing and potential occlusion of the distal aspect of the superficial femoral artery, although with reconstitution at the popliteal artery with multifocal areas of severe atherosclerotic calcifications. The left lower extremity runoff vasculature is very poorly evaluated given the venous phase imaging provided, and extensive atherosclerotic calcifications which can obscure intraluminal enhancement. However, the anterior tibial artery is likely occluded at the ankle and the peroneal artery is likely occluded at the ankle. The posterior tibial artery is likely patent at the ankle. Soft tissue ulceration with associated cellulitis and gas along the left heel with extension along the flexor tendons. IMPRESSION: 1. Soft tissue ulceration with cellulitis and gas along the left heel extending along the flexor tendons with no appreciable abscess. 2. Severe vascular disease with extensive atherosclerotic calcifications and noncalcified atherosclerotic disease throughout the abdominal aorta. 3. Right hcizy-svu-pcip amputation with likely occlusion of the distal aspect of the superficial femoral artery. 4. Significantly degraded evaluation of the left lower extremity arterial vasculature given suboptimal venous phase contrast bolus timing on this study and severe atherosclerotic calcifications which can obscure luminal enhancement. However, there is likely severe narrowing or occlusion of the distal superficial femoral artery and reconstitution at the popliteal artery.
[2021-01-19 08:00] VITALS: BP 116/46; PULSE 76; RESP 16; TEMP 36.5; O2SAT 93
--- NOTE | 2021-01-19 08:07 | HMH.ITSTN ---
CALLED TO SPEAK TO RN ABOUT IV STATUS NO ANSWER
--- NOTE | 2021-01-19 08:15 | HMH.ITSTN ---
SPOKE WITH MAX COOPER,,SHE IS WORKING ON IV WILL KEEP ME INFORMED
--- NOTE | 2021-01-19 11:11 | HMH.ACPN2 ---
Internal Medicine - PN: Subj *Date: 01/19/21 *Time: 11:11 Interval history: pt doing better - s/p surg on foot Exam Vital signs and Labs for Last 24 Hours: Temp Pulse Resp BP Pulse Ox 97.7 F 76 16 116/46 L 93 L 01/19/21 08:00 01/19/21 08:00 01/19/21 08:00 01/19/21 08:00 01/19/21 08:00 Laboratory Results - last 24 hr 01/18/21 05:15: POC Glucose 116 H 01/18/21 09:38: POC Glucose 122 H 01/18/21 11:33: POC Glucose 199 H 01/18/21 12:39: WBC 19.8 H, RBC 3.58 L, Hgb 10.6 L, Hct 34.5 L, MCV 96.3 H, MCH 29.7, MCHC 30.8 L, RDW 12.8, Plt Count 238, MPV 8.4, Neut % (Auto) 91.9 H, Lymph % (Auto) 2.0 L, [place] % (Auto) 5.8, Eos % (Auto) 0.1, Baso % (Auto) 0.2, Neut # (Auto) 18.2 H, Lymph # (Auto) 0.4 L, [place] # (Auto) 1.2 H, Eos # (Auto) 0.0, Baso # (Auto) 0.0, Total Counted 100, Neutrophils % (Manual) 97 H, Lymphocytes % (Manual) 2 L, Monocytes % (Manual) 1 L, Platelet Estimate Normal, Hypochromasia 1+ 01/18/21 12:39: Sodium 134 L, Potassium 5.2 H, Chloride 104, Carbon Dioxide 21 L, Anion Gap 14.2, BUN 25 H, Creatinine 1.50 H, Estimated Creat Clear 64, Estimated GFR 47 L, Est GFR ( Amer) 57 L, Glucose 238 H, Calcium 7.5 L 01/18/21 17:02: POC Glucose 315 H* 01/18/21 19:57: POC Glucose 340 H* 01/19/21 05:56: POC Glucose 178 H I & O for Last 24 hours: Intake & Output 01/16/21 01/17/21 01/18/21 01/19/21 11:59 11:59 11:59 11:59 Intake Total 400 / 400 1115 / 1115 Output Total 425 / 425 350 / 350 Balance -25 / -25 765 / 765 Weight 204 lb 5.896 oz 214 lb 15.211 oz Microbiology Reports for the Last 24 Hours: Microbiology 01/18/21 08:50 Foot,Left - Wound Gram Stain - Final 01/18/21 08:50 Foot,Left - Wound Wound Culture - Preliminary 01/17/21 16:45 Blood Blood Culture - Preliminary - Constitutional no acute distress - *Routine HEENT Exam Head: Present: normocephalic Eye: Present: EOMI, PERRL ENT: Present: mucous membranes dry - *Routine Neck Exam Absent: JVD - *Routine Respiratory Exam Present: decreased breath sounds - *Routine Cardiovascular Exam Present: RRR - *Routine Abdominal Exam Present: soft - *Routine Extremities Exam Comments: s/p surg foot - *Routine Skin Exam Present: intact - *Routine Neurological Exam Present: alert, CN II-XII intact - Routine Psychiatric Exam Present: cooperative Assessment and Plan (1) Acute sepsis Status: Acute Category: Medical Code(s): A41.9 - Sepsis, unspecified organism (2) Cellulitis Status: Acute Qualifiers: Site of cellulitis: extremity Site of cellulitis of extremity: toe Laterality: left Qualified Code(s): L03.032 - Cellulitis of left toe Category: Medical Code(s): L03.90 - Cellulitis, unspecified (3) Gas gangrene of foot Status: Acute Category: Medical Code(s): A48.0 - Gas gangrene (4) Osteomyelitis of left foot Status: Acute Qualifiers: Osteomyelitis type: acute hematogenous Qualified Code(s): M86.072 - Acute hematogenous osteomyelitis, left ankle and foot Category: Medical Code(s): M86.9 - Osteomyelitis, unspecified (5) Type 2 diabetes mellitus Status: Acute Qualifiers: Diabetes mellitus half-way insulin use: with half-way use Diabetes mellitus complication status: with kidney complications Diabetes mellitus complication detail: with chronic kidney disease Chronic kidney disease stage: unspecified stage Qualified Code(s): E11.22 - Type 2 diabetes mellitus with diabetic chronic kidney disease; Z79.4 - marine oil terminal superintendent (current) use of insulin Category: Medical Code(s): E11.9 - Type 2 diabetes mellitus without complications (6) PAD (peripheral artery disease) Status: Chronic Category: Medical Code(s): I73.9 - Peripheral vascular disease, unspecified (7) Abnormal ankle brachial index (LEO) Status: Acute Category: Medical Code(s): R68.89 - Other general symptoms and signs (8) Abnormal stress test Status: Acute Category:
[2021-01-19 12:00] VITALS: BP 128/64; PULSE 75; RESP 21; TEMP 36.8; O2SAT 92
[2021-01-19 12:45] LABS: POC Glucose,Bedside 219 (70-110)
[2021-01-19 15:59] VITALS: BP 91/56; PULSE 69; RESP 16; TEMP 36.8; O2SAT 96
[2021-01-19 16:52] LABS: POC Glucose,Bedside 303 (70-110)
--- NOTE | 2021-01-19 18:34 | PC.NURSE ---
PT IS RESTING IN BED. ALERT AND ORIENTED X4. DRESSING TO THE LLE C/D/I WITH WOUND VAC ATTACHED. RBKA. LUNG SOUNDS CLEAR. ABDOMEN SOFT/NON TENDER WITH ACTIVE BOWEL SOUNDS. EATING AND DRINKING WELL. NEW IV ACCESS NOTED TO JERMAINE. WILL CONTINUE TO MONITOR.
[2021-01-19 20:00] VITALS: BP 122/58; PULSE 78; RESP 20; TEMP 37; O2SAT 94
[2021-01-19 20:57] LABS: Vancomycin,Trough 12.4 ug/mL (5.0-10.0)
--- NOTE | 2021-01-19 21:02 | PC.NURSE ---
Dawn from [facility] called with vanc trough results, gave ok to give 2100 vanc dose
[2021-01-19 22:34] LABS: POC Glucose,Bedside 186 (70-110)
[2021-01-20] VITALS: BP 106/60; PULSE 75; RESP 18; TEMP 37.3; O2SAT 94
[2021-01-20 01:23] LABS: Vancomycin,Peak 34.4 ug/ml (11-39)
[2021-01-20 04:00] VITALS: BP 95/52; PULSE 75; RESP 16; TEMP 36.6; O2SAT 91
[2021-01-20 04:57] VITALS: BMI 30.4
[2021-01-20 06:22] LABS: POC Glucose,Bedside 132 (70-110)
[2021-01-20 07:03] LABS: Basophils # 0.1 K/mm3 (0-0.2); Basophils % 0.3 % (0.1-2.0); Eosinophils # 0.2 K/mm3 (0.0-0.4); Eosinophils % 1.2 % (0.1-12.0); Hematocrit 32.3 % (42.0-52.0); Lymphocytes # 1.4 K/mm3 (0.7-4.5); Lymphocytes % 10.2 % (10-50); Mean Corpuscular HGB Conc 30.9 g/dL (31.8-35.4); Mean Corpuscular Hemoglobin 29.6 pg (27.0-31.2); Mean Corpuscular Volume 95.7 fl (80-94); Mean Platelet Volume 8.9 fl (7.4-10.4); Monocytes # 1.5 K/mm3 (0.1-1.0); Monocytes % 10.5 % (1.7-9.3); Neutrophils # 10.9 K/mm3 (1.8-7.8); Neutrophils % 77.7 % (37.0-80.0); Platelet Count 250 K/mm3 (142-424); Red Blood Count 3.37 M/mm3 (4.60-6.20); Red Cell Distribution Width 13.1 % (11.5-17.5)
[2021-01-20 07:11] LABS: Anion Gap 9.8 mEq/L (5-15); Blood Urea Nitrogen 24 mg/dl (9-20); Calcium 7.4 mg/dl (8.4-10.2); Carbon Dioxide 23 mmol/L (22.0-30.0); Chloride 107 mmol/L (98-107); Creatinine Clearance Estimated 79 mL/min (50-200); Estimated Glomerular Filt Rate 55 ml/min (>60); GFR (African American) 67 ML/MIN (>60); Glucose 125 mg/dl (74-100); Potassium 4.8 mmoL/L (3.5-5.1); Sodium 135 mmol/L (136-145)
[2021-01-20 08:00] VITALS: BP 96/59; PULSE 75; RESP 18; TEMP 36.7; O2SAT 94
[2021-01-20 10:44] VITALS: BMI 30.4
--- NOTE | 2021-01-20 10:50 | XR_ITS ---
PROCEDURE: XR CHEST PORTABLE PICC PLAC CLINICAL HISTORY: Confirm PICC line placement COMPARISON: CR CXR CHEST(2 VIEWS-NOT PORTABLE) from 02/03/2013 CR CXR CHEST(2 VIEWS-NOT PORTABLE) from 01/30/2016 CR CXR2V XR chest 2V from 05/04/2017 FINDINGS: Right upper extremity PICC line has been inserted. The line curls in the right axilla projecting back toward the arm area. The tip the catheter is not readily identified. There is cardiomegaly with mild CHF. Bipolar pacemaker is present from left subclavian approach. Chronic interstitial changes are noted. Tripolar cardiac pacemaker device is present IMPRESSION: Abnormal positioning of the PICC line curled in the axilla with the tip in the arm area Cardiomegaly with mild CHF and chronic interstitial changes. Dictated by: Bruno Delgado MD 01/20/2021 14:53 Bruno Delgado MD in [place] 01/20/2021 14:53
--- NOTE | 2021-01-20 10:53 | SW/DCPLANNER ---
Addendum entered by [facility] 01/21/21 10:36: Maria Elena with [facility] has stated that services will begin tomorrow 01/22 for IV Vanc at home and wound vac will be changed on Wednesday 01/24 (will be changed today prior to discharge). Addendum entered by [facility] 01/21/21 09:20: I have informed Conchita with [facility] [employer] that this patient is fine with paying $3/week and patient will discharge home today. Conchita has stated that she will follow up with patient regarding delivery. I have also faxed patient information to [facility]. I will follow up with [facility] once patient information/order is reviewed. I have informed patients nurse (Coty) that our wound vac is to be removed and [facility] delivered a wound vac to patients room last night that is to be placed prior to discharge. Addendum entered by [facility] 01/20/21 15:14: CORRECTION: Conchita with [employer] has stated that cost will be $3/week for IV Vanc. Addendum entered by [facility] 01/20/21 14:52: Aden with [facility] will deliver a wound VAC to this patients room today. [place] wound vac will be placed on patient tomorrow. Conchita with [employer] has stated that patients insurance covers IV Vanc at 100%. I will set up [facility] tomorrow at time of discharge pending no further setbacks. Original Note: I spoke with this patient this AM regarding discharge plans. Per Andra in outpatient office Dr Matos stated that patient will need wound vac change every 72 hours, PICC line placed and IV Vanc Q24 for 6 weeks. Patient stated that he has received IV antibiotics at home in the past. Patient stated that he would have family at home that can assist with IV antibiotics. Patient stated that he has used [facility] in the past and prefers to use them again at discharge. I will fax patient information to [employer] for IV Vanc at home and get an out of pocket expense and I will set patient up with [facility] for wound vac changes and IV Vanc. Patient stated that he does feel comfortable enough to return home and prefers to return home with home health services. Patient could discharge home later today or tomorrow.
--- NOTE | 2021-01-20 11:04 | HMH.PHACONS ---
- Pharmacy Consult Date: 01/20/21 Time: 11:15 Referring provider: DR. TOLENTINO Reason for Consult:: VANCOMYCIN PEAK AND TROUGH Allergies and ADEs:: Allergies Allergy/AdvReac Type Severity Reaction Status Date / Time No Known Allergies Allergy Verified 09/20/20 11:50 Home Medications:: Home Medications Medication Instructions Recorded Confirmed Type bisoprolol fumarate 5 mg tablet 2.5 mg PO DAILY tab 09/20/20 01/17/21 History Aspirin [Low Dose Aspirin EC] 81 mg PO DAILY 01/17/21 01/17/21 History Atorvastatin Calcium [Lipitor 40mg 40 mg PO DAILY 01/17/21 01/17/21 History Tab] Docusate Sodium 100 mg PO BID 01/17/21 01/18/21 History Ergocalciferol (Vitamin D2) 1,250 mg PO WEEKLY 01/17/21 01/18/21 History [Drisdol] Furosemide [Furosemide 20mg Tab*] 20 mg PO DAILY 01/17/21 01/17/21 History Levothyroxine Sodium [Synthroid 50 mcg PO DAILY 01/17/21 01/17/21 History 50mcg (0.05mg) tab] Loratadine [Allergy Relief] 10 mg PO DAILY 01/17/21 01/17/21 History Rivaroxaban [Xarelto] 20 mg PO QPMWITHMEAL 01/17/21 01/18/21 History lisinopriL [Lisinopril 2.5mg Tab] 2.5 mg PO DAILY 01/17/21 01/17/21 History Height: 1.8 m Weight: 98.6 kg Laboratory Results:: Laboratory Results - last 24 hr 01/19/21 12:33: POC Glucose 219 H 01/19/21 16:38: POC Glucose 303 H* 01/19/21 20:20: Vancomycin Trough 12.4 H 01/19/21 20:49: POC Glucose 186 H 01/20/21 00:25: Vancomycin Peak 34.4 01/20/21 05:50: POC Glucose 132 H 01/20/21 06:18: WBC 14.0 H D, RBC 3.37 L, Hgb 10.0 L, Hct 32.3 L, MCV 95.7 H, MCH 29.6, MCHC 30.9 L, RDW 13.1, Plt Count 250, MPV 8.9, Neut % (Auto) 77.7, Lymph % (Auto) 10.2, [place] % (Auto) 10.5 H, Eos % (Auto) 1.2, Baso % (Auto) 0.3, Neut # (Auto) 10.9 H, Lymph # (Auto) 1.4, [place] # (Auto) 1.5 H, Eos # (Auto) 0.2, Baso # (Auto) 0.1 01/20/21 06:18: Sodium 135 L, Potassium 4.8, Chloride 107, Carbon Dioxide 23, Anion Gap 9.8, BUN 24 H, Creatinine 1.30 H, Estimated Creat Clear 79, Estimated GFR 55 L, Est GFR ( Amer) 67, Glucose 125 H, Calcium 7.4 L Medical History: Reports:: Atrial Fibrillation, Congestive Heart Failure, Coronary Artery Disease, Diabetes Mellitus Type 2, Hyperlipidemia, Hypertension, Internal Pacemaker, Myocardial Infarction, Peripheral Artery Disease Denies:: Cancer, Diabetes Mellitus Type 1, MRSA, Seizures Assessment and Plan (1) Acute sepsis Status: Acute Category: Medical Code(s): A41.9 - Sepsis, unspecified organism (2) Cellulitis Status: Acute Qualifiers: Site of cellulitis: extremity Site of cellulitis of extremity: toe Laterality: left Qualified Code(s): L03.032 - Cellulitis of left toe Category: Medical Code(s): L03.90 - Cellulitis, unspecified (3) Gas gangrene of foot Status: Acute Category: Medical Code(s): A48.0 - Gas gangrene (4) Osteomyelitis of left foot Status: Acute Qualifiers: Osteomyelitis type: acute hematogenous Qualified Code(s): M86.072 - Acute hematogenous osteomyelitis, left ankle and foot Category: Medical Code(s): M86.9 - Osteomyelitis, unspecified (5) Type 2 diabetes mellitus Status: Acute Qualifiers: Diabetes mellitus manager long term care insulin use: with manager long term care use Diabetes mellitus complication status: with kidney complications Diabetes mellitus complication detail: with chronic kidney disease Chronic kidney disease stage: unspecified stage Qualified Code(s): E11.22 - Type 2 diabetes mellitus with diabetic chronic kidney disease; Z79.4 - FDC (current) use of insulin Category: Medical Code(s): E11.9 - Type 2 diabetes mellitus without complications (6) PAD (peripheral artery disease) Status: Chronic Category: Medical Code(s): I73.9 - Peripheral vascular disease, unspecified (7) Abnormal ankle brachial index (LEO) Status: Acute Category: Medical Code(s): R68.89 - Other general symptoms and signs (8) Abnormal stress test Status: Acute Category: Medical Code(s): R94.39 - Abnormal r
[2021-01-20 12:00] VITALS: BP 102/58; PULSE 74; RESP 20; TEMP 36.7; O2SAT 96
--- NOTE | 2021-01-20 12:34 | HMH.ACPN2 ---
Internal Medicine - PN: Subj *Date: 01/20/21 *Time: 08:00 Interval history: doing better - drain to lt foot Exam Vital signs and Labs for Last 24 Hours: Temp Pulse Resp BP Pulse Ox 98.0 F 75 18 96/59 L 94 L 01/20/21 08:00 01/20/21 08:00 01/20/21 08:00 01/20/21 08:00 01/20/21 08:00 Laboratory Results - last 24 hr 01/19/21 12:33: POC Glucose 219 H 01/19/21 16:38: POC Glucose 303 H* 01/19/21 20:20: Vancomycin Trough 12.4 H 01/19/21 20:49: POC Glucose 186 H 01/20/21 00:25: Vancomycin Peak 34.4 01/20/21 05:50: POC Glucose 132 H 01/20/21 06:18: WBC 14.0 H D, RBC 3.37 L, Hgb 10.0 L, Hct 32.3 L, MCV 95.7 H, MCH 29.6, MCHC 30.9 L, RDW 13.1, Plt Count 250, MPV 8.9, Neut % (Auto) 77.7, Lymph % (Auto) 10.2, [place] % (Auto) 10.5 H, Eos % (Auto) 1.2, Baso % (Auto) 0.3, Neut # (Auto) 10.9 H, Lymph # (Auto) 1.4, [place] # (Auto) 1.5 H, Eos # (Auto) 0.2, Baso # (Auto) 0.1 01/20/21 06:18: Sodium 135 L, Potassium 4.8, Chloride 107, Carbon Dioxide 23, Anion Gap 9.8, BUN 24 H, Creatinine 1.30 H, Estimated Creat Clear 79, Estimated GFR 55 L, Est GFR ( Amer) 67, Glucose 125 H, Calcium 7.4 L I & O for Last 24 hours: Intake & Output 01/18/21 01/19/21 01/20/21 01/21/21 11:59 11:59 11:59 11:59 Intake Total 400 / 400 1115 / 1115 960 / 960 Output Total 425 / 425 350 / 350 100 / 100 Balance -25 / -25 765 / 765 860 / 860 Weight 204 lb 5.896 oz 214 lb 15.211 oz 217 lb 6.012 oz Microbiology Reports for the Last 24 Hours: Microbiology 01/18/21 08:50 Foot,Left - Wound Gram Stain - Final 01/18/21 08:50 Foot,Left - Wound Wound Culture - Preliminary 01/18/21 08:50 Foot,Left - Wound - Final 01/17/21 16:22 Blood Blood Culture - Preliminary NO GROWTH AFTER 48 HOURS - Constitutional no acute distress - *Routine HEENT Exam Head: Present: normocephalic Eye: Present: EOMI, PERRL ENT: Present: mucous membranes dry - *Routine Neck Exam Absent: JVD - *Routine Respiratory Exam Present: CTA bilaterally - *Routine Cardiovascular Exam Present: RRR - *Routine Abdominal Exam Present: soft - *Routine Extremities Exam Comments: s/p surg lt foot - *Routine Skin Exam Comments: changes lt foot - *Routine Neurological Exam Present: alert, CN II-XII intact - Routine Psychiatric Exam Present: cooperative Assessment and Plan (1) Acute sepsis Status: Acute Category: Medical Code(s): A41.9 - Sepsis, unspecified organism (2) Cellulitis Status: Acute Qualifiers: Site of cellulitis: extremity Site of cellulitis of extremity: toe Laterality: left Qualified Code(s): L03.032 - Cellulitis of left toe Category: Medical Code(s): L03.90 - Cellulitis, unspecified (3) Gas gangrene of foot Status: Acute Category: Medical Code(s): A48.0 - Gas gangrene (4) Osteomyelitis of left foot Status: Acute Qualifiers: Osteomyelitis type: acute hematogenous Qualified Code(s): M86.072 - Acute hematogenous osteomyelitis, left ankle and foot Category: Medical Code(s): M86.9 - Osteomyelitis, unspecified (5) Type 2 diabetes mellitus Status: Acute Qualifiers: Diabetes mellitus intermediate card tender insulin use: with jail use Diabetes mellitus complication status: with kidney complications Diabetes mellitus complication detail: with chronic kidney disease Chronic kidney disease stage: unspecified stage Qualified Code(s): E11.22 - Type 2 diabetes mellitus with diabetic chronic kidney disease; Z79.4 - detention (current) use of insulin Category: Medical Code(s): E11.9 - Type 2 diabetes mellitus without complications (6) PAD (peripheral artery disease) Status: Chronic Category: Medical Code(s): I73.9 - Peripheral vascular disease, unspecified (7) Abnormal ankle brachial index (LEO) Status: Acute Category: Medical Code(s): R68.89 - Other general symptoms and signs (8) Abnormal stress test Status: Acute Categ
--- NOTE | 2021-01-20 15:13 | PC.NURSE ---
NO ACUTE CHANGES THIS SHIFT, PICC LINE PLACED THIS SHIFT, PT HOME HEALTH WOUND VAC DELIVERED TODAY. HE HAS NOT REQUIRED O2 SUPPORT. DENIES N/V/D. WOUND VAC IN PLACE RED SANGUINEOUS DRAINAGE NOTED IN CONTAINER, DSG C/D/I.
--- NOTE | 2021-01-20 15:20 | XR_ITS ---
PROCEDURE: XR CHEST PORTABLE CLINICAL HISTORY: PICC PLACEMENT; REPOSTITION COMPARISON: CR CXR CHEST(2 VIEWS-NOT PORTABLE) from 01/30/2016 CR CXR2V XR chest 2V from 05/04/2017 CR XR CHEST PORTABLE PICC PLAC from 01/20/2021 FINDINGS: Right upper extremity PICC line has been reposition. The tip is in the region of the superior vena cava. There is cardiomegaly without failure. Tripolar pacemaker remains present. No acute bony abnormalities. IMPRESSION: The right upper extremity PICC line tip in good position at the SVC area Dictated by: Bruno Delgado MD 01/20/2021 15:47 Bruno Delgado MD in [place] 01/20/2021 15:47
[2021-01-20 16:00] VITALS: BP 127/75; PULSE 75; RESP 18; TEMP 36.5; O2SAT 93
[2021-01-20 20:00] VITALS: BP 129/76; PULSE 78; RESP 18; TEMP 36.9; O2SAT 93
[2021-01-20 20:22] LABS: POC Glucose,Bedside 182 (70-110)
[2021-01-20 20:22] LABS: POC Glucose,Bedside 183 (70-110)
[2021-01-20 21:08] LABS: POC Glucose,Bedside 245 (70-110)
[2021-01-21] VITALS: BP 125/74; PULSE 76; RESP 18; TEMP 36.8; O2SAT 98
[2021-01-21 04:00] VITALS: BP 128/71; PULSE 74; RESP 18; TEMP 36.7; O2SAT 100
--- NOTE | 2021-01-21 04:22 | PC.NURSE ---
Patient has had no acute changes this RN's shift. Patient's dressing is clean, dry and intact. Wound vac functioning properly. Patient stated last BM was 01/17. VSS, Call light within reach, will continue to monitor.
[2021-01-21 05:53] VITALS: BMI 30.4
[2021-01-21 06:19] LABS: POC Glucose,Bedside 140 (70-110)
[2021-01-21 08:00] VITALS: BP 118/62; PULSE 75; RESP 20; TEMP 36.8; O2SAT 95
--- NOTE | 2021-01-21 08:55 | HMH.DCSUM ---
General - General Admission date:: 01/17/21 Discharge date: 01/21/21 HPI HPI: this pt presented to the ed draining foul smelling wound on the left bottom foot for a few weeks, he thinks he bumped his foot on something at that is how it started This is a 65-year-old male presented to the emergency department with an ulcer on the bottom of his left foot. Patient is a longstanding history of diabetes. He had a right [id number]-[id number] amputation secondary to necrotic ulcer. Patient states that a few weeks ago he stubbed his toe and he had open laceration to his left foot. He states that has been getting worse over the last few days. He noticed that it started getting black over the last week. Has had a foul smell. He is complaining of some minor pain in the area. He does not have any fevers or chills. No chest pain or shortness of breath. No headache or change in vision. No focal weakness. pt was admitted and will get surg consult Hospital Course Hospital Course: 65-year-old male patient was admitted with wound to left foot with purulent drainage Ortho was consulted and patient admitted 01/17/21 L Foot XR: IMPRESSION: Extensive gas in the soft tissues of the forefoot are consistent with a gas-forming infection. No obvious evidence of osteomyelitis. If clinical concern remains, further evaluation with MRI is recommended. Electronically signed by Janak Perez MD 01/19/21 LLE CTA: IMPRESSION: 1. Soft tissue ulceration with cellulitis and gas along the left heel extending along the flexor tendons with no appreciable abscess. 2. Severe vascular disease with extensive atherosclerotic calcifications and noncalcified atherosclerotic disease throughout the abdominal aorta. 3. Right afnsy-lit-amby amputation with likely occlusion of the distal aspect of the superficial femoral artery. 4. Significantly degraded evaluation of the left lower extremity arterial vasculature given suboptimal venous phase contrast bolus timing on this study and severe atherosclerotic calcifications which can obscure luminal enhancement. However, there is likely severe narrowing or occlusion of the distal superficial femoral artery and reconstitution at the popliteal artery. The posterior tibial artery is likely patent through the ankle, with the remaining runoff vasculature likely occluded distally. Doppler ultrasound may better evaluate vasculature given limitations of this CTA. Electronically signed by Jeremy Valdez MD 01/20/21 CXR: IMPRESSION: The right upper extremity PICC line tip in good position at the SVC area Dictated by: Bruno Delgado MD Ortho has seen and recommends: He is status post debridement irrigation, transmetatarsal amputation, wound vacuum-assisted closure January 18, 2021. This is a limb threatening situation. I think in all likelihood he may eventually need a below-knee amputation. 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 He has known history of peripheral vascular disease. I plan to obtain a CTA to evaluate distal runoff and determine whether vascular intervention may potentially improve his blood flow and give him a chance to heal what is now a large, limb threatening foot wound. For now, protected, heel weight bearing only, every 72 hour wound VAC changes. Plan for him to follow-up with me every Wednesday versus follow-up in wound care with Dr. Moeller 65-year-old male patient sitting up in bed resting quietly, denies any distress during the night reports pain is at a tolerable level. Discussed discharge home today with IV antibiotics he is in agreement with this. We will follow-up with Ortho every Wednesday and we will change out wound vacs today. His family at home and was willing to assist with his care denies any questions/comments/complaints. PLAN: 1. We will discharge home today 2
--- NOTE | 2021-01-21 10:28 | PC.NURSE ---
Per Adriana, Pharmd- 2100 vanocmycin can be given at 1500 so pt can be discharged home this afternoon.
--- NOTE | 2021-01-21 10:36 | HMH.PTEV ---
Physical Therapy Evaluation Rehab PT IP Evaluation Start: 01/21/21 08:54 Freq: ONCE Status: Active Protocol: Document 01/21/21 10:30 [email or web address] (Rec: 01/21/21 10:36 [email or web address] [id number]) Subjective/History History History This is the initial IP PT evaluation for Tim Gallego. Pt is a 65 y/o male admitted to [facility] s/p L foot TMA. Pt reports several weeks ago he stubbed hi toe which opened a wound that became infected. Pt is a diabetic w/ significant circulatory disease. Wound resulted in osteomyelitis and gas gangrene which required amputation Subjective Subjective No complainys from pt. Rehab PT IP Eval Objective Appearance Patient Behavior Appropriate,Cooperative Patient Orientation Person,Place,Time Difficulty following instructions none Speech Pattern Clear,Appropriate Ambulation Patient Able to Ambulate No Balance Ability to Arise Able, uses arms to help Sitting Balance Steady, safe Standing Balance Unsteady Dynamic Sitting Balance Ability Good Dynamic Standing Balance Ability Poor Transfers Bed Transfer Ability Contact Guard/Hand Hold Chair Transfer Ability Contact Guard/Hand Hold Sit to Stand Bed Transfer Ability Maximum x 1 (75% assist) Rehab PT IP prob,goals,plan Problems Date of Evaluation: 01/21/21 Rehab Potential Rehab Potential Innapropriate for Skilled Therapy Discharge Plan PT Discharge Plan Pt already dc'd at time of eval. Pt would benefit from skilled therapy from HHPT and wound care to do dressing changes. Pt would also benefit from nsg assistance for bathing and other ADL's as pt lives w/ sister and brother in law whom both work leaving pt alone for extended periods of time. G -code Required Yes Eval Complexity Eval Charge Codes 70281 - Moderate Complexity G Codes PT Current Status Mobility PT Current Status Modifier CL-At least 60% but less than 80% impaired, limited or restricted PT Goal Status Mobility
[2021-01-21 12:00] VITALS: BP 126/68; PULSE 82; RESP 19; TEMP 36.9; O2SAT 96
--- NOTE | 2021-01-21 14:18 | HMH.PHAINT ---
DISCHARGE MEDICATION COUNSELING COMPLETE BY MARIA ELENA BAHENA. PATIENT ENDORSED NO QUESTIONS AT THIS TIME.
[2021-01-21 17:15] LABS: POC Glucose,Bedside 191 (70-110)
--- NOTE | 2021-01-21 17:45 | PC.NURSE ---
Wound vac dressing and vac changed at this time. PICC line dressing changed as cuate
== END 2021-01-21 18:05 | disposition home or self-care (01) | DRG 853 ==
LOC: ER 17:46 → 2ND 18:02
PROVIDERS: Orthopaedic Surgery; Admitting Provider Emergency Medicine; Emergency Provider Emergency Medicine; PCP Emergency Medicine; Visit Provider Emergency Medicine
PROC: 0QBR0ZZ Excision of Left Toe Phalanx, Open Approach (ICD-10-PCS; principal; 2021-01-18 08:00)
DX: A41.9 Sepsis, unspecified organism (principal); A48.0 Gas gangrene; I13.0 Hypertensive heart and chronic kidney disease with heart failure and stage 1 through stage 4 chronic kidney disease, or unspecified chronic kidney disease; I50.22 Chronic systolic (congestive) heart failure; M86.072 Acute hematogenous osteomyelitis, left ankle and foot; E11.52 Type 2 diabetes mellitus with diabetic peripheral angiopathy with gangrene; Z20.822 Contact with and (suspected) exposure to COVID-19; I48.91 Unspecified atrial fibrillation; F17.210 Nicotine dependence, cigarettes, uncomplicated; E03.9 Hypothyroidism, unspecified; L03.032 Cellulitis of left toe; E11.22 Type 2 diabetes mellitus with diabetic chronic kidney disease; N18.9 Chronic kidney disease, unspecified; I25.5 Ischemic cardiomyopathy; E11.69 Type 2 diabetes mellitus with other specified complication; E11.621 Type 2 diabetes mellitus with foot ulcer; E78.5 Hyperlipidemia, unspecified; I25.10 Atherosclerotic heart disease of native coronary artery without angina pectoris; M19.90 Unspecified osteoarthritis, unspecified site; Z95.5 Presence of coronary angioplasty implant and graft; Z89.612 Acquired absence of left leg above knee
CPT/HCPCS: 28805; 36415; 36569; 71045; 73630; 73706; 80048; 80053; 80202; 82009; 82962; 83605; 85007; 85025; 85610; 85730; 87040; 87070; 87075; 87077; 87186; 87205; 88307; 88311; 96365; 96366; 96375; 97162; 99284; C1751; C9803; J2405; J3370; Q9967; U0003; U0005

== ENCOUNTER → 2021-01-22 11:16 | Outpatient (CLI) | payer MEDICARE, MEDICAID, SELFPAY ==
[2021-01-22 11:51] LABS: Hemoglobin A1C 9.4 % (4.0-6.0)
== END ==
LOC: LAB 11:18 → LAB.DROPOF 11:21
PROVIDERS: Visit Provider Emergency Medicine
DX: E11.9 Type 2 diabetes mellitus without complications (principal)
CPT/HCPCS: 83036

== ENCOUNTER → 2021-01-24 12:04 | Outpatient (CLI) | payer MEDICARE, MEDICAID, SELFPAY ==
--- NOTE | 2021-01-24 12:26 | XR_ITS ---
PROCEDURE: XR FOOT LT MIN 3V CLINICAL INDICATION: s/p left toe amputation COMPARISON: CR FTR3 FOOT-RT-3 VIEWS from 05/01/2017 CR FTL3 FOOT-LT-3 VIEWS from 05/01/2017 CR XR FOOT LT MIN 3V from 01/17/2021 FINDINGS: Status post transmetatarsal amputation. No bony erosive change evident. Drainage catheter noted overlying the amputation site. Prominent calcaneal spur. Other findings:None. IMPRESSION: Status post transmetatarsal amputation Dictated by: Bruno Delgado MD 01/24/2021 13:43 Bruno Delgado MD in [facility] 01/24/2021 13:43
[2021-01-24 12:31] LABS: Basophils # 0.1 K/mm3 (0-0.2); Basophils % 0.5 % (0.1-2.0); Eosinophils # 0.3 K/mm3 (0.0-0.4); Eosinophils % 2.3 % (0.1-12.0); Hematocrit 36.4 % (42.0-52.0); Lymphocytes # 1.3 K/mm3 (0.7-4.5); Lymphocytes % 10.8 % (10-50); Mean Corpuscular HGB Conc 30.2 g/dL (31.8-35.4); Mean Corpuscular Hemoglobin 29.6 pg (27.0-31.2); Mean Platelet Volume 9.6 fl (7.4-10.4); Monocytes # 0.8 K/mm3 (0.1-1.0); Monocytes % 7.2 % (1.7-9.3); Neutrophils # 9.3 K/mm3 (1.8-7.8); Neutrophils % 79.3 % (37.0-80.0); Platelet Count 225 K/mm3 (142-424); Red Blood Count 3.71 M/mm3 (4.60-6.20); Red Cell Distribution Width 13.4 % (11.5-17.5); White Blood Count 11.7 K/mm3 (4.8-10.8)
[2021-01-24 12:41] LABS: Alanine Aminotransferase 28 U/L (12-78); Albumin Level 2.7 g/dl (3.5-5.0); Albumin/Globulin Ratio 0.7 (1.1-1.8); Alkaline Phosphatase 125 U/L (38-126); Anion Gap 13.6 mEq/L (5-15); Aspartate Amino Transferase 31 U/L (17-59); Bilirubin,Total 0.6 mg/dl (0.2-1.3); Blood Urea Nitrogen 23 mg/dl (9-20); Calcium 8.3 mg/dl (8.4-10.2); Carbon Dioxide 25 mmol/L (22.0-30.0); Chloride 104 mmol/L (98-107); Estimated Glomerular Filt Rate 51 ml/min (>60); GFR (African American) 62 ML/MIN (>60); Globulin 4.1 g/dL (1.3-3.2); Glucose 274 mg/dl (74-100); Potassium 4.6 mmoL/L (3.5-5.1); Sodium 138 mmol/L (136-145); Total Protein,Serum 6.8 g/dl (6.3-8.2)
[2021-01-24 13:03] LABS: Erythrocyte Sedimentation Rate 81 mm/hr (0-20)
[2021-01-24 13:47] LABS: C-Reactive Protein 83.7 mg/L (0-4)
== END ==
PROVIDERS: Visit Provider Orthopaedic Surgery
DX: A48.0 Gas gangrene (principal); Z09 Encounter for follow-up examination after completed treatment for conditions other than malignant neoplasm
CPT/HCPCS: 36415; 73630; 80053; 85025; 85651; 86140

== ENCOUNTER → 2021-01-25 16:21 | Outpatient (CLI) | payer MEDICARE, MEDICAID, SELFPAY ==
[2021-01-25 16:49] LABS: Vancomycin,Trough 13.3 ug/mL (5.0-10.0)
== END ==
PROVIDERS: PCP Emergency Medicine; Visit Provider Emergency Medicine
DX: M86.9 Osteomyelitis, unspecified (principal); A48.0 Gas gangrene; Z51.81 Encounter for therapeutic drug level monitoring
CPT/HCPCS: 80202

== ENCOUNTER → 2021-01-27 20:47 | Outpatient (CLI) | payer MEDICARE, MEDICAID, SELFPAY ==
[2021-01-27 20:54] LABS: Basophils # 0.1 K/mm3 (0-0.2); Basophils % 0.5 % (0.1-2.0); Eosinophils # 0.2 K/mm3 (0.0-0.4); Eosinophils % 1.9 % (0.1-12.0); Hemoglobin 10.2 g/dL (14.1-18.0); Lymphocytes # 1.8 K/mm3 (0.7-4.5); Lymphocytes % 14.8 % (10-50); Mean Corpuscular Hemoglobin 29.8 pg (27.0-31.2); Mean Corpuscular Volume 96.3 fl (80-94); Mean Platelet Volume 12.8 fl (7.4-10.4); Monocytes # 0.9 K/mm3 (0.1-1.0); Monocytes % 7.4 % (1.7-9.3); Neutrophils # 9.3 K/mm3 (1.8-7.8); Neutrophils % 75.4 % (37.0-80.0); Platelet Count 125 K/mm3 (142-424); Red Blood Count 3.43 M/mm3 (4.60-6.20); Red Cell Distribution Width 14.6 % (11.5-17.5); White Blood Count 12.3 K/mm3 (4.8-10.8)
[2021-01-27 21:03] LABS: Alanine Aminotransferase 22 U/L (12-78); Albumin Level 2.7 g/dl (3.5-5.0); Albumin/Globulin Ratio 0.7 (1.1-1.8); Alkaline Phosphatase 119 U/L (38-126); Anion Gap 8.3 mEq/L (5-15); Aspartate Amino Transferase 32 U/L (17-59); Bilirubin,Total 0.5 mg/dl (0.2-1.3); Blood Urea Nitrogen 25 mg/dl (9-20); Calcium 8.1 mg/dl (8.4-10.2); Carbon Dioxide 29 mmol/L (22.0-30.0); Chloride 104 mmol/L (98-107); Estimated Glomerular Filt Rate 61 ml/min (>60); GFR (African American) 73 ML/MIN (>60); Globulin 3.9 g/dL (1.3-3.2); Glucose 207 mg/dl (74-100); Potassium 4.3 mmoL/L (3.5-5.1); Sodium 137 mmol/L (136-145); Total Protein,Serum 6.6 g/dl (6.3-8.2)
[2021-01-27 21:10] LABS: C-Reactive Protein 52.8 mg/L (0-4)
[2021-01-27 21:11] LABS: Vancomycin,Trough 9.7 ug/mL (5.0-10.0)
[2021-01-27 21:21] LABS: Erythrocyte Sedimentation Rate 91 mm/hr (0-20)
== END ==
PROVIDERS: Visit Provider Internal Medicine
DX: M86.9 Osteomyelitis, unspecified (principal); A48.0 Gas gangrene
CPT/HCPCS: 80053; 80202; 85025; 85651; 86140

== ENCOUNTER → 2021-01-29 08:00 | Outpatient (CLI) | payer MEDICARE, MEDICAID, SELFPAY ==
[2021-01-29 08:21] LABS: Basophils # 0.1 K/mm3 (0-0.2); Basophils % 0.5 % (0.1-2.0); Eosinophils # 0.3 K/mm3 (0.0-0.4); Eosinophils % 1.9 % (0.1-12.0); Hematocrit 36.5 % (42.0-52.0); Hemoglobin 10.9 g/dL (14.1-18.0); Lymphocytes # 1.7 K/mm3 (0.7-4.5); Mean Corpuscular Hemoglobin 29.4 pg (27.0-31.2); Mean Corpuscular Volume 98.2 fl (80-94); Mean Platelet Volume 10.5 fl (7.4-10.4); Monocytes # 0.8 K/mm3 (0.1-1.0); Monocytes % 5.3 % (1.7-9.3); Neutrophils # 12.6 K/mm3 (1.8-7.8); Neutrophils % 81.2 % (37.0-80.0); Platelet Count 305 K/mm3 (142-424); Red Blood Count 3.72 M/mm3 (4.60-6.20); Red Cell Distribution Width 14.2 % (11.5-17.5); White Blood Count 15.5 K/mm3 (4.8-10.8)
[2021-01-29 08:28] LABS: MANUAL DIFFERENTIAL MANUAL DIFFERENTIAL (MANUAL DIFF)
[2021-01-29 08:54] LABS: Eosinophils % 1 % (0-3); Lymphocytes % 15 % (10-50); Monocytes % 4 % (2-9); Neutrophils % 80 % (42-76); Total Cells Counted 100
[2021-01-29 08:55] LABS: Hypochromasia 2+; Macrocytosis 1+; Platelet Estimate Normal
[2021-01-29 08:56] LABS: Anion Gap 10.6 mEq/L (5-15); Blood Urea Nitrogen 17 mg/dl (9-20); Calcium 8.5 mg/dl (8.4-10.2); Carbon Dioxide 28 mmol/L (22.0-30.0); Chloride 105 mmol/L (98-107); Estimated Glomerular Filt Rate 55 ml/min (>60); GFR (African American) 67 ML/MIN (>60); Glucose 286 mg/dl (74-100); Potassium 4.6 mmoL/L (3.5-5.1); Sodium 139 mmol/L (136-145)
[2021-01-29 09:03] LABS: C-Reactive Protein 58.2 mg/L (0-4)
[2021-01-29 10:01] LABS: Erythrocyte Sedimentation Rate > 140 mm/hr (0-20)
== END ==
PROVIDERS: Visit Provider Orthopaedic Surgery
DX: M86.072 Acute hematogenous osteomyelitis, left ankle and foot (principal); A48.0 Gas gangrene
CPT/HCPCS: 36415; 80048; 85007; 85025; 85651; 86140; C9803; U0003; U0005

== ENCOUNTER 2021-01-29 13:55 | Outpatient (CLI) | payer MEDICARE, MEDICAID, SELFPAY ==
--- NOTE | 2021-01-29 16:53 | PC.NURSE ---
1410 - REMOVED DRESSING FROM REMAINING PART OF LEFT FOOT. PT HAS HAD TRANSMETATARSAL AMPUTATION ON LEFT FOOT. UNDERSIDE OF FOOT OPEN, VERY FOUL SMELLING, AND DRAINING, BROWN/RED FLUID. TISSUE APPEARS NECROTIC. CLEANED WITH NS AND APPLIED WOUND VAC.
== END 2021-01-29 14:55 | disposition home or self-care (01) ==
LOC: INF 13:56
PROVIDERS: PCP Emergency Medicine; Visit Provider Orthopaedic Surgery
DX: A48.0 Gas gangrene (principal); A41.9 Sepsis, unspecified organism; M86.9 Osteomyelitis, unspecified; Z20.822 Contact with and (suspected) exposure to COVID-19
CPT/HCPCS: 36415; 80048; 85007; 85025; 85651; 86140; C9803; G0463; U0003; U0005

== ENCOUNTER 2021-01-31 09:40 | Day surgery (SDC) | payer MEDICARE, MEDICAID, SELFPAY ==
[2021-01-30 12:55] VITALS: BMI 27.8
[2021-01-31] VITALS (11 sets, daily range): BP systolic 99–139; BP diastolic 52–77; PULSE 75–78; RESP 16–21; TEMP 36.4–43; O2SAT 90–98
--- NOTE | 2021-01-31 10:52 | HMH.ANESCL ---
[facility] Anesthesia Checklist - Patient Identification Patient Identification: Arm Band - Structural Data Admitted From: Home Planned Operative Procedure/s: I & D foot Consent for Planned Operative Procedure(s) Verified: Yes - NPO Status Verified Time NPO: 00:00 - Additional verifications Anesthesia Reactions: No Hx Blood Transfusions: No Blood Transfusion Reaction: No - Airway Assessment C-Spine Mobility Assessed: Yes TMJ Mobility Assessed: Yes Dentition: Poor Dentition - Neurological Assessment Level of Consciousness: Awake Hx Seizures: No Numbness or tingling in extremities: No - Anesthesia Plan Anesthesia Risk discussed: Yes Anesthesia Plan: Verified ASA Class: IV Anesthesia Type: General [facility] History I have reviewed the patient's past medical history: Yes Medical History: Reports:: Atrial Fibrillation, Congestive Heart Failure, Chronic Obstructive Pulmonary Disease (COPD), Coronary Artery Disease, Diabetes Mellitus Type 2, Hyperlipidemia, Hypertension, Internal Pacemaker, Myocardial Infarction, Peripheral Artery Disease Denies:: Cancer, Diabetes Mellitus Type 1, MRSA, Seizures *Have you ever received a pneumonia vaccine?: No *Have you received a flu vaccine this season?: No Other Medical History: Reports: Arthritis, Hypothyroidism. Denies: Blood Transfusion Reaction, Cataracts, Glaucoma, Thyroid Disease Anesthesia experience/problems:: None Laterality Cases: Left: Other Other Surgeries: Yes: Angiogram, Cardiac Catheterization, Coronary Stent, Pacemaker, Other Amputation: Yes Fractures: No - *Social History Last grade of school completed: GED Smoking Status: Current every day smoker Tobacco Type: cigarettes # Packs/Day (cigarettes): 1 Alcohol Intake: never Alcohol Intake Frequency:: other Substance Use Type: denies use *Occupational Status:: disabled Housing: house Household Members: family *Travel in the last 8 weeks: None Family Hx:: Cancer, Coronary Artery Disease, Heart Attack
--- NOTE | 2021-01-31 13:30 | P.PN_ITS ---
[facility] Anesthesia Record Part I Intake, IV Amount: 500 Estimated blood loss (mL): 10 Urine output (mL): 0 Blood Pressure: 99/65 SaO2: 90 Pulse Rate: 75 Respiratory Rate: 16 Temperature: 98.1 F Patient is:: Drowsy, Stable Stable to PACU at:: 13:30
[2021-01-31 13:40] LABS: POC Glucose,Bedside 230 (70-110)
--- NOTE | 2021-01-31 13:49 | HMH.OPNOTE ---
Date of procedure: 01/31/21 Pre-op Diagnosis:: Left foot infection/necrosis Post-op Diagnosis:: Left foot infection/necrosis Procedure performed:: Left foot debridement, irrigation, wound vacuum-assisted closure. Revision transmetatarsal amputation. Surgeon:: Javier Matos JR, MD Anesthesia: SAMRA Estimated blood loss (mL): 30 Operative findings:: Purulent fluid deep to his medial skin flap, readily apparent necrosis/osteomyelitis of the first metatarsal, exposed second and third metatarsals. Operative note:: Patient was identified in preoperative holding. Operative site was marked in indelible ink. History, physical, consent were reviewed and updated. Patient was surrendered to the anesthesia team, taken to the operative suite, placed supine on a well-padded operative table. Ipsilateral hip bump was placed as was a nonsterile thigh tourniquet. Anesthesia was induced. The operative extremity was prepped and draped in the usual sterile fashion. The operative team donned sterile gowns and gloves and a timeout was called. All in attendance agreed regarding the patient's identity, procedure, operative site. Weight-based dose of antibiotics was given prior to incision. Tourniquet was not inflated during this case. Removed the sutures. The medial wound had not healed. I elevated his medial skin flap, noted purulent fluid. I took swab specimens, sent this for culture. This left the first metatarsal exposed. I dissected along its length proximally, identified the first tarsometatarsal joint, and with minimal effort remove the first metatarsal. The second, third, and fourth metatarsals appeared osteomyelitic and were protruding into the wound. Using a sagittal saw I shorten the second, third, fourth metatarsals, which were discarded. I sharply debrided the devitalized skin predominantly on the medial portion of the wound. This left the distal aspect of the medial cuneiform exposed. I debrided devitalized tissue at the proximal aspect of the wound as well as lateral aspect of the wound. This was an excisional debridement. I copiously irrigated the wound, achieved hemostasis. I then applied a wound vacuum-assisted closure device which had good seal. Sterile dressings applied. Counts were correct x2. There were no apparent complications. I was present and scrubbed for the entire case. Patient will be discharged home once he meets PACU criteria. I had a lengthy discussion with his stepbrother, again reiterated that I think his best course of action will be for bloody amputation. I plan to see him back next Wednesday for wound VAC change in clinic. Condition: stable Disposition: PACU Specimens:: Swab specimen sent for culture Complications:: None apparent.
--- NOTE | 2021-01-31 14:08 | SUR.PHASEI ---
1359- detailed report called to marysol parker in post-op.
--- NOTE | 2021-01-31 21:05 | P.PN_ITS ---
[facility] Anesthesia Record Part II Discharge Time: 14:00 Destination: Surgical Day Care (OP Surgery) PACU nurse assessment reviewed?: Yes Patient Condition:: Good Anesthesia Complications:: None Swallowing reflex intact?: Yes Cyanosis?: No Blood Pressure: 130/72 Pulse Rate: 75 Temperature: 98.1 F Mental Status: Alert & Oriented Pain level:: 0 Nausea and/or vomitting:: None Intake, IV Amount: 0
[2021-02-01 09:03] LABS: POC Glucose,Bedside 260 (70-110)
== END 2021-01-31 14:30 | disposition home or self-care (01) ==
LOC: OR 09:41
PROVIDERS: PCP Emergency Medicine; Visit Provider Orthopaedic Surgery
PROC: (CPT 28805; principal; 2021-01-31 11:00)
DX: T87.81 Dehiscence of amputation stump (principal); E11.52 Type 2 diabetes mellitus with diabetic peripheral angiopathy with gangrene; A48.0 Gas gangrene; E11.621 Type 2 diabetes mellitus with foot ulcer; Z79.84 Long term (current) use of oral hypoglycemic drugs; F17.210 Nicotine dependence, cigarettes, uncomplicated; I11.0 Hypertensive heart disease with heart failure; I50.9 Heart failure, unspecified; I48.91 Unspecified atrial fibrillation; I25.10 Atherosclerotic heart disease of native coronary artery without angina pectoris; E03.9 Hypothyroidism, unspecified; J44.9 Chronic obstructive pulmonary disease, unspecified; M86.19 Other acute osteomyelitis, multiple sites
CPT/HCPCS: 28805; 82962; 87070; 87075; 87077; 87186; 87205; 94640; J2405; J3370

== ENCOUNTER → 2021-02-03 11:14 | Outpatient (CLI) | payer MEDICARE, MEDICAID, SELFPAY ==
[2021-02-03 11:42] LABS: Basophils # 0.1 K/mm3 (0-0.2); Basophils % 0.5 % (0.1-2.0); Eosinophils # 0.3 K/mm3 (0.0-0.4); Eosinophils % 2.7 % (0.1-12.0); Hematocrit 34.1 % (42.0-52.0); Hemoglobin 10.3 g/dL (14.1-18.0); Lymphocytes % 8.8 % (10-50); Mean Corpuscular HGB Conc 30.2 g/dL (31.8-35.4); Mean Corpuscular Hemoglobin 29.6 pg (27.0-31.2); Mean Platelet Volume 9.4 fl (7.4-10.4); Monocytes # 0.7 K/mm3 (0.1-1.0); Monocytes % 6.1 % (1.7-9.3); Neutrophils # 8.9 K/mm3 (1.8-7.8); Neutrophils % 81.9 % (37.0-80.0); Platelet Count 290 K/mm3 (142-424); Red Blood Count 3.48 M/mm3 (4.60-6.20); Red Cell Distribution Width 16.4 % (11.5-17.5); White Blood Count 10.9 K/mm3 (4.8-10.8)
[2021-02-03 11:50] LABS: Alanine Aminotransferase 17 U/L (12-78); Albumin Level 2.6 g/dl (3.5-5.0); Albumin/Globulin Ratio 0.7 (1.1-1.8); Alkaline Phosphatase 152 U/L (38-126); Anion Gap 9.3 mEq/L (5-15); Aspartate Amino Transferase 23 U/L (17-59); Bilirubin,Total 0.4 mg/dl (0.2-1.3); Blood Urea Nitrogen 22 mg/dl (9-20); Calcium 7.9 mg/dl (8.4-10.2); Carbon Dioxide 29 mmol/L (22.0-30.0); Chloride 103 mmol/L (98-107); Estimated Glomerular Filt Rate 61 ml/min (>60); GFR (African American) 73 ML/MIN (>60); Globulin 3.7 g/dL (1.3-3.2); Glucose 319 mg/dl (74-100); Potassium 4.3 mmoL/L (3.5-5.1); Sodium 137 mmol/L (136-145); Total Protein,Serum 6.3 g/dl (6.3-8.2)
[2021-02-03 11:55] LABS: C-Reactive Protein 35.1 mg/L (0-4)
[2021-02-03 11:56] LABS: Vancomycin,Trough 16.7 ug/mL (5.0-10.0)
[2021-02-03 12:12] LABS: Erythrocyte Sedimentation Rate 74 mm/hr (0-20)
== END ==
PROVIDERS: Visit Provider Emergency Medicine
DX: A48.0 Gas gangrene (principal); M86.072 Acute hematogenous osteomyelitis, left ankle and foot
CPT/HCPCS: 80053; 80202; 85025; 85651; 86140

== ENCOUNTER → 2021-02-07 12:49 | Outpatient (CLI) | payer MEDICARE, MEDICAID, SELFPAY ==
[2021-02-07 13:05] LABS: Basophils % 0.3 % (0.1-2.0); Eosinophils # 0.3 K/mm3 (0.0-0.4); Hematocrit 35.9 % (42.0-52.0); Hemoglobin 11.1 g/dL (14.1-18.0); Lymphocytes # 1.1 K/mm3 (0.7-4.5); Lymphocytes % 8.5 % (10-50); Mean Corpuscular Hemoglobin 30.3 pg (27.0-31.2); Mean Corpuscular Volume 97.6 fl (80-94); Monocytes % 7.4 % (1.7-9.3); Neutrophils # 10.5 K/mm3 (1.8-7.8); Neutrophils % 81.8 % (37.0-80.0); Platelet Count 241 K/mm3 (142-424); Red Blood Count 3.68 M/mm3 (4.60-6.20); Red Cell Distribution Width 15.9 % (11.5-17.5); White Blood Count 12.9 K/mm3 (4.8-10.8)
[2021-02-07 13:11] LABS: Hemoglobin A1C 9.4 % (4.0-6.0)
[2021-02-07 13:15] LABS: Chloride 96 mmol/L (98-107); Potassium 4.7 mmoL/L (3.5-5.1); Sodium 134 mmol/L (136-145)
[2021-02-07 13:18] LABS: Alanine Aminotransferase 20 U/L (12-78); Albumin Level 2.9 g/dl (3.5-5.0); Albumin/Globulin Ratio 0.8 (1.1-1.8); Alkaline Phosphatase 155 U/L (38-126); Anion Gap 10.7 mEq/L (5-15); Aspartate Amino Transferase 27 U/L (17-59); Bilirubin,Total 0.6 mg/dl (0.2-1.3); Blood Urea Nitrogen 21 mg/dl (9-20); Calcium 8.2 mg/dl (8.4-10.2); Carbon Dioxide 32 mmol/L (22.0-30.0); Estimated Glomerular Filt Rate 61 ml/min (>60); GFR (African American) 73 ML/MIN (>60); Globulin 3.8 g/dL (1.3-3.2); Glucose 316 mg/dl (74-100); Total Protein,Serum 6.7 g/dl (6.3-8.2)
[2021-02-07 13:23] LABS: C-Reactive Protein 35.3 mg/L (0-4)
[2021-02-07 13:28] LABS: Erythrocyte Sedimentation Rate 56 mm/hr (0-20)
--- NOTE | 2021-02-07 14:59 | CA_ITS ---
APPROVED REPORT Left Lower Extremity Venous Study for DVT. Insurance Salesperson: GREGORY Indications Lower Extremity Pain: Left Lower Extremity Edema: Left R/O DVT, debridment of the left foot 01/31/21. Bandage present today. Patient is a right BKA. Patient unable to lay back and was scanned upright. Very limited scanning. Risk Factors Immobility Obesity Post OP Vein Imaging FEM (L): compressive, spontaneous, phasic, augmentation POP (L): compressive, spontaneous, phasic, augmentation PTV (L): Compressible GSV (L): compressive, spontaneous, phasic, augmentation Findings No evidence of DVT or superficial thrombophlebitis in the veins scanned of the left lower extremity. B-Mode imaging of the left groin suggests prominent lymph nodes measuring approximately 2.8 x 1.05 cm. Conclusion No evidence of DVT or superficial thrombophlebitis in the veins scanned of the left lower extremity. B-Mode imaging of the left groin suggests prominent lymph nodes measuring approximately 2.8 x 1.05 cm. Electronically signed by : Bruno Delgado MD 02/10/2021 15:17:25
== END ==
PROVIDERS: PCP Emergency Medicine; Visit Provider Orthopaedic Surgery
DX: M86.9 Osteomyelitis, unspecified (principal); Z09 Encounter for follow-up examination after completed treatment for conditions other than malignant neoplasm; E11.9 Type 2 diabetes mellitus without complications; A48.0 Gas gangrene; R60.0 Localized edema; Z79.84 Long term (current) use of oral hypoglycemic drugs
CPT/HCPCS: 36415; 80053; 83036; 85025; 85651; 86140; 93971

== ENCOUNTER → 2021-02-12 17:14 | Outpatient (CLI) | payer MEDICARE, MEDICAID, SELFPAY ==
[2021-02-12 18:55] LABS: Alanine Aminotransferase 18 U/L (12-78); Albumin Level 2.7 g/dl (3.5-5.0); Albumin/Globulin Ratio 0.7 (1.1-1.8); Alkaline Phosphatase 143 U/L (38-126); Anion Gap 10.7 mEq/L (5-15); Aspartate Amino Transferase 24 U/L (17-59); Basophils % 0.3 % (0.1-2.0); Bilirubin,Total 0.5 mg/dl (0.2-1.3); Blood Urea Nitrogen 19 mg/dl (9-20); Calcium 8.3 mg/dl (8.4-10.2); Carbon Dioxide 30 mmol/L (22.0-30.0); Chloride 101 mmol/L (98-107); Chol/HDL Ratio 3.8 (1-3.5); Cholesterol 94 mg/dl (140-200); Eosinophils # 0.3 K/mm3 (0.0-0.4); Eosinophils % 3.2 % (0.1-12.0); Estimated Glomerular Filt Rate 55 ml/min (>60); GFR (African American) 67 ML/MIN (>60); Globulin 3.7 g/dL (1.3-3.2); Glucose 239 mg/dl (74-100); HDL Cholesterol 25 mg/dl (40-60); Hematocrit 36.2 % (42.0-52.0); Lymphocytes % 10.6 % (10-50); Mean Corpuscular HGB Conc 30.5 g/dL (31.8-35.4); Mean Corpuscular Hemoglobin 29.9 pg (27.0-31.2); Mean Corpuscular Volume 98.2 fl (80-94); Mean Platelet Volume 10.3 fl (7.4-10.4); Monocytes # 0.8 K/mm3 (0.1-1.0); Monocytes % 8.9 % (1.7-9.3); Neutrophils # 6.9 K/mm3 (1.8-7.8); Neutrophils % 77.1 % (37.0-80.0); Platelet Count 256 K/mm3 (142-424); Potassium 4.7 mmoL/L (3.5-5.1); Red Blood Count 3.69 M/mm3 (4.60-6.20); Red Cell Distribution Width 16.2 % (11.5-17.5); Sodium 137 mmol/L (136-145); Total Protein,Serum 6.4 g/dl (6.3-8.2); Triglycerides 80 mg/dl (30-150); VLDL Cholesterol 16 mg/dL (0-40)
[2021-02-12 19:06] LABS: Direct LDL Cholesterol 50.53 mg/dL (100-129)
[2021-02-12 19:12] LABS: T4 (Thyroxine) 7.9 ug/dl (5.53-11.0)
[2021-02-12 19:13] LABS: 25-OH Vitamin D, Total 34.5 ng/mL (30-100)
[2021-02-12 19:26] LABS: Prostate Specific Ag Screen 0.6 ng/ml (0.0-4.0); Thyroid Stimulating Hormone 2.58 uIU/mL (0.465-4.68)
== END ==
PROVIDERS: Visit Provider Nurse Practitioner Family
DX: A48.0 Gas gangrene (principal); E11.9 Type 2 diabetes mellitus without complications; E55.9 Vitamin D deficiency, unspecified; E78.5 Hyperlipidemia, unspecified; I10 Essential (primary) hypertension; M86.9 Osteomyelitis, unspecified; Z72.0 Tobacco use; Z12.5 Encounter for screening for malignant neoplasm of prostate; Z79.84 Long term (current) use of oral hypoglycemic drugs
CPT/HCPCS: 80053; 80061; 82306; 84436; 84443; 85025; G0103

== ENCOUNTER → 2021-02-17 11:45 | Outpatient (CLI) | payer MEDICARE, MEDICAID, SELFPAY ==
[2021-02-17 11:57] LABS: Basophils % 0.4 % (0.1-2.0); Eosinophils # 0.1 K/mm3 (0.0-0.4); Eosinophils % 1.1 % (0.1-12.0); Hematocrit 32.6 % (42.0-52.0); Hemoglobin 10.1 g/dL (14.1-18.0); Lymphocytes # 0.9 K/mm3 (0.7-4.5); Lymphocytes % 8.8 % (10-50); Mean Corpuscular Hemoglobin 30.2 pg (27.0-31.2); Mean Corpuscular Volume 97.3 fl (80-94); Mean Platelet Volume 9.2 fl (7.4-10.4); Monocytes % 9.5 % (1.7-9.3); Neutrophils # 8.3 K/mm3 (1.8-7.8); Neutrophils % 80.3 % (37.0-80.0); Platelet Count 209 K/mm3 (142-424); Red Blood Count 3.35 M/mm3 (4.60-6.20); Red Cell Distribution Width 15.4 % (11.5-17.5); White Blood Count 10.3 K/mm3 (4.8-10.8)
[2021-02-17 12:10] LABS: Alanine Aminotransferase 17 U/L (12-78); Albumin Level 2.8 g/dl (3.5-5.0); Albumin/Globulin Ratio 0.8 (1.1-1.8); Alkaline Phosphatase 117 U/L (38-126); Anion Gap 8.5 mEq/L (5-15); Aspartate Amino Transferase 23 U/L (17-59); Bilirubin,Total 0.9 mg/dl (0.2-1.3); Blood Urea Nitrogen 19 mg/dl (9-20); Calcium 8.2 mg/dl (8.4-10.2); Carbon Dioxide 28 mmol/L (22.0-30.0); Chloride 101 mmol/L (98-107); Estimated Glomerular Filt Rate 55 ml/min (>60); GFR (African American) 67 ML/MIN (>60); Globulin 3.7 g/dL (1.3-3.2); Glucose 236 mg/dl (74-100); Potassium 4.5 mmoL/L (3.5-5.1); Sodium 133 mmol/L (136-145); Total Protein,Serum 6.5 g/dl (6.3-8.2)
[2021-02-17 12:15] LABS: Vancomycin,Trough 15.4 ug/mL (5.0-10.0)
[2021-02-17 12:17] LABS: C-Reactive Protein 77.5 mg/L (0-4)
[2021-02-17 12:25] LABS: Erythrocyte Sedimentation Rate > 140 mm/hr (0-20)
== END ==
PROVIDERS: Visit Provider Emergency Medicine
DX: I10 Essential (primary) hypertension (principal); E78.5 Hyperlipidemia, unspecified; E11.9 Type 2 diabetes mellitus without complications; E55.9 Vitamin D deficiency, unspecified; A48.0 Gas gangrene; Z72.0 Tobacco use; Z12.5 Encounter for screening for malignant neoplasm of prostate; Z51.81 Encounter for therapeutic drug level monitoring; Z79.84 Long term (current) use of oral hypoglycemic drugs
CPT/HCPCS: 80053; 80202; 85025; 85651; 86140

== ENCOUNTER → 2021-02-21 08:45 | Outpatient (CLI) | payer MEDICARE, MEDICAID, SELFPAY ==
[2021-02-21 09:27] LABS: Basophils % 0.5 % (0.1-2.0); Eosinophils # 0.1 K/mm3 (0.0-0.4); Eosinophils % 1.4 % (0.1-12.0); Hematocrit 33.2 % (42.0-52.0); Hemoglobin 10.3 g/dL (14.1-18.0); Lymphocytes % 12.2 % (10-50); Mean Corpuscular Hemoglobin 29.9 pg (27.0-31.2); Mean Corpuscular Volume 96.5 fl (80-94); Monocytes # 0.8 K/mm3 (0.1-1.0); Monocytes % 9.3 % (1.7-9.3); Neutrophils # 6.4 K/mm3 (1.8-7.8); Neutrophils % 76.6 % (37.0-80.0); Platelet Count 196 K/mm3 (142-424); Red Blood Count 3.44 M/mm3 (4.60-6.20); Red Cell Distribution Width 14.8 % (11.5-17.5); White Blood Count 8.3 K/mm3 (4.8-10.8)
[2021-02-21 09:43] LABS: C-Reactive Protein 100.2 mg/L (0-4)
[2021-02-21 09:52] LABS: Erythrocyte Sedimentation Rate 103 mm/hr (0-20)
== END ==
PROVIDERS: Visit Provider Orthopaedic Surgery
DX: A48.0 Gas gangrene (principal); M86.9 Osteomyelitis, unspecified
CPT/HCPCS: 36415; 85025; 85651; 86140

== ENCOUNTER 2021-02-21 10:15 | Inpatient (IN) | payer MEDICARE, MEDICAID, SELFPAY ==
[2021-02-21] VITALS (18 sets, daily range): BP systolic 87–139; BP diastolic 50–68; PULSE 71–93; RESP 16–22; TEMP 36.4–43; O2SAT 92–100; BMI 27.2; BMI 27.4
--- NOTE | 2021-02-21 10:29 | PC.NURSE ---
pt arrived to the floor at this time
[2021-02-21 11:10] LABS: Coronavirus 19, PCR Not Detected (NotDetected); Influenza A, PCR Not Detected (NotDetected); Influenza B, PCR Not Detected (NotDetected)
[2021-02-21 12:32] LABS: POC Glucose,Bedside 165 (70-110)
--- NOTE | 2021-02-21 15:11 | HMH.ORTHOCON ---
*Reason for consult:: left foot osteomyelitis *History of present illness: s/p left foot transmetatarsal amputation. Worsening CRP, erythema. [facility] History Medical History: Reports:: Atrial Fibrillation, Congestive Heart Failure, Chronic Obstructive Pulmonary Disease (COPD), Coronary Artery Disease, Diabetes Mellitus Type 2, Hyperlipidemia, Hypertension, Internal Pacemaker, Myocardial Infarction, Peripheral Artery Disease Denies:: Cancer, Diabetes Mellitus Type 1, MRSA, Seizures *Have you ever received a pneumonia vaccine?: No *Have you received a flu vaccine this season?: No Other Medical History: Reports: Arthritis, Hypothyroidism. Denies: Blood Transfusion Reaction, Cataracts, Glaucoma, Thyroid Disease Laterality Cases: Left: Other Other Surgeries: Yes: Angiogram, Cardiac Catheterization, Coronary Stent, Pacemaker, Other Amputation: Yes (RT lower leg) Fractures: No - *Social History Last grade of school completed: GED Smoking Status: Current every day smoker Tobacco Type: cigarettes # Packs/Day (cigarettes): 1 Alcohol Intake: never Alcohol Intake Frequency:: other Substance Use Type: denies use *Occupational Status:: disabled Housing: house Household Members: family *Travel in the last 8 weeks: None Family Hx:: Diabetes, Heart Attack, Hyperlipidemia, Hypertension Review of Systems - Review of Systems Review of systems:: pertinent systems reviewed and negative unless documented below Meds Home Medications Medication Instructions Recorded Confirmed Type Aspirin [Low Dose Aspirin EC] 81 mg PO DAILY 01/17/21 02/21/21 History Atorvastatin Calcium [Lipitor 40mg 40 mg PO DAILY 01/17/21 02/21/21 History Tab] Docusate Sodium 100 mg PO BID 01/17/21 02/21/21 History Ergocalciferol (Vitamin D2) 1,250 mg PO WEEKLY 01/17/21 02/21/21 History [Drisdol] Levothyroxine Sodium [Synthroid 50 mcg PO DAILY 01/17/21 02/21/21 History 50mcg (0.05mg) tab] Loratadine [Allergy Relief] 10 mg PO DAILY 01/17/21 02/21/21 History Rivaroxaban [Xarelto 20mg Tablet*] 20 mg PO QPMWITHMEAL 01/17/21 02/21/21 History lisinopriL [Lisinopril 2.5mg Tab] 2.5 mg PO DAILY 01/17/21 02/21/21 History furosemide 20 mg tablet 20 mg PO DAILY 01/29/21 02/21/21 History Linagliptin [Tradjenta] 5 mg PO DAILY 01/30/21 02/21/21 History oxycodone 5 mg tablet 5 mg PO Q8H PRN #30 tab 01/31/21 02/21/21 Rx sulfamethoxazole 800 2 tab PO BID #60 tab 01/31/21 02/21/21 Rx mg-trimethoprim 160 mg tablet metformin 500 mg tablet 500 mg PO BID #60 tab 02/12/21 02/21/21 Rx bisoproloL fumarate [Bisoprolol 5 mg PO BID 02/21/21 02/21/21 History Fumarate] Allergies Allergy/AdvReac Type Severity Reaction Status Date / Time No Known Allergies Allergy Verified 02/21/21 09:56 Exam Vital signs and Labs for Last 24 Hours: Laboratory Results - last 24 hr 02/21/21 11:05: SARS-CoV-2 (PCR) Not detected, Influenza A Untype (PCR) Not detected, Influenza Type B (PCR) Not detected 02/21/21 12:19: POC Glucose 165 H I & O for Last 24 hours: Intake & Output 02/18/21 02/19/21 02/20/21 02/21/21 23:59 23:59 23:59 23:59 Weight 196 lb 3.382 oz - Constitutional no acute distress - *Routine HEENT Exam Head: Present: normocephalic Eye: Present: EOMI, PERRL ENT: Present: mucous membranes moist - *Routine Neck Exam Present: supple. Absent: lymphadenopathy - *Routine Respiratory Exam Present: CTA bilaterally - *Routine Cardiovascular Exam Present: RRR - *Routine Abdominal Exam Present: soft, normoactive bowel sounds. Absent: tenderness - *Routine Rectal Exam Rectal:: deferred - *Routine Genitalia Exam Genitalia:: deferred - *Routine Extremities Exam Absent: cyanosis, clubbing, edema - *Routine Skin Exam Present: warm. Absent: rash - *Routine Neurological Exam Present: alert, oriented X3 - Detailed Lower Extremity Exam Foot/Toes: Left amputation (foul smelling tissue, necrotic dorsal tissue, osteomyelitic appearing metatarsal bas
--- NOTE | 2021-02-21 15:28 | PC.NURSE ---
Pt went down for surgery at approx 1400. This RN did call several times to Dr. Redmond office for orders on pt. Spoke with Alexa Dukes APRN also aware of need for orders. Also spoke with Winnie Davis and made her aware pt needed orders. Surgery staff came to get pt, they were made aware of no orders and some labs from 02/17 and 02/21. PICC in [facility] will flush but no blood return is able to be obtained. Nurse Lift Truck Operator, also tried attempted to get return and was unsuccessful. Surgery staff was aware of need for IV. Awaiting update on pt at this time.
--- NOTE | 2021-02-21 16:20 | P.PN_ITS ---
[facility] Anesthesia Checklist - Patient Identification Patient Identification: Arm Band - Structural Data Admitted From: Home Planned Operative Procedure/s: BKA Consent for Planned Operative Procedure(s) Verified: Yes - NPO Status Verified Time NPO: 07:00 - Additional verifications Anesthesia Reactions: No Hx Blood Transfusions: No Blood Transfusion Reaction: No - Airway Assessment C-Spine Mobility Assessed: Yes TMJ Mobility Assessed: Yes Dentition: Poor Dentition - Neurological Assessment Level of Consciousness: Awake Hx Seizures: No Numbness or tingling in extremities: No - Anesthesia Plan Anesthesia Risk discussed: Yes Anesthesia Plan: Verified ASA Class: III Anesthesia Type: General [facility] History I have reviewed the patient's past medical history: Yes Medical History: Reports:: Atrial Fibrillation, Congestive Heart Failure, Chronic Obstructive Pulmonary Disease (COPD), Coronary Artery Disease, Diabetes Mellitus Type 2, Hyperlipidemia, Hypertension, Internal Pacemaker, Myocardial Infarction, Peripheral Artery Disease Denies:: Cancer, Diabetes Mellitus Type 1, MRSA, Seizures *Have you ever received a pneumonia vaccine?: No *Have you received a flu vaccine this season?: No Other Medical History: Reports: Arthritis, Hypothyroidism. Denies: Blood Transfusion Reaction, Cataracts, Glaucoma, Thyroid Disease Anesthesia experience/problems:: None Laterality Cases: Left: Other Other Surgeries: Yes: Angiogram, Cardiac Catheterization, Coronary Stent, Pacemaker, Other Amputation: Yes (RT lower leg) Fractures: No - *Social History Last grade of school completed: GED Smoking Status: Current every day smoker Tobacco Type: cigarettes # Packs/Day (cigarettes): 1 Alcohol Intake: former Alcohol Intake Frequency:: other Substance Use Type: denies use *Occupational Status:: retired Housing: house Household Members: family *Travel in the last 8 weeks: None Family Hx:: Diabetes, Heart Attack, Hyperlipidemia, Hypertension
--- NOTE | 2021-02-21 17:39 | PC.NURSE ---
Pt still remains off floor at this time, in surgery.
--- NOTE | 2021-02-21 17:48 | HMH.ANESI ---
[facility] Anesthesia Record Part I Intake, IV Amount: 600 Estimated blood loss (mL): 300 Urine output (mL): 0 Blood Pressure: 87/52 SaO2: 92 Pulse Rate: 75 Respiratory Rate: 18 Temperature: 97.5 F Patient is:: Drowsy Stable to PACU at:: 17:45
--- NOTE | 2021-02-21 17:54 | P.OP_ITS ---
Date of procedure: 02/21/21 Pre-op Diagnosis:: Left foot gangrene with osteomyelitis Post-op Diagnosis:: Same Procedure performed:: Left below-knee amputation 36840 Surgeon:: Javier Matos JR, MD Anesthesia: GETA Estimated blood loss (mL): 30 Operative findings:: Remaining tissue appeared healthy with mild cellulitis in the distal flap. Operative note:: 66-year-old male with multiple medical comorbidities, left foot wet gangrene with underlying osteomyelitis status post transmetatarsal amputation as well as revision transmetatarsal amputation with wound vacuum-assisted closure. Despite these efforts and IV antibiotics he developed worsening cellulitis, had foul- smelling tissue with infected appearing residual metatarsals on examination t johnathan. I had a discussion with him regarding further management, recommended left below-knee amputation. He was amenable with the plan, was admitted by his primary care physician, remained n.p.o. and was made ready for surgery. We discussed the risk and benefits of surgery. Risks included but were not limited to pain, bleeding, infection, damage to adjacent structures, need for further surgery, wound healing complications, loss of limb, . Patient expressed verbal consent and written consent was obtained for the above procedure. Patient was identified in preoperative holding. Operative site was marked in indelible ink. History, physical, consent were reviewed and updated. Patient was surrendered to the anesthesia team, taken to the operative suite, placed supine on a well-padded operative table. Ipsilateral hip bump was placed as was a nonsterile thigh tourniquet. Anesthesia was induced. The operative extremity was prepped and draped in the usual sterile fashion. The operative team donned sterile gowns and gloves and a timeout was called. All in attendance agreed regarding the patient's identity, procedure, operative site. Weight-based dose of antibiotics was given prior to incision. Made a transverse incision roughly 12 cm distal to the tibial tubercle, made along the posterior skin flap, dissected through fascia, used Bovie electrocautery to transect the muscles of the anterior compartment. Identified the underlying vascular bundle, tied this with a free tie and stick tie. I then placed an [place] deep to the tibia, transected the tibia near the anterior skin cut. Protecting the neurovascular bundle I transected the fibula approximately 1 cm proximal to the tibial cut. I then was able to remove the foot. I sent this for pathology. Divide the posterior neurovascular bundle, tied the vessel and injected the nerve which was cut. I removed remaining deep posterior compartment musculature, then made a chamfer cut on the anterior aspect of the tibia to ensure no anterior tibial prominence. This point the tourniquet was taken down I achieved hemostasis. Then using a #2 FiberWire I placed a running locking stitch along the gastrocnemius tendon, and through bone tunnels, was able to reapproximate this to the distal tibia. I placed a drain which exited superior laterally, secured this with a nylon suture. Wounds were closed in anatomic layers. Sterile dressings applied. Counts were correct x2. There were no apparent complications. I was present and scrubbed for the entire case. Condition: stable Disposition: PACU Complications:: None
[2021-02-21 18:02] LABS: POC Glucose,Bedside 146 (70-110)
--- NOTE | 2021-02-21 18:16 | PC.NURSE ---
1755-checked fsbs with results of 146, no further orders given
--- NOTE | 2021-02-21 18:43 | PC.NURSE ---
1820-detailed report called to KENNETH Stallings 1822-pt transported to med/surg room 204 via hospital bed w/bobbi rails up and left in care of KENNETH Stallings with bed in lowest position, vss, pt stable, family at bedside
--- NOTE | 2021-02-21 19:45 | PC.NURSE ---
Pt back to floor @ 1830. VSS. Report given to Dominick YuenRN
--- NOTE | 2021-02-21 20:14 | PC.NURSE ---
Pics on L Leg are uploaded on camera #'s 7 and 8.
[2021-02-21 22:07] LABS: POC Glucose,Bedside 137 (70-110)
[2021-02-22 00:15] VITALS: BP 109/60; PULSE 75; RESP 24; TEMP 36.8; O2SAT 95
[2021-02-22 01:15] VITALS: BP 110/61; PULSE 75; RESP 16; TEMP 36.8; O2SAT 94
--- NOTE | 2021-02-22 03:03 | PC.NURSE ---
Pt has been a+o x4. C/o pain to LLE 2x t/o shift. Tx with 1 mg Dilaudid per MAR with pt states favorable results. Pt has rested on and off t/o night and states he is not able to sleep lying down without feeling SOA. Pt has had multiple episodes of hypoxia t/o night while in deep sleep with o2 sats dropping in mid 70s. Once pt is woken up, O2 raises above 93%. 2 L nc was applied to pt and O2 sats have remained above 88%. Knee immobilizer in place. ERIC drain in place with serosanguineous drainage. JAYEG CDI. Pt currently resting in bed. VSS. CB in reach. Will continue to monitor.
[2021-02-22 04:00] VITALS: BP 126/62; PULSE 75; RESP 16; TEMP 37.7; O2SAT 97
--- NOTE | 2021-02-22 04:22 | PC.NURSE ---
Pt has been a+o x4. Pt has rested on and off t/o night and at beginning of shift he stated he is not able to sleep lying down without feeling SOA at home. Pt has had multiple apnea episodes t/o night with o2 sats dropping in mid 70s. Once pt is woken up, O2 raises above 93%. 2 L nc was applied to pt and O2 sats have remained above 88%. C/o pain to LLE 2x t/o shift. Tx per JUL and pt states favorable results. Knee immobilizer in place. ERIC drain in place with serosanguineous drainage. JAYEG CDI. Pt currently resting in bed. VSS. CB in reach. Will continue to monitor.
--- NOTE | 2021-02-22 05:16 | HMH.ORTHPN ---
Subjective Date: 02/22/21 Time: 05:16 Principal diagnosis: Left foot osteomyelitis status post below-knee amputation Interval history: Resting comfortably, says his pain is improved from preoperatively although he did had some acute episodes of pain overnight. No fever or constitutional symptoms. PN: Obj Ex Vital signs: Temp Pulse Resp BP Pulse Ox 99.9 F H 75 16 126/62 97 02/22/21 04:00 02/22/21 04:00 02/22/21 04:00 02/22/21 04:00 02/22/21 04:00 - Constitutional no acute distress, cooperative - Routine HEENT Exam Head: Present: normocephalic Eye: Present: EOMI ENT: Present: mucous membranes moist - Routine Respiratory Exam Absent: accessory muscle use, respiratory distress - Routine Cardiovascular Exam Present: RRR - Detailed Lower Extremity Exam Lower leg: Left normal inspection (Of lower extremity dressing clean, dry, intact, drain with serosanguineous output) Progress Note: A&P (1) Osteomyelitis of left foot Status: Acute Assessment and Plan for All Diagnoses:: 66-year-old male status post left below-knee amputation February 21, 2021. Nonweightbearing left lower extremity. Plan to leave drain. PT/OT. 23 hours antibiotics. Lovenox for DVT prophylaxis. Will follow.
[2021-02-22 05:33] VITALS: BMI 27.3
[2021-02-22 05:36] LABS: POC Glucose,Bedside 110 (70-110)
[2021-02-22 06:12] LABS: Chloride 103 mmol/L (98-107); Sodium 135 mmol/L (136-145)
[2021-02-22 06:13] LABS: Potassium 4.6 mmoL/L (3.5-5.1)
[2021-02-22 06:15] LABS: Blood Urea Nitrogen 20 mg/dl (9-20)
[2021-02-22 06:16] LABS: Anion Gap 12.6 mEq/L (5-15); Calcium 7.8 mg/dl (8.4-10.2); Carbon Dioxide 24 mmol/L (22.0-30.0); Creatinine Clearance Estimated 76 mL/min (50-200); Estimated Glomerular Filt Rate 61 ml/min (>60); GFR (African American) 73 ML/MIN (>60); Glucose 110 mg/dl (74-100)
[2021-02-22 06:23] LABS: Basophils # 0.1 K/mm3 (0-0.2); Basophils % 0.9 % (0.1-2.0); Eosinophils # 0.1 K/mm3 (0.0-0.4); Eosinophils % 0.9 % (0.1-12.0); Hematocrit 30.4 % (42.0-52.0); Hemoglobin 9.2 g/dL (14.1-18.0); Lymphocytes # 1.1 K/mm3 (0.7-4.5); Lymphocytes % 9.2 % (10-50); Mean Corpuscular HGB Conc 30.2 g/dL (31.8-35.4); Mean Corpuscular Hemoglobin 29.4 pg (27.0-31.2); Mean Corpuscular Volume 97.4 fl (80-94); Mean Platelet Volume 9.7 fl (7.4-10.4); Monocytes # 1.2 K/mm3 (0.1-1.0); Monocytes % 10.3 % (1.7-9.3); Neutrophils # 9.1 K/mm3 (1.8-7.8); Neutrophils % 78.7 % (37.0-80.0); Platelet Count 209 K/mm3 (142-424); Red Blood Count 3.12 M/mm3 (4.60-6.20); Red Cell Distribution Width 15.5 % (11.5-17.5); White Blood Count 11.5 K/mm3 (4.8-10.8)
[2021-02-22 07:59] VITALS: BP 103/53; PULSE 76; RESP 18; TEMP 37.4; O2SAT 96
[2021-02-22 08:00] VITALS: O2SAT 96
--- NOTE | 2021-02-22 10:41 | HMH.PHAINT ---
Addendum entered and electronically signed by Solo Short PharmD 02/22/21 12:59: MARIE NICHOLAS RN, PT BROUGHT IN BOTTLE. PATIENT HAS BEEN RECEIVING 1500 MG VANCOMYCIN EVERY 24 HOURS PER [facility]. Original Note: MEDICATION RECONCILIATION COMPLETE USING EXTERNAL PHARMACY FILL HISTORY. [facility] CLOSED ON THE WEEKEND, UNABLE TO CONFIRM THE DOSE OF VANCOMYCIN THE PATIENT WAS RECEIVING. WILL FOLLOW UP WHEN THEY ARE OPEN. OTHER THAN THAT THE LIST ENTERED IS COMPLETE.
--- NOTE | 2021-02-22 12:19 | HMH.HP ---
*Chief complaint: osteomyelitis requiring amputation *History of present illness: Patient is a 66-year-old white male, patient of Dr. Freeman, Multiple medical comorbidities. Patient developed aggressive cellulitis, wet gangrene of the left foot requiring below the knee amputation. He was taken to the operating room for Dr. Matos. Op note is reviewed. Patient is looking well this morning. He is alert lucid and cooperative. His current regimen is satisfactory for modulating his pain. [facility] History Medical History: Reports:: Atrial Fibrillation, Congestive Heart Failure, Chronic Obstructive Pulmonary Disease (COPD), Coronary Artery Disease, Diabetes Mellitus Type 2, Hyperlipidemia, Hypertension, Internal Pacemaker, Myocardial Infarction, Peripheral Artery Disease Denies:: Cancer, Diabetes Mellitus Type 1, MRSA, Seizures *Have you ever received a pneumonia vaccine?: No *Have you received a flu vaccine this season?: No Other Medical History: Reports: Arthritis, Hypothyroidism. Denies: Blood Transfusion Reaction, Cataracts, Glaucoma, Thyroid Disease Anesthesia experience/problems:: None Laterality Cases: Left: Other Other Surgeries: Yes: Angiogram, Cardiac Catheterization, Coronary Stent, Pacemaker, Other Amputation: Yes (RT lower leg) Fractures: No - *Social History Last grade of school completed: GED Smoking Status: Current every day smoker Tobacco Type: cigarettes # Packs/Day (cigarettes): 1 Alcohol Intake: former Alcohol Intake Frequency:: other Substance Use Type: denies use *Occupational Status:: retired Housing: house Household Members: family *Travel in the last 8 weeks: None Family Hx:: Diabetes, Heart Attack, Hyperlipidemia, Hypertension Review of Systems - Constitutional Denies fever(s) - Eyes Denies loss of vision - ENT Denies abnormal hearing - *Cardiovascular Denies chest pain, Denies chest pain at rest - *Respiratory Denies chest congestion - *Gastrointestinal Denies abdominal pain - *Genitourinary Denies difficulty urinating - *Musculoskeletal Reports abnormal walking, Reports muscle weakness - Integumentary/Breasts Reports lesions, Denies yellowing of the skin - *Neurologic Reports abnormal walking - Psychiatric Denies behavioral changes - Endocrine Denies increased thirst - Hematologic/Lymphatic Denies easy bleeding, Denies easy bruising - Allergic/Immunologic Denies hives Meds Home Medications Medication Instructions Recorded Confirmed Type Aspirin [Low Dose Aspirin EC] 81 mg PO DAILY 01/17/21 02/21/21 History Atorvastatin Calcium [Lipitor 40mg 40 mg PO DAILY 01/17/21 02/21/21 History Tab] Docusate Sodium 100 mg PO BID 01/17/21 02/21/21 History Ergocalciferol (Vitamin D2) 1,250 mg PO WEEKLY 01/17/21 02/21/21 History [Drisdol] Levothyroxine Sodium [Synthroid 50 mcg PO DAILY 01/17/21 02/21/21 History 50mcg (0.05mg) tab] Loratadine [Allergy Relief] 10 mg PO DAILY 01/17/21 02/21/21 History Rivaroxaban [Xarelto 20mg Tablet*] 20 mg PO QPMWITHMEAL 01/17/21 02/21/21 History lisinopriL [Lisinopril 2.5mg Tab] 2.5 mg PO DAILY 01/17/21 02/21/21 History furosemide 20 mg tablet 20 mg PO DAILY 01/29/21 02/21/21 History Linagliptin [Tradjenta] 5 mg PO DAILY 01/30/21 02/21/21 History metformin 500 mg tablet 500 mg PO BID #60 tab 02/12/21 02/21/21 Rx bisoproloL fumarate [Bisoprolol 2.5 mg PO DAILY 02/21/21 02/21/21 History Fumarate] Vancomycin HCl 0 gm IV DAILY 02/22/21 History Allergies Allergy/AdvReac Type Severity Reaction Status Date / Time No Known Allergies Allergy Verified 02/21/21 09:56 Exam Vital signs and Labs for Last 24 Hours: Temp Pulse Resp BP Pulse Ox 99.3 F 76 18 103/53 L 96 02/22/21 07:59 02/22/21 07:59 02/22/21 07:59 02/22/21 07:59 02/22/21 08:00 Laboratory Results - last 24 hr 02/21/21 12:19: POC Glucose 165 H 02/21/21 17:55: POC Glucose 146 H 02/21/21 20:26: POC Glucose 137 H 02/22/21 05:08: POC G
[2021-02-22 13:31] LABS: NT Pro Brain Natriuretic Pep. 7720 pg/mL (0-125)
--- NOTE | 2021-02-22 14:35 | ECG_ITS ---
APPROVED REPORT Exam: Resting ECG HR:75 bpm ECG Measurements Heart Rate 75 AXES WI 148 P 58 QRSd 112 QRS -55 QT 360 T 102 QTc 402 Conclusion Electronic ventricular pacemaker Electronically signed by : Dominik Burton MD 02/23/2021 08:46:33
[2021-02-22 15:41] VITALS: BP 107/52; PULSE 75; RESP 18; TEMP 37.9; O2SAT 96
[2021-02-22 17:20] LABS: POC Glucose,Bedside 183 (70-110)
[2021-02-22 17:20] LABS: POC Glucose,Bedside 185 (70-110)
[2021-02-22 20:56] LABS: POC Glucose,Bedside 157 (70-110)
[2021-02-23] VITALS: BP 110/69; PULSE 77; RESP 18; TEMP 37.6; O2SAT 93
--- NOTE | 2021-02-23 03:12 | PC.NURSE ---
A&OX4. TOLERATING 2LNC WELL. PT HAS C/O PAIN X1 THUS FAR. TX PER JUL. ON REASSESSMENT PT IS RESTING WELL. L LEG ELEVATED, DRESSING CDI. ERIC DRAIN WITH SEROSANG DRAINAGE NOTED. PT HAS HAD NO OTHER C/O THUS FAR. VSS WILL CONTINUE TO MONITOR.
[2021-02-23 04:00] VITALS: BP 125/57; PULSE 77; RESP 18; TEMP 37.2; O2SAT 93
[2021-02-23 04:39] VITALS: BMI 27.1
[2021-02-23 05:08] LABS: POC Glucose,Bedside 142 (70-110)
--- NOTE | 2021-02-23 06:00 | XR_ITS ---
PROCEDURE INFORMATION: Exam: XR Chest Exam date and time: 02/23/2021 6:00 AM Age: 66 years old Clinical indication: Shortness of breath; Additional info: Chf TECHNIQUE: Imaging protocol: XR of the chest. Views: 1 view. COMPARISON: CR XR CHEST PORTABLE 01/20/2021 3:24 PM FINDINGS: Tubes, catheters and devices: Cardiac rhythm maintenance device is in place. Right upper extremity PICC terminates in the region of the superior cavoatrial junction. Lungs: Mild interstitial pulmonary edema. Otherwise, no focal airspace disease. Pleural spaces: Small right pleural effusion with fluid trapped in the minor fissure. Heart/Mediastinum: Similar cardiomegaly. Bones/joints: Unremarkable. IMPRESSION: Similar cardiomegaly with interstitial pulmonary edema and small right pleural effusion.
--- NOTE | 2021-02-23 06:21 | HMH.ORTHPN ---
Subjective Date: 02/23/21 Time: 06: Principal diagnosis: Left foot osteomyelitis status post below-knee amputation Interval history: Pain is minimal. No fever or constitutional symptoms. PN: Obj Ex Vital signs: Temp Pulse Resp BP Pulse Ox 98.9 F 77 18 125/57 L 93 L 02/23/21 04:00 02/23/21 04:00 02/23/21 04:00 02/23/21 04:00 02/23/21 04:00 - Constitutional no acute distress - Routine HEENT Exam Head: Present: normocephalic - Routine Neck Exam Present: supple - Detailed Lower Extremity Exam Lower leg: Left normal inspection (Dressing clean, dry, intact, drain with serosanguineous output.) Progress Note: A&P (1) Osteomyelitis of left foot Status: Acute Assessment and plan: 66-year-old male with left foot wet gangrene, osteomyelitis status post left below-knee potation. To leave drain today, nonweightbearing, PT/OT. DVT prophylaxis. Will follow. (2) Type 2 diabetes mellitus Status: Acute (3) AICD (automatic cardioverter/defibrillator) present Status: Chronic (4) CAD (coronary artery disease) Status: Chronic (5) CHF (congestive heart failure), NYHA class IV Status: Chronic (6) Cardiac arrhythmia Status: Chronic (7) Diabetes mellitus Status: Chronic (8) HLD (hyperlipidemia) Status: Chronic (9) HTN (hypertension) Status: Chronic (10) History of amputation below knee Status: Chronic (11) Ischemic cardiomyopathy Status: Chronic (12) PAD (peripheral artery disease) Status: Chronic (13) Systolic heart failure Status: Chronic (14) Tobacco use Status: Chronic (15) Hypothyroid Status: Chronic
[2021-02-23 06:30] LABS: Chloride 102 mmol/L (98-107); Potassium 4.3 mmoL/L (3.5-5.1); Sodium 133 mmol/L (136-145)
[2021-02-23 06:32] LABS: Basophils % 0.2 % (0.1-2.0); Eosinophils % 0.3 % (0.1-12.0); Hematocrit 29.4 % (42.0-52.0); Hemoglobin 8.8 g/dL (14.1-18.0); Mean Corpuscular HGB Conc 29.8 g/dL (31.8-35.4); Mean Corpuscular Volume 97.1 fl (80-94); Mean Platelet Volume 9.4 fl (7.4-10.4); Monocytes # 1.5 K/mm3 (0.1-1.0); Monocytes % 12.3 % (1.7-9.3); Neutrophils # 9.9 K/mm3 (1.8-7.8); Neutrophils % 79.1 % (37.0-80.0); Platelet Count 214 K/mm3 (142-424); Red Blood Count 3.03 M/mm3 (4.60-6.20); Red Cell Distribution Width 15.7 % (11.5-17.5); White Blood Count 12.5 K/mm3 (4.8-10.8)
[2021-02-23 06:33] LABS: Anion Gap 10.3 mEq/L (5-15); Blood Urea Nitrogen 21 mg/dl (9-20); Calcium 7.8 mg/dl (8.4-10.2); Carbon Dioxide 25 mmol/L (22.0-30.0); Creatinine Clearance Estimated 75 mL/min (50-200); Estimated Glomerular Filt Rate 61 ml/min (>60); GFR (African American) 73 ML/MIN (>60); Glucose 133 mg/dl (74-100)
[2021-02-23 08:00] VITALS: BP 103/54; PULSE 75; RESP 16; TEMP 37.4; O2SAT 95
--- NOTE | 2021-02-23 10:56 | HMH.ACPN2 ---
Internal Medicine - PN: Subj *Date: 02/23/21 *Time: 11:02 Interval history: No significant issues overnight. Patient has good pain relief on his current regimen. He is eating and drinking without issue. Globin today is 8.8, kidney function is decent, mpead-od-mdew glucose have been acceptable. Natruretic peptide 7720. Chest x-ray shows cardiomegaly with a small pleural effusion. Patient denies shortness of breath. Surgery progress notes are reviewed. Exam Vital signs and Labs for Last 24 Hours: Temp Pulse Resp BP Pulse Ox 99.4 F 75 16 103/54 L 95 02/23/21 08:00 02/23/21 08:00 02/23/21 08:00 02/23/21 08:00 02/23/21 08:00 Laboratory Results - last 24 hr 02/22/21 12:22: POC Glucose 183 H 02/22/21 13:05: NT-Pro-B Natriuret Pep 7720 H 02/22/21 16:58: POC Glucose 185 H 02/22/21 20:04: POC Glucose 157 H 02/23/21 04:59: POC Glucose 142 H 02/23/21 05:50: TSH 3.70 02/23/21 05:58: WBC 12.5 H, RBC 3.03 L, Hgb 8.8 L, Hct 29.4 L, MCV 97.1 H, MCH 29.0, MCHC 29.8 L, RDW 15.7, Plt Count 214, MPV 9.4, Neut % (Auto) 79.1, Lymph % (Auto) 8.0 L, [place] % (Auto) 12.3 H, Eos % (Auto) 0.3, Baso % (Auto) 0.2, Neut # (Auto) 9.9 H, Lymph # (Auto) 1.0, [place] # (Auto) 1.5 H, Eos # (Auto) 0.0, Baso # (Auto) 0.0 02/23/21 05:58: Sodium 133 L, Potassium 4.3, Chloride 102, Carbon Dioxide 25, Anion Gap 10.3, BUN 21 H, Creatinine 1.20, Estimated Creat Clear 75, Estimated GFR 61, Est GFR ( Amer) 73, Glucose 133 H, Calcium 7.8 L I & O for Last 24 hours: Intake & Output 02/20/21 02/21/21 02/22/21 02/23/21 23:59 23:59 23:59 23:59 Intake Total 600 / 720 1200 / 1560 600 / 600 Output Total 485 / 485 Balance 600 / 720 1200 / 1110 115 / 115 Weight 196 lb 3.382 oz 195 lb 3 oz 194 lb - Constitutional no acute distress - *Routine HEENT Exam Head: Present: normocephalic Eye: Present: EOMI, PERRL ENT: Present: mucous membranes moist - *Routine Neck Exam Present: supple. Absent: lymphadenopathy - *Routine Respiratory Exam Absent: accessory muscle use, respiratory distress, wheezes - *Routine Cardiovascular Exam Present: RRR - *Routine Abdominal Exam Present: soft, normoactive bowel sounds. Absent: tenderness - *Routine Extremities Exam Present: amputation - *Routine Neurological Exam Present: alert, oriented X3, vision grossly intact, hearing grossly intact. Absent: altered mental status Assessment and Plan (1) Osteomyelitis of left foot Status: Acute Category: Medical Code(s): M86.9 - Osteomyelitis, unspecified (2) Type 2 diabetes mellitus Status: Acute Qualifiers: Diabetes mellitus ocean transportation intermediary insulin use: with ocean transportation intermediary use Diabetes mellitus complication status: with kidney complications Diabetes mellitus complication detail: with chronic kidney disease Chronic kidney disease stage: unspecified stage Qualified Code(s): E11.22 - Type 2 diabetes mellitus with diabetic chronic kidney disease; Z79.4 - director long term care (current) use of insulin Category: Medical Code(s): E11.9 - Type 2 diabetes mellitus without complications (3) AICD (automatic cardioverter/defibrillator) present Status: Chronic Category: Surgical Code(s): Z95.810 - Presence of automatic (implantable) cardiac defibrillator (4) CAD (coronary artery disease) Status: Chronic Qualifiers: Coronary Disease-Associated Artery/Lesion type: [place] artery [place] vs. transplanted heart: [place] heart Associated angina: without angina Qualified Code(s): I25.10 - Atherosclerotic heart disease of [place] coronary artery without angina pectoris Category: Medical Code(s): I25.10 - Atherosclerotic heart disease of [place] coronary artery without angina pectoris (5) CHF (congestive heart failure), NYHA class IV Status: Chronic Qualifiers: Congestive heart failure type: unspecified Qualified Code(s): I50.9 - Heart failure, unspecified Category: Medical Code(s): I50.9 - Heart failure, unspecified (
--- NOTE | 2021-02-23 11:21 | HMH.PHAVTE ---
[facility] Pharmacy VTE Monitoring - Patient Demographics Admission date: 02/21/21 Report Date: 02/23/21 Time: 11:21 Allergies/Adverse Reactions: Patient Allergies No Known Allergies Allergy (Verified 02/21/21 09:56) Height: 1.8 m Weight: 87.997 kg Patient Problems: Current Active Problems Osteomyelitis of left foot (Acute) Hypothyroid (Chronic) HLD (hyperlipidemia) (Chronic) HTN (hypertension) (Chronic) Type 2 diabetes mellitus (Acute) PAD (peripheral artery disease) (Chronic) History of amputation below knee (Chronic) Tobacco use (Chronic) Systolic heart failure (Chronic) CAD (coronary artery disease) (Chronic) Ischemic cardiomyopathy (Chronic) CHF (congestive heart failure), NYHA class IV (Chronic) AICD (automatic cardioverter/defibrillator) present (Chronic) Diabetes mellitus (Chronic) Cardiac arrhythmia (Chronic) - VTE Risk Labs: VTE Related Lab Results Hgb 8.8 g/dL (14.1-18.0) L 02/23/21 05:58 Hct 29.4 % (42.0-52.0) L 02/23/21 05:58 Plt Count 214 K/mm3 (142-424) 02/23/21 05:58 BUN 21 mg/dl (9-20) H 02/23/21 05:58 Creatinine 1.20 mg/dl (0.66-1.25) 02/23/21 05:58 Estimated Creat Clear 75 mL/min (50-200) 02/23/21 05:58 Was VTE Risk Assessment Performed: Yes VTE Score: 8 VTE Risk Level: Moderate Risk Clinical Trial Participant: No - Prophylaxis VTE Prophylaxis Ordered?: Yes Types of VTE Prophylaxis: Pharmacological Location of Applied Device: Not Applicable Pharmacologic Type: Other (HOME XARELTO RESUMED)
[2021-02-23 12:01] LABS: POC Glucose,Bedside 179 (70-110)
[2021-02-23 16:00] VITALS: BP 108/60; PULSE 75; RESP 16; TEMP 38; O2SAT 96
--- NOTE | 2021-02-23 16:14 | PC.NURSE ---
pt has done well this shift. VSS. Pain meds administered x1 per MAR. No other acute changes or complaints, will continue to monitor.
[2021-02-23 17:00] LABS: POC Glucose,Bedside 236 (70-110)
[2021-02-23 20:00] VITALS: BP 100/55; PULSE 75; RESP 18; TEMP 37.2; O2SAT 91
[2021-02-24 00:55] LABS: POC Glucose,Bedside 129 (70-110)
[2021-02-24 03:44] VITALS: BP 110/50; PULSE 75; RESP 18; TEMP 36.8; O2SAT 99
--- NOTE | 2021-02-24 04:25 | PC.NURSE ---
Patient is A&Ox4. Patient's dsg is C/D/I, ERIC draining is draining SS fluid. Patient has appeared to have rested well this shift. He has voiced no complaints to this RN. He has been afebrile this shift. Patient's VSS, call light within reach, will continue to monitor.
[2021-02-24 05:05] VITALS: BMI 27.3
--- NOTE | 2021-02-24 05:48 | HMH.ORTHPN ---
Subjective Date: 02/24/21 Time: 05:48 Principal diagnosis: Left foot osteomyelitis status post below-knee amputation Interval history: Comfortably, drain with minimal output PN: Obj Ex Vital signs: Temp Pulse Resp BP Pulse Ox 98.2 F 75 18 110/50 L 99 02/24/21 03:44 02/24/21 03:44 02/24/21 03:44 02/24/21 03:44 02/24/21 03:44 - Constitutional no acute distress - Routine Respiratory Exam Absent: respiratory distress - Routine Cardiovascular Exam Present: RRR - Detailed Lower Extremity Exam Lower leg: Left normal inspection (Drain with minimal output, dressing clean, dry, intact.) Progress Note: A&P (1) Osteomyelitis of left foot Status: Acute Assessment and plan: 66-year-old male status post left below-knee amputation. Nonweightbearing, PT/OT. I removed the drain today. Follow-up on Wednesday for wound check. (2) Type 2 diabetes mellitus Status: Acute (3) AICD (automatic cardioverter/defibrillator) present Status: Chronic (4) CAD (coronary artery disease) Status: Chronic (5) CHF (congestive heart failure), NYHA class IV Status: Chronic (6) Cardiac arrhythmia Status: Chronic (7) Diabetes mellitus Status: Chronic (8) HLD (hyperlipidemia) Status: Chronic (9) HTN (hypertension) Status: Chronic (10) History of amputation below knee Status: Chronic (11) Ischemic cardiomyopathy Status: Chronic (12) PAD (peripheral artery disease) Status: Chronic (13) Systolic heart failure Status: Chronic (14) Tobacco use Status: Chronic (15) Hypothyroid Status: Chronic
--- NOTE | 2021-02-24 05:54 | PC.NURSE ---
Addendum entered by Margie Krishnan CNA 02/24/21 07:02: Maday KIRKLAND NOTIFIED OF CONSULT Original Note: Radha KIRKLAND NOTIFIED OF CONSULT
[2021-02-24 07:50] VITALS: BP 102/53; PULSE 74; RESP 18; TEMP 37; O2SAT 97
[2021-02-24 08:00] VITALS: PULSE 74; RESP 18; O2SAT 97
[2021-02-24 08:30] VITALS: BP 98/58; PULSE 75; TEMP 36.7
--- NOTE | 2021-02-24 08:30 | P.PN_ITS ---
[facility] Anesthesia Record Part II Discharge Time: 18:23 Destination: Second Floor PACU nurse assessment reviewed?: Yes Patient Condition:: Good Anesthesia Complications:: None Swallowing reflex intact?: Yes Cyanosis?: No Blood Pressure: 98/58 Pulse Rate: 75 Temperature: 98.1 F Mental Status: Alert & Oriented Pain level:: 5 Nausea and/or vomitting:: None Intake, IV Amount: 0
[2021-02-24 08:32] LABS: Basophils % 0.2 % (0.1-2.0); Eosinophils # 0.2 K/mm3 (0.0-0.4); Eosinophils % 1.6 % (0.1-12.0); Hematocrit 28.9 % (42.0-52.0); Lymphocytes # 0.9 K/mm3 (0.7-4.5); Lymphocytes % 7.8 % (10-50); Mean Corpuscular HGB Conc 31.2 g/dL (31.8-35.4); Mean Corpuscular Hemoglobin 29.3 pg (27.0-31.2); Mean Corpuscular Volume 93.9 fl (80-94); Mean Platelet Volume 9.1 fl (7.4-10.4); Monocytes # 1.2 K/mm3 (0.1-1.0); Monocytes % 10.1 % (1.7-9.3); Neutrophils # 9.5 K/mm3 (1.8-7.8); Neutrophils % 80.4 % (37.0-80.0); Platelet Count 249 K/mm3 (142-424); Red Blood Count 3.08 M/mm3 (4.60-6.20); Red Cell Distribution Width 15.3 % (11.5-17.5); White Blood Count 11.8 K/mm3 (4.8-10.8)
[2021-02-24 08:43] LABS: Chloride 100 mmol/L (98-107); Potassium 4.2 mmoL/L (3.5-5.1); Sodium 133 mmol/L (136-145)
[2021-02-24 08:46] LABS: Anion Gap 8.2 mEq/L (5-15); Blood Urea Nitrogen 25 mg/dl (9-20); Calcium 7.8 mg/dl (8.4-10.2); Carbon Dioxide 29 mmol/L (22.0-30.0); Creatinine Clearance Estimated 76 mL/min (50-200); Estimated Glomerular Filt Rate 61 ml/min (>60); GFR (African American) 73 ML/MIN (>60); Glucose 162 mg/dl (74-100)
--- NOTE | 2021-02-24 11:16 | DIET.NUTRFU ---
Addendum entered by Gianna Terry 03/10/21 11:46: PO intakes 25% + BID supplements, BG moderate avg. 168, weight stable. Addendum entered by Gianna Terry 03/07/21 16:41: PO intakes 15% + BID supplements. BG moderate avg. 170. Incorrect weight input today in lb instead of kg- actual weight stable. Please continue to encourage/cue. Addendum entered by Gianna Terry 03/05/21 13:45: Pt has refused 5 of 6 past meals. BG moderate avg. 160. Weight down 6#. Bowels moving. BID supplements on diet order, pt may have additional snacks/supplements by request. Please encourage/cue at meal times. Addendum entered by Gianna Terry 03/03/21 11:45: PO intakes 50% + daily supplement. BG moderate-high avg. 183. Weight down 14#. No changes to regimen at this time, continuing to monitor. Addendum entered by Gianna Terry 02/28/21 14:05: Pt with new COVID dx PO intakes 50%. Daily supplement added to order. Diet edu nutritional considerations COVID recovery added to dc materials. Original Note: PO intakes 50-75%, pt states sometimes Im hungry, sometimes Im not and that this is normal for him. He reports no nutritional concerns. Weight stable. BG moderate avg. 160.
--- NOTE | 2021-02-24 11:33 | HMH.PTEV ---
Physical Therapy Evaluation Rehab PT IP Evaluation Start: 02/24/21 10:14 Freq: ONCE Status: Active Protocol: Document 02/24/21 11:31 [email or web address] (Rec: 02/24/21 11:33 PHORAPOLONIA [id number]) Subjective/History History History 66 yowm adm to [facility] with L foot gangrene, now S/P L BKA and has prior R AKA. He reports he does not use his R AKA prosthesis and was using his L foot to stand-pivot transfer to his w/c for all mobility. Subjective Subjective Pt with no c/o this am. Rehab PT IP Eval Objective Appearance Patient Behavior Appropriate Patient Orientation Person,Place,Time Difficulty following instructions none Speech Pattern Clear Ambulation Patient Able to Ambulate No Balance Ability to Arise Able, uses arms to help Sitting Balance Steady, safe Dynamic Sitting Balance Ability Fair Transfers Bed Transfer Ability Contact Guard/Hand Hold Rehab PT IP prob,goals,plan Problems Date of Evaluation: 02/24/21 PT IP Problems Bed Mobility,Transfers Rehab Potential Rehab Potential Fair Plan PT Intervention Plan Bed Mobility,Transfers, Therapeutic Exercise PT Plan Frequency BID Duration LOS Discharge Goals Bed Transfer Ability Supervision/Stand by Discharge Plan PT Discharge Plan Pt is most appropriate for rehab placement at this time in order to be more independent with transfers, especially to/from the commode . G -code Required No Eval Complexity Eval Charge Codes 11369 - Moderate Complexity PHYSICIAN CERTIFICATION: I certify the specified therapy services for Tim Gallego are required, authorized, and reviewed every 30 days.
--- NOTE | 2021-02-24 11:56 | HMH.CNCARD ---
History of Present Illness Consult date: 02/24/21 Requesting physician: Rj Michel Consult reason: congestive heart failure Chief complaint: PAD, s/p left BKA, CHF Additional Medical History:: 1. Ischemic cardiomyopathy with history of myocardial infarction approximately 2005 with drug-eluting stent placement at that time A. Cardiac catheterization 05/2017, recommendation for medical management ANGIOGRAPHIC RESULTS: 1. The left main artery has an ostial 20-30% nonflow limiting stenosis 2. The left anterior descending artery has a very proximal stent which is widely patent with minimal in-stent restenosis. Immediately proximal to the stent is a 10% stenosis and distal to the stent is a 30-40% stenosis. The mid LAD then has additional 30 and 40% mid vessel stenoses first diagonal artery is a 2.25 mm vessel and has a proximal 99% stenosis. 3. The ramus intermedius is a 2.5 mm vessel and has an ostial proximal 80-90% stenosis 4. The circumflex artery appears to be a dominant system and has mid vessel 40% stenoses. 5. The right coronary artery is proximally occluded with the distal segment filling via left to right collaterals 6. The PALACIOS ventriculogram reveals severe left ventricular dilatation ejection fraction 10-15% 7. The left ventricular end-diastolic pressure 30 mmHg IMPRESSION: 1. Ischemic cardiomyopathy as described above 2. Severe stenoses in the first diagonal artery and first ramus intermedius 3. Severe left ventricular dilatation with severely reduced ejection fraction 4. Elevated LVEDP PLAN: 1. I would recommend medical management at this time. Although the diagonal artery and ramus intermedius could be stented I don't believe these stenoses are contributing to patient's cardiomyopathy. Based on the elevated LVEDP there is room for additional diuretics 2. LDL less than 55 3. Standard therapy for systolic heart failure 4. Risk factor modification B. Echo, 05/2017, 1. Moderately enlarged left atrium, moderately dilated left ventricle, severely reduced left ventricular systolic function, visually estimated ejection fraction 15-20%, left ventricle is globally hypokinetic, Doppler evidence of raised left ventricular end-diastolic pressure. 2. Moderate mitral and tricuspid regurgitation. 3. Thickened and calcified aortic valve without Doppler evidence of significant aortic stenosis or aortic insufficiency 4. Small circumferential pericardial effusion noted. C. GIFT SHOP ASSISTANT-D in place with generator change 05/2020, [place] 2. History of LV thrombus and chronic atrial fibrillation, chronic anticoagulation therapy with Xarelto 3. PAD A. History of right nitja-lhh-ihim amputation B. LE arteriogram, 11/2019, medical therapy unless limb threatening ischemia C. Left below the knee amputation, 01/2021 after failing outpatient management and development of osteomyelitis 4. Diabetes mellitus, type II 5. Continued tobacco use with COPD 6. Hyperlipidemia, on statin therapy with LDL of 50, 01/2021 7. Chronic anemia with hemoglobin running 9-10. History of present illness: 66-year-old white male admitted for failing outpatient treatment of PAD with traumatic injury to toes of the left foot 3-4 wks ago. Patient initially had a transmetatarsal amputation earlier this month but due to severe PAD which led to failure to heal properly, he was admitted for left BKA. Patient had the procedure without complications. Chest x-ray and BNP noted to indicate congestive heart failure and he is known to have chronic a. fib with [facility] anticoagulation. Patient has a history of systolic congestive heart failure with AICD/GIFT SHOP ASSISTANT-D implantation. Currently patient is in bed in no acute distress. He does have some discomfort from the surgery and working with physical therapy this morning. Cardiology consulted for evaluation recommendations. Pacemaker was interrogated today and is functioning appropriat
--- NOTE | 2021-02-24 12:48 | HMH.ACPN2 ---
Internal Medicine - PN: Subj *Date: 02/24/21 *Time: 08:10 Interval history: pt states he had a good night. Pt states he is concerned about how he will get to bathroom by self. Exam Vital signs and Labs for Last 24 Hours: Temp Pulse Resp BP Pulse Ox 98.1 F 75 18 98/58 L 97 02/24/21 08:30 02/24/21 08:30 02/24/21 08:00 02/24/21 08:30 02/24/21 08:00 Laboratory Results - last 24 hr 02/23/21 16:42: POC Glucose 236 H 02/23/21 20:02: POC Glucose 129 H 02/24/21 08:25: WBC 11.8 H, RBC 3.08 L, Hgb 9.0 L, Hct 28.9 L, MCV 93.9, MCH 29.3, MCHC 31.2 L, RDW 15.3, Plt Count 249, MPV 9.1, Neut % (Auto) 80.4 H, Lymph % (Auto) 7.8 L, [place] % (Auto) 10.1 H, Eos % (Auto) 1.6, Baso % (Auto) 0.2, Neut # (Auto) 9.5 H, Lymph # (Auto) 0.9, [place] # (Auto) 1.2 H, Eos # (Auto) 0.2, Baso # (Auto) 0.0 02/24/21 08:25: Sodium 133 L, Potassium 4.2, Chloride 100, Carbon Dioxide 29, Anion Gap 8.2, BUN 25 H, Creatinine 1.20, Estimated Creat Clear 76, Estimated GFR 61, Est GFR ( Amer) 73, Glucose 162 H, Calcium 7.8 L I & O for Last 24 hours: Intake & Output 02/22/21 02/23/21 02/24/21 02/25/21 11:59 11:59 11:59 11:59 Intake Total 1200 / 1200 1200 / 1200 600 / 600 Output Total 485 / 485 725 / 725 Balance 1200 / 1200 715 / 715 -125 / -125 Weight 195 lb 3 oz 194 lb 195 lb 5 oz - Constitutional no acute distress - *Routine HEENT Exam Head: Present: normocephalic Eye: Present: PERRL ENT: Present: mucous membranes moist - *Routine Neck Exam Present: supple. Absent: lymphadenopathy - *Routine Respiratory Exam Present: CTA bilaterally - *Routine Cardiovascular Exam Present: irregular rhythm - *Routine Extremities Exam Present: amputation. Absent: cyanosis, clubbing, edema Comments: rt aka left bka - *Routine Skin Exam Present: warm. Absent: rash Comments: dressing to left lower leg - *Routine Neurological Exam Present: alert, oriented X3 Assessment and Plan (1) Osteomyelitis of left foot Status: Acute Category: Medical Code(s): M86.9 - Osteomyelitis, unspecified (2) Type 2 diabetes mellitus Status: Acute Qualifiers: Diabetes mellitus skilled nursing insulin use: with manager long term care use Diabetes mellitus complication status: with kidney complications Diabetes mellitus complication detail: with chronic kidney disease Chronic kidney disease stage: unspecified stage Qualified Code(s): E11.22 - Type 2 diabetes mellitus with diabetic chronic kidney disease; Z79.4 - detention (current) use of insulin Category: Medical Code(s): E11.9 - Type 2 diabetes mellitus without complications (3) AICD (automatic cardioverter/defibrillator) present Status: Chronic Category: Surgical Code(s): Z95.810 - Presence of automatic (implantable) cardiac defibrillator (4) CAD (coronary artery disease) Status: Chronic Qualifiers: Coronary Disease-Associated Artery/Lesion type: [place] artery [place] vs. transplanted heart: [place] heart Associated angina: without angina Qualified Code(s): I25.10 - Atherosclerotic heart disease of [place] coronary artery without angina pectoris Category: Medical Code(s): I25.10 - Atherosclerotic heart disease of [place] coronary artery without angina pectoris (5) CHF (congestive heart failure), NYHA class IV Status: Chronic Qualifiers: Congestive heart failure type: unspecified Qualified Code(s): I50.9 - Heart failure, unspecified Category: Medical Code(s): I50.9 - Heart failure, unspecified (6) Cardiac arrhythmia Status: Chronic Qualifiers: Arrhythmia type: unspecified cardiac arrhythmia Qualified Code(s): I49.9 - Cardiac arrhythmia, unspecified Category: Medical Code(s): I49.9 - Cardiac arrhythmia, unspecified (7) Diabetes mellitus Status: Chronic Qualifiers: Diabetes mellitus type: type 2 Diabetes mellitus manager long term care insulin use: without skilled nursing use Diabetes mellitus complication status: without complicat
[2021-02-24 13:05] LABS: POC Glucose,Bedside 152 (70-110)
[2021-02-24 13:05] LABS: POC Glucose,Bedside 202 (70-110)
--- NOTE | 2021-02-24 13:05 | SW/DCPLANNER ---
Addendum entered by [facility] 03/11/21 08:41: This patient is expected to be medically stable for discharge tomorrow pending no setbacks. Patient stated that he prefer to discharge to [facility] rather than [facility]. I will fax updated patient information to Savanna with [facility]. I will ask Savanna to start precert for SNF level of care at [facility]. Addendum entered by [facility] 03/06/21 15:01: I followed up w/ Blanca from [facility] regarding this patient having surgery tomorrow. Discharge date is unknown at this time. I will continue to update Blanca. Addendum entered by [facility] 03/05/21 09:46: I have updated Blanca w/ [facility] regarding this patient: not medically stable for discharge at this time. Addendum entered by [facility] 03/04/21 10:16: Blanca w/ [facility] has stated that she can accept patient once he is medically stable for discharge. Blanca stated that she will wait to begin precert once patient is closer to being ready for discharge. I will continue to follow up with [facility]. I will also inform patient and his family along with [facility]. Addendum entered by [facility] 03/03/21 11:51: Updated patient information has also been faxed to Blanca at [facility]. [facility] can accept COVID + patients. Addendum entered by [facility] 03/03/21 10:28: Updated patient information has been faxed to Tayler at [facility]. Addendum entered by [facility] 02/28/21 09:10: I have updated Tayler with [facility] that this patient is not medically stable for discharge at this time. Addendum entered by [facility] 02/27/21 12:43: I have updated patients brother (Erik) regarding discharge plans. Addendum entered by [facility] 02/27/21 09:43: [facility] is currently reviewing patient information. Patient is medically stable for discharge. Addendum entered by [facility] 02/26/21 12:15: Gregoria with [facility] has sent in for precert for this patient. [facility] once COVID stay is over. I will continue to keep in touch w/: patient, MD and [facility]. Addendum entered by Anjelica [place] 02/26/21 11:49: [facility] no longer has a COVID unit at this time. Patient information has now been faxed to [facility] and [facility]. I will continue to follow up with facilities. Addendum entered by Anjelica [place] 02/26/21 10:27: Due to patients COVID swab resulting POSITIVE: Savanna w/ [facility] has stated that she can not accept this patient until 14 days out. Patient information has now been faxed to [facility]. Addendum entered by [facility] 02/26/21 09:18: This patient has been accepted to [facility] per Savanna for today. Savanna has requested a COVID swab be ordered prior to discharge. This patient will discharge today SNF level of care. Addendum entered by [facility] 02/25/21 12:33: Savanna w/ [facility] has started precert on this patient. Addendum entered by [facility] 02/25/21 12:09: Savanna w/ [facility] has stated that she can accept this patient and will start prior auth at this time. Addendum entered by [facility] 02/25/21 09:59: Pia with [facility] and Savanna with [facility] are currently reviewing this patients information. Original Note: I spoke with this patient regarding discharge plans. Patient stated that he resides at home with his younger sister: family is present but not 24/7. PT did evaluate the patient and has recommended SNF level of care at time of discharge. Patient is agreeable to short term placement. Patient information has been faxed to: [facility] and [facility]. I will follow up with facilities once patient information is reviewed.
--- NOTE | 2021-02-24 13:56 | HMH.OTEV ---
OT Inpatient Evaluation Rehab OT IP Evaluation Start: 02/24/21 10:15 Freq: ONCE Status: Complete Protocol: [facility]24/21 13:50 [facility] (Rec: 02/24/21 13:56 [facility] [id number] Rehab OT IP Assessment Subjective History Pt oriented x 3 on arrival. Pt agreeable to engage in therapy evaluation. Pt was admitted on 02/21/21 due to left leg BKA due to osteomyelitis. Pt has a past medical history of Atrial Fibrillation, Congestive Heart Failure, Chronic Obstructive Pulmonary Disease (COPD), Coronary Artery Disease, Diabetes Mellitus Type 2, Hyperlipidemia, Hypertension, Internal Pacemaker, Myocardial Infarction, Peripheral Artery Disease. Pt reports prior to surgery he lived with his sister and brother in law. Pt claims he was independent with all ADLS and used a walker/wheelchair for transfers. Pt also reports he was able to complete some cleaning and cooking when needed. Subjective I would really like to just go home. Objective Patient Orientation Person,Place,Birthday Upper Extremity Gross ROM WFL Bed Mobility bed mobility-scooting,bed mobility - supine/sit,bed mobility - rolling Assist Level Minimal x 1 (25% assist) Transfer Training Sit/Stand Transfer Assist Level Moderate x 2 (50% assist) Chair Transfer Ability Moderate x 2 (50% assist) Chair Transfer Technique Forward/Backward Scoot Rehab OT IP prob,goals,plan Problems Date of Evaluation: 02/24/21 OT IP Problems Bed Mobility,Transfers,Gait, Balance,Self care,Safety Rehab Potential Rehab Potential Good Equipment Needs Assistive Devices Wheelchair Plan OT intervention Plan Bed Mobility,Transfers,Gait, Balance,Self care,Safety, Therapeutic Exercise OT Plan Frequency BID Duration LOS Discharge Goals Bed Mobility Sapna
--- NOTE | 2021-02-24 15:18 | PC.NURSE ---
Pt has been pleasant and cooperative this shift. A&O X4. Pt has complained of LLE pain X1 thus far today and has received Dilaudid per MAR with favorable results. Pt is currently on room air with sats. >90%. Lungs CTA. No edema noted. LLE dressing/brace C/D/I. Pt uses the urinal to void clear, dark-patricia urine without issue. No BM thus far this shift. Pt transfers with assistance X1 and has sat up in his wheelchair for several hours. Appetite is good and pt eats the majority of all meals. PICC in place to RUE. 22 G peripheral IV in place to the RT hand. VSS. Call light within reach. Will continue to monitor.
[2021-02-24 16:00] VITALS: BP 109/48; PULSE 75; RESP 20; TEMP 36.9; O2SAT 99
[2021-02-24 20:00] VITALS: BP 105/52; PULSE 75; RESP 22; TEMP 37.2; O2SAT 90
[2021-02-24 21:23] LABS: POC Glucose,Bedside 136 (70-110)
[2021-02-25 04:00] VITALS: BP 115/57; PULSE 75; RESP 18; TEMP 38.1; O2SAT 95
--- NOTE | 2021-02-25 04:18 | PC.NURSE ---
Patient is alert and oriented x4. He has had no complaints of pain thus far during this RN's shift. Patient has appeared to have rested well through the night. Patient has no had a BM during this shift. Patient uses the urinal and clear, patricia urine is noted. LLE extremity dressing/brace is C/D/I. He is able to independently move in bed without assistance. Patient became febrile with a temperature of 100.5 F and was treated for it. Patient has an intermitting cough that is non-productive. Patient lung sounds are clear upon auscultation. Patient has voiced no other complaints to this RN. VSS, call light within reach, will continue to monitor.
[2021-02-25 05:08] VITALS: BMI 28.2
[2021-02-25 06:35] LABS: POC Glucose,Bedside 136 (70-110)
[2021-02-25 07:11] LABS: Basophils % 0.3 % (0.1-2.0); Eosinophils # 0.1 K/mm3 (0.0-0.4); Eosinophils % 0.9 % (0.1-12.0); Hematocrit 27.1 % (42.0-52.0); Hemoglobin 8.2 g/dL (14.1-18.0); Lymphocytes # 0.7 K/mm3 (0.7-4.5); Lymphocytes % 9.4 % (10-50); Mean Corpuscular HGB Conc 30.2 g/dL (31.8-35.4); Mean Corpuscular Hemoglobin 28.4 pg (27.0-31.2); Mean Corpuscular Volume 94.1 fl (80-94); Mean Platelet Volume 11.7 fl (7.4-10.4); Monocytes # 0.7 K/mm3 (0.1-1.0); Monocytes % 9.4 % (1.7-9.3); Neutrophils # 6.2 K/mm3 (1.8-7.8); Neutrophils % 80.1 % (37.0-80.0); Platelet Count 183 K/mm3 (142-424); Red Blood Count 2.88 M/mm3 (4.60-6.20); Red Cell Distribution Width 15.5 % (11.5-17.5); White Blood Count 7.7 K/mm3 (4.8-10.8)
[2021-02-25 07:21] LABS: Chloride 99 mmol/L (98-107)
[2021-02-25 07:22] LABS: Potassium 4.5 mmoL/L (3.5-5.1); Sodium 132 mmol/L (136-145)
[2021-02-25 07:25] LABS: Blood Urea Nitrogen 30 mg/dl (9-20); Creatinine Clearance Estimated 63 mL/min (50-200); Estimated Glomerular Filt Rate 47 ml/min (>60); GFR (African American) 57 ML/MIN (>60); Glucose 124 mg/dl (74-100)
[2021-02-25 07:26] LABS: Anion Gap 12.5 mEq/L (5-15); Calcium 7.8 mg/dl (8.4-10.2); Carbon Dioxide 25 mmol/L (22.0-30.0)
[2021-02-25 08:00] VITALS: BP 125/57; PULSE 77; RESP 18; TEMP 36.6; O2SAT 93
--- NOTE | 2021-02-25 09:36 | HMH.PNCARD ---
Subjective Date: 02/25/21 Time: 09:36 Principal diagnosis: Left foot osteomyelitis status post below-knee amputation Interval history: 66-year-old white male sitting in wheelchair at bedside with left leg propped up on the bed in no acute distress. Seems depressed at this time. Denies any chest pain, pressure or tightness. Exam Vital signs and Labs for Last 24 Hours: Temp Pulse Resp BP Pulse Ox 100.5 F H 75 18 115/57 L 95 02/25/21 04:00 02/25/21 04:00 02/25/21 04:00 02/25/21 04:00 02/25/21 04:00 Laboratory Results - last 24 hr 02/24/21 05:46: POC Glucose 152 H 02/24/21 11:40: POC Glucose 202 H 02/24/21 21:17: POC Glucose 136 H 02/25/21 06:28: POC Glucose 136 H 02/25/21 07:00: WBC 7.7 D, RBC 2.88 L, Hgb 8.2 L, Hct 27.1 L, MCV 94.1 H, MCH 28.4, MCHC 30.2 L, RDW 15.5, Plt Count 183 D, MPV 11.7 H, Neut % (Auto) 80.1 H, Lymph % (Auto) 9.4 L, [place] % (Auto) 9.4 H, Eos % (Auto) 0.9, Baso % (Auto) 0.3, Neut # (Auto) 6.2, Lymph # (Auto) 0.7, [place] # (Auto) 0.7, Eos # (Auto) 0.1, Baso # (Auto) 0.0 02/25/21 07:00: Sodium 132 L, Potassium 4.5, Chloride 99, Carbon Dioxide 25, Anion Gap 12.5, BUN 30 H, Creatinine 1.50 H D, Estimated Creat Clear 63, Estimated GFR 47 L, Est GFR ( Amer) 57 L D, Glucose 124 H D, Calcium 7.8 L I & O for Last 24 hours: Intake & Output 02/22/21 02/23/21 02/24/21 02/25/21 11:59 11:59 11:59 11:59 Intake Total 1200 / 1200 1200 / 1200 600 / 600 360 / 360 Output Total 485 / 485 725 / 725 600 / 600 Balance 1200 / 1200 715 / 715 -125 / -125 -240 / -240 Weight 195 lb 3 oz 194 lb 195 lb 5 oz 201 lb 12.8 oz - Constitutional no acute distress - *Routine Respiratory Exam Present: CTA bilaterally - *Routine Cardiovascular Exam Present: RRR - *Routine Extremities Exam Absent: cyanosis, clubbing, edema Comments: Right AKA, left BKA - *Routine Neurological Exam Present: alert, oriented X3 Progress Note: A&P (1) Osteomyelitis of left foot Status: Acute (2) Type 2 diabetes mellitus Status: Acute (3) AICD (automatic cardioverter/defibrillator) present Status: Chronic (4) CAD (coronary artery disease) Status: Chronic (5) CHF (congestive heart failure), NYHA class IV Status: Chronic (6) Cardiac arrhythmia Status: Chronic (7) Diabetes mellitus Status: Chronic (8) HLD (hyperlipidemia) Status: Chronic (9) HTN (hypertension) Status: Chronic (10) History of amputation below knee Status: Chronic (11) Ischemic cardiomyopathy Status: Chronic (12) PAD (peripheral artery disease) Status: Chronic (13) Systolic heart failure Status: Chronic (14) Tobacco use Status: Chronic (15) Hypothyroid Status: Chronic Assessment and Plan for All Diagnoses:: 1. Status post left below the knee amputation 2. Acute on chronic systolic congestive heart failure with known ischemic cardiomyopathy with AICD/DESK LIEUTENANT-D in situ. Clinically improved. Will add Farxiga. 3. Chronic atrial fibrillation on Xarelto and bisoprolol. 4. PAD with prior right [id number] amputation, continue chronic anticoagulation with Xarelto and statin therapy. Tobacco cessation recommended. 5. Continued tobacco use, cessation recommended 6. Diabetes mellitus, type II, defer to Dr. Michel 7. Hyperlipidemia, continue atorvastatin. LDL 50 this admit.
[2021-02-25 11:55] LABS: POC Glucose,Bedside 207 (70-110)
--- NOTE | 2021-02-25 13:27 | HMH.ACPN2 ---
Internal Medicine - PN: Subj *Date: 02/26/21 *Time: 05:16 Interval history: patient doing better and no specific c/o Exam Vital signs and Labs for Last 24 Hours: Temp Pulse Resp BP Pulse Ox 97.8 F 77 18 125/57 L 93 L 02/25/21 08:00 02/25/21 08:00 02/25/21 08:00 02/25/21 08:00 02/25/21 08:00 Laboratory Results - last 24 hr 02/24/21 21:17: POC Glucose 136 H 02/25/21 06:28: POC Glucose 136 H 02/25/21 07:00: WBC 7.7 D, RBC 2.88 L, Hgb 8.2 L, Hct 27.1 L, MCV 94.1 H, MCH 28.4, MCHC 30.2 L, RDW 15.5, Plt Count 183 D, MPV 11.7 H, Neut % (Auto) 80.1 H, Lymph % (Auto) 9.4 L, [place] % (Auto) 9.4 H, Eos % (Auto) 0.9, Baso % (Auto) 0.3, Neut # (Auto) 6.2, Lymph # (Auto) 0.7, [place] # (Auto) 0.7, Eos # (Auto) 0.1, Baso # (Auto) 0.0 02/25/21 07:00: Sodium 132 L, Potassium 4.5, Chloride 99, Carbon Dioxide 25, Anion Gap 12.5, BUN 30 H, Creatinine 1.50 H D, Estimated Creat Clear 63, Estimated GFR 47 L, Est GFR ( Amer) 57 L D, Glucose 124 H D, Calcium 7.8 L 02/25/21 11:44: POC Glucose 207 H I & O for Last 24 hours: Intake & Output 02/23/21 02/24/21 02/25/21 02/26/21 11:59 11:59 11:59 11:59 Intake Total 1200 / 1200 600 / 600 600 / 600 Output Total 485 / 485 725 / 725 600 / 600 Balance 715 / 715 -125 / -125 0 / 0 Weight 194 lb 195 lb 5 oz 201 lb 12.8 oz - Constitutional no acute distress - *Routine HEENT Exam Head: Present: normocephalic Eye: Present: EOMI, PERRL ENT: Present: mucous membranes dry - *Routine Neck Exam Absent: JVD - *Routine Respiratory Exam Present: CTA bilaterally - *Routine Cardiovascular Exam Present: RRR - *Routine Abdominal Exam Present: soft - *Routine Extremities Exam Present: amputation - *Routine Skin Exam Present: intact - *Routine Neurological Exam Present: alert, CN II-XII intact - Routine Psychiatric Exam Present: normal affect Assessment and Plan (1) Osteomyelitis of left foot Status: Acute Category: Medical Code(s): M86.9 - Osteomyelitis, unspecified (2) Type 2 diabetes mellitus Status: Acute Qualifiers: Diabetes mellitus correction insulin use: with correction use Diabetes mellitus complication status: with kidney complications Diabetes mellitus complication detail: with chronic kidney disease Chronic kidney disease stage: unspecified stage Qualified Code(s): E11.22 - Type 2 diabetes mellitus with diabetic chronic kidney disease; Z79.4 - lobsterman (current) use of insulin Category: Medical Code(s): E11.9 - Type 2 diabetes mellitus without complications (3) AICD (automatic cardioverter/defibrillator) present Status: Chronic Category: Surgical Code(s): Z95.810 - Presence of automatic (implantable) cardiac defibrillator (4) CAD (coronary artery disease) Status: Chronic Qualifiers: Coronary Disease-Associated Artery/Lesion type: [place] artery [place] vs. transplanted heart: [place] heart Associated angina: without angina Qualified Code(s): I25.10 - Atherosclerotic heart disease of [place] coronary artery without angina pectoris Category: Medical Code(s): I25.10 - Atherosclerotic heart disease of [place] coronary artery without angina pectoris (5) CHF (congestive heart failure), NYHA class IV Status: Chronic Qualifiers: Congestive heart failure type: unspecified Qualified Code(s): I50.9 - Heart failure, unspecified Category: Medical Code(s): I50.9 - Heart failure, unspecified (6) Cardiac arrhythmia Status: Chronic Qualifiers: Arrhythmia type: unspecified cardiac arrhythmia Qualified Code(s): I49.9 - Cardiac arrhythmia, unspecified Category: Medical Code(s): I49.9 - Cardiac arrhythmia, unspecified (7) Diabetes mellitus Status: Chronic Qualifiers: Diabetes mellitus type: type 2 Diabetes mellitus correction insulin use: without correction use Diabetes mellitus complication status: without complication Qualified Code(s): E11.9 - Type 2 diabetes mellitus witho
[2021-02-25 16:00] VITALS: BP 115/47; PULSE 73; TEMP 36.9; O2SAT 97
--- NOTE | 2021-02-25 17:09 | PC.NURSE ---
Pt has been pleasant and cooperative this shift. A&O X4. Pt has complained of LLE pain X1 thus far today and has received Dilaudid per MAR with favorable results. Pt is currently on room air with sats. >90%. Lungs CTA. No edema noted. LLE dressing/brace C/D/I. Pt uses the urinal to void clear, dark-patricia urine without issue. No BM thus far this shift. Pt transfers with assistance X1 and has sat up in his wheelchair for several hours today. Appetite is good and pt eats the majority of all meals. PICC in place to RUE. 22 G peripheral IV in place to the RT hand. FSBS results have been 207 and 146. VSS. Call light within reach. Will continue to monitor.
[2021-02-25 20:00] VITALS: BP 130/72; PULSE 76; RESP 18; TEMP 36.6; O2SAT 92
[2021-02-25 21:15] LABS: POC Glucose,Bedside 146 (70-110)
[2021-02-26] VITALS: BP 127/69; PULSE 72; RESP 19; TEMP 36.5; O2SAT 93
[2021-02-26 00:52] LABS: POC Glucose,Bedside 179 (70-110)
[2021-02-26 04:00] VITALS: BP 120/69; PULSE 75; RESP 18; TEMP 36.6; O2SAT 95
--- NOTE | 2021-02-26 04:05 | PC.NURSE ---
pt A&Ox4, has rested t/o most of shift, remains on room air with O2 sats 92-93%, has not complained of any pain this shift
[2021-02-26 04:45] VITALS: BMI 28.2
[2021-02-26 06:46] LABS: POC Glucose,Bedside 108 (70-110)
[2021-02-26 07:05] LABS: POC Glucose,Bedside 192 (70-110)
[2021-02-26 08:00] VITALS: BP 119/69; PULSE 77; RESP 22; TEMP 37.2; O2SAT 99
[2021-02-26 08:24] LABS: Basophils % 0.3 % (0.1-2.0); Eosinophils % 0.2 % (0.1-12.0); Hematocrit 28.3 % (42.0-52.0); Hemoglobin 8.6 g/dL (14.1-18.0); Lymphocytes # 1.1 K/mm3 (0.7-4.5); Lymphocytes % 15.9 % (10-50); Mean Corpuscular HGB Conc 30.4 g/dL (31.8-35.4); Mean Corpuscular Hemoglobin 28.7 pg (27.0-31.2); Mean Corpuscular Volume 94.3 fl (80-94); Mean Platelet Volume 9.4 fl (7.4-10.4); Monocytes # 1.1 K/mm3 (0.1-1.0); Monocytes % 16.4 % (1.7-9.3); Neutrophils # 4.5 K/mm3 (1.8-7.8); Neutrophils % 67.1 % (37.0-80.0); Platelet Count 282 K/mm3 (142-424); Red Cell Distribution Width 15.7 % (11.5-17.5); White Blood Count 6.8 K/mm3 (4.8-10.8)
[2021-02-26 08:34] LABS: Chloride 101 mmol/L (98-107); Sodium 135 mmol/L (136-145)
[2021-02-26 08:37] LABS: Blood Urea Nitrogen 33 mg/dl (9-20); Carbon Dioxide 25 mmol/L (22.0-30.0); Creatinine Clearance Estimated 59 mL/min (50-200); Estimated Glomerular Filt Rate 43 ml/min (>60); GFR (African American) 53 ML/MIN (>60); Glucose 139 mg/dl (74-100)
--- NOTE | 2021-02-26 08:56 | HMH.DCSUM ---
General - General Admission date:: 02/21/21 Discharge date: 02/26/21 HPI HPI: Patient is a 66-year-old white male, patient of Dr. Freeman, Multiple medical comorbidities. Patient developed aggressive cellulitis, wet gangrene of the left foot requiring below the knee amputation. He was taken to the operating room for Dr. Matos. Op note is reviewed. Patient is looking well this morning. He is alert lucid and cooperative. His current regimen is satisfactory for modulating his pain. Hospital Course Hospital Course: Laboratory Tests 02/21/21 02/21/21 02/21/21 11:05 12:19 17:55 WBC RBC Hgb Hct MCV MCH MCHC RDW Plt Count MPV Neut % (Auto) Lymph % (Auto) [place] % (Auto) Eos % (Auto) Baso % (Auto) Neut # (Auto) Lymph # (Auto) [place] # (Auto) Eos # (Auto) Baso # (Auto) Sodium Potassium Chloride Carbon Dioxide Anion Gap BUN Creatinine Estimated Creat Clear Estimated GFR Est GFR ( Amer) Glucose POC Glucose 165 H 146 H Calcium NT-Pro-B Natriuret Pep TSH SARS-CoV-2 (PCR) Not detected Influenza A Untype (PCR) Not detected Influenza Type B (PCR) Not detected 02/21/21 02/22/21 02/22/21 20:26 05:08 05:30 WBC 11.5 H D RBC 3.12 L Hgb 9.2 L D Hct 30.4 L MCV 97.4 H MCH 29.4 MCHC 30.2 L RDW 15.5 Plt Count 209 MPV 9.7 Neut % (Auto) 78.7 Lymph % (Auto) 9.2 L [place] % (Auto) 10.3 H Eos % (Auto) 0.9 Baso % (Auto) 0.9 Neut # (Auto) 9.1 H Lymph # (Auto) 1.1 [place] # (Auto) 1.2 H Eos # (Auto) 0.1 Baso # (Auto) 0.1 Sodium Potassium Chloride Carbon Dioxide Anion Gap BUN Creatinine Estimated Creat Clear Estimated GFR Est GFR ( Amer) Glucose POC Glucose 137 H 110 Calcium NT-Pro-B Natriuret Pep TSH SARS-CoV-2 (PCR) Influenza A Untype (PCR) Influenza Type B (PCR) 02/22/21 02/22/21 02/22/21 05:30 12:22 13:05 WBC RBC Hgb Hct MCV MCH MCHC RDW Plt Count MPV Neut % (Auto) Lymph % (Auto) [place] % (Auto) Eos % (Auto) Baso % (Auto) Neut # (Auto) Lymph # (Auto) [place] # (Auto) Eos # (Auto) Baso # (Auto) Sodium 135 L Potassium 4.6 Chloride 103 Carbon Dioxide 24 Anion Gap 12.6 BUN 20 Creatinine 1.20 Estimated Creat Clear 76 Estimated GFR 61 Est GFR ( Amer) 73 Glucose 110 H POC Glucose 183 H Calcium 7.8 L NT-Pro-B Natriuret Pep 7720 H TSH SARS-CoV-2 (PCR) Influenza A Untype (PCR) Influenza Type B (PCR) 02/22/21 02/22/21 02/23/21 16:58 20:04 04:59 WBC RBC Hgb Hct MCV MCH MCHC RDW Plt Count MPV Neut % (Auto) Lymph % (Auto) [place] % (Auto) Eos % (Auto) Baso % (Auto) Neut # (Auto) Lymph # (Auto) [place] # (Auto) Eos # (Auto) Baso # (Auto) Sodium Potassium Chloride Carbon Dioxide Anion Gap BUN Creatinine Estimated Creat Clear Estimated GFR Est GFR ( Amer) Glucose POC Glucose 185 H 157 H 142 H Calcium NT-Pro-B Natriuret Pep TSH SARS-CoV-2 (PCR) Influenza A Untype (PCR) Influenza Type B (PCR) 02/23/21 02/23/21 02/23/21 05:50 05:58 05:58 WBC 12.5 H RBC 3.03 L Hgb 8.8 L Hct 29.4 L MCV 97.1 H MCH 29.0 MCHC 29.8 L RDW 15.7 Plt Count 214 MPV 9.4 Neut % (Auto) 79.1 Lymph % (Auto) 8.0 L [place] % (Auto) 12.3 H Eos % (Auto) 0.3 Baso % (Auto) 0.2 Neut # (Auto) 9.9 H Lymph # (Auto) 1.0 [place] # (Auto) 1.5 H Eos # (Auto) 0.0 Baso # (Auto) 0.0 Sodium 133 L Potassium 4.3 Chloride 102 Carbon Dioxide 25 Anion Gap 10.3 BUN 21 H Creatinine 1.20 Estimated Creat Clear 75 Estimated GFR 61 Est GFR
[2021-02-26 09:17] LABS: Influenza A, PCR Not Detected (NotDetected); Influenza B, PCR Not Detected (NotDetected)
[2021-02-26 09:43] LABS: Coronavirus 19, PCR Detected (NotDetected)
--- NOTE | 2021-02-26 12:07 | XR_ITS ---
PROCEDURE: XR CHEST PORTABLE CLINICAL HISTORY: New Covid diagnosis COMPARISON: CR XR CHEST PORTABLE from 01/20/2021 CR XR CHEST PORTABLE PICC PLAC from 01/20/2021 CR XR CHEST PORTABLE from 02/23/2021 FINDINGS: There is mild generalized cardiomegaly. The left-sided cardiac pacemaker is again noted with dual chamber electrodes in good position. There has been interval improvement in the diffuse vascular congestion and mild interstitial edema seen on the most recent film 02/23/2021. There has been clearing of fluid from the minor fissure. Minimal bilateral lower lobe opacities remain probably representing chronic interstitial change though very early Covid19 19 pneumonia is a possibility. There is no pleural fluid. IMPRESSION: Resolving acute and likely chronic congestive heart failure, minimal bilateral basilar interstitial opacities remain Dictated by: Dr. Danish Broussard MD 02/26/2021 12:38 Dr. Danish Broussard MD in [place] 02/26/2021 12:38
--- NOTE | 2021-02-26 13:17 | HMH.ACPN2 ---
Internal Medicine - PN: Subj *Date: 02/26/21 *Time: 08:50 Interval history: pt states he is doing well, Exam Vital signs and Labs for Last 24 Hours: Temp Pulse Resp BP Pulse Ox 98.9 F 77 22 119/69 99 02/26/21 08:00 02/26/21 08:00 02/26/21 08:00 02/26/21 08:00 02/26/21 08:00 Laboratory Results - last 24 hr 02/24/21 16:57: POC Glucose 192 H 02/25/21 16:50: POC Glucose 146 H 02/25/21 21:18: POC Glucose 179 H 02/26/21 06:36: POC Glucose 108 02/26/21 07:47: WBC 6.8, RBC 3.00 L, Hgb 8.6 L, Hct 28.3 L, MCV 94.3 H, MCH 28.7, MCHC 30.4 L, RDW 15.7, Plt Count 282 D, MPV 9.4, Neut % (Auto) 67.1, Lymph % (Auto) 15.9, [place] % (Auto) 16.4 H, Eos % (Auto) 0.2, Baso % (Auto) 0.3, Neut # (Auto) 4.5, Lymph # (Auto) 1.1, [place] # (Auto) 1.1 H, Eos # (Auto) 0.0, Baso # (Auto) 0.0 02/26/21 07:47: Sodium 135 L, Potassium 5.0, Chloride 101, Carbon Dioxide 25, Anion Gap 14.0, BUN 33 H, Creatinine 1.60 H, Estimated Creat Clear 59, Estimated GFR 43 L, Est GFR ( Amer) 53 L, Glucose 139 H, Calcium 8.0 L 02/26/21 09:00: SARS-CoV-2 (PCR) Detected A, Influenza A Untype (PCR) Not detected, Influenza Type B (PCR) Not detected I & O for Last 24 hours: Intake & Output 02/24/21 02/25/21 02/26/21 02/27/21 11:59 11:59 11:59 11:59 Intake Total 600 / 600 600 / 600 840 / 840 Output Total 725 / 725 600 / 600 2350 / 2350 Balance -125 / -125 0 / 0 -1510 / -1510 Weight 195 lb 5 oz 201 lb 12.8 oz 201 lb 8 oz - Constitutional no acute distress - *Routine HEENT Exam Head: Present: normocephalic Eye: Present: PERRL ENT: Present: mucous membranes moist - *Routine Neck Exam Present: supple. Absent: lymphadenopathy - *Routine Respiratory Exam Present: CTA bilaterally - *Routine Cardiovascular Exam Present: RRR - *Routine Abdominal Exam Present: soft, normoactive bowel sounds. Absent: tenderness - *Routine Extremities Exam Present: amputation. Absent: cyanosis, clubbing, edema Comments: rt aka lt lka - *Routine Skin Exam Present: warm. Absent: rash Comments: dressing c/d/i - *Routine Neurological Exam Present: alert, oriented X3 Assessment and Plan (1) Osteomyelitis of left foot Status: Acute Category: Medical Code(s): M86.9 - Osteomyelitis, unspecified (2) Type 2 diabetes mellitus Status: Acute Qualifiers: Diabetes mellitus mcc insulin use: with residential concierge use Diabetes mellitus complication status: with kidney complications Diabetes mellitus complication detail: with chronic kidney disease Chronic kidney disease stage: unspecified stage Qualified Code(s): E11.22 - Type 2 diabetes mellitus with diabetic chronic kidney disease; Z79.4 - webmethods architect (current) use of insulin Category: Medical Code(s): E11.9 - Type 2 diabetes mellitus without complications (3) AICD (automatic cardioverter/defibrillator) present Status: Chronic Category: Surgical Code(s): Z95.810 - Presence of automatic (implantable) cardiac defibrillator (4) CAD (coronary artery disease) Status: Chronic Qualifiers: Coronary Disease-Associated Artery/Lesion type: [place] artery [place] vs. transplanted heart: [place] heart Associated angina: without angina Qualified Code(s): I25.10 - Atherosclerotic heart disease of [place] coronary artery without angina pectoris Category: Medical Code(s): I25.10 - Atherosclerotic heart disease of [place] coronary artery without angina pectoris (5) CHF (congestive heart failure), NYHA class IV Status: Chronic Qualifiers: Congestive heart failure type: unspecified Qualified Code(s): I50.9 - Heart failure, unspecified Category: Medical Code(s): I50.9 - Heart failure, unspecified (6) Cardiac arrhythmia Status: Chronic Qualifiers: Arrhythmia type: unspecified cardiac arrhythmia Qualified Code(s): I49.9 - Cardiac arrhythmia, unspecified Category: Medical Code(s): I49.9 - Cardiac arrhythmia, unspecified (7) Diabetes ernestine
[2021-02-26 14:46] LABS: Coronavirus 19 IgG Antibody Negative (Negative); Coronavirus 19 IgM Antibody Negative (Negative)
[2021-02-26 16:00] VITALS: BP 105/54; PULSE 75; RESP 20; TEMP 37; O2SAT 93
[2021-02-26 17:19] LABS: POC Glucose,Bedside 195 (70-110)
[2021-02-26 17:19] LABS: POC Glucose,Bedside 113 (70-110)
--- NOTE | 2021-02-26 17:22 | PC.NURSE ---
No acute changes. Pt is covid positive and was placed in airborne/contact precautions. He remains on room air. Occasional dry cough noted, non-productive. Lungs cta. HR regular. Abdomen soft, non-tender w/ active BS. Pt did have a BM this AM. Voiding w/o difficulty, using urinal. Urine is clear, straw colored. Pt requires assistance x2 when transferring from bed to chair. No complaints of pain this shift. Currently sitting up in bed eating supper. No needs voiced.
[2021-02-26 20:00] VITALS: BP 110/68; PULSE 77; RESP 19; TEMP 37.1; O2SAT 94
[2021-02-26 22:31] LABS: POC Glucose,Bedside 180 (70-110)
[2021-02-26 23:56] VITALS: BP 118/68; PULSE 70; RESP 20; TEMP 37.1; O2SAT 93
[2021-02-27 04:00] VITALS: BP 110/70; PULSE 70; RESP 21; TEMP 38.8; O2SAT 90
--- NOTE | 2021-02-27 04:19 | PC.NURSE ---
Patient is alert and oriented x4. Patient was noted to have a stage 2 ulcer noted on his left buttocks, a dressing was applied. Patient's LLE has a dressing/brace that is noted to be C/D/I. Lung sounds are clear throughout, bowel sounds are active in all 4 quadrants. Patient reports a bowel movement earlier in the day. Patient was placed on 2LNC at 0400 due to oxygen saturation below 90%, will titrate back down. Patient has voiced no complaints to this RN. Patient received a bed bath and linen change by the tech this shift. Patient uses the urinal independently and clear, straw yellow urine is noted. VSS, call light within reach, will continue to monitor.
[2021-02-27 04:38] VITALS: BMI 28.2
[2021-02-27 05:52] LABS: POC Glucose,Bedside 119 (70-110)
[2021-02-27 06:36] LABS: Chloride 100 mmol/L (98-107); Potassium 4.7 mmoL/L (3.5-5.1); Sodium 133 mmol/L (136-145)
[2021-02-27 06:39] LABS: Anion Gap 11.7 mEq/L (5-15); Blood Urea Nitrogen 35 mg/dl (9-20); Calcium 7.6 mg/dl (8.4-10.2); Carbon Dioxide 26 mmol/L (22.0-30.0); Creatinine Clearance Estimated 63 mL/min (50-200); Estimated Glomerular Filt Rate 47 ml/min (>60); GFR (African American) 57 ML/MIN (>60); Glucose 105 mg/dl (74-100)
[2021-02-27 07:21] LABS: Basophils % 0.2 % (0.1-2.0); Eosinophils % 0.1 % (0.1-12.0); Hematocrit 28.3 % (42.0-52.0); Hemoglobin 8.8 g/dL (14.1-18.0); Lymphocytes # 0.5 K/mm3 (0.7-4.5); Lymphocytes % 4.2 % (10-50); Mean Corpuscular Hemoglobin 28.8 pg (27.0-31.2); Mean Corpuscular Volume 93.1 fl (80-94); Mean Platelet Volume 9.1 fl (7.4-10.4); Monocytes # 2.1 K/mm3 (0.1-1.0); Monocytes % 16.6 % (1.7-9.3); Neutrophils # 9.8 K/mm3 (1.8-7.8); Neutrophils % 79.1 % (37.0-80.0); Platelet Count 280 K/mm3 (142-424); Red Blood Count 3.04 M/mm3 (4.60-6.20); Red Cell Distribution Width 15.6 % (11.5-17.5); White Blood Count 12.4 K/mm3 (4.8-10.8)
[2021-02-27 07:59] VITALS: BP 108/52; PULSE 77; RESP 16; TEMP 36.9; O2SAT 97
[2021-02-27 08:00] VITALS: O2SAT 97
--- NOTE | 2021-02-27 10:28 | HMH.ACPN2 ---
Internal Medicine - PN: Subj *Date: 02/27/21 *Time: 09:10 Exam Vital signs and Labs for Last 24 Hours: Temp Pulse Resp BP Pulse Ox 98.5 F 77 16 108/52 L 97 02/27/21 07:59 02/27/21 07:59 02/27/21 07:59 02/27/21 07:59 02/27/21 08:00 Laboratory Results - last 24 hr 02/26/21 07:47: SARS-CoV-2 IgG Ab (Rapid) Negative, SARS-CoV-2 IgM Ab (Rapid) Negative 02/26/21 10:57: POC Glucose 195 H 02/26/21 17:08: POC Glucose 113 H 02/26/21 21:39: POC Glucose 180 H 02/27/21 05:42: POC Glucose 119 H 02/27/21 06:17: WBC 12.4 H D, RBC 3.04 L, Hgb 8.8 L, Hct 28.3 L, MCV 93.1, MCH 28.8, MCHC 31.0 L, RDW 15.6, Plt Count 280, MPV 9.1, Neut % (Auto) 79.1, Lymph % (Auto) 4.2 L, [place] % (Auto) 16.6 H, Eos % (Auto) 0.1, Baso % (Auto) 0.2, Neut # (Auto) 9.8 H, Lymph # (Auto) 0.5 L, [place] # (Auto) 2.1 H, Eos # (Auto) 0.0, Baso # (Auto) 0.0 02/27/21 06:17: Sodium 133 L, Potassium 4.7, Chloride 100, Carbon Dioxide 26, Anion Gap 11.7, BUN 35 H, Creatinine 1.50 H, Estimated Creat Clear 63, Estimated GFR 47 L, Est GFR ( Amer) 57 L, Glucose 105 H D, Calcium 7.6 L I & O for Last 24 hours: Intake & Output 02/24/21 02/25/21 02/26/21 02/27/21 11:59 11:59 11:59 11:59 Intake Total 600 / 600 600 / 600 840 / 840 840 / 840 Output Total 725 / 725 600 / 600 2350 / 2350 1400 / 1400 Balance -125 / -125 0 / 0 -1510 / -1510 -560 / -560 Weight 195 lb 5 oz 201 lb 12.8 oz 201 lb 8 oz 201 lb 7 oz - Constitutional no acute distress, chronically ill appearing - *Routine HEENT Exam Head: Present: normocephalic Eye: Present: PERRL ENT: Present: mucous membranes moist - *Routine Neck Exam Present: supple. Absent: lymphadenopathy - *Routine Respiratory Exam Present: CTA bilaterally - *Routine Cardiovascular Exam Present: RRR - *Routine Abdominal Exam Present: soft, normoactive bowel sounds. Absent: tenderness - *Routine Extremities Exam Present: amputation. Absent: cyanosis, clubbing, edema Comments: Right AKA, left BKA dressing clean dry and intact splint in place - *Routine Skin Exam Present: warm. Absent: rash Comments: Dressing clean dry and intact - *Routine Neurological Exam Present: alert, oriented X3 Assessment and Plan (1) Osteomyelitis of left foot Status: Acute Category: Medical Code(s): M86.9 - Osteomyelitis, unspecified (2) Type 2 diabetes mellitus Status: Acute Qualifiers: Diabetes mellitus detention insulin use: with detention use Diabetes mellitus complication status: with kidney complications Diabetes mellitus complication detail: with chronic kidney disease Chronic kidney disease stage: unspecified stage Qualified Code(s): E11.22 - Type 2 diabetes mellitus with diabetic chronic kidney disease; Z79.4 - terminal block assembler (current) use of insulin Category: Medical Code(s): E11.9 - Type 2 diabetes mellitus without complications (3) AICD (automatic cardioverter/defibrillator) present Status: Chronic Category: Surgical Code(s): Z95.810 - Presence of automatic (implantable) cardiac defibrillator (4) CAD (coronary artery disease) Status: Chronic Qualifiers: Coronary Disease-Associated Artery/Lesion type: [place] artery [place] vs. transplanted heart: [place] heart Associated angina: without angina Qualified Code(s): I25.10 - Atherosclerotic heart disease of [place] coronary artery without angina pectoris Category: Medical Code(s): I25.10 - Atherosclerotic heart disease of [place] coronary artery without angina pectoris (5) CHF (congestive heart failure), NYHA class IV Status: Chronic Qualifiers: Congestive heart failure type: unspecified Qualified Code(s): I50.9 - Heart failure, unspecified Category: Medical Code(s): I50.9 - Heart failure, unspecified (6) Cardiac arrhythmia Status: Chronic Qualifiers: Arrhythmia type: unspecified cardiac arrhythmia Qualified Code(s): I49.9 - Cardiac arrhythmia, unspecified Category: Medical Code(s): I49
[2021-02-27 10:51] LABS: Adenovirus,PCR Not Detected (NotDetected); Bordetella Pertussis Not Detected (NotDetected); Chlamydophila Pneumoniae, PCR Not Detected (NotDetected); Coronavirus 229E Not Detected (NotDetected); Coronavirus NL63 Not Detected (NotDetected); Coronavirus OC43 Not Detected (NotDetected); Coronovirus HKU1,PCR Not Detected (NotDetected); Human Metapneumovirus Not Detected (NotDetected); Influenza A, PCR Not Detected (NotDetected); Influenza AH1, 2009 Not Detected (NotDetected); Influenza AH1, PCR Not Detected (NotDetected); Influenza AH3,PCR Not Detected (NotDetected); Influenza B, PCR Not Detected (NotDetected); Mycoplasma Pneumoniae, PCR Not Detected (NotDetected); Parainfluenza 1, PCR Not Detected (NotDetected); Parainfluenza 2, PCR Not Detected (NotDetected); Parainfluenza 3, PCR Not Detected (NotDetected); Parainfluenza 4, PCR Not Detected (NotDetected); Respiratory Syncytial Virus Not Detected (NotDetected); Rhinovirus/Enterovirus Not Detected (NotDetected)
[2021-02-27 11:28] LABS: POC Glucose,Bedside 235 (70-110)
[2021-02-27 12:41] VITALS: BP 109/62; PULSE 76; RESP 18; TEMP 36.6; O2SAT 97
[2021-02-27 13:18] LABS: Coronavirus 19, PCR Detected (NotDetected)
--- NOTE | 2021-02-27 14:56 | HMH.PULMCON ---
*Admission Date: 02/21/21 *Reason for consult:: COVID-19 pneumonia *History of present illness: Mr. Gallego is 66-year-old male [id number] smoking history carries a prior diagnosis COPD not using inhalers and scheduled with significant cardiac history, CAD, CHF with EF 15 to 20%, and chronic anticoagulation for LV thrombus previously was from the hospital with lower extremity cellulitis uncontrolled status post amputation was planning to be discharged to rehab and received a COVID-19 testing as part of routine screening intervals and possible pulmonary was called for further management. Patient denies any respiratory symptoms but admits symptoms are at his baseline. Denies any cough or any productive phlegm production denies any chest pain. [facility] History Medical History: Reports:: Atrial Fibrillation, Congestive Heart Failure, Chronic Obstructive Pulmonary Disease (COPD), Coronary Artery Disease, Diabetes Mellitus Type 2, Hyperlipidemia, Hypertension, Internal Pacemaker, Myocardial Infarction, Peripheral Artery Disease Denies:: Cancer, Diabetes Mellitus Type 1, MRSA, Seizures *Have you ever received a pneumonia vaccine?: No *Have you received a flu vaccine this season?: No Other Medical History: Reports: Arthritis, Hypothyroidism. Denies: Blood Transfusion Reaction, Cataracts, Glaucoma, Thyroid Disease Anesthesia experience/problems:: None Laterality Cases: Left: Other Other Surgeries: Yes: Angiogram, Cardiac Catheterization, Coronary Stent, Pacemaker, Other Amputation: Yes (RT lower leg) Fractures: No - *Social History Last grade of school completed: GED Smoking Status: Current every day smoker Tobacco Type: cigarettes # Packs/Day (cigarettes): 1 Alcohol Intake: former Alcohol Intake Frequency:: other Substance Use Type: denies use *Occupational Status:: retired Housing: house Household Members: family *Travel in the last 8 weeks: None Family Hx:: Diabetes, Heart Attack, Hyperlipidemia, Hypertension ROS - Cons Denies anorexia, Denies body ache(s), Denies chills - Eyes Denies blind spots - ENT Denies bleeding gums - Card Denies shortness of breath, Denies shortness of breath with activity - Resp Respiratory: Denies chest congestion, Denies cough, Denies non-productive cough, Denies dyspnea, Reports dyspnea on exertion, Denies pain on inspiration - GI Gastrointestingal: Denies: abdominal pain - [place] Musculoskeletal: Reports deformity Comments: s/p LE amputation - Psych Denies abnormal sleep pattern Meds Home Medications Medication Instructions Recorded Confirmed Type Aspirin [Low Dose Aspirin EC] 81 mg PO DAILY 01/17/21 02/21/21 History Atorvastatin Calcium [Lipitor 40mg 40 mg PO DAILY 01/17/21 02/21/21 History Tab] Docusate Sodium 100 mg PO BID 01/17/21 02/21/21 History Ergocalciferol (Vitamin D2) 1,250 mg PO WEEKLY 01/17/21 02/21/21 History [Drisdol] Levothyroxine Sodium [Synthroid 50 mcg PO DAILY 01/17/21 02/21/21 History 50mcg (0.05mg) tab] Loratadine [Allergy Relief] 10 mg PO DAILY 01/17/21 02/21/21 History Rivaroxaban [Xarelto 20mg Tablet*] 20 mg PO QPMWITHMEAL 01/17/21 02/21/21 History lisinopriL [Lisinopril 2.5mg Tab] 2.5 mg PO DAILY 01/17/21 02/21/21 History furosemide 20 mg tablet 20 mg PO DAILY 01/29/21 02/21/21 History metformin 500 mg tablet 500 mg PO BID #60 tab 02/12/21 02/21/21 Rx bisoproloL fumarate [Bisoprolol 2.5 mg PO DAILY 02/21/21 02/21/21 History Fumarate] Oxycodone HCl [Oxycodone 5mg tab 5 mg PO Q3MINP PRN 10 Days #60 tab 02/24/21 Rx (IR)] Dapagliflozin Propanediol [Farxiga] 5 mg PO DAILY 30 Days #30 tab 02/26/21 Rx Allergies Allergy/AdvReac Type Severity Reaction Status Date / Time No Known Allergies Allergy Verified 02/21/21 09:56 Exam - Constitutional Constitutional:: Present: no acute distress, comfortable - HENDE Exam HENMT: Present: normocephalic, cushingoid faces - Eye Exam Eyes:: Present: normal appearance both eyes and r
--- NOTE | 2021-02-27 15:31 | PC.NURSE ---
No acute changes. Still awaiting placement for rehab. O2 removed this AM, sat noted to be high 97-99% on room air. Lungs cta. Denies SOA. HR regular. Abdomen soft, non-tender w/ active BS in all quads. No BM this shift, Voiding per urinal w/o difficulty. Continues to require assistance x2-3 when transferring from bed to w/c. LLE remains in dressing, intact. No c/o pain. Currently sitting up in bed on cell phone. Call lauro w/in reach.
[2021-02-27 16:00] VITALS: BP 115/66; PULSE 82; RESP 20; TEMP 37; O2SAT 96
[2021-02-27 17:26] LABS: POC Glucose,Bedside 154 (70-110)
--- NOTE | 2021-02-27 18:55 | PC.NURSE ---
Family called out @ [phone] requesting nurse @ bedside. Nurse entered room and found pt not breathing, no pulse noted. Both daughters @ bedside. MD air pollution control engineer notified @ 185. Dr. Gonzalez request ED MD to pronounce.
[2021-02-27 20:00] VITALS: BP 141/87; PULSE 75; RESP 18; TEMP 37.4; O2SAT 91
[2021-02-27 21:26] LABS: POC Glucose,Bedside 135 (70-110)
[2021-02-28] VITALS (7 sets, daily range): BP systolic 92–134; BP diastolic 52–81; PULSE 70–79; RESP 17–21; TEMP 36.6–38.6; O2SAT 93–99
--- NOTE | 2021-02-28 03:59 | PC.NURSE ---
Patient is A&Ox4. At the beginning of this RN's shift patient had complaints of nausea and had one emesis episode. Patient was treated for nausea/vomiting per MAR with unfavorable results. Patient continued to have severe nausea. Patient reports feeling a little better after administration of phenegran. Patient had some pain after getting cleaned up to his LLE and was treated per MAR. Patient has voiced no other complaints to this RN. Patient lung sounds are clear throughout patient does have a non-productive cough at times. Patient uses the urinal independently and clear, straw urine is noted. Patient had a BM this RN's shift. Bowel sounds are active. VSS, call light within reach, will continue to monitor.
[2021-02-28 06:02] LABS: POC Glucose,Bedside 172 (70-110)
[2021-02-28 06:08] LABS: Basophils % 0.3 % (0.1-2.0); Hematocrit 27.2 % (42.0-52.0); Hemoglobin 8.3 g/dL (14.1-18.0); Lymphocytes # 0.6 K/mm3 (0.7-4.5); Lymphocytes % 8.9 % (10-50); Mean Corpuscular HGB Conc 30.5 g/dL (31.8-35.4); Mean Corpuscular Hemoglobin 28.4 pg (27.0-31.2); Mean Corpuscular Volume 92.9 fl (80-94); Mean Platelet Volume 9.7 fl (7.4-10.4); Monocytes # 0.5 K/mm3 (0.1-1.0); Monocytes % 7.2 % (1.7-9.3); Neutrophils # 5.7 K/mm3 (1.8-7.8); Neutrophils % 83.5 % (37.0-80.0); Platelet Count 234 K/mm3 (142-424); Red Blood Count 2.93 M/mm3 (4.60-6.20); Red Cell Distribution Width 15.6 % (11.5-17.5); White Blood Count 6.8 K/mm3 (4.8-10.8)
[2021-02-28 06:10] LABS: Chloride 101 mmol/L (98-107); Potassium 4.6 mmoL/L (3.5-5.1); Sodium 134 mmol/L (136-145)
[2021-02-28 06:13] LABS: Anion Gap 12.6 mEq/L (5-15); Blood Urea Nitrogen 39 mg/dl (9-20); Calcium 7.4 mg/dl (8.4-10.2); Carbon Dioxide 25 mmol/L (22.0-30.0); Creatinine Clearance Estimated 55 mL/min (50-200); Estimated Glomerular Filt Rate 41 ml/min (>60); GFR (African American) 49 ML/MIN (>60); Glucose 163 mg/dl (74-100)
--- NOTE | 2021-02-28 08:18 | XR_ITS ---
PROCEDURE: XR CHEST PORTABLE CLINICAL HISTORY: covid COMPARISON: CR XR CHEST PORTABLE from 01/20/2021 CR XR CHEST PORTABLE from 02/23/2021 CR XR CHEST PORTABLE from 02/26/2021 FINDINGS: There is moderate generalized cardiomegaly. There has been interval progression of the diffuse bilateral hazy infiltrates more prominent and diffuse right lung than left. Vascularity is somewhat difficult to evaluate due to the diffuse pneumonic infiltrates but there is no significant vascular congestion. There is no definite pleural fluid. The right-sided PICC line is again seen with the tip near the junction of the SVC and right atrium. The pacemaker and pacemaker electrodes are again seen. .. No acute bony abnormalities. IMPRESSION: Worsening of diffuse bilateral ill-defined pneumonic infiltrates more diffusely involving the right lung than left, stable generalized cardiomegaly without obvious failure Dictated by: Dr. Danish Broussard MD 02/28/2021 09:19 Dr. Danish Broussard MD in OV 02/28/2021 09:19
--- NOTE | 2021-02-28 09:24 | HMH.PULMPN ---
Internal Medicine - PN: Subj *Date: 02/28/21 *Time: 11:22 Interval history: No acute respiratory events overnight. Denies any new respiratory complaints. Exam - Constitutional Constitutional:: Present: no acute distress, comfortable - HENMT Exam HENMT: Present: normocephalic, atraumatic - Eye Exam Eyes:: Present: normal appearance both eyes and related structures - Neck Exam Neck:: Present: normal visual inspection - Respiratory Exam Respiratory:: Present: able to speak in complete sentences, lungs clear, no respiratory distress, crackles, rales. Absent: wheezing - Cardiovascular Exam Cardiac:: Present: S1, S2 - GI Exam GI:: Present: soft - Neurological Exam Neurological: Present: alert, awake - Extremities Exam Extremities: Present: no cyanosis, no clubbing, no edema Comments: Status post lower extremity amputation - Psychiatric Exam Psychiatric: Present: normal affect Assessment and Plan (1) Osteomyelitis of left foot Status: Acute Category: Medical Code(s): M86.9 - Osteomyelitis, unspecified (2) Type 2 diabetes mellitus Status: Acute Qualifiers: Diabetes mellitus termite control service representative insulin use: with termite control service representative use Diabetes mellitus complication status: with kidney complications Diabetes mellitus complication detail: with chronic kidney disease Chronic kidney disease stage: unspecified stage Qualified Code(s): E11.22 - Type 2 diabetes mellitus with diabetic chronic kidney disease; Z79.4 - [facility] (current) use of insulin Category: Medical Code(s): E11.9 - Type 2 diabetes mellitus without complications (3) AICD (automatic cardioverter/defibrillator) present Status: Chronic Category: Surgical Code(s): Z95.810 - Presence of automatic (implantable) cardiac defibrillator (4) CAD (coronary artery disease) Status: Chronic Qualifiers: Coronary Disease-Associated Artery/Lesion type: [place] artery [place] vs. transplanted heart: [place] heart Associated angina: without angina Qualified Code(s): I25.10 - Atherosclerotic heart disease of [place] coronary artery without angina pectoris Category: Medical Code(s): I25.10 - Atherosclerotic heart disease of [place] coronary artery without angina pectoris (5) CHF (congestive heart failure), NYHA class IV Status: Chronic Qualifiers: Congestive heart failure type: unspecified Qualified Code(s): I50.9 - Heart failure, unspecified Category: Medical Code(s): I50.9 - Heart failure, unspecified (6) Cardiac arrhythmia Status: Chronic Qualifiers: Arrhythmia type: unspecified cardiac arrhythmia Qualified Code(s): I49.9 - Cardiac arrhythmia, unspecified Category: Medical Code(s): I49.9 - Cardiac arrhythmia, unspecified (7) Diabetes mellitus Status: Chronic Qualifiers: Diabetes mellitus type: type 2 Diabetes mellitus long-term insulin use: without termite control service representative use Diabetes mellitus complication status: without complication Qualified Code(s): E11.9 - Type 2 diabetes mellitus without complications Category: Medical Code(s): E11.9 - Type 2 diabetes mellitus without complications (8) HLD (hyperlipidemia) Status: Chronic Qualifiers: Hyperlipidemia type: mixed hyperlipidemia Qualified Code(s): E78.2 - Mixed hyperlipidemia Category: Medical Code(s): E78.5 - Hyperlipidemia, unspecified (9) HTN (hypertension) Status: Chronic Qualifiers: Hypertension type: essential hypertension Category: Medical Code(s): I10 - Essential (primary) hypertension (10) History of amputation below knee Status: Chronic Qualifiers: Laterality: right Qualified Code(s): Z89.511 - Acquired absence of right leg below knee Category: Surgical Code(s): Z89.519 - Acquired absence of unspecified leg below knee (11) Ischemic cardiomyopathy Status: Chronic Category: Medical Code(s): I25.5 - Ischemic cardiomyopathy (12) PAD (peripheral artery disease) Status: Chroni
--- NOTE | 2021-02-28 09:55 | HMH.ACPN2 ---
Internal Medicine - PN: Subj *Date: 02/28/21 *Time: 08:30 Interval history: pt laying in bed, pt states doing well Exam Vital signs and Labs for Last 24 Hours: Temp Pulse Resp BP Pulse Ox 97.9 F 75 20 134/81 93 L 02/28/21 08:00 02/28/21 08:00 02/28/21 08:00 02/28/21 08:00 02/28/21 08:00 Laboratory Results - last 24 hr 02/27/21 10:42: Chlamy pneumoniae PCR Not detected, Adenovirus (PCR) Not detected, B. pertussis DNA (PCR) Not detected, Coronavirus OC43 (PCR) Not detected, Coronavirus HKU1 (PCR) Not detected, Coronavirus 229E (PCR) Not detected, SARS-CoV-2 (PCR) Detected A, Coronavirus NL63 (PCR) Not detected, Human Metapneumovir PCR Not detected, Influenza A (H1) PCR Not detected, Influ A (H1N1/09) PCR Not detected, Influenza A (H3) PCR Not detected, Influenza Type A (PCR) Not detected, Influenza Type B (PCR) Not detected, M. pneumoniae (PCR) Not detected, Parainfluenza 1 (PCR) Not detected, Parainfluenza 2 (PCR) Not detected, Parainfluenza 3 (PCR) Not detected, Parainfluenza 4 (PCR) Not detected, RSV (PCR) Not detected, Entero/Rhino (PCR) Not detected 02/27/21 11:12: POC Glucose 235 H 02/27/21 16:23: POC Glucose 154 H 02/27/21 20:36: POC Glucose 135 H 02/28/21 05:27: POC Glucose 172 H 02/28/21 05:28: WBC 6.8 D, RBC 2.93 L, Hgb 8.3 L, Hct 27.2 L, MCV 92.9, MCH 28.4, MCHC 30.5 L, RDW 15.6, Plt Count 234, MPV 9.7, Neut % (Auto) 83.5 H, Lymph % (Auto) 8.9 L, [place] % (Auto) 7.2, Eos % (Auto) 0.0 L, Baso % (Auto) 0.3, Neut # (Auto) 5.7, Lymph # (Auto) 0.6 L, [place] # (Auto) 0.5, Eos # (Auto) 0.0, Baso # (Auto) 0.0 02/28/21 05:28: Sodium 134 L, Potassium 4.6, Chloride 101, Carbon Dioxide 25, Anion Gap 12.6, BUN 39 H, Creatinine 1.70 H, Estimated Creat Clear 55, Estimated GFR 41 L, Est GFR ( Amer) 49 L, Glucose 163 H D, Calcium 7.4 L I & O for Last 24 hours: Intake & Output 02/25/21 02/26/21 02/27/21 02/28/21 11:59 11:59 11:59 11:59 Intake Total 600 / 600 840 / 840 840 / 840 720 / 720 Output Total 600 / 600 2350 / 2350 1650 / 1650 550 / 550 Balance 0 / 0 -1510 / -1510 -810 / -810 170 / 170 Weight 201 lb 12.8 oz 201 lb 8 oz 201 lb 7 oz - Constitutional no acute distress, chronically ill appearing - *Routine HEENT Exam Head: Present: normocephalic Eye: Present: PERRL ENT: Present: mucous membranes moist - *Routine Neck Exam Present: supple. Absent: lymphadenopathy - *Routine Respiratory Exam Present: wheezes - *Routine Cardiovascular Exam Present: RRR - *Routine Abdominal Exam Present: soft, normoactive bowel sounds. Absent: tenderness - *Routine Extremities Exam Present: amputation. Absent: cyanosis, clubbing, edema Comments: left bka rt aka - *Routine Skin Exam Present: warm. Absent: rash Comments: dressing to left bka - *Routine Neurological Exam Present: alert, oriented X3 Assessment and Plan (1) Osteomyelitis of left foot Status: Acute Category: Medical Code(s): M86.9 - Osteomyelitis, unspecified (2) Type 2 diabetes mellitus Status: Acute Qualifiers: Diabetes mellitus halfway insulin use: with middle or intermediate school principal use Diabetes mellitus complication status: with kidney complications Diabetes mellitus complication detail: with chronic kidney disease Chronic kidney disease stage: unspecified stage Qualified Code(s): E11.22 - Type 2 diabetes mellitus with diabetic chronic kidney disease; Z79.4 - care home (current) use of insulin Category: Medical Code(s): E11.9 - Type 2 diabetes mellitus without complications (3) AICD (automatic cardioverter/defibrillator) present Status: Chronic Category: Surgical Code(s): Z95.810 - Presence of automatic (implantable) cardiac defibrillator (4) CAD (coronary artery disease) Status: Chronic Qualifiers: Coronary Disease-Associated Artery/Lesion type: [place] artery [place] vs. transplanted heart: [place] heart Associated angina: without angina Qualified Code(s): I25.10 - Atherosclerotic heart disease o
[2021-02-28 11:25] LABS: POC Glucose,Bedside 167 (70-110)
--- NOTE | 2021-02-28 17:49 | PC.NURSE ---
pt is aox4, able to make needs known to staff, vital signs have been wnl this shift and pt has remained afebrile. he has not c/o pain this shift. denies n/v/d. he did spend most of the morning and early afternoon up to his wheelchair. he has denied n/v/d. uses the urinal for elimination. does not require o2 support.
[2021-02-28 19:56] LABS: POC Glucose,Bedside 172 (70-110)
[2021-02-28 20:54] LABS: POC Glucose,Bedside 191 (70-110)
[2021-03-01] VITALS (14 sets, daily range): BP systolic 82–146; BP diastolic 40–70; PULSE 68–80; RESP 18–26; TEMP 36.6–37.1; O2SAT 92–99; BMI 28.2
--- NOTE | 2021-03-01 04:48 | PC.NURSE ---
Addendum entered by Pamela Hensley RN 03/01/21 06:29: pts o2 dropped to the mid 80s. 2L NC placed. o2 increased back to the low 90s. Original Note: no acute changes. pt has rested majority of this shift. remains on room air with o2 noted in the low 90s. remains afebrile. uses urinal independently with clear yellow urine noted. no c/o pain or discomfort voiced this shift. call light within reach.
[2021-03-01 05:56] LABS: POC Glucose,Bedside 89 (70-110)
[2021-03-01 06:46] LABS: Basophils % 0.2 % (0.1-2.0); Eosinophils % 0.3 % (0.1-12.0); Hematocrit 35.1 % (42.0-52.0); Hemoglobin 10.6 g/dL (14.1-18.0); Lymphocytes # 0.5 K/mm3 (0.7-4.5); Lymphocytes % 5.9 % (10-50); Mean Corpuscular HGB Conc 30.3 g/dL (31.8-35.4); Mean Corpuscular Hemoglobin 28.8 pg (27.0-31.2); Mean Corpuscular Volume 94.8 fl (80-94); Mean Platelet Volume 9.4 fl (7.4-10.4); Monocytes # 0.5 K/mm3 (0.1-1.0); Monocytes % 5.6 % (1.7-9.3); Neutrophils # 7.9 K/mm3 (1.8-7.8); Platelet Count 253 K/mm3 (142-424); Red Cell Distribution Width 15.6 % (11.5-17.5)
[2021-03-01 06:48] LABS: MANUAL DIFFERENTIAL MANUAL DIFFERENTIAL (MANUAL DIFF)
[2021-03-01 07:20] LABS: Hypochromasia 1+; Lymphocytes % 2 % (10-50); Macrocytosis 1+; Monocytes % 2 % (2-9); Neutrophils % 96 % (42-76); Platelet Estimate Normal; Total Cells Counted 100
[2021-03-01 08:20] LABS: Chloride 103 mmol/L (98-107); Potassium 4.9 mmoL/L (3.5-5.1); Sodium 137 mmol/L (136-145)
[2021-03-01 08:23] LABS: Anion Gap 16.9 mEq/L (5-15); Blood Urea Nitrogen 33 mg/dl (9-20); Carbon Dioxide 22 mmol/L (22.0-30.0); Creatinine Clearance Estimated 67 mL/min (50-200); Estimated Glomerular Filt Rate 51 ml/min (>60); GFR (African American) 61 ML/MIN (>60)
[2021-03-01 08:24] LABS: Calcium 7.9 mg/dl (8.4-10.2); Glucose 103 mg/dl (74-100)
--- NOTE | 2021-03-01 09:18 | PC.NURSE ---
pt diaphoretic,vomiting, and hypotensive. fsbs 165. notified provider
--- NOTE | 2021-03-01 09:27 | CT_ITS ---
PROCEDURE INFORMATION: Exam: CTA Chest With Contrast Exam date and time: 03/01/2021 9:27 AM Age: 66 years old Clinical indication: Shortness of breath; Prior surgery; Surgery date: 6+ months; Surgery type: Stents, pacemaker; Additional info: SOA, picc line for contrast-- covid positive TECHNIQUE: Imaging protocol: Computed tomographic angiography of the chest with contrast. 3D rendering (Not supervised by radiologist): MIP and/or 3D reconstructed images were created by the technologist. Radiation optimization: All CT scans at this facility use at least one of these dose optimization techniques: automated exposure control; mA and/or kV adjustment per patient size (includes targeted exams where dose is matched to clinical indication); or iterative reconstruction. Contrast material: ISOVUE 370; Contrast volume: 75 ml; Contrast route: INTRAVENOUS (IV); COMPARISON: CR XR CHEST PORTABLE 02/28/2021 8:34 AM FINDINGS: Pulmonary arteries: Normal. No pulmonary emboli. Aorta: Unremarkable. No aortic aneurysm. No aortic dissection. Lungs: Again noted are areas of ground-glass opacity and airspace consolidation throughout both lungs. Comparison across modalities is inexact, but findings are unchanged since the previous study. Pleural spaces: A moderately large right pleural effusion and a smaller left pleural effusion are more apparent compared to the previous study most likely secondary to technique. Heart: Mild diffuse cardiac enlargement. There is reflux of contrast into the hepatic veins. Lymph nodes: Unremarkable. No enlarged lymph nodes. Adrenal glands: 3.4 cm right adrenal mass. 3.7 cm left adrenal mass. Bones/joints: Unremarkable. No acute fracture. Soft tissues: Unremarkable. IMPRESSION: 1. Bilateral pneumonia with features commonly associated with COVID-19. Other viral pneumonias may have the same appearance. Other less likely differential considerations include organizing pneumonia secondary to chronic interstitial lung disease, the chronic pneumonia associated with connective tissue disorders, and one of the pneumoconioses. 2. Probable superimposed congestive failure. Bilateral pleural effusions are probably related to the failure. 3. No pulmonary embolus. 4. Bilateral adrenal masses. Differential considerations include adenomas and hyperplasia. Adrenal CT or MRI with chemical shift sequences would be helpful to differentiate.
--- NOTE | 2021-03-01 09:39 | HMH.ITSTN ---
spoke to the nurse patient needs to come by stretcher-- also is covid positive-- advised will be up to get patient as soon as I finish ER patient and get PPE on
[2021-03-01 10:03] LABS: Troponin I 0.08 ng/ml (0.00-0.034)
--- NOTE | 2021-03-01 10:07 | ECG_ITS ---
APPROVED REPORT Exam: Resting ECG HR:100 bpm ECG Measurements Heart Rate 100 AXES NC 112 P 23 QRSd 110 QRS -51 QT 438 T 76 QTc 565 Conclusion Electronic ventricular pacemaker Electronically signed by : Dominik Burton MD 03/02/2021 09:04:29
--- NOTE | 2021-03-01 10:54 | XR_ITS ---
PROCEDURE INFORMATION: Exam: XR Chest Exam date and time: 03/01/2021 10:54 AM Age: 66 years old Clinical indication: Condition or disease; Lung condition and disease; Other: Covid; Prior surgery; Surgery type: Pacemaker; Additional info: Covid pneumonia TECHNIQUE: Imaging protocol: XR of the chest. Views: 1 view. COMPARISON: 1. CR XR CHEST PORTABLE 02/28/2021 8:[address] ANGIO CHEST PE PROTOCOL 03/01/2021 10:19:38 AM FINDINGS: Tubes, catheters and devices: Again noted is the AICD. Again noted is the right-sided PICC line. Lungs: See Pleural spaces finding. Pleural spaces: Again noted is diffuse hazy density over both lungs. This finding is unchanged in the interval. The density is better seen as bilateral pleural effusions and patchy airspace consolidation on the prior CT. Findings are probably unchanged since the previous study. Heart/Mediastinum: Mild diffuse enlargement of the heart again noted. Bones/joints: Unremarkable. IMPRESSION: Hazy density over both lungs most likely representing pleural effusions and airspace consolidation. Findings are essentially unchanged in the interval.
[2021-03-01 11:25] LABS: POC Glucose,Bedside 165 (70-110)
[2021-03-01 11:25] LABS: POC Glucose,Bedside 202 (70-110)
[2021-03-01 11:35] LABS: NT Pro Brain Natriuretic Pep. 18600 pg/mL (0-125)
--- NOTE | 2021-03-01 12:08 | PC.NURSE ---
Addendum entered by Rasheeda Nur RN 03/01/21 12:49: incorrect dose of lasix charted. pt was ordered 80mg of lasix Original Note: Received call from stas Mcconnell at 1140 stating that pt needs to be moved to Step-Down per Dr lebron and pt is to be given lasix 40mg iv x 1 and placed on a levophed drip if hypotension remains present. titrate drip to maintain MAP greater than 65. charge nurse notified as well as primary care RN
--- NOTE | 2021-03-01 12:46 | PC.NURSE ---
per MD pt is to be transferred to Stepdown. report given to Linda Hanson
[2021-03-01 13:19] LABS: Troponin I 0.09 ng/ml (0.00-0.034)
--- NOTE | 2021-03-01 14:30 | ECG_ITS ---
APPROVED REPORT Exam: Resting ECG HR:75 bpm ECG Measurements Heart Rate 75 AXES OH 154 P 69 QRSd 122 QRS -54 QT 408 T 93 QTc 455 Conclusion Electronic ventricular pacemaker Electronically signed by : Dominik Burton MD 03/02/2021 09:03:13
[2021-03-01 15:12] LABS: Microscopic, Urine URINE MICROSCOPIC (MICROSCOPIC)
[2021-03-01 15:14] LABS: Appearance,Urine SL CLOUDY (Clear); Bilirubin,Urine Negative (Negative); Blood, Urine 2+ (Negative); Color,Urine YELLOW (Yellow); Glucose,Urine (UA) Negative (Negative); Ketones,Urine Negative (Negative); Leukocyte Esterase,Urine Negative (Negative); Nitrate,Urine Negative (Negative); PH,Urine 5.5 (5.0-8.5); Protein,Urine Negative (Negative); Specific Gravity, Urine 1.015 (1.005-1.030)
[2021-03-01 15:23] LABS: Bacteria,Urine Trace /lpf; Squamous Epithelial Cell,Urine Occasional #/hpf (0-5)
--- NOTE | 2021-03-01 16:08 | HMH.ACPN2 ---
Internal Medicine - PN: Subj *Date: 03/01/21 *Time: 08:30 Interval history: at pt bedside with dr leung. pt is diaphoretic, pale and hypotensive. pt states he does not feel good Exam Vital signs and Labs for Last 24 Hours: Temp Pulse Resp BP Pulse Ox 98.2 F 76 24 100/43 L 98 03/01/21 12:00 03/01/21 12:00 03/01/21 12:00 03/01/21 12:00 03/01/21 12:00 Laboratory Results - last 24 hr 02/28/21 16:13: POC Glucose 172 H 02/28/21 20:35: POC Glucose 191 H 03/01/21 05:05: POC Glucose 89 03/01/21 06:34: WBC 9.0 D, RBC 3.70 L D, Hgb 10.6 L, Hct 35.1 L, MCV 94.8 H, MCH 28.8, MCHC 30.3 L, RDW 15.6, Plt Count 253, MPV 9.4, Neut % (Auto) 88.0 H, Lymph % (Auto) 5.9 L, [place] % (Auto) 5.6, Eos % (Auto) 0.3, Baso % (Auto) 0.2, Neut # (Auto) 7.9 H, Lymph # (Auto) 0.5 L, [place] # (Auto) 0.5, Eos # (Auto) 0.0, Baso # (Auto) 0.0, Total Counted 100, Neutrophils % (Manual) 96 H, Lymphocytes % (Manual) 2 L, Monocytes % (Manual) 2, Platelet Estimate Normal, Hypochromasia 1+, Macrocytosis 1+ 03/01/21 06:34: Sodium 137, Potassium 4.9, Chloride 103, Carbon Dioxide 22, Anion Gap 16.9 H, BUN 33 H, Creatinine 1.40 H, Estimated Creat Clear 67, Estimated GFR 51 L, Est GFR ( Amer) 61 D, Glucose 103 H, Calcium 7.9 L 03/01/21 09:12: POC Glucose 165 H 03/01/21 09:31: Troponin I 0.08 H 03/01/21 09:31: NT-Pro-B Natriuret Pep 54095 H 03/01/21 11:15: POC Glucose 202 H 03/01/21 12:37: Troponin I 0.09 H 03/01/21 13:08: Urine Color Yellow, Urine Appearance Sl cloudy, Urine pH 5.5, Ur Specific [place] 1.015, Urine Protein Negative, Urine Glucose (UA) Negative, Urine Ketones Negative, Urine Blood 2+, Urine Nitrate Negative, Urine Bilirubin Negative, Urine Urobilinogen 1.0, Ur Leukocyte Esterase Negative, Urine RBC 3-5, Urine WBC 3-5, Ur Squamous Epith Cells Occasional, Urine Bacteria Trace I & O for Last 24 hours: Intake & Output 02/27/21 02/28/21 03/01/21 03/02/21 11:59 11:59 11:59 11:59 Intake Total 840 / 840 720 / 720 600 / 600 Output Total 1650 / 1650 550 / 550 1850 / 1850 Balance -810 / -810 170 / 170 -1250 / -1250 Weight 201 lb 7 oz 201 lb 7.017 oz - Constitutional mild distress, chronically ill appearing - *Routine HEENT Exam Head: Present: normocephalic Eye: Present: PERRL ENT: Present: mucous membranes moist - *Routine Neck Exam Present: supple. Absent: lymphadenopathy - *Routine Respiratory Exam Present: crackles - *Routine Cardiovascular Exam Present: RRR - *Routine Abdominal Exam Present: soft, normoactive bowel sounds. Absent: tenderness - *Routine Extremities Exam Present: amputation. Absent: cyanosis, clubbing, edema Comments: rt bka lt aka - *Routine Skin Exam Present: warm. Absent: rash - *Routine Neurological Exam Present: alert, oriented X3 Assessment and Plan (1) Osteomyelitis of left foot Status: Acute Category: Medical Code(s): M86.9 - Osteomyelitis, unspecified (2) Type 2 diabetes mellitus Status: Acute Qualifiers: Diabetes mellitus ferry terminal agent insulin use: with senior living use Diabetes mellitus complication status: with kidney complications Diabetes mellitus complication detail: with chronic kidney disease Chronic kidney disease stage: unspecified stage Qualified Code(s): E11.22 - Type 2 diabetes mellitus with diabetic chronic kidney disease; Z79.4 - ferry terminal agent (current) use of insulin Category: Medical Code(s): E11.9 - Type 2 diabetes mellitus without complications (3) AICD (automatic cardioverter/defibrillator) present Status: Chronic Category: Surgical Code(s): Z95.810 - Presence of automatic (implantable) cardiac defibrillator (4) CAD (coronary artery disease) Status: Chronic Qualifiers: Coronary Disease-Associated Artery/Lesion type: [place] artery [place] vs. transplanted heart: [place] heart Associated angina: without angina Qualified Code(s): I25.10 - Atherosclerotic heart disease of [place] coronary artery without angina pectoris
[2021-03-01 16:35] LABS: Creatine Kinase 107 U/L (55-170)
[2021-03-01 16:45] LABS: CKMB Relative Index 0.7 U/L (0-4.0); Creatine Kinase MB 0.8 ng/ml (0.0-2.03)
[2021-03-01 16:48] LABS: Troponin I 0.08 ng/ml (0.00-0.034)
[2021-03-01 16:49] LABS: Troponin I 0.08 ng/ml (0.00-0.034)
--- NOTE | 2021-03-01 17:21 | PC.NURSE ---
PT IS RESTING IN BED. NO COMPLAINTS OF DISCOMFORT. PT'S BP HAS BEEN STABLE SINCE BEING TRANSFERRED TO STEP DOWN. LEVOPHED DRIP WAS TURNED OFF AT AT 1535 PER E.FRYMAN. PT MAINTAINED MAP >65 WITH LEVOPHED @ 0.5 MCG/MIN. LUNG SOUNDS DIMINISHED WITH SCATTERED WHEEZES. ABDOMEN SOFT/NON TENDER WITH ACTIVE BOWEL SOUNDS. RAKA AND LBKA. OPEN AREAS NOTED TO THE BUTTOCKS. BATH AND BED CHANGE THIS SHIFT. EATING AND DRINKING FAIR. O2 SATURATION HAS MAINTAINED 92-96% ON 2 L NC. WILL CONTINUE TO MONITOR.
[2021-03-01 17:23] LABS: POC Glucose,Bedside 258 (70-110)
[2021-03-01 21:08] LABS: POC Glucose,Bedside 229 (70-110)
[2021-03-02] VITALS (10 sets, daily range): BP systolic 92–136; BP diastolic 57–67; PULSE 75–95; RESP 18–22; TEMP 36.4–37.1; O2SAT 94–100; BMI 28.2
--- NOTE | 2021-03-02 05:44 | PC.NURSE ---
Addendum entered by Latosha Jimenez RN 03/02/21 05:46: systolic BPs 103-110, MAP above 65 t/o shift Original Note: pt has been restless this shift, has complained of pain and was treated per JUL, was on 2L NC until 299, pt placed on room air and sats have maintained 98-99%, no complaints of SOA, andre draining yellow urine
[2021-03-02 06:16] LABS: Mean Corpuscular HGB Conc 30.3 g/dL (31.8-35.4); Mean Corpuscular Volume 93.9 fl (80-94)
[2021-03-02 06:20] LABS: Basophils # 0.1 K/mm3 (0-0.2); Basophils % 0.4 % (0.1-2.0); Eosinophils % 0.1 % (0.1-12.0); Hemoglobin 8.7 g/dL (14.1-18.0); Lymphocytes # 1.1 K/mm3 (0.7-4.5); Lymphocytes % 7.9 % (10-50); Mean Corpuscular Hemoglobin 28.5 pg (27.0-31.2); Monocytes # 1.1 K/mm3 (0.1-1.0); Monocytes % 7.5 % (1.7-9.3); Neutrophils # 11.8 K/mm3 (1.8-7.8); Neutrophils % 84.1 % (37.0-80.0); Platelet Count 220 K/mm3 (142-424); Red Blood Count 3.04 M/mm3 (4.60-6.20); Red Cell Distribution Width 15.6 % (11.5-17.5); White Blood Count 14.1 K/mm3 (4.8-10.8)
[2021-03-02 06:21] LABS: Hematocrit 28.5 % (42.0-52.0)
[2021-03-02 06:29] LABS: Chloride 99 mmol/L (98-107); Sodium 135 mmol/L (136-145)
[2021-03-02 06:30] LABS: Potassium 4.2 mmoL/L (3.5-5.1)
[2021-03-02 06:32] LABS: Blood Urea Nitrogen 37 mg/dl (9-20); Creatinine Clearance Estimated 59 mL/min (50-200); Estimated Glomerular Filt Rate 43 ml/min (>60); GFR (African American) 53 ML/MIN (>60)
[2021-03-02 06:33] LABS: Anion Gap 10.2 mEq/L (5-15); Calcium 7.4 mg/dl (8.4-10.2); Carbon Dioxide 30 mmol/L (22.0-30.0); Glucose 103 mg/dl (74-100)
[2021-03-02 06:40] LABS: POC Glucose,Bedside 117 (70-110)
--- NOTE | 2021-03-02 07:00 | PC.NURSE ---
pt unable to produce sputum at this time. cup at bedside.
[2021-03-02 11:26] LABS: POC Glucose,Bedside 216 (70-110)
--- NOTE | 2021-03-02 12:36 | HMH.ACPN2 ---
Internal Medicine - PN: Subj *Date: 03/02/21 *Time: 10:30 Interval history: pt laying in bed states he feels better today. Exam Vital signs and Labs for Last 24 Hours: Temp Pulse Resp BP Pulse Ox 98.7 F 75 18 92/57 L 94 L 03/02/21 08:00 03/02/21 12:00 03/02/21 10:00 03/02/21 10:00 03/02/21 10:00 Laboratory Results - last 24 hr 03/01/21 12:37: Troponin I 0.09 H 03/01/21 13:08: Urine Color Yellow, Urine Appearance Sl cloudy, Urine pH 5.5, Ur Specific [place] 1.015, Urine Protein Negative, Urine Glucose (UA) Negative, Urine Ketones Negative, Urine Blood 2+, Urine Nitrate Negative, Urine Bilirubin Negative, Urine Urobilinogen 1.0, Ur Leukocyte Esterase Negative, Urine RBC 3-5, Urine WBC 3-5, Ur Squamous Epith Cells Occasional, Urine Bacteria Trace 03/01/21 16:18: Troponin I 0.08 H 03/01/21 16:18: Total Creatine Kinase 107, CK-MB (CK-2) 0.8, CK-MB (CK-2) Rel Index 0.7, Troponin I 0.08 H 03/01/21 17:03: POC Glucose 258 H 03/01/21 20:58: POC Glucose 229 H 03/02/21 06:00: WBC 14.1 H D, RBC 3.04 L, Hgb 8.7 L D, Hct 28.5 L, MCV 93.9, MCH 28.5, MCHC 30.3 L, RDW 15.6, Plt Count 220, MPV 10.0, Neut % (Auto) 84.1 H, Lymph % (Auto) 7.9 L, [place] % (Auto) 7.5, Eos % (Auto) 0.1, Baso % (Auto) 0.4, Neut # (Auto) 11.8 H, Lymph # (Auto) 1.1, [place] # (Auto) 1.1 H, Eos # (Auto) 0.0, Baso # (Auto) 0.1 03/02/21 06:00: Sodium 135 L, Potassium 4.2, Chloride 99, Carbon Dioxide 30, Anion Gap 10.2, BUN 37 H, Creatinine 1.60 H, Estimated Creat Clear 59, Estimated GFR 43 L, Est GFR ( Amer) 53 L, Glucose 103 H, Calcium 7.4 L 03/02/21 06:28: POC Glucose 117 H 03/02/21 11:19: POC Glucose 216 H I & O for Last 24 hours: Intake & Output 02/28/21 03/01/21 03/02/21 03/03/21 11:59 11:59 11:59 11:59 Intake Total 720 / 720 600 / 600 480 / 480 Output Total 550 / 550 1850 / 1850 1500 / 1500 Balance 170 / 170 -1250 / -1250 -1020 / -1020 Weight 201 lb 7.017 oz 201 lb 7.017 oz - Constitutional no acute distress - *Routine HEENT Exam Head: Present: normocephalic Eye: Present: PERRL ENT: Present: mucous membranes moist - *Routine Neck Exam Present: supple. Absent: lymphadenopathy - *Routine Respiratory Exam Present: CTA bilaterally - *Routine Cardiovascular Exam Present: RRR - *Routine Abdominal Exam Present: soft, normoactive bowel sounds. Absent: tenderness - *Routine Extremities Exam Absent: cyanosis, clubbing, edema - *Routine Skin Exam Present: warm. Absent: rash - *Routine Neurological Exam Present: alert, oriented X3 Assessment and Plan (1) Osteomyelitis of left foot Status: Acute Category: Medical Code(s): M86.9 - Osteomyelitis, unspecified (2) Type 2 diabetes mellitus Status: Acute Qualifiers: Diabetes mellitus intermediate insulin use: with petroleum terminal plant operator use Diabetes mellitus complication status: with kidney complications Diabetes mellitus complication detail: with chronic kidney disease Chronic kidney disease stage: unspecified stage Qualified Code(s): E11.22 - Type 2 diabetes mellitus with diabetic chronic kidney disease; Z79.4 - ocean transportation intermediary (current) use of insulin Category: Medical Code(s): E11.9 - Type 2 diabetes mellitus without complications (3) AICD (automatic cardioverter/defibrillator) present Status: Chronic Category: Surgical Code(s): Z95.810 - Presence of automatic (implantable) cardiac defibrillator (4) CAD (coronary artery disease) Status: Chronic Qualifiers: Coronary Disease-Associated Artery/Lesion type: [place] artery [place] vs. transplanted heart: [place] heart Associated angina: without angina Qualified Code(s): I25.10 - Atherosclerotic heart disease of [place] coronary artery without angina pectoris Category: Medical Code(s): I25.10 - Atherosclerotic heart disease of [place] coronary artery without angina pectoris (5) CHF (congestive heart failure), NYHA class IV Status: Chronic Qualifiers: Congestive heart failure type: unspecifie
[2021-03-02 13:27] LABS: NT Pro Brain Natriuretic Pep. 17400 pg/mL (0-125)
--- NOTE | 2021-03-02 18:44 | PC.NURSE ---
PT IS RESTING IN BED. NO COMPLAINTS OF DISCOMFORT. ALERT AND ORIENTED X4. LUNG SOUNDS DIMINISHED WITH BILATERAL WHEEZES. ABDOMEN SOFT/NON TENDER WITH ACTIVE BOWEL SOUNDS. EATING AND DRINKING FAIR.. RAKA AND LBKA. OPEN AREAS NOTED TO BUTTOCKS. PT HAS BEEN ENCOURAGED TO TURN AND REPOSITION IN BED MUCH POSSIBLE. O2 SATURATION HAS MAINTAINED 92-96% ON 2 L NC. MAP HAS MAINTAINED >65 T/O THE SHIFT. PT WAS TRANSFERRED OUT OF STEP DOWN PER MARCE AT 1730. WILL CONTINUE TO MONITOR.
[2021-03-02 22:22] LABS: POC Glucose,Bedside 299 (70-110)
[2021-03-02 22:22] LABS: POC Glucose,Bedside 136 (70-110)
[2021-03-03] VITALS (8 sets, daily range): BP systolic 92–106; BP diastolic 53–66; PULSE 68–83; RESP 16–22; TEMP 36.5–36.9; O2SAT 89–97; BMI 26.2
[2021-03-03 05:54] LABS: Basophils % 0.1 % (0.1-2.0); Hemoglobin 9.1 g/dL (14.1-18.0); Lymphocytes # 0.7 K/mm3 (0.7-4.5); Lymphocytes % 3.4 % (10-50); Mean Corpuscular HGB Conc 31.1 g/dL (31.8-35.4); Mean Corpuscular Hemoglobin 28.4 pg (27.0-31.2); Mean Corpuscular Volume 91.5 fl (80-94); Mean Platelet Volume 10.2 fl (7.4-10.4); Monocytes # 1.3 K/mm3 (0.1-1.0); Monocytes % 5.8 % (1.7-9.3); Neutrophils # 19.6 K/mm3 (1.8-7.8); Neutrophils % 90.6 % (37.0-80.0); Platelet Count 228 K/mm3 (142-424); Red Blood Count 3.21 M/mm3 (4.60-6.20); Red Cell Distribution Width 15.8 % (11.5-17.5); White Blood Count 21.6 K/mm3 (4.8-10.8)
[2021-03-03 05:56] LABS: Hematocrit 29.4 % (42.0-52.0)
[2021-03-03 05:57] LABS: MANUAL DIFFERENTIAL MANUAL DIFFERENTIAL (MANUAL DIFF)
[2021-03-03 06:08] LABS: Chloride 98 mmol/L (98-107); Potassium 3.8 mmoL/L (3.5-5.1); Sodium 134 mmol/L (136-145)
[2021-03-03 06:11] LABS: Anion Gap 11.8 mEq/L (5-15); Blood Urea Nitrogen 37 mg/dl (9-20); Calcium 7.5 mg/dl (8.4-10.2); Carbon Dioxide 28 mmol/L (22.0-30.0); Creatinine Clearance Estimated 55 mL/min (50-200); Estimated Glomerular Filt Rate 43 ml/min (>60); GFR (African American) 53 ML/MIN (>60)
[2021-03-03 06:16] LABS: Glucose 145 mg/dl (74-100)
--- NOTE | 2021-03-03 06:58 | PC.NURSE ---
pt has not rested well this shift, has not complained of pain, but seems to generally just not feel well, has remained on room air t/o shift, O2 sats 90-97%, andre draining at bedside
[2021-03-03 08:13] LABS: Hypochromasia 2+; Lymphocytes % 4 % (10-50); Monocytes % 7 % (2-9); Neutrophils % 89 % (42-76); Total Cells Counted 100
[2021-03-03 08:14] LABS: Platelet Estimate Normal
--- NOTE | 2021-03-03 09:21 | HMH.PNCARD ---
Subjective Date: 03/03/21 Time: 09:15 Principal diagnosis: Left foot osteomyelitis status post below-knee amputation, chf Interval history: This is a 66-year-old white gentleman who is status post left below the knee amputation secondary to osteomyelitis. The patient was going to be sent to [facility] and prior to being transported there a repeat Covid swab was obtained that showed that the patient was Covid positive. Transfer to the [facility] has been delayed due to testing positive for Covid. Since that time the patient has had some worsening shortness of breath, nausea and vomiting, and fevers. This morning he states he is a little short of breath still but it is better than it was. He denies any chest pain or pressure. He denies any nausea or vomiting this morning. He denies any fever or chills. The patient seems to be pretty down and depressed today. Exam Vital signs and Labs for Last 24 Hours: Temp Pulse Resp BP Pulse Ox 98.5 F 70 18 92/53 L 97 03/03/21 03:52 03/03/21 08:00 03/03/21 03:52 03/03/21 03:52 03/03/21 03:52 Laboratory Results - last 24 hr 03/02/21 11:19: POC Glucose 216 H 03/02/21 12:58: NT-Pro-B Natriuret Pep 94428 H 03/02/21 16:29: POC Glucose 299 H 03/02/21 21:03: POC Glucose 136 H 03/03/21 05:26: WBC 21.6 H* D, RBC 3.21 L, Hgb 9.1 L, Hct 29.4 L, MCV 91.5, MCH 28.4, MCHC 31.1 L, RDW 15.8, Plt Count 228, MPV 10.2, Neut % (Auto) 90.6 H, Lymph % (Auto) 3.4 L, [place] % (Auto) 5.8, Eos % (Auto) 0.0 L, Baso % (Auto) 0.1, Neut # (Auto) 19.6 H, Lymph # (Auto) 0.7, [place] # (Auto) 1.3 H, Eos # (Auto) 0.0, Baso # (Auto) 0.0, Total Counted 100, Neutrophils % (Manual) 89 H, Lymphocytes % (Manual) 4 L, Monocytes % (Manual) 7, Platelet Estimate Normal, Hypochromasia 2+ 03/03/21 05:26: Sodium 134 L, Potassium 3.8, Chloride 98, Carbon Dioxide 28, Anion Gap 11.8, BUN 37 H, Creatinine 1.60 H, Estimated Creat Clear 55, Estimated GFR 43 L, Est GFR ( Amer) 53 L, Glucose 145 H D, Calcium 7.5 L I & O for Last 24 hours: Intake & Output 02/28/21 03/01/21 03/02/21 03/03/21 23:59 23:59 23:59 23:59 Intake Total 960 / 960 360 / 360 840 / 840 Output Total 450 / 700 2250 / 2250 2050 / 2450 550 / 550 Balance 510 / 260 -1890 / -1890 -1210 / -1610 -550 / -550 Weight 201 lb 7.017 oz 201 lb 7.017 oz 187 lb 5 oz Narrative: Telemetry strip shows ventricular pacing. - Constitutional no acute distress, average body habitus - *Routine HEENT Exam Head: Present: normocephalic, atraumatic Eye: Present: EOMI, PERRL ENT: Present: mucous membranes moist - *Routine Neck Exam Present: supple, full ROM, normal carotid upstroke. Absent: JVD, carotid bruit, lymphadenopathy - *Routine Respiratory Exam Present: CTA bilaterally - *Routine Cardiovascular Exam Present: RRR, Normal S1, Normal S2. Absent: murmur - *Routine Abdominal Exam Present: soft, normoactive bowel sounds. Absent: tenderness - *Routine Extremities Exam Present: amputation (Bilateral lower extremity amputee). Absent: cyanosis, clubbing, edema - *Routine Skin Exam Present: warm. Absent: erythema, rash - *Routine Neurological Exam Present: alert, oriented X3, CN II-XII intact. Absent: sensory deficit, motor deficit Progress Note: A&P (1) COVID Status: Acute (2) Systolic heart failure Status: Chronic (3) Osteomyelitis of left foot Status: Acute (4) Type 2 diabetes mellitus Status: Acute (5) AICD (automatic cardioverter/defibrillator) present Status: Chronic (6) CAD (coronary artery disease) Status: Chronic (7) CHF (congestive heart failure), NYHA class IV Status: Chronic (8) Diabetes mellitus Status: Chronic (9) HLD (hyperlipidemia) Status: Chronic (10) HTN (hypertension) Status: Chronic (11) History of amputation below knee Status: Chronic (12) Ischemic cardiomyopathy Status: Chronic (13) PAD (peripheral artery disease) Status: Chronic (14) [place]
--- NOTE | 2021-03-03 11:48 | CA_ITS ---
APPROVED REPORT EXAM: Comprehensive 2D, Doppler, and color-flow Echocardiogram Seed Cleaner Operator: Nichelle Wren CRT Ht: 5 ft 10 in Wt: 187lbs BSA: 2.03 BP: 92/57 mmHg Indications: COVID + Congestive Heart Failure, Diabetes, Hyperlipidemia, Cardiomyopathy, Hypertension/HDD, AICD, AFIB, PAD, S/P BTK AMPUTATION 02/21/21 2D Dimensions LVOT 1.96 cm (M/F) 1.5-2.5 LA Volume 95.10 mL LA Volume Index 46.80 mL/m2 (M/F) 16-34 M-Mode Dimensions RVDd 2.40 cm (0.9-2.6) LA Diam 4.08 cm (1.9-4.0) LVDd 8.26 cm (3.5-5.7) Ao Diam 3.93 cm (2.0-3.7) LVDs 7.61 cm (3.5-5.7) IVSd 1.26 cm (0.6-1.1) PWd 0.49 cm (0.6-1.1) EF (Teich) 16.70% FS 7.90% EDV (Teich) 370.10 mL ESV (Teich) 308.20 mL LV Diastology E Decel Time 177.00 (160-240 msec) E/A Ratio 4.58 Aortic Valve LVOT Max 136.00 (70-110 cm/s) LVOT VTI 21.69 cm AoV Peak Maldonado. 159.00 (50-130 cm/s) AI PHT 527.00 ms AO Peak GR. 10.20 mmHg AO Mean GR. 5.40 (<5 mmHg) AO VTI 23.86 (18-25 cm) RIYA (VTI) 2.74 (2.5-4.5 cm2) Mitral Valve MV E Max Maldonado. 110.00 (40-130 cm/s) MV A Velocity 24.00 (40-130 cm/s) E/A Ratio 4.58 MV Decel. Time 177.00 (160-240 ms) MV PHT 52.00 ms Tricuspid Valve TR P. Velocity 242.00 cm/s RAP Estimate 10.00 mmHg RVSP 33.40 mmHg Left Ventricle Technically difficult study because of the patient factors and poor acoustic windows, left atrium is mildly enlarged, left ventricle is mildly dilated severely slowed ventricular systolic function, visually estimated ejection fraction approximately 25%, left ventricle is globally hypokinetic. Diastolic parameters are inconclusive. Right Ventricle Right atrium and right ventricle are normal size and contractility, there is an AICD lead seen in the right ventricle. Aortic Valve Aortic valve is thickened and calcified without Doppler evidence of aortic stenosis or aortic insufficiency. Mitral Valve Mitral valve leaflets are minimally thickened, there is mild mitral regurgitation. Tricuspid Valve Tricuspid valve grossly normal, there is mild tricuspid regurgitation tricuspid regurgitation jet velocity is inadequate for calculation of the right ventricular systolic pressure. Pulmonic Valve Pulmonic valve is poorly visualized. Great Vessels Aortic root is normal size. Inferior vena cava is poorly visualized. Pericardium No significant pericardial effusion noted. Conclusion 1. Dilated left ventricle, severe reduced left ventricular systolic function, visually estimated ejection fraction 25%, left ventricle is globally hypokinetic, diastolic parameters are inconclusive. 2. Mild mitral and tricuspid regurgitation. 3. No significant pericardial effusion noted. Electronically signed by : Dwight Gallardo MD 03/03/2021 21:44:04
--- NOTE | 2021-03-03 11:52 | HMH.PULMPN ---
Internal Medicine - PN: Subj *Date: 03/03/21 *Time: 11:52 Interval history: No acute respiratory events overnight. Patient continued to remain on room air. Exam - Constitutional Constitutional:: Present: no acute distress, comfortable - HENMT Exam HENMT: Present: normocephalic - Eye Exam Eyes:: Present: normal appearance both eyes and related structures - Neck Exam Neck:: Present: normal visual inspection - Respiratory Exam Respiratory:: Present: able to speak in complete sentences, no respiratory distress, crackles - Cardiovascular Exam Cardiac:: Present: S1, S2 - GI Exam GI:: Present: soft - Skin Exam Skin: Present: warm, no rash - Neurological Exam Neurological: Present: alert, awake, normal cognition - Extremities Exam Extremities: Present: no cyanosis, no clubbing, no edema Assessment and Plan (1) COVID Status: Acute Category: Medical Code(s): U07.1 - COVID-19 (2) Systolic heart failure Status: Chronic Qualifiers: Heart failure chronicity: unspecified Qualified Code(s): I50.20 - Unspecified systolic (congestive) heart failure Category: Medical Code(s): I50.20 - Unspecified systolic (congestive) heart failure (3) Osteomyelitis of left foot Status: Acute Category: Medical Code(s): M86.9 - Osteomyelitis, unspecified (4) Type 2 diabetes mellitus Status: Acute Qualifiers: Diabetes mellitus buttermaker helper insulin use: with care home use Diabetes mellitus complication status: with kidney complications Diabetes mellitus complication detail: with chronic kidney disease Chronic kidney disease stage: unspecified stage Qualified Code(s): E11.22 - Type 2 diabetes mellitus with diabetic chronic kidney disease; Z79.4 - buttermaker helper (current) use of insulin Category: Medical Code(s): E11.9 - Type 2 diabetes mellitus without complications (5) AICD (automatic cardioverter/defibrillator) present Status: Chronic Category: Surgical Code(s): Z95.810 - Presence of automatic (implantable) cardiac defibrillator (6) CAD (coronary artery disease) Status: Chronic Qualifiers: Coronary Disease-Associated Artery/Lesion type: [place] artery [place] vs. transplanted heart: [place] heart Associated angina: without angina Qualified Code(s): I25.10 - Atherosclerotic heart disease of [place] coronary artery without angina pectoris Category: Medical Code(s): I25.10 - Atherosclerotic heart disease of [place] coronary artery without angina pectoris (7) CHF (congestive heart failure), NYHA class IV Status: Chronic Qualifiers: Congestive heart failure type: unspecified Qualified Code(s): I50.9 - Heart failure, unspecified Category: Medical Code(s): I50.9 - Heart failure, unspecified (8) Diabetes mellitus Status: Chronic Qualifiers: Diabetes mellitus type: type 2 Diabetes mellitus buttermaker helper insulin use: without buttermaker helper use Diabetes mellitus complication status: without complication Qualified Code(s): E11.9 - Type 2 diabetes mellitus without complications Category: Medical Code(s): E11.9 - Type 2 diabetes mellitus without complications (9) HLD (hyperlipidemia) Status: Chronic Qualifiers: Hyperlipidemia type: mixed hyperlipidemia Qualified Code(s): E78.2 - Mixed hyperlipidemia Category: Medical Code(s): E78.5 - Hyperlipidemia, unspecified (10) HTN (hypertension) Status: Chronic Qualifiers: Hypertension type: essential hypertension Category: Medical Code(s): I10 - Essential (primary) hypertension (11) History of amputation below knee Status: Chronic Qualifiers: Laterality: right Qualified Code(s): Z89.511 - Acquired absence of right leg below knee Category: Surgical Code(s): Z89.519 - Acquired absence of unspecified leg below knee (12) Ischemic cardiomyopathy Status: Chronic Category: Medical Code(s): I25.5 - Ischemic cardiomyopathy (13) PAD (peripheral artery disease) [place]
--- NOTE | 2021-03-03 11:55 | XR_ITS ---
PROCEDURE: XR CHEST PORTABLE CLINICAL HISTORY: pnm COMPARISON: CR XR CHEST PORTABLE from 02/26/2021 CR XR CHEST PORTABLE from 02/28/2021 CR XR CHEST PORTABLE from 03/01/[address] ANGIO CHEST PE PROTOCOL from 03/01/2021 FINDINGS: There is cardiomegaly without failure. Hazy density noted in the mid lower lung zones as before suggesting mild airspace disease/pneumonia. Right upper extremity PICC line is present. The tip is in the region the SVC. There is blunting of the right CP angle consistent with small pleural effusion No acute bony abnormalities. IMPRESSION: No change mild bilateral airspace disease suggesting pneumonia with right effusion Dictated by: Bruno Delgado MD 03/03/2021 14:05 Bruno Delgado MD in [facility] 03/03/2021 14:05
[2021-03-03 11:58] LABS: POC Glucose,Bedside 212 (70-110)
--- NOTE | 2021-03-03 13:24 | PC.NURSE ---
This RN took over care @ 1300
--- NOTE | 2021-03-03 13:51 | HMH.ACPN2 ---
Internal Medicine - PN: Subj *Date: 03/03/21 *Time: 13:51 Interval history: pt seen and doing better - has improved from chf over the last few days has pul and card consults and has low ejection on echo but near prev Exam Vital signs and Labs for Last 24 Hours: Temp Pulse Resp BP Pulse Ox 97.8 F 70 18 92/53 L 97 03/03/21 08:00 03/03/21 08:00 03/03/21 03:52 03/03/21 03:52 03/03/21 03:52 Laboratory Results - last 24 hr 03/02/21 16:29: POC Glucose 299 H 03/02/21 21:03: POC Glucose 136 H 03/03/21 05:26: WBC 21.6 H* D, RBC 3.21 L, Hgb 9.1 L, Hct 29.4 L, MCV 91.5, MCH 28.4, MCHC 31.1 L, RDW 15.8, Plt Count 228, MPV 10.2, Neut % (Auto) 90.6 H, Lymph % (Auto) 3.4 L, [place] % (Auto) 5.8, Eos % (Auto) 0.0 L, Baso % (Auto) 0.1, Neut # (Auto) 19.6 H, Lymph # (Auto) 0.7, [place] # (Auto) 1.3 H, Eos # (Auto) 0.0, Baso # (Auto) 0.0, Total Counted 100, Neutrophils % (Manual) 89 H, Lymphocytes % (Manual) 4 L, Monocytes % (Manual) 7, Platelet Estimate Normal, Hypochromasia 2+ 03/03/21 05:26: Sodium 134 L, Potassium 3.8, Chloride 98, Carbon Dioxide 28, Anion Gap 11.8, BUN 37 H, Creatinine 1.60 H, Estimated Creat Clear 55, Estimated GFR 43 L, Est GFR ( Amer) 53 L, Glucose 145 H D, Calcium 7.5 L 03/03/21 11:46: POC Glucose 212 H I & O for Last 24 hours: Intake & Output 03/01/21 03/02/21 03/03/21 03/04/21 11:59 11:59 11:59 11:59 Intake Total 600 / 600 600 / 600 480 / 480 Output Total 1850 / 1850 1500 / 1500 1950 / 1950 Balance -1250 / -1250 -900 / -900 -1470 / -1470 Weight 201 lb 7.017 oz 201 lb 7.017 oz 187 lb 5 oz - Constitutional no acute distress - *Routine HEENT Exam Head: Present: normocephalic Eye: Present: EOMI, PERRL ENT: Present: mucous membranes dry - *Routine Neck Exam Absent: JVD - *Routine Respiratory Exam Present: decreased breath sounds - *Routine Cardiovascular Exam Present: RRR, murmur, S4 - *Routine Abdominal Exam Present: soft - *Routine Extremities Exam Present: amputation - *Routine Skin Exam Present: dry - *Routine Neurological Exam Present: alert, CN II-XII intact - Routine Psychiatric Exam Present: cooperative Assessment and Plan (1) COVID Status: Acute Category: Medical Code(s): U07.1 - COVID-19 (2) Systolic heart failure Status: Chronic Qualifiers: Heart failure chronicity: unspecified Qualified Code(s): I50.20 - Unspecified systolic (congestive) heart failure Category: Medical Code(s): I50.20 - Unspecified systolic (congestive) heart failure (3) Osteomyelitis of left foot Status: Acute Category: Medical Code(s): M86.9 - Osteomyelitis, unspecified (4) Type 2 diabetes mellitus Status: Acute Qualifiers: Diabetes mellitus manager terminal insulin use: with manager terminal use Diabetes mellitus complication status: with kidney complications Diabetes mellitus complication detail: with chronic kidney disease Chronic kidney disease stage: unspecified stage Qualified Code(s): E11.22 - Type 2 diabetes mellitus with diabetic chronic kidney disease; Z79.4 - alf (current) use of insulin Category: Medical Code(s): E11.9 - Type 2 diabetes mellitus without complications (5) AICD (automatic cardioverter/defibrillator) present Status: Chronic Category: Surgical Code(s): Z95.810 - Presence of automatic (implantable) cardiac defibrillator (6) CAD (coronary artery disease) Status: Chronic Qualifiers: Coronary Disease-Associated Artery/Lesion type: [place] artery [place] vs. transplanted heart: [place] heart Associated angina: without angina Qualified Code(s): I25.10 - Atherosclerotic heart disease of [place] coronary artery without angina pectoris Category: Medical Code(s): I25.10 - Atherosclerotic heart disease of [place] coronary artery without angina pectoris (7) CHF (congestive heart failure), NYHA class IV Status: Chronic Qualifiers: Congestive heart failure type: unspecified Qualified Code(s):
[2021-03-04] VITALS (7 sets, daily range): BP systolic 92–106; BP diastolic 58–66; PULSE 70–82; RESP 16–20; TEMP 36.6–37.1; O2SAT 89–93; BMI 25.4
[2021-03-04 05:34] LABS: POC Glucose,Bedside 140 (70-110)
--- NOTE | 2021-03-04 05:36 | PC.NURSE ---
No acute changes. Pt has slept at intervals. Has not voiced any complaints. DSG to LLE in place with immobilizer. VSS. Pt remains on RA. Scattered wheezing noted. Medications administered per jul. Pt has not required any insulin. Will continue to monitor.
--- NOTE | 2021-03-04 08:32 | HMH.PNCARD ---
Subjective Date: 03/04/21 Time: 08:30 Principal diagnosis: Left foot osteomyelitis status post below-knee amputation, chf Interval history: This is a 66-year-old white gentleman who is status post left below the knee amputation secondary to osteomyelitis. The patient was being sent to [facility] following his amputation but a repeat Covid swab showed that he was positive for Covid and transfer to the senior care has been delayed. This morning he denies any shortness of breath. He denies any fever or chills. He denies any nausea, vomiting or diarrhea. He denies any chest pain or pressure. The patient only complains of feeling achy all over which is most likely secondary to the Covid. Exam Vital signs and Labs for Last 24 Hours: Temp Pulse Resp BP Pulse Ox 98.3 F 75 18 101/58 L 93 L 03/04/21 08:00 03/04/21 08:00 03/04/21 08:00 03/04/21 08:00 03/04/21 08:00 Laboratory Results - last 24 hr 03/03/21 11:46: POC Glucose 212 H 03/04/21 05:22: POC Glucose 140 H I & O for Last 24 hours: Intake & Output 03/01/21 03/02/21 03/03/21 03/04/21 23:59 23:59 23:59 23:59 Intake Total 360 / 360 840 / 840 60 / 60 Output Total 2250 / 2250 2050 / 2450 1700 / 1700 0 / 0 Balance -1890 / -1890 -1210 / -1610 -1700 / -1700 60 / 60 Weight 201 lb 7.017 oz 201 lb 7.017 oz 187 lb 5 oz 182 lb Narrative: Echo shows: 1. Dilated left ventricle, severe reduced left ventricular systolic function, visually estimated ejection fraction 25%, left ventricle is globally hypokinetic, diastolic parameters are inconclusive. 2. Mild mitral and tricuspid regurgitation. 3. No significant pericardial effusion noted. Telemetry strip shows ventricular pacing with a rate of 76. - Constitutional no acute distress, average body habitus - *Routine HEENT Exam Head: Present: normocephalic Eye: Present: EOMI, PERRL ENT: Present: mucous membranes moist - *Routine Neck Exam Present: supple, full ROM, normal carotid upstroke. Absent: JVD, carotid bruit, lymphadenopathy - *Routine Respiratory Exam Present: CTA bilaterally - *Routine Cardiovascular Exam Present: RRR, Normal S1, Normal S2 - *Routine Abdominal Exam Present: soft, normoactive bowel sounds. Absent: tenderness, distended - *Routine Extremities Exam Present: amputation (Bilateral amputee). Absent: cyanosis, clubbing, edema - *Routine Skin Exam Present: intact, warm. Absent: erythema, rash - *Routine Neurological Exam Present: alert, oriented X3, CN II-XII intact Progress Note: A&P (1) COVID Status: Acute (2) Systolic heart failure Status: Chronic (3) Osteomyelitis of left foot Status: Acute (4) Type 2 diabetes mellitus Status: Acute (5) AICD (automatic cardioverter/defibrillator) present Status: Chronic (6) CAD (coronary artery disease) Status: Chronic (7) CHF (congestive heart failure), NYHA class IV Status: Chronic (8) Diabetes mellitus Status: Chronic (9) HLD (hyperlipidemia) Status: Chronic (10) HTN (hypertension) Status: Chronic (11) History of amputation below knee Status: Chronic (12) Ischemic cardiomyopathy Status: Chronic (13) PAD (peripheral artery disease) Status: Chronic (14) Tobacco use Status: Chronic (15) Hypothyroid Status: Chronic (16) Anemia Status: Acute (17) Atrial fibrillation Status: Acute Assessment and Plan for All Diagnoses:: Plan: 1. The patient is status post left below the knee amputation secondary to osteomyelitis. Will defer management this to orthopedics and his primary care team. 2. The patient does have acute on chronic systolic congestive heart failure and known ischemic cardiomyopathy. He is status post AICD/WINE CONSULTANT-D placement. The patient's EF on echocardiogram is 25% which is actually improved since 2018. There is no significant valvular disease noted. 3. The patient has been switched over to [facility] for CHF and
[2021-03-04 09:19] LABS: Basophils % 0.1 % (0.1-2.0); Eosinophils % 0.1 % (0.1-12.0); Hematocrit 30.2 % (42.0-52.0); Hemoglobin 9.7 g/dL (14.1-18.0); Lymphocytes # 0.7 K/mm3 (0.7-4.5); Lymphocytes % 5.1 % (10-50); Mean Corpuscular HGB Conc 32.2 g/dL (31.8-35.4); Mean Corpuscular Hemoglobin 28.7 pg (27.0-31.2); Mean Corpuscular Volume 89.1 fl (80-94); Mean Platelet Volume 12.8 fl (7.4-10.4); Monocytes # 0.5 K/mm3 (0.1-1.0); Monocytes % 4.1 % (1.7-9.3); Neutrophils # 11.8 K/mm3 (1.8-7.8); Neutrophils % 90.5 % (37.0-80.0); Platelet Count 177 K/mm3 (142-424); Red Blood Count 3.39 M/mm3 (4.60-6.20)
[2021-03-04 09:25] LABS: MANUAL DIFFERENTIAL MANUAL DIFFERENTIAL (MANUAL DIFF)
--- NOTE | 2021-03-04 09:27 | HMH.PULMPN ---
Internal Medicine - PN: Subj *Date: 03/04/21 *Time: 11:20 Interval history: No acute respiratory vents overnight. Patient denies any new respiratory complaints. Exam - Constitutional Constitutional:: Present: no acute distress, comfortable - HENMT Exam HENMT: Present: normocephalic, atraumatic - Eye Exam Eyes:: Present: normal appearance both eyes and related structures - Neck Exam Neck:: Present: normal visual inspection - Respiratory Exam Respiratory:: Present: able to speak in complete sentences, lungs clear, no respiratory distress - Cardiovascular Exam Cardiac:: Present: S1, S2 - GI Exam GI:: Present: soft, normoactive bowel sounds, no tenderness - Skin Exam Skin: Present: warm, no rash - Neurological Exam Neurological: Present: alert, awake, normal cognition - Extremities Exam Extremities: Present: no cyanosis, no clubbing Assessment and Plan (1) COVID Status: Acute Category: Medical Code(s): U07.1 - COVID-19 (2) Systolic heart failure Status: Chronic Qualifiers: Heart failure chronicity: unspecified Qualified Code(s): I50.20 - Unspecified systolic (congestive) heart failure Category: Medical Code(s): I50.20 - Unspecified systolic (congestive) heart failure (3) Osteomyelitis of left foot Status: Acute Category: Medical Code(s): M86.9 - Osteomyelitis, unspecified (4) Type 2 diabetes mellitus Status: Acute Qualifiers: Diabetes mellitus graining operator insulin use: with [facility] use Diabetes mellitus complication status: with kidney complications Diabetes mellitus complication detail: with chronic kidney disease Chronic kidney disease stage: unspecified stage Qualified Code(s): E11.22 - Type 2 diabetes mellitus with diabetic chronic kidney disease; Z79.4 - heavy machinery operator (current) use of insulin Category: Medical Code(s): E11.9 - Type 2 diabetes mellitus without complications (5) AICD (automatic cardioverter/defibrillator) present Status: Chronic Category: Surgical Code(s): Z95.810 - Presence of automatic (implantable) cardiac defibrillator (6) CAD (coronary artery disease) Status: Chronic Qualifiers: Coronary Disease-Associated Artery/Lesion type: [place] artery [place] vs. transplanted heart: [place] heart Associated angina: without angina Qualified Code(s): I25.10 - Atherosclerotic heart disease of [place] coronary artery without angina pectoris Category: Medical Code(s): I25.10 - Atherosclerotic heart disease of [place] coronary artery without angina pectoris (7) CHF (congestive heart failure), NYHA class IV Status: Chronic Qualifiers: Congestive heart failure type: unspecified Qualified Code(s): I50.9 - Heart failure, unspecified Category: Medical Code(s): I50.9 - Heart failure, unspecified (8) Diabetes mellitus Status: Chronic Qualifiers: Diabetes mellitus type: type 2 Diabetes mellitus [facility] insulin use: without graining operator use Diabetes mellitus complication status: without complication Qualified Code(s): E11.9 - Type 2 diabetes mellitus without complications Category: Medical Code(s): E11.9 - Type 2 diabetes mellitus without complications (9) HLD (hyperlipidemia) Status: Chronic Qualifiers: Hyperlipidemia type: mixed hyperlipidemia Qualified Code(s): E78.2 - Mixed hyperlipidemia Category: Medical Code(s): E78.5 - Hyperlipidemia, unspecified (10) HTN (hypertension) Status: Chronic Qualifiers: Hypertension type: essential hypertension Category: Medical Code(s): I10 - Essential (primary) hypertension (11) History of amputation below knee Status: Chronic Qualifiers: Laterality: right Qualified Code(s): Z89.511 - Acquired absence of right leg below knee Category: Surgical Code(s): Z89.519 - Acquired absence of unspecified leg below knee (12) Ischemic cardiomyopathy Status: Chronic Category: Medical Code(s): I25.5 - Ischemic cardiomyopa
[2021-03-04 09:38] LABS: Chloride 98 mmol/L (98-107); Potassium 3.5 mmoL/L (3.5-5.1); Sodium 135 mmol/L (136-145)
[2021-03-04 09:41] LABS: Anion Gap 12.5 mEq/L (5-15); Blood Urea Nitrogen 39 mg/dl (9-20); Calcium 7.5 mg/dl (8.4-10.2); Carbon Dioxide 28 mmol/L (22.0-30.0); Creatinine Clearance Estimated 57 mL/min (50-200); Estimated Glomerular Filt Rate 47 ml/min (>60); GFR (African American) 57 ML/MIN (>60); Glucose 145 mg/dl (74-100)
[2021-03-04 09:50] LABS: Hypochromasia 1+; Lymphocytes % 11 % (10-50); Macrocytosis 1+; Monocytes % 1 % (2-9); Neutrophils % 88 % (42-76); Nucleated Red Blood Cells 1; Platelet Estimate Normal; Total Cells Counted 100
--- NOTE | 2021-03-04 10:11 | HMH.ACPN2 ---
Internal Medicine - PN: Subj *Date: 03/04/21 *Time: 19:27 Interval history: 66-year-old male patient sitting up in bed dressing to left lower extremity BKA clean dry and intact with knee immobilizer in place. He denies any shortness of breath or chest pain during the night and reports left BKA pain controlled. Oxygen saturation 93% on room air. Elevated white count will start vancomycin IV prophylactically Exam Vital signs and Labs for Last 24 Hours: Temp Pulse Resp BP Pulse Ox 98.3 F 75 18 101/58 L 93 L 03/04/21 08:00 03/04/21 08:00 03/04/21 08:00 03/04/21 08:00 03/04/21 08:00 Laboratory Results - last 24 hr 03/03/21 11:46: POC Glucose 212 H 03/04/21 05:22: POC Glucose 140 H 03/04/21 08:54: Sodium 135 L, Potassium 3.5, Chloride 98, Carbon Dioxide 28, Anion Gap 12.5, BUN 39 H, Creatinine 1.50 H, Estimated Creat Clear 57, Estimated GFR 47 L, Est GFR ( Amer) 57 L, Glucose 145 H, Calcium 7.5 L 03/04/21 09:05: WBC 13.0 H D, RBC 3.39 L, Hgb 9.7 L, Hct 30.2 L, MCV 89.1, MCH 28.7, MCHC 32.2, RDW 16.0, Plt Count 177, MPV 12.8 H, Neut % (Auto) 90.5 H, Lymph % (Auto) 5.1 L, [place] % (Auto) 4.1, Eos % (Auto) 0.1, Baso % (Auto) 0.1, Neut # (Auto) 11.8 H, Lymph # (Auto) 0.7, [place] # (Auto) 0.5, Eos # (Auto) 0.0, Baso # (Auto) 0.0, Total Counted 100, Neutrophils % (Manual) 88 H, Lymphocytes % (Manual) 11, Monocytes % (Manual) 1 L, Nucleated RBCs 1, Platelet Estimate Normal, Hypochromasia 1+, Macrocytosis 1+ I & O for Last 24 hours: Intake & Output 03/01/21 03/02/21 03/03/21 03/04/21 23:59 23:59 23:59 23:59 Intake Total 360 / 360 840 / 840 60 / 60 Output Total 2250 / 2250 2050 / 2450 1700 / 1700 0 / 0 Balance -1890 / -1890 -1210 / -1610 -1700 / -1700 60 / 60 Weight 201 lb 7.017 oz 201 lb 7.017 oz 187 lb 5 oz 182 lb - Constitutional no acute distress - *Routine HEENT Exam Head: Present: normocephalic Eye: Present: EOMI, periorbital tenderness ENT: Present: mucous membranes moist - *Routine Neck Exam Present: trachea midline. Absent: tracheal deviation - *Routine Respiratory Exam Present: CTA bilaterally. Absent: accessory muscle use - *Routine Cardiovascular Exam Present: RRR - *Routine Abdominal Exam Present: soft, normoactive bowel sounds. Absent: tenderness, rebound - *Routine Extremities Exam Present: amputation. Absent: cyanosis, clubbing, calf tenderness Comments: Left BKA - *Routine Skin Exam Present: dry, warm, wounds. Absent: cyanosis, erythema Comments: Left BKA dressing clean/dry/intact - *Routine Neurological Exam Present: alert, oriented X3. Absent: motor deficit - Routine Psychiatric Exam Present: normal affect, normal thought process. Absent: auditory hallucinations Assessment and Plan (1) COVID Status: Acute Category: Medical Code(s): U07.1 - COVID-19 (2) Systolic heart failure Status: Chronic Qualifiers: Heart failure chronicity: unspecified Qualified Code(s): I50.20 - Unspecified systolic (congestive) heart failure Category: Medical Code(s): I50.20 - Unspecified systolic (congestive) heart failure (3) Osteomyelitis of left foot Status: Acute Category: Medical Code(s): M86.9 - Osteomyelitis, unspecified (4) Type 2 diabetes mellitus Status: Acute Qualifiers: Diabetes mellitus group home insulin use: with group home use Diabetes mellitus complication status: with kidney complications Diabetes mellitus complication detail: with chronic kidney disease Chronic kidney disease stage: unspecified stage Qualified Code(s): E11.22 - Type 2 diabetes mellitus with diabetic chronic kidney disease; Z79.4 - senior living (current) use of insulin Category: Medical Code(s): E11.9 - Type 2 diabetes mellitus without complications (5) AICD (automatic cardioverter/defibrillator) present Status: Chronic Category: Surgical Code(s): Z95.810 - Presence of automatic (implantable) cardiac defibrillator (6) CAD (coronary artery
--- NOTE | 2021-03-04 10:18 | HMH.PHACONS ---
- Pharmacy Consult Date: 03/04/21 Time: 10:18 Referring provider: DR. MYLES Reason for Consult:: VANCOMYCIN DOSING Allergies and ADEs:: Allergies Allergy/AdvReac Type Severity Reaction Status Date / Time No Known Allergies Allergy Verified 02/21/21 09:56 Home Medications:: Home Medications Medication Instructions Recorded Confirmed Type Aspirin [Low Dose Aspirin EC] 81 mg PO DAILY 01/17/21 02/21/21 History Atorvastatin Calcium [Lipitor 40mg 40 mg PO DAILY 01/17/21 02/21/21 History Tab] Docusate Sodium 100 mg PO BID 01/17/21 02/21/21 History Ergocalciferol (Vitamin D2) 1,250 mg PO WEEKLY 01/17/21 02/21/21 History [Drisdol] Levothyroxine Sodium [Synthroid 50 mcg PO DAILY 01/17/21 02/21/21 History 50mcg (0.05mg) tab] Loratadine [Allergy Relief] 10 mg PO DAILY 01/17/21 02/21/21 History Rivaroxaban [Xarelto 20mg Tablet*] 20 mg PO QPMWITHMEAL 01/17/21 02/21/21 History lisinopriL [Lisinopril 2.5mg Tab] 2.5 mg PO DAILY 01/17/21 02/21/21 History furosemide 20 mg tablet 20 mg PO DAILY 01/29/21 02/21/21 History metformin 500 mg tablet 500 mg PO BID #60 tab 02/12/21 02/21/21 Rx bisoproloL fumarate [Bisoprolol 2.5 mg PO DAILY 02/21/21 02/21/21 History Fumarate] Oxycodone HCl [Oxycodone 5mg tab 5 mg PO Q3MINP PRN 10 Days #60 tab 02/24/21 Rx (IR)] Dapagliflozin Propanediol [Farxiga] 5 mg PO DAILY 30 Days #30 tab 02/26/21 Rx Height: 1.8 m Weight: 82.554 kg Laboratory Results:: Laboratory Results - last 24 hr 03/03/21 11:46: POC Glucose 212 H 03/04/21 05:22: POC Glucose 140 H 03/04/21 08:54: Sodium 135 L, Potassium 3.5, Chloride 98, Carbon Dioxide 28, Anion Gap 12.5, BUN 39 H, Creatinine 1.50 H, Estimated Creat Clear 57, Estimated GFR 47 L, Est GFR ( Amer) 57 L, Glucose 145 H, Calcium 7.5 L 03/04/21 09:05: WBC 13.0 H D, RBC 3.39 L, Hgb 9.7 L, Hct 30.2 L, MCV 89.1, MCH 28.7, MCHC 32.2, RDW 16.0, Plt Count 177, MPV 12.8 H, Neut % (Auto) 90.5 H, Lymph % (Auto) 5.1 L, [place] % (Auto) 4.1, Eos % (Auto) 0.1, Baso % (Auto) 0.1, Neut # (Auto) 11.8 H, Lymph # (Auto) 0.7, [place] # (Auto) 0.5, Eos # (Auto) 0.0, Baso # (Auto) 0.0, Total Counted 100, Neutrophils % (Manual) 88 H, Lymphocytes % (Manual) 11, Monocytes % (Manual) 1 L, Nucleated RBCs 1, Platelet Estimate Normal, Hypochromasia 1+, Macrocytosis 1+ Medical History: Reports:: Atrial Fibrillation, Congestive Heart Failure, Chronic Obstructive Pulmonary Disease (COPD), Coronary Artery Disease, Diabetes Mellitus Type 2, Hyperlipidemia, Hypertension, Internal Pacemaker, Myocardial Infarction, Peripheral Artery Disease Denies:: Cancer, Diabetes Mellitus Type 1, MRSA, Seizures Assessment and Plan (1) COVID Status: Acute Category: Medical Code(s): U07.1 - COVID-19 (2) Systolic heart failure Status: Chronic Qualifiers: Heart failure chronicity: unspecified Qualified Code(s): I50.20 - Unspecified systolic (congestive) heart failure Category: Medical Code(s): I50.20 - Unspecified systolic (congestive) heart failure (3) Osteomyelitis of left foot Status: Acute Category: Medical Code(s): M86.9 - Osteomyelitis, unspecified (4) Type 2 diabetes mellitus Status: Acute Qualifiers: Diabetes mellitus ferry terminal agent insulin use: with ferry terminal agent use Diabetes mellitus complication status: with kidney complications Diabetes mellitus complication detail: with chronic kidney disease Chronic kidney disease stage: unspecified stage Qualified Code(s): E11.22 - Type 2 diabetes mellitus with diabetic chronic kidney disease; Z79.4 - intermodal dispatcher (current) use of insulin Category: Medical Code(s): E11.9 - Type 2 diabetes mellitus without complications (5) AICD (automatic cardioverter/defibrillator) present Status: Chronic Category: Surgical Code(s): Z95.810 - Presence of automatic (implantable) cardiac defibrillator (6) CAD (coronary artery disease) Status: Chronic Qualifiers: Coronary Disease-Associated Artery/Lesion type: na
--- NOTE | 2021-03-04 18:40 | PC.NURSE ---
Dressing removed on to LLE. Surgical site w/ bishnu noted. Scant amount of serosang drainage noted. Xeroform placed on site per Dr. Matos's request, as well as sterile 4x4, wrapped w/ kerlex and aleah wrap. No complaints voiced. Pt has had 4 liquid stools this shift, stool sample sent to lab. Voiding w/o difficulty since removal of andre cath.
--- NOTE | 2021-03-04 21:33 | HMH.ORTHPN ---
Subjective Date: 03/04/21 Time: 21:33 Principal diagnosis: Left foot osteomyelitis status post below-knee amputation, chf Interval history: Dressing changed hours prior, 4x4s with drainage. Anterior incision red, murky drainage. PN: Obj Ex Vital signs: Temp Pulse Resp BP Pulse Ox 97.9 F 75 16 100/66 L 89 L 03/04/21 20:00 03/04/21 20:00 03/04/21 20:00 03/04/21 20:00 03/04/21 20:00 - Constitutional no acute distress - Routine Respiratory Exam Absent: accessory muscle use, respiratory distress - Routine Cardiovascular Exam Present: RRR - Detailed Lower Extremity Exam Lower leg: Left wound (Anterior incision red, murky drainage.) - Urinary Catheter Management [place] Cath placed during this visit: no Progress Note: A&P (1) COVID Status: Acute (2) Systolic heart failure Status: Chronic (3) Osteomyelitis of left foot Status: Acute (4) Type 2 diabetes mellitus Status: Acute (5) AICD (automatic cardioverter/defibrillator) present Status: Chronic (6) CAD (coronary artery disease) Status: Chronic (7) CHF (congestive heart failure), NYHA class IV Status: Chronic (8) Diabetes mellitus Status: Chronic (9) HLD (hyperlipidemia) Status: Chronic (10) HTN (hypertension) Status: Chronic (11) History of amputation below knee Status: Chronic Assessment and plan: Given drainage 10 days postop, plan for MRI to assess for fluid collection. Anticipate surgery midday Wednesday, left stump I&D, incisional wound VAC. (12) Ischemic cardiomyopathy Status: Chronic (13) PAD (peripheral artery disease) Status: Chronic (14) Tobacco use Status: Chronic (15) Hypothyroid Status: Chronic (16) Anemia Status: Acute (17) Atrial fibrillation Status: Acute
[2021-03-04 21:45] LABS: POC Glucose,Bedside 140 (70-110)
[2021-03-04 21:45] LABS: POC Glucose,Bedside 154 (70-110)
[2021-03-04 21:45] LABS: POC Glucose,Bedside 180 (70-110)
[2021-03-04 23:36] LABS: Adenovirus F 40/41, stool Not Detected (NotDetected); Astrovirus Not Detected (NotDetected); Campylobacter Not Detected (NotDetected); Clostridium Difficile A/B, PCR Not Detected (NotDetected); Cryptosporidium Not Detected (NotDetected); Cyclospora Cayetanesis Not Detected (NotDetected); Entamoeba histolytica Not Detected (NotDetected); Enteroaggregative E coli Not Detected (NotDetected); Enterotoxigenic E coli Not Detected (NotDetected); Giardia lamblia Not Detected (NotDetected); Norovirus Not Detected (NotDetected); Plesimonas Shigalloides, PCR Not Detected (NotDetected); Rotavirus A Not Detected (NotDetected); Salmonella, PCR Not Detected (NotDetected); Sapovirus Not Detected (NotDetected); Shiga-like toxin E coli Not Detected (NotDetected); Shigella Enterovasive E coli Not Detected (NotDetected); Vibrio Cholerae Not Detected (NotDetected); Vibrio, PCR Not Detected (NotDetected); Yersinia Entercolitica, PCR Not Detected (NotDetected)
[2021-03-05] VITALS (8 sets, daily range): BP systolic 88–105; BP diastolic 45–69; PULSE 70–90; RESP 15–19; TEMP 36.4–37.7; O2SAT 89–98; BMI 25.2
[2021-03-05 01:07] LABS: Enteropathogenic E coli Detected (NotDetected)
--- NOTE | 2021-03-05 05:50 | PC.NURSE ---
pt has rested majority of this shift. no c/o pain or discomfort voiced. no BMs this shift. pt uses urinal independently. yellow urine noted. resting in bed at this time. call light within reach.
[2021-03-05 05:53] LABS: POC Glucose,Bedside 135 (70-110)
[2021-03-05 06:24] LABS: Anion Gap 12.3 mEq/L (5-15); Blood Urea Nitrogen 41 mg/dl (9-20); Calcium 7.5 mg/dl (8.4-10.2); Carbon Dioxide 27 mmol/L (22.0-30.0); Chloride 100 mmol/L (98-107); Creatinine Clearance Estimated 60 mL/min (50-200); Estimated Glomerular Filt Rate 51 ml/min (>60); GFR (African American) 61 ML/MIN (>60); Glucose 139 mg/dl (74-100); Potassium 3.3 mmoL/L (3.5-5.1); Sodium 136 mmol/L (136-145)
[2021-03-05 07:41] LABS: Basophils % 0.2 % (0.1-2.0); Eosinophils % 0.1 % (0.1-12.0); Hematocrit 33.8 % (42.0-52.0); Lymphocytes # 0.8 K/mm3 (0.7-4.5); Lymphocytes % 7.8 % (10-50); Mean Corpuscular HGB Conc 29.5 g/dL (31.8-35.4); Mean Corpuscular Volume 94.7 fl (80-94); Mean Platelet Volume 10.6 fl (7.4-10.4); Monocytes # 0.8 K/mm3 (0.1-1.0); Monocytes % 8.4 % (1.7-9.3); Neutrophils # 8.3 K/mm3 (1.8-7.8); Neutrophils % 83.4 % (37.0-80.0); Platelet Count 172 K/mm3 (142-424); Red Blood Count 3.57 M/mm3 (4.60-6.20); Red Cell Distribution Width 15.3 % (11.5-17.5)
--- NOTE | 2021-03-05 09:46 | CT_ITS ---
PROCEDURE: CT LOWER LEG LT W CON CLINICAL HISTORY: drainage from surgical site S/p BKA the with drainage from surgical site COMPARISON: No exams were available for comparison TECHNIQUE: 75 mL Isovue 370 Axial images obtained with sagittal and coronal reformats. All CT scans at the facility use one or more dose reduction, viz: automated exposure control, ma/kV adjustment per patient size (including targeted exams where dose is matched to indication, i.e. head), or iterative reconstruction technique. FINDINGS: There are mild osteoarthritic changes of the knee with a small knee joint effusion. Status post below the knee amputation. There is diffuse vascular calcification. There is faint soft tissue calcification in the periosteal region at the stump site. There is a small amount of fluid 1 cm distal to the stump which extends laterally to the skin clips region. Small amount of soft tissue gas is present in this area. There is increased density along the skin surface at this area which could be due to an overlying dressing or even puckering of the skin. No definite bony erosive process that would indicate acute osteomyelitis. There is a small amount of soft tissue gas along distal aspect of the stump laterally and along the anterior aspect of the fluid collection. IMPRESSION: Status post left BKA with postsurgical changes. No evidence of acute osteomyelitis Small fluid collection along the distal and lateral aspect of the stump as described above containing a few small foci of gas bubbles. It is uncertain whether this is a sterile collection or infectious. Please correlate with patient's type of drainage. It is very difficult to measure the fluid collection as it is not well circumscribed. The length of the collection is approximately 3-4 cm extending medial to lateral with a thickness approximating 6 mm. Dictated by: Bruno Delgado MD 03/05/2021 12:35 Bruno Delgado MD in [facility] 03/05/2021 12:35
--- NOTE | 2021-03-05 09:58 | PC.NURSE ---
Holly w/ Andra in ortho office, received orders from Dr. Matos for CT of LLE w/ contrast. Also possible plan for surgery Wednesday pending CT results.
[2021-03-05 11:14] LABS: POC Glucose,Bedside 202 (70-110)
--- NOTE | 2021-03-05 14:01 | HMH.ACPN2 ---
Internal Medicine - PN: Subj *Date: 03/05/21 *Time: 08:30 Interval history: pt states he feels well dressing intact Exam Vital signs and Labs for Last 24 Hours: Temp Pulse Resp BP Pulse Ox 98.0 F 72 17 94/59 L 96 03/05/21 11:24 03/05/21 11:24 03/05/21 11:24 03/05/21 11:24 03/05/21 11:24 Laboratory Results - last 24 hr 03/04/21 11:30: POC Glucose 154 H 03/04/21 15:50: POC Glucose 180 H 03/04/21 17:01: Stl Aeromonas (PCR) Not detected, Stl C. cayetanensis PCR Not detected, Stool Rotavirus (PCR) Not detected, Stl Adenov F 40/41 PCR Not detected, Stool Astrovirus (PCR) Not detected, Stool Campylobacter PCR Not detected, Stl C.difficile Tox PCR Not detected, Stool Cryptosporidium PCR Not detected, Stl E.coli Shiga Tox PCR Not detected, Stool E coli O157 PCR Not detected, Stl Enterotoxigenic E PCR Not detected, Stool EPEC (PCR) Detected A, Stool EAEC (PCR) Not detected, Stl E. histolytica PCR Not detected, Stool Giardia [place]lia PCR Not detected, Stool Salmonella PCR Not detected, Stool Sapovirus (PCR) Not detected, Stl P. shigelloides PCR Not detected, Stl Shigella/EIEC PCR Not detected, St Y.enterocolitica PCR Not detected, Stool Vibrio (PCR) Not detected, Stl Vibrio cholerae PCR Not detected, Stl Norovirus GI/GII PCR Not detected 03/04/21 21:31: POC Glucose 140 H 03/05/21 05:43: Sodium 136, Potassium 3.3 L, Chloride 100, Carbon Dioxide 27, Anion Gap 12.3, BUN 41 H, Creatinine 1.40 H, Estimated Creat Clear 60, Estimated GFR 51 L, Est GFR ( Amer) 61, Glucose 139 H, Calcium 7.5 L 03/05/21 05:43: WBC 10.0, RBC 3.57 L, Hgb 10.0 L, Hct 33.8 L, MCV 94.7 H, MCH 28.0, MCHC 29.5 L, RDW 15.3, Plt Count 172, MPV 10.6 H, Neut % (Auto) 83.4 H, Lymph % (Auto) 7.8 L, [place] % (Auto) 8.4, Eos % (Auto) 0.1, Baso % (Auto) 0.2, Neut # (Auto) 8.3 H, Lymph # (Auto) 0.8, [place] # (Auto) 0.8, Eos # (Auto) 0.0, Baso # (Auto) 0.0 03/05/21 05:43: POC Glucose 135 H 03/05/21 11:01: POC Glucose 202 H I & O for Last 24 hours: Intake & Output 03/03/21 03/04/21 03/05/21 03/06/21 11:59 11:59 11:59 11:59 Intake Total 480 / 480 60 / 60 550 / 550 Output Total 1950 / 1950 1150 / 1150 1200 / 1200 Balance -1470 / -1470 -1090 / -1090 -650 / -650 Weight 187 lb 5 oz 182 lb 180 lb 2 oz - Constitutional no acute distress, chronically ill appearing - *Routine HEENT Exam Head: Present: normocephalic Eye: Present: PERRL ENT: Present: mucous membranes moist - *Routine Neck Exam Present: supple. Absent: lymphadenopathy - *Routine Respiratory Exam Present: CTA bilaterally - *Routine Cardiovascular Exam Present: RRR - *Routine Abdominal Exam Present: soft, normoactive bowel sounds. Absent: tenderness - *Routine Extremities Exam Present: amputation. Absent: cyanosis, clubbing, edema Comments: rt bka left aka - *Routine Skin Exam Present: warm, wounds. Absent: rash Comments: dressing in place - *Routine Neurological Exam Present: alert, oriented X3 Assessment and Plan (1) COVID Status: Acute Category: Medical Code(s): U07.1 - COVID-19 (2) Systolic heart failure Status: Chronic Qualifiers: Heart failure chronicity: unspecified Qualified Code(s): I50.20 - Unspecified systolic (congestive) heart failure Category: Medical Code(s): I50.20 - Unspecified systolic (congestive) heart failure (3) Osteomyelitis of left foot Status: Acute Category: Medical Code(s): M86.9 - Osteomyelitis, unspecified (4) Type 2 diabetes mellitus Status: Acute Qualifiers: Diabetes mellitus bed bug exterminator insulin use: with half-way use Diabetes mellitus complication status: with kidney complications Diabetes mellitus complication detail: with chronic kidney disease Chronic kidney disease stage: unspecified stage Qualified Code(s): E11.22 - Type 2 diabetes mellitus with diabetic chronic kidney disease; Z79.4 - correction (current) use of insulin Category: Medical Code(s): E11.9 - Type 2 diabetes mellit
[2021-03-05 16:26] LABS: POC Glucose,Bedside 131 (70-110)
--- NOTE | 2021-03-05 17:35 | PC.NURSE ---
No acute changes. Remains on room air. Sat up in chair for about 2 hours this shift. Requires mod assistance when transferring from bed to chair. Dressing to LLE C/D/I. Dressing to coccyx changed. Pt is able to turn independently, encouraged to turn and reposition. Pt did have one liquid stool this AM. Voiding per urinal w/o difficulty. Urine is clear, patricia. Appetite remains extremely poor. No complaints of pain. Call lauro w/in reach.
[2021-03-05 21:01] LABS: POC Glucose,Bedside 128 (70-110)
[2021-03-06] VITALS (7 sets, daily range): BP systolic 80–96; BP diastolic 46–59; PULSE 58–80; RESP 18–22; TEMP 36.6–37.2; O2SAT 93–95; BMI 25.1
--- NOTE | 2021-03-06 04:47 | PC.NURSE ---
Addendum entered by Pamela Hensley RN 03/06/21 06:15: pt requested pain medication r/t c/o bilat hip pain. given per jul. effectiveness noted. Original Note: no acute changes this shift. remains on room air w/ o2 noted >90%. uses urinal independently w/ patricia colored urine noted. no BMs this shift. dressing to LLE remains c/d/i. encouraged to turn and reposition often. no c/o pain or discomfort voiced.
[2021-03-06 05:46] LABS: POC Glucose,Bedside 126 (70-110)
[2021-03-06 06:41] LABS: Basophils % 0.2 % (0.1-2.0); Eosinophils # 0.1 K/mm3 (0.0-0.4); Eosinophils % 0.4 % (0.1-12.0); Hematocrit 32.6 % (42.0-52.0); Lymphocytes # 1.1 K/mm3 (0.7-4.5); Lymphocytes % 9.1 % (10-50); Mean Corpuscular HGB Conc 30.7 g/dL (31.8-35.4); Mean Corpuscular Hemoglobin 28.1 pg (27.0-31.2); Mean Corpuscular Volume 91.6 fl (80-94); Mean Platelet Volume 10.4 fl (7.4-10.4); Monocytes # 1.3 K/mm3 (0.1-1.0); Monocytes % 10.8 % (1.7-9.3); Neutrophils # 9.5 K/mm3 (1.8-7.8); Neutrophils % 79.4 % (37.0-80.0); Platelet Count 190 K/mm3 (142-424); Red Blood Count 3.55 M/mm3 (4.60-6.20); Red Cell Distribution Width 15.8 % (11.5-17.5); White Blood Count 11.9 K/mm3 (4.8-10.8)
--- NOTE | 2021-03-06 09:17 | HMH.ACPN2 ---
Internal Medicine - PN: Subj *Date: 03/06/21 *Time: 16:41 Interval history: 66-year-old male patient sitting up in bed resting quietly no respiratory distress noted. Oxygenation 95% on room air, he denies any shortness of breath or respiratory distress during the night. Dressing to left BKA clean dry and intact. He reports tolerating all meals without nausea/vomiting Exam Vital signs and Labs for Last 24 Hours: Temp Pulse Resp BP Pulse Ox 98.1 F 75 19 80/46 L 93 L 03/06/21 08:00 03/06/21 08:00 03/06/21 08:00 03/06/21 08:00 03/06/21 08:00 Laboratory Results - last 24 hr 03/05/21 11:01: POC Glucose 202 H 03/05/21 16:18: POC Glucose 131 H 03/05/21 20:40: POC Glucose 128 H 03/06/21 05:31: POC Glucose 126 H 03/06/21 05:38: WBC 11.9 H, RBC 3.55 L, Hgb 10.0 L, Hct 32.6 L, MCV 91.6, MCH 28.1, MCHC 30.7 L, RDW 15.8, Plt Count 190, MPV 10.4, Neut % (Auto) 79.4, Lymph % (Auto) 9.1 L, [place] % (Auto) 10.8 H, Eos % (Auto) 0.4, Baso % (Auto) 0.2, Neut # (Auto) 9.5 H, Lymph # (Auto) 1.1, [place] # (Auto) 1.3 H, Eos # (Auto) 0.1, Baso # (Auto) 0.0 I & O for Last 24 hours: Intake & Output 03/03/21 03/04/21 03/05/21 03/06/21 23:59 23:59 23:59 23:59 Intake Total 610 / 610 300 / 300 Output Total 1700 / 1700 700 / 1000 700 / 1100 875 / 875 Balance -1700 / -1700 -90 / -390 -400 / -800 -875 / -875 Weight 187 lb 5 oz 182 lb 180 lb 2 oz 179 lb 11.2 oz - Constitutional no acute distress - *Routine HEENT Exam Head: Present: normocephalic Eye: Present: EOMI ENT: Present: mucous membranes moist - *Routine Neck Exam Present: supple, trachea midline. Absent: tracheal deviation - *Routine Respiratory Exam Present: CTA bilaterally. Absent: accessory muscle use - *Routine Cardiovascular Exam Present: RRR - *Routine Abdominal Exam Present: soft, normoactive bowel sounds. Absent: tenderness, firm - *Routine Extremities Exam Present: full ROM, pulses intact, amputation. Absent: cyanosis, clubbing - *Routine Skin Exam Present: intact, dry, warm. Absent: cyanosis, erythema - *Routine Neurological Exam Present: alert, oriented X3. Absent: motor deficit - Routine Psychiatric Exam Present: normal affect, normal thought process. Absent: auditory hallucinations Assessment and Plan (1) COVID Status: Acute Category: Medical Code(s): U07.1 - COVID-19 (2) Systolic heart failure Status: Chronic Qualifiers: Heart failure chronicity: unspecified Qualified Code(s): I50.20 - Unspecified systolic (congestive) heart failure Category: Medical Code(s): I50.20 - Unspecified systolic (congestive) heart failure (3) Osteomyelitis of left foot Status: Acute Category: Medical Code(s): M86.9 - Osteomyelitis, unspecified (4) Type 2 diabetes mellitus Status: Acute Qualifiers: Diabetes mellitus skilled nursing insulin use: with skilled nursing use Diabetes mellitus complication status: with kidney complications Diabetes mellitus complication detail: with chronic kidney disease Chronic kidney disease stage: unspecified stage Qualified Code(s): E11.22 - Type 2 diabetes mellitus with diabetic chronic kidney disease; Z79.4 - terminal gauger (current) use of insulin Category: Medical Code(s): E11.9 - Type 2 diabetes mellitus without complications (5) AICD (automatic cardioverter/defibrillator) present Status: Chronic Category: Surgical Code(s): Z95.810 - Presence of automatic (implantable) cardiac defibrillator (6) CAD (coronary artery disease) Status: Chronic Qualifiers: Coronary Disease-Associated Artery/Lesion type: [place] artery [place] vs. transplanted heart: [place] heart Associated angina: without angina Qualified Code(s): I25.10 - Atherosclerotic heart disease of [place] coronary artery without angina pectoris Category: Medical Code(s): I25.10 - Atherosclerotic heart disease of [place] coronary artery without angina pectoris (7) CHF (congestive heart failure), NYHA cl
[2021-03-06 11:25] LABS: Chloride 98 mmol/L (98-107); Potassium 3.4 mmoL/L (3.5-5.1); Sodium 136 mmol/L (136-145)
[2021-03-06 11:28] LABS: Anion Gap 12.4 mEq/L (5-15); Blood Urea Nitrogen 43 mg/dl (9-20); Calcium 7.6 mg/dl (8.4-10.2); Carbon Dioxide 29 mmol/L (22.0-30.0); Creatinine Clearance Estimated 56 mL/min (50-200); Estimated Glomerular Filt Rate 47 ml/min (>60); GFR (African American) 57 ML/MIN (>60); Glucose 158 mg/dl (74-100)
[2021-03-06 11:41] LABS: POC Glucose,Bedside 176 (70-110)
[2021-03-06 12:42] LABS: Vancomycin,Trough 16.8 ug/mL (5.0-10.0)
--- NOTE | 2021-03-06 13:35 | HMH.PHACONS ---
- Pharmacy Consult Date: 03/06/21 Time: 13:35 Referring provider: DR. TOLENTINO Reason for Consult:: VANCOMYCIN LEVELS Allergies and ADEs:: Allergies Allergy/AdvReac Type Severity Reaction Status Date / Time No Known Allergies Allergy Verified 02/21/21 09:56 Home Medications:: Home Medications Medication Instructions Recorded Confirmed Type Aspirin [Low Dose Aspirin EC] 81 mg PO DAILY 01/17/21 02/21/21 History Atorvastatin Calcium [Lipitor 40mg 40 mg PO DAILY 01/17/21 02/21/21 History Tab] Docusate Sodium 100 mg PO BID 01/17/21 02/21/21 History Ergocalciferol (Vitamin D2) 1,250 mg PO WEEKLY 01/17/21 02/21/21 History [Drisdol] Levothyroxine Sodium [Synthroid 50 mcg PO DAILY 01/17/21 02/21/21 History 50mcg (0.05mg) tab] Loratadine [Allergy Relief] 10 mg PO DAILY 01/17/21 02/21/21 History Rivaroxaban [Xarelto 20mg Tablet*] 20 mg PO QPMWITHMEAL 01/17/21 02/21/21 History lisinopriL [Lisinopril 2.5mg Tab] 2.5 mg PO DAILY 01/17/21 02/21/21 History furosemide 20 mg tablet 20 mg PO DAILY 01/29/21 02/21/21 History metformin 500 mg tablet 500 mg PO BID #60 tab 02/12/21 02/21/21 Rx bisoproloL fumarate [Bisoprolol 2.5 mg PO DAILY 02/21/21 02/21/21 History Fumarate] Oxycodone HCl [Oxycodone 5mg tab 5 mg PO Q3MINP PRN 10 Days #60 tab 02/24/21 Rx (IR)] Dapagliflozin Propanediol [Farxiga] 5 mg PO DAILY 30 Days #30 tab 02/26/21 Rx Height: 1.8 m Weight: 81.511 kg Laboratory Results:: Laboratory Results - last 24 hr 03/05/21 16:18: POC Glucose 131 H 03/05/21 20:40: POC Glucose 128 H 03/06/21 05:31: POC Glucose 126 H 03/06/21 05:38: WBC 11.9 H, RBC 3.55 L, Hgb 10.0 L, Hct 32.6 L, MCV 91.6, MCH 28.1, MCHC 30.7 L, RDW 15.8, Plt Count 190, MPV 10.4, Neut % (Auto) 79.4, Lymph % (Auto) 9.1 L, [place] % (Auto) 10.8 H, Eos % (Auto) 0.4, Baso % (Auto) 0.2, Neut # (Auto) 9.5 H, Lymph # (Auto) 1.1, [place] # (Auto) 1.3 H, Eos # (Auto) 0.1, Baso # (Auto) 0.0 03/06/21 11:00: Sodium 136, Potassium 3.4 L, Chloride 98, Carbon Dioxide 29, Anion Gap 12.4, BUN 43 H, Creatinine 1.50 H, Estimated Creat Clear 56, Estimated GFR 47 L, Est GFR ( Amer) 57 L, Glucose 158 H, Calcium 7.6 L 03/06/21 11:00: Vancomycin Trough 16.8 H 03/06/21 11:17: POC Glucose 176 H Medical History: Reports:: Atrial Fibrillation, Congestive Heart Failure, Chronic Obstructive Pulmonary Disease (COPD), Coronary Artery Disease, Diabetes Mellitus Type 2, Hyperlipidemia, Hypertension, Internal Pacemaker, Myocardial Infarction, Peripheral Artery Disease Denies:: Cancer, Diabetes Mellitus Type 1, MRSA, Seizures Assessment and Plan (1) COVID Status: Acute Category: Medical Code(s): U07.1 - COVID-19 (2) Systolic heart failure Status: Chronic Qualifiers: Heart failure chronicity: unspecified Qualified Code(s): I50.20 - Unspecified systolic (congestive) heart failure Category: Medical Code(s): I50.20 - Unspecified systolic (congestive) heart failure (3) Osteomyelitis of left foot Status: Acute Category: Medical Code(s): M86.9 - Osteomyelitis, unspecified (4) Type 2 diabetes mellitus Status: Acute Qualifiers: Diabetes mellitus extermination inspector insulin use: with extermination inspector use Diabetes mellitus complication status: with kidney complications Diabetes mellitus complication detail: with chronic kidney disease Chronic kidney disease stage: unspecified stage Qualified Code(s): E11.22 - Type 2 diabetes mellitus with diabetic chronic kidney disease; Z79.4 - intermediate card tender (current) use of insulin Category: Medical Code(s): E11.9 - Type 2 diabetes mellitus without complications (5) AICD (automatic cardioverter/defibrillator) present Status: Chronic Category: Surgical Code(s): Z95.810 - Presence of automatic (implantable) cardiac defibrillator (6) CAD (coronary artery disease) Status: Chronic Qualifiers: Coronary Disease-Associated Artery/Lesion type: [place] artery [place] vs. transplanted heart: [place] heart Assoc
--- NOTE | 2021-03-06 15:23 | PC.NURSE ---
Patient is 100% atrial paced rhythm on the monitor. Patient is on room air. Patient is assist times two, urinal in reach. No complaints from patient, patient states I have felt better today than I have since I came in . Plan of care, patient could possible have I&D of Left leg on 03/07. Bed in lowest position, phone and call light in reach. Will continue to monitor.
[2021-03-06 17:16] LABS: POC Glucose,Bedside 161 (70-110)
[2021-03-07] VITALS (25 sets, daily range): BP systolic 75–104; BP diastolic 45–60; PULSE 60–92; RESP 12–23; TEMP 36.4–37.3; O2SAT 90–100; BMI 54.6
[2021-03-07 06:30] LABS: POC Glucose,Bedside 181 (70-110)
[2021-03-07 07:00] LABS: Basophils % 0.2 % (0.1-2.0); Eosinophils # 0.1 K/mm3 (0.0-0.4); Hematocrit 30.5 % (42.0-52.0); Hemoglobin 9.6 g/dL (14.1-18.0); Lymphocytes # 1.3 K/mm3 (0.7-4.5); Lymphocytes % 10.7 % (10-50); Mean Corpuscular HGB Conc 31.3 g/dL (31.8-35.4); Mean Corpuscular Hemoglobin 28.3 pg (27.0-31.2); Mean Corpuscular Volume 90.5 fl (80-94); Mean Platelet Volume 11.2 fl (7.4-10.4); Monocytes # 1.1 K/mm3 (0.1-1.0); Monocytes % 9.8 % (1.7-9.3); Neutrophils # 9.2 K/mm3 (1.8-7.8); Neutrophils % 78.3 % (37.0-80.0); Platelet Count 193 K/mm3 (142-424); Red Blood Count 3.38 M/mm3 (4.60-6.20); White Blood Count 11.7 K/mm3 (4.8-10.8)
--- NOTE | 2021-03-07 07:37 | PC.NURSE ---
No acute changes this shift. Pt has slept at times. C/O discomfort to back and bottom x1. Medicated per jul. Pt turned and repositioned. VSS. Pt remains on RA. Will continue to monitor.
[2021-03-07 08:12] LABS: Anion Gap 11.4 mEq/L (5-15); Blood Urea Nitrogen 50 mg/dl (9-20); Calcium 7.4 mg/dl (8.4-10.2); Carbon Dioxide 27 mmol/L (22.0-30.0); Chloride 100 mmol/L (98-107); Creatinine Clearance Estimated 47 mL/min (50-200); Estimated Glomerular Filt Rate 43 ml/min (>60); GFR (African American) 53 ML/MIN (>60); Glucose 150 mg/dl (74-100); Potassium 3.4 mmoL/L (3.5-5.1); Sodium 135 mmol/L (136-145)
--- NOTE | 2021-03-07 09:06 | HMH.ACPN2 ---
Internal Medicine - PN: Subj *Date: 03/07/21 *Time: 09:06 Exam Vital signs and Labs for Last 24 Hours: Temp Pulse Resp BP Pulse Ox 98.9 F 75 21 92/51 L 96 03/07/21 08:00 03/07/21 08:00 03/07/21 08:00 03/07/21 08:00 03/07/21 08:00 Laboratory Results - last 24 hr 03/06/21 11:00: Sodium 136, Potassium 3.4 L, Chloride 98, Carbon Dioxide 29, Anion Gap 12.4, BUN 43 H, Creatinine 1.50 H, Estimated Creat Clear 56, Estimated GFR 47 L, Est GFR ( Amer) 57 L, Glucose 158 H, Calcium 7.6 L 03/06/21 11:00: Vancomycin Trough 16.8 H 03/06/21 11:17: POC Glucose 176 H 03/06/21 15:28: Vancomycin Peak 36.0 03/06/21 17:03: POC Glucose 161 H 03/07/21 05:43: WBC 11.7 H, RBC 3.38 L, Hgb 9.6 L, Hct 30.5 L, MCV 90.5, MCH 28.3, MCHC 31.3 L, RDW 16.0, Plt Count 193, MPV 11.2 H, Neut % (Auto) 78.3, Lymph % (Auto) 10.7, [place] % (Auto) 9.8 H, Eos % (Auto) 1.0, Baso % (Auto) 0.2, Neut # (Auto) 9.2 H, Lymph # (Auto) 1.3, [place] # (Auto) 1.1 H, Eos # (Auto) 0.1, Baso # (Auto) 0.0 03/07/21 05:43: Sodium 135 L, Potassium 3.4 L, Chloride 100, Carbon Dioxide 27, Anion Gap 11.4, BUN 50 H, Creatinine 1.60 H, Estimated Creat Clear 47, Estimated GFR 43 L, Est GFR ( Amer) 53 L, Glucose 150 H, Calcium 7.4 L 03/07/21 06:23: POC Glucose 181 H I & O for Last 24 hours: Intake & Output 03/04/21 03/05/21 03/06/21 03/07/21 23:59 23:59 23:59 23:59 Intake Total 610 / 610 300 / 300 300 / 300 Output Total 700 / 1000 700 / 1100 875 / 1125 250 / 250 Balance -90 / -390 -400 / -800 -575 / -825 -250 / -250 Weight 82.554 kg 81.703 kg 81.511 kg 177.2 kg Assessment and Plan (1) COVID Status: Acute Category: Medical Code(s): U07.1 - COVID-19 (2) Systolic heart failure Status: Chronic Qualifiers: Heart failure chronicity: unspecified Qualified Code(s): I50.20 - Unspecified systolic (congestive) heart failure Category: Medical Code(s): I50.20 - Unspecified systolic (congestive) heart failure (3) Osteomyelitis of left foot Status: Acute Category: Medical Code(s): M86.9 - Osteomyelitis, unspecified (4) Type 2 diabetes mellitus Status: Acute Qualifiers: Diabetes mellitus assisted insulin use: with moth exterminator use Diabetes mellitus complication status: with kidney complications Diabetes mellitus complication detail: with chronic kidney disease Chronic kidney disease stage: unspecified stage Qualified Code(s): E11.22 - Type 2 diabetes mellitus with diabetic chronic kidney disease; Z79.4 - moth exterminator (current) use of insulin Category: Medical Code(s): E11.9 - Type 2 diabetes mellitus without complications (5) AICD (automatic cardioverter/defibrillator) present Status: Chronic Category: Surgical Code(s): Z95.810 - Presence of automatic (implantable) cardiac defibrillator (6) CAD (coronary artery disease) Status: Chronic Qualifiers: Coronary Disease-Associated Artery/Lesion type: [place] artery [place] vs. transplanted heart: [place] heart Associated angina: without angina Qualified Code(s): I25.10 - Atherosclerotic heart disease of [place] coronary artery without angina pectoris Category: Medical Code(s): I25.10 - Atherosclerotic heart disease of [place] coronary artery without angina pectoris (7) CHF (congestive heart failure), NYHA class IV Status: Chronic Qualifiers: Congestive heart failure type: unspecified Qualified Code(s): I50.9 - Heart failure, unspecified Category: Medical Code(s): I50.9 - Heart failure, unspecified (8) Diabetes mellitus Status: Chronic Qualifiers: Diabetes mellitus type: type 2 Diabetes mellitus assisted insulin use: without assisted use Diabetes mellitus complication status: without complication Qualified Code(s): E11.9 - Type 2 diabetes mellitus without complications Category: Medical Code(s): E11.9 - Type 2 diabetes mellitus without complications (9) HLD (hyperlipidemia) Status: Chronic Qualifiers: Hyperlipid
--- NOTE | 2021-03-07 09:44 | HMH.ACPN2 ---
Internal Medicine - PN: Subj *Date: 03/07/21 *Time: 08:30 Interval history: dressing removed, redness noted bishnu intact, drainage present. Exam Vital signs and Labs for Last 24 Hours: Temp Pulse Resp BP Pulse Ox 98.9 F 75 21 92/51 L 96 03/07/21 08:00 03/07/21 08:00 03/07/21 08:00 03/07/21 08:00 03/07/21 08:00 Laboratory Results - last 24 hr 03/06/21 11:00: Sodium 136, Potassium 3.4 L, Chloride 98, Carbon Dioxide 29, Anion Gap 12.4, BUN 43 H, Creatinine 1.50 H, Estimated Creat Clear 56, Estimated GFR 47 L, Est GFR ( Amer) 57 L, Glucose 158 H, Calcium 7.6 L 03/06/21 11:00: Vancomycin Trough 16.8 H 03/06/21 11:17: POC Glucose 176 H 03/06/21 15:28: Vancomycin Peak 36.0 03/06/21 17:03: POC Glucose 161 H 03/07/21 05:43: WBC 11.7 H, RBC 3.38 L, Hgb 9.6 L, Hct 30.5 L, MCV 90.5, MCH 28.3, MCHC 31.3 L, RDW 16.0, Plt Count 193, MPV 11.2 H, Neut % (Auto) 78.3, Lymph % (Auto) 10.7, [place] % (Auto) 9.8 H, Eos % (Auto) 1.0, Baso % (Auto) 0.2, Neut # (Auto) 9.2 H, Lymph # (Auto) 1.3, [place] # (Auto) 1.1 H, Eos # (Auto) 0.1, Baso # (Auto) 0.0 03/07/21 05:43: Sodium 135 L, Potassium 3.4 L, Chloride 100, Carbon Dioxide 27, Anion Gap 11.4, BUN 50 H, Creatinine 1.60 H, Estimated Creat Clear 47, Estimated GFR 43 L, Est GFR ( Amer) 53 L, Glucose 150 H, Calcium 7.4 L 03/07/21 06:23: POC Glucose 181 H I & O for Last 24 hours: Intake & Output 03/04/21 03/05/21 03/06/21 11/05/21 11:59 11:59 11:59 11:59 Intake Total 60 / 60 550 / 550 300 / 300 300 / 300 Output Total 1150 / 1150 1200 / 1200 1075 / 1075 250 / 250 Balance -1090 / -1090 -650 / -650 -775 / -775 50 / 50 Weight 182 lb 180 lb 2 oz 179 lb 11.2 oz 390 lb 10.546 oz - Constitutional no acute distress, chronically ill appearing - *Routine HEENT Exam Head: Present: normocephalic Eye: Present: PERRL ENT: Present: mucous membranes moist - *Routine Neck Exam Present: supple. Absent: lymphadenopathy - *Routine Respiratory Exam Present: CTA bilaterally - *Routine Cardiovascular Exam Present: RRR - *Routine Abdominal Exam Present: soft, normoactive bowel sounds. Absent: tenderness - *Routine Extremities Exam Present: amputation. Absent: cyanosis, clubbing, edema Comments: left bka, rt aka - *Routine Skin Exam Present: warm. Absent: rash Comments: incision red with cloudy red drainage present - *Routine Neurological Exam Present: alert, oriented X3 Assessment and Plan (1) COVID Status: Acute Category: Medical Code(s): U07.1 - COVID-19 (2) Systolic heart failure Status: Chronic Qualifiers: Heart failure chronicity: unspecified Qualified Code(s): I50.20 - Unspecified systolic (congestive) heart failure Category: Medical Code(s): I50.20 - Unspecified systolic (congestive) heart failure (3) Osteomyelitis of left foot Status: Acute Category: Medical Code(s): M86.9 - Osteomyelitis, unspecified (4) Type 2 diabetes mellitus Status: Acute Qualifiers: Diabetes mellitus scrap hooker insulin use: with chcf use Diabetes mellitus complication status: with kidney complications Diabetes mellitus complication detail: with chronic kidney disease Chronic kidney disease stage: unspecified stage Qualified Code(s): E11.22 - Type 2 diabetes mellitus with diabetic chronic kidney disease; Z79.4 - assisted (current) use of insulin Category: Medical Code(s): E11.9 - Type 2 diabetes mellitus without complications (5) AICD (automatic cardioverter/defibrillator) present Status: Chronic Category: Surgical Code(s): Z95.810 - Presence of automatic (implantable) cardiac defibrillator (6) CAD (coronary artery disease) Status: Chronic Qualifiers: Coronary Disease-Associated Artery/Lesion type: [place] artery [place] vs. transplanted heart: [place] heart Associated angina: without angina Qualified Code(s): I25.10 - Atherosclerotic heart disease of [place] coronary artery without angina pectoris
[2021-03-07 12:53] LABS: POC Glucose,Bedside 185 (70-110)
--- NOTE | 2021-03-07 12:57 | SW/DCPLANNER ---
SENT UPDATED PATIENT INFORMATION TO [facility] TODAY AND SPOKE WITH KAMALJIT VIA PHONE.. I TOLD HER PATIENT WAS NOT MEDICALLY READY FOR A DISPOSITION AT THIS TIME AND SOMEONE WOULD FOLLOW UP ON WEDNESDAY... IF ACCEPTED IT MAY BE REASONABLE FOR PATIENT TO DISCHARGE THERE EARLY NEXT WEEK PENDING NO ADDITIONAL SURGERIES NEEDED...
--- NOTE | 2021-03-07 17:03 | HMH.ORTHPN ---
Subjective Date: 03/07/21 Time: 17:03 Principal diagnosis: Left foot osteomyelitis status post below-knee amputation, chf Interval history: Persistent drainage. CT scan with small fluid collection. PN: Obj Ex Vital signs: Temp Pulse Resp BP Pulse Ox 97.8 F 78 23 104/56 L 90 L 03/07/21 15:45 03/07/21 15:45 03/07/21 15:45 03/07/21 15:45 03/07/21 15:45 - Constitutional no acute distress - Routine Respiratory Exam Absent: accessory muscle use, respiratory distress - Routine Cardiovascular Exam Present: RRR - Detailed Lower Extremity Exam Lower leg: Left wound (Superficial dehiscence, turbid appearing drainage.) - Urinary Catheter Management [place] Cath placed during this visit: no Progress Note: A&P (1) COVID Status: Acute (2) Systolic heart failure Status: Chronic (3) Osteomyelitis of left foot Status: Acute (4) Type 2 diabetes mellitus Status: Acute (5) AICD (automatic cardioverter/defibrillator) present Status: Chronic (6) CAD (coronary artery disease) Status: Chronic (7) CHF (congestive heart failure), NYHA class IV Status: Chronic (8) Diabetes mellitus Status: Chronic (9) HLD (hyperlipidemia) Status: Chronic (10) HTN (hypertension) Status: Chronic (11) History of amputation below knee Status: Chronic Assessment and plan: 66-year-old male status post left below-knee amputation. Superficial wound dehiscence, turbid drainage. Recommended debridement irrigation left lower extremity stump, wound vacuum-assisted closure. He is amenable with the plan. We discussed the risk and benefits of surgery. Risks included but were not limited to pain, bleeding, infection, damage to adjacent structures, need for further surgery, wound healing complications, loss of limb, . Patient expressed verbal consent and written consent was obtained for the above procedure. (12) Ischemic cardiomyopathy Status: Chronic (13) PAD (peripheral artery disease) Status: Chronic (14) Tobacco use Status: Chronic (15) Hypothyroid Status: Chronic (16) Anemia Status: Acute (17) Atrial fibrillation Status: Acute
--- NOTE | 2021-03-07 17:20 | PC.NURSE ---
Patient is on telemetry and paced rhythm. Patient is on room air. Patient went for I&D at [address] Matos. Due to patient being covid positive, two nurses signed consent with verbal consent given from patient. Bed in lowest position and phone and call light in reach. Brother updated on plan of care for surgery.
--- NOTE | 2021-03-07 17:35 | HMH.OPNOTE ---
Date of procedure: 03/07/21 Pre-op Diagnosis:: Wound dehiscence, left lower extremity stump Post-op Diagnosis:: Wound dehiscence, left lower extremity stump Procedure performed:: Debridement and irrigation skin subcutaneous tissue left lower extremity stump, [id number] Surgeon:: Javier Matos JR, MD Anesthesia: GETA Estimated blood loss (mL): 5 Operative findings:: Wound dehiscence superficially across the anterior two thirds of the incision. Deep tissue necrosis laterally. Turbid appearing fluid. Operative note:: Patient was identified in preoperative holding. Operative site was marked in indelible ink. History, physical, consent were reviewed and updated. Patient was surrendered to the anesthesia team, taken to the operative suite, placed supine on a well-padded operative table. Ipsilateral hip bump was placed as was a nonsterile thigh tourniquet. Anesthesia was induced. The operative extremity was prepped and draped in the usual sterile fashion. The operative team donned sterile gowns and gloves and a timeout was called. All in attendance agreed regarding the patient's identity, procedure, operative site. Weight-based dose of antibiotics was given prior to incision. Tourniquet not inflated during this case. Remove his bishnu, noted wound dehiscence on the anterior two thirds of his wound. Laterally, there was wound tracking deep to his gastroc flap and minimal devitalized soft tissue which I debrided. I sharply debrided devitalized skin, copiously irrigated the wound, closed with 2-0 PDS and 2-0 nylon suture. Sterile dressings applied. Counts were correct x2. There were no apparent complications. I was present and scrubbed for the entire case. Condition: stable Disposition: floor Complications:: none
--- NOTE | 2021-03-07 17:38 | P.PN_ITS ---
Subjective Date: 03/07/21 Time: 17:38 Principal diagnosis: Left foot osteomyelitis status post below-knee amputation, chf Interval history: His intraoperative findings, I am concerned about his ability to heal this wound without revascularization procedure. PN: Obj Ex Vital signs: Temp Pulse Resp BP Pulse Ox 97.8 F 75 23 104/56 L 90 L 03/07/21 15:45 03/07/21 16:00 03/07/21 15:45 03/07/21 15:45 03/07/21 15:45 - Urinary Catheter Management Ansari Cath placed during this visit: no Progress Note: A&P (1) COVID Status: Acute (2) Systolic heart failure Status: Chronic (3) Osteomyelitis of left foot Status: Acute (4) Type 2 diabetes mellitus Status: Acute (5) AICD (automatic cardioverter/defibrillator) present Status: Chronic (6) CAD (coronary artery disease) Status: Chronic (7) CHF (congestive heart failure), NYHA class IV Status: Chronic (8) Diabetes mellitus Status: Chronic (9) HLD (hyperlipidemia) Status: Chronic (10) HTN (hypertension) Status: Chronic (11) History of amputation below knee Status: Chronic Assessment and plan: Recommend referral to [facility] for vascular surgery evaluation. If he is unable to heal, he may end up needing above-knee amputation and I think that would be best performed by a vascular specialist. (12) Ischemic cardiomyopathy Status: Chronic (13) PAD (peripheral artery disease) Status: Chronic (14) Tobacco use Status: Chronic (15) Hypothyroid Status: Chronic (16) Anemia Status: Acute (17) Atrial fibrillation Status: Acute
--- NOTE | 2021-03-07 18:13 | HMH.ANESI ---
[facility] Anesthesia Record Part I Intake, IV Amount: 500 Estimated blood loss (mL): 0 Urine output (mL): 0 Blood Pressure: 88/45 SaO2: 95 Pulse Rate: 76 Respiratory Rate: 12 Temperature: 97.9 F Patient is:: Awake, Stable Stable to PACU at:: 18:00
--- NOTE | 2021-03-07 18:55 | PC.NURSE ---
Patient returned from PACU at 1835. Patient on 2L NC. Patient paced rhythm on monitor. I&D on left BKA, no wound vac.
[2021-03-07 19:03] LABS: POC Glucose,Bedside 127 (70-110)
[2021-03-07 20:20] LABS: POC Glucose,Bedside 160 (70-110)
[2021-03-08] VITALS (13 sets, daily range): BP systolic 85–101; BP diastolic 40–59; PULSE 70–81; RESP 15–21; TEMP 36.6–37.3; O2SAT 92–100; BMI 54.6
--- NOTE | 2021-03-08 06:37 | HMH.ORTHPN ---
Subjective Date: 03/08/21 Time: 06:38 Principal diagnosis: Left foot osteomyelitis status post below-knee amputation, chf Interval history: Status post left leg stump debridement irrigation March 07, 2021. PN: Obj Ex Vital signs: Temp Pulse Resp BP Pulse Ox 98 F 80 21 101/59 L 98 03/08/21 04:00 03/08/21 04:00 03/08/21 04:00 03/08/21 04:00 03/08/21 04:00 - Constitutional no acute distress - Routine Respiratory Exam Absent: accessory muscle use, respiratory distress - Routine Cardiovascular Exam Present: RRR - Detailed Lower Extremity Exam Lower leg: Left wound (Lower extremity dressings clean, dry, intact.) - Urinary Catheter Management Ansari Cath placed during this visit: no Progress Note: A&P (1) COVID Status: Acute (2) Systolic heart failure Status: Chronic (3) Osteomyelitis of left foot Status: Acute (4) Type 2 diabetes mellitus Status: Acute (5) AICD (automatic cardioverter/defibrillator) present Status: Chronic (6) CAD (coronary artery disease) Status: Chronic (7) CHF (congestive heart failure), NYHA class IV Status: Chronic (8) Diabetes mellitus Status: Chronic (9) HLD (hyperlipidemia) Status: Chronic (10) HTN (hypertension) Status: Chronic (11) History of amputation below knee Status: Chronic Assessment and plan: C 6-year-old male status post below-knee potation with wound dehiscence. Intraoperative findings demonstrated minimal healing of his deep wound. I think he would benefit from transfer to [facility] for vascular evaluation, possible angioplasty versus bypass from a wound healing, possible revision below-knee amputation versus potential future need for above-knee amputation which I think would be best performed by vascular surgeon. Will follow. (12) Ischemic cardiomyopathy Status: Chronic (13) PAD (peripheral artery disease) Status: Chronic (14) Tobacco use Status: Chronic (15) Hypothyroid Status: Chronic (16) Anemia Status: Acute (17) Atrial fibrillation Status: Acute
[2021-03-08 07:32] LABS: Basophils % 0.1 % (0.1-2.0); Eosinophils # 0.1 K/mm3 (0.0-0.4); Eosinophils % 0.7 % (0.1-12.0); Hematocrit 30.7 % (42.0-52.0); Hemoglobin 9.5 g/dL (14.1-18.0); Lymphocytes # 1.1 K/mm3 (0.7-4.5); Lymphocytes % 7.5 % (10-50); Mean Corpuscular HGB Conc 30.9 g/dL (31.8-35.4); Mean Corpuscular Hemoglobin 28.3 pg (27.0-31.2); Mean Corpuscular Volume 91.6 fl (80-94); Mean Platelet Volume 11.2 fl (7.4-10.4); Monocytes # 1.1 K/mm3 (0.1-1.0); Monocytes % 7.4 % (1.7-9.3); Neutrophils # 12.8 K/mm3 (1.8-7.8); Neutrophils % 84.3 % (37.0-80.0); Platelet Count 184 K/mm3 (142-424); Red Blood Count 3.36 M/mm3 (4.60-6.20); Red Cell Distribution Width 16.3 % (11.5-17.5); White Blood Count 15.2 K/mm3 (4.8-10.8)
[2021-03-08 07:42] LABS: MANUAL DIFFERENTIAL MANUAL DIFFERENTIAL (MANUAL DIFF)
--- NOTE | 2021-03-08 08:02 | HMH.ACPN2 ---
Internal Medicine - PN: Subj *Date: 03/08/21 *Time: 08:02 Interval history: reports feels ok - labs pending - reviewed ortho note - Exam Vital signs and Labs for Last 24 Hours: Temp Pulse Resp BP Pulse Ox 98 F 80 21 101/59 L 98 03/08/21 04:00 03/08/21 04:00 03/08/21 04:00 03/08/21 04:00 03/08/21 04:00 Laboratory Results - last 24 hr 03/07/21 05:43: Sodium 135 L, Potassium 3.4 L, Chloride 100, Carbon Dioxide 27, Anion Gap 11.4, BUN 50 H, Creatinine 1.60 H, Estimated Creat Clear 47, Estimated GFR 43 L, Est GFR ( Amer) 53 L, Glucose 150 H, Calcium 7.4 L 03/07/21 11:21: POC Glucose 185 H 03/07/21 17:57: POC Glucose 127 H 03/07/21 19:57: POC Glucose 160 H 03/08/21 06:45: WBC 15.2 H D, RBC 3.36 L, Hgb 9.5 L, Hct 30.7 L, MCV 91.6, MCH 28.3, MCHC 30.9 L, RDW 16.3, Plt Count 184, MPV 11.2 H, Neut % (Auto) 84.3 H, Lymph % (Auto) 7.5 L, [place] % (Auto) 7.4, Eos % (Auto) 0.7, Baso % (Auto) 0.1, Neut # (Auto) 12.8 H, Lymph # (Auto) 1.1, [place] # (Auto) 1.1 H, Eos # (Auto) 0.1, Baso # (Auto) 0.0 I & O for Last 24 hours: Intake & Output 03/05/21 03/06/21 03/07/21 03/08/21 11:59 11:59 11:59 11:59 Intake Total 550 / 550 300 / 300 300 / 300 500 / 500 Output Total 1200 / 1200 1075 / 1075 250 / 250 560 / 560 Balance -650 / -650 -775 / -775 50 / 50 -60 / -60 Weight 180 lb 2 oz 179 lb 11.2 oz 390 lb 10.546 oz 390 lb 9 oz Microbiology Reports for the Last 24 Hours: Microbiology 03/07/21 17:30 Leg,Left - Left Side Gram Stain - Final - Constitutional no acute distress - *Routine HEENT Exam Head: Present: normocephalic Eye: Present: EOMI, PERRL ENT: Present: mucous membranes dry - *Routine Neck Exam Absent: JVD - *Routine Respiratory Exam Present: decreased breath sounds - *Routine Cardiovascular Exam Present: RRR, murmur - *Routine Abdominal Exam Present: soft - *Routine Extremities Exam Present: amputation - *Routine Skin Exam Comments: healing wds as noted by ortho - *Routine Neurological Exam Present: CN II-XII intact - Routine Psychiatric Exam Present: cooperative Assessment and Plan (1) COVID Status: Acute Category: Medical Code(s): U07.1 - COVID-19 (2) Systolic heart failure Status: Chronic Qualifiers: Heart failure chronicity: unspecified Qualified Code(s): I50.20 - Unspecified systolic (congestive) heart failure Category: Medical Code(s): I50.20 - Unspecified systolic (congestive) heart failure (3) Osteomyelitis of left foot Status: Acute Category: Medical Code(s): M86.9 - Osteomyelitis, unspecified (4) Type 2 diabetes mellitus Status: Acute Qualifiers: Diabetes mellitus snf insulin use: with snf use Diabetes mellitus complication status: with kidney complications Diabetes mellitus complication detail: with chronic kidney disease Chronic kidney disease stage: unspecified stage Qualified Code(s): E11.22 - Type 2 diabetes mellitus with diabetic chronic kidney disease; Z79.4 - custodial (current) use of insulin Category: Medical Code(s): E11.9 - Type 2 diabetes mellitus without complications (5) AICD (automatic cardioverter/defibrillator) present Status: Chronic Category: Surgical Code(s): Z95.810 - Presence of automatic (implantable) cardiac defibrillator (6) CAD (coronary artery disease) Status: Chronic Qualifiers: Coronary Disease-Associated Artery/Lesion type: [place] artery [place] vs. transplanted heart: [place] heart Associated angina: without angina Qualified Code(s): I25.10 - Atherosclerotic heart disease of [place] coronary artery without angina pectoris Category: Medical Code(s): I25.10 - Atherosclerotic heart disease of [place] coronary artery without angina pectoris (7) CHF (congestive heart failure), NYHA class IV Status: Chronic Qualifiers: Congestive heart failure type: unspecified Qualified Code(s): I50.9 - Heart failure, unspecified Category: Medi
[2021-03-08 10:00] LABS: Anisocytosis 1+; Hypochromasia 2+; Lymphocytes % 4 % (10-50); Monocytes % 6 % (2-9); Neutrophils % 86 % (42-76); Platelet Estimate Normal; Total Cells Counted 100
[2021-03-08 10:01] LABS: Howell-Jolly Bodies 2+
[2021-03-08 11:03] LABS: Chloride 98 mmol/L (98-107); Potassium 3.8 mmoL/L (3.5-5.1); Sodium 135 mmol/L (136-145)
[2021-03-08 11:06] LABS: Anion Gap 13.8 mEq/L (5-15); Blood Urea Nitrogen 54 mg/dl (9-20); Calcium 7.4 mg/dl (8.4-10.2); Carbon Dioxide 27 mmol/L (22.0-30.0); Creatinine Clearance Estimated 42 mL/min (50-200); Estimated Glomerular Filt Rate 38 ml/min (>60); GFR (African American) 46 ML/MIN (>60); Glucose 266 mg/dl (74-100)
[2021-03-08 11:55] LABS: Vancomycin,Trough 27.3 ug/mL (5.0-10.0)
--- NOTE | 2021-03-08 11:59 | PC.NURSE ---
High trough. Spoke with pharmacy. 1100 dose held
--- NOTE | 2021-03-08 12:48 | HMH.PHACONS ---
- Pharmacy Consult Date: 03/08/21 Time: 12:48 Referring provider: DR. MYLES Reason for Consult:: VANCOMYCIN TROUGH LEVEL AND DOSING INTERVAL CHANGE Allergies and ADEs:: Allergies Allergy/AdvReac Type Severity Reaction Status Date / Time No Known Allergies Allergy Verified 02/21/21 09:56 Home Medications:: Home Medications Medication Instructions Recorded Confirmed Type Aspirin [Low Dose Aspirin EC] 81 mg PO DAILY 01/17/21 02/21/21 History Atorvastatin Calcium [Lipitor 40mg 40 mg PO DAILY 01/17/21 02/21/21 History Tab] Docusate Sodium 100 mg PO BID 01/17/21 02/21/21 History Ergocalciferol (Vitamin D2) 1,250 mg PO WEEKLY 01/17/21 02/21/21 History [Drisdol] Levothyroxine Sodium [Synthroid 50 mcg PO DAILY 01/17/21 02/21/21 History 50mcg (0.05mg) tab] Loratadine [Allergy Relief] 10 mg PO DAILY 01/17/21 02/21/21 History Rivaroxaban [Xarelto 20mg Tablet*] 20 mg PO QPMWITHMEAL 01/17/21 02/21/21 History lisinopriL [Lisinopril 2.5mg Tab] 2.5 mg PO DAILY 01/17/21 02/21/21 History furosemide 20 mg tablet 20 mg PO DAILY 01/29/21 02/21/21 History metformin 500 mg tablet 500 mg PO BID #60 tab 02/12/21 02/21/21 Rx bisoproloL fumarate [Bisoprolol 2.5 mg PO DAILY 02/21/21 02/21/21 History Fumarate] Oxycodone HCl [Oxycodone 5mg tab 5 mg PO Q3MINP PRN 10 Days #60 tab 02/24/21 Rx (IR)] Dapagliflozin Propanediol [Farxiga] 5 mg PO DAILY 30 Days #30 tab 02/26/21 Rx Height: 1.8 m Weight: 177.156 kg Laboratory Results:: Laboratory Results - last 24 hr 03/07/21 11:21: POC Glucose 185 H 03/07/21 17:57: POC Glucose 127 H 03/07/21 19:57: POC Glucose 160 H 03/08/21 06:45: WBC 15.2 H D, RBC 3.36 L, Hgb 9.5 L, Hct 30.7 L, MCV 91.6, MCH 28.3, MCHC 30.9 L, RDW 16.3, Plt Count 184, MPV 11.2 H, Neut % (Auto) 84.3 H, Lymph % (Auto) 7.5 L, [place] % (Auto) 7.4, Eos % (Auto) 0.7, Baso % (Auto) 0.1, Neut # (Auto) 12.8 H, Lymph # (Auto) 1.1, [place] # (Auto) 1.1 H, Eos # (Auto) 0.1, Baso # (Auto) 0.0, Total Counted 100, Neutrophils % (Manual) 86 H, Band Neutrophils % 4.0, Lymphocytes % (Manual) 4 L, Monocytes % (Manual) 6, Platelet Estimate Normal, Hypochromasia 2+, Anisocytosis 1+, [place] Bodies 2+ 03/08/21 10:35: Sodium 135 L, Potassium 3.8, Chloride 98, Carbon Dioxide 27, Anion Gap 13.8, BUN 54 H, Creatinine 1.80 H, Estimated Creat Clear 42, Estimated GFR 38 L, Est GFR ( Amer) 46 L, Glucose 266 H, Calcium 7.4 L 03/08/21 10:35: Vancomycin Trough 27.3 H Medical History: Reports:: Atrial Fibrillation, Congestive Heart Failure, Chronic Obstructive Pulmonary Disease (COPD), Coronary Artery Disease, Diabetes Mellitus Type 2, Hyperlipidemia, Hypertension, Internal Pacemaker, Myocardial Infarction, Peripheral Artery Disease Denies:: Cancer, Diabetes Mellitus Type 1, MRSA, Seizures Assessment and Plan (1) COVID Status: Acute Category: Medical Code(s): U07.1 - COVID-19 (2) Systolic heart failure Status: Chronic Qualifiers: Heart failure chronicity: unspecified Qualified Code(s): I50.20 - Unspecified systolic (congestive) heart failure Category: Medical Code(s): I50.20 - Unspecified systolic (congestive) heart failure (3) Osteomyelitis of left foot Status: Acute Category: Medical Code(s): M86.9 - Osteomyelitis, unspecified (4) Type 2 diabetes mellitus Status: Acute Qualifiers: Diabetes mellitus termite treater helper insulin use: with termite treater helper use Diabetes mellitus complication status: with kidney complications Diabetes mellitus complication detail: with chronic kidney disease Chronic kidney disease stage: unspecified stage Qualified Code(s): E11.22 - Type 2 diabetes mellitus with diabetic chronic kidney disease; Z79.4 - rodent exterminator (current) use of insulin Category: Medical Code(s): E11.9 - Type 2 diabetes mellitus without complications (5) AICD (automatic cardioverter/defibrillator) present Status: Chronic Category: Surgical Code(s): Z95.810 - Presence of automatic (implantable) cardia
[2021-03-08 17:28] LABS: POC Glucose,Bedside 241 (70-110)
[2021-03-08 17:53] LABS: POC Glucose,Bedside 307 (70-110)
[2021-03-08 17:53] LABS: POC Glucose,Bedside 129 (70-110)
[2021-03-08 22:20] LABS: POC Glucose,Bedside 414 (70-110)
[2021-03-09] VITALS (17 sets, daily range): BP systolic 78–108; BP diastolic 36–69; PULSE 60–80; RESP 16–18; TEMP 36.2–37.1; O2SAT 95–98; BMI 24.5
[2021-03-09 06:46] LABS: POC Glucose,Bedside 125 (70-110)
[2021-03-09 06:55] LABS: Basophils % 0.2 % (0.1-2.0); Eosinophils # 0.1 K/mm3 (0.0-0.4); Eosinophils % 0.9 % (0.1-12.0); Hemoglobin 9.1 g/dL (14.1-18.0); Lymphocytes # 2.8 K/mm3 (0.7-4.5); Lymphocytes % 21.8 % (10-50); Mean Corpuscular HGB Conc 30.4 g/dL (31.8-35.4); Mean Corpuscular Hemoglobin 27.6 pg (27.0-31.2); Mean Corpuscular Volume 90.7 fl (80-94); Mean Platelet Volume 10.3 fl (7.4-10.4); Monocytes % 7.6 % (1.7-9.3); Neutrophils # 9.1 K/mm3 (1.8-7.8); Neutrophils % 69.6 % (37.0-80.0); Platelet Count 204 K/mm3 (142-424); Red Cell Distribution Width 16.2 % (11.5-17.5)
[2021-03-09 06:56] LABS: Hematocrit 29.9 % (42.0-52.0)
[2021-03-09 07:15] LABS: Anion Gap 11.1 mEq/L (5-15); Blood Urea Nitrogen 56 mg/dl (9-20); Calcium 7.5 mg/dl (8.4-10.2); Carbon Dioxide 26 mmol/L (22.0-30.0); Chloride 104 mmol/L (98-107); Creatinine Clearance Estimated 48 mL/min (50-200); Estimated Glomerular Filt Rate 41 ml/min (>60); GFR (African American) 49 ML/MIN (>60); Glucose 104 mg/dl (74-100); Potassium 3.1 mmoL/L (3.5-5.1); Sodium 138 mmol/L (136-145)
--- NOTE | 2021-03-09 08:02 | HMH.ORTHPN ---
Subjective Date: 03/09/21 Time: 08:02 Principal diagnosis: Left foot osteomyelitis status post below-knee amputation, chf Interval history: Pain is tolerable. No oozing through dressing. PN: Obj Ex Vital signs: Temp Pulse Resp BP Pulse Ox 97.1 F L 79 16 78/43 L 96 03/09/21 07:43 03/09/21 07:43 03/09/21 07:43 03/09/21 07:43 03/09/21 07:43 - Routine Respiratory Exam Absent: accessory muscle use, respiratory distress - Routine Cardiovascular Exam Present: RRR - Detailed Lower Extremity Exam Lower leg: Left wound (Dressing in place clean, dry, intact.) - Urinary Catheter Management Ansari Cath placed during this visit: no Progress Note: A&P (1) COVID Status: Acute (2) Systolic heart failure Status: Chronic (3) Osteomyelitis of left foot Status: Acute (4) Type 2 diabetes mellitus Status: Acute (5) AICD (automatic cardioverter/defibrillator) present Status: Chronic (6) CAD (coronary artery disease) Status: Chronic (7) CHF (congestive heart failure), NYHA class IV Status: Chronic (8) Diabetes mellitus Status: Chronic (9) HLD (hyperlipidemia) Status: Chronic (10) HTN (hypertension) Status: Chronic (11) History of amputation below knee Status: Chronic Assessment and plan: 60-year-old male status post left below-knee amputation with wound dehiscence. I am pessimistic regarding his ability to heal wound without vascular intervention. I think benefit from transfer to for vascular evaluation. (12) Ischemic cardiomyopathy Status: Chronic (13) PAD (peripheral artery disease) Status: Chronic (14) Tobacco use Status: Chronic (15) Hypothyroid Status: Chronic (16) Anemia Status: Acute (17) Atrial fibrillation Status: Acute
--- NOTE | 2021-03-09 08:49 | XR_ITS ---
PROCEDURE INFORMATION: Exam: XR Chest Exam date and time: 03/09/2021 8:49 AM Age: 66 years old Clinical indication: Shortness of breath; Additional info: SOB, covid positive patient follow up inpatient TECHNIQUE: Imaging protocol: XR of the chest. Views: 1 view. COMPARISON: CR XR CHEST PORTABLE 03/03/2021 12:19 PM FINDINGS: Tubes, catheters and devices: Left pacemaker. Lungs: Stable vague bilateral lower lung opacities. Pleural spaces: Unremarkable. No pleural effusion. No pneumothorax. Heart/Mediastinum: Mild cardiomegaly. Bones/joints: Unremarkable. IMPRESSION: Essentially stable appearance compared to 03/03/2021.
--- NOTE | 2021-03-09 08:50 | HMH.ACPN2 ---
Internal Medicine - PN: Subj *Date: 03/09/21 *Time: 09:14 Interval history: pt reports feeling ok- but bp low -has gram neg on c/s and will discuss with phar about fluids and labs and meds Exam Vital signs and Labs for Last 24 Hours: Temp Pulse Resp BP Pulse Ox 97.1 F L 79 16 78/43 L 96 03/09/21 07:43 03/09/21 07:43 03/09/21 07:43 03/09/21 07:43 03/09/21 07:43 Laboratory Results - last 24 hr 03/08/21 06:39: POC Glucose 129 H 03/08/21 06:45: Total Counted 100, Neutrophils % (Manual) 86 H, Band Neutrophils % 4.0, Lymphocytes % (Manual) 4 L, Monocytes % (Manual) 6, Platelet Estimate Normal, Hypochromasia 2+, Anisocytosis 1+, [place] Bodies 2+ 03/08/21 10:35: Sodium 135 L, Potassium 3.8, Chloride 98, Carbon Dioxide 27, Anion Gap 13.8, BUN 54 H, Creatinine 1.80 H, Estimated Creat Clear 42, Estimated GFR 38 L, Est GFR ( Amer) 46 L, Glucose 266 H, Calcium 7.4 L 03/08/21 10:35: Vancomycin Trough 27.3 H 03/08/21 10:51: POC Glucose 307 H* 03/08/21 17:07: POC Glucose 241 H 03/08/21 22:07: POC Glucose 414 H* 03/09/21 06:00: WBC 13.0 H, RBC 3.30 L, Hgb 9.1 L, Hct 29.9 L, MCV 90.7, MCH 27.6, MCHC 30.4 L, RDW 16.2, Plt Count 204, MPV 10.3, Neut % (Auto) 69.6, Lymph % (Auto) 21.8, [place] % (Auto) 7.6, Eos % (Auto) 0.9, Baso % (Auto) 0.2, Neut # (Auto) 9.1 H, Lymph # (Auto) 2.8, [place] # (Auto) 1.0, Eos # (Auto) 0.1, Baso # (Auto) 0.0 03/09/21 06:28: POC Glucose 125 H I & O for Last 24 hours: Intake & Output 03/06/21 03/07/21 03/08/21 03/09/21 11:59 11:59 11:59 10:59 Intake Total 300 / 300 300 / 300 620 / 620 600 / 600 Output Total 1075 / 1075 250 / 250 560 / 560 500 / 500 Balance -775 / -775 50 / 50 60 / 60 100 / 100 Weight 179 lb 11.2 oz 390 lb 10.546 oz 390 lb 9 oz 175 lb Microbiology Reports for the Last 24 Hours: Microbiology 03/07/21 17:30 Leg,Left - Left Side Gram Stain - Final 03/07/21 17:30 Leg,Left - Left Side Wound Culture - Preliminary Gram Negative Rods - Constitutional no acute distress - *Routine HEENT Exam Head: Present: normocephalic Eye: Present: EOMI, PERRL ENT: Present: mucous membranes dry - *Routine Neck Exam Absent: JVD - *Routine Respiratory Exam Present: decreased breath sounds - *Routine Cardiovascular Exam Present: RRR - *Routine Abdominal Exam Present: soft - *Routine Extremities Exam Present: amputation - *Routine Skin Exam Comments: see ortho note - *Routine Neurological Exam Present: alert, CN II-XII intact - Routine Psychiatric Exam Present: cooperative Assessment and Plan (1) COVID Status: Acute Category: Medical Code(s): U07.1 - COVID-19 (2) Systolic heart failure Status: Chronic Qualifiers: Heart failure chronicity: unspecified Qualified Code(s): I50.20 - Unspecified systolic (congestive) heart failure Category: Medical Code(s): I50.20 - Unspecified systolic (congestive) heart failure (3) Osteomyelitis of left foot Status: Acute Category: Medical Code(s): M86.9 - Osteomyelitis, unspecified (4) Type 2 diabetes mellitus Status: Acute Qualifiers: Diabetes mellitus care home insulin use: with care home use Diabetes mellitus complication status: with kidney complications Diabetes mellitus complication detail: with chronic kidney disease Chronic kidney disease stage: unspecified stage Qualified Code(s): E11.22 - Type 2 diabetes mellitus with diabetic chronic kidney disease; Z79.4 - intermediate teacher (current) use of insulin Category: Medical Code(s): E11.9 - Type 2 diabetes mellitus without complications (5) AICD (automatic cardioverter/defibrillator) present Status: Chronic Category: Surgical Code(s): Z95.810 - Presence of automatic (implantable) cardiac defibrillator (6) CAD (coronary artery disease) Status: Chronic Qualifiers: Coronary Disease-Associated Artery/Lesion type: [place] artery [place] vs. transplanted heart: [place] heart As
--- NOTE | 2021-03-09 09:27 | PC.NURSE ---
spoke with this am regarding pts hypotension and fsbs, along with other symptoms new orders received.
--- NOTE | 2021-03-09 10:02 | PC.NURSE ---
bolus complete 83/47
--- NOTE | 2021-03-09 16:08 | PC.NURSE ---
pt refused insulin due to not eating lunch or dinner. I educated pt and he voiced undestanding
[2021-03-09 16:14] LABS: POC Glucose,Bedside 220 (70-110)
[2021-03-09 16:14] LABS: POC Glucose,Bedside 237 (70-110)
--- NOTE | 2021-03-09 17:48 | PC.NURSE ---
pt has rested on and off through out the shift. His hypotension has improved somewhat. He denies pain upon assessment. He is alert and appropriate. incontinent
[2021-03-09 22:25] LABS: POC Glucose,Bedside 175 (70-110)
[2021-03-10] VITALS (7 sets, daily range): BP systolic 91–122; BP diastolic 53–74; PULSE 72–76; RESP 18–22; TEMP 36.4–37.2; O2SAT 90–97; BMI 25.0
[2021-03-10 06:40] LABS: POC Glucose,Bedside 144 (70-110)
[2021-03-10 06:44] LABS: Basophils % 0.3 % (0.1-2.0); Eosinophils # 0.1 K/mm3 (0.0-0.4); Eosinophils % 1.1 % (0.1-12.0); Hematocrit 30.1 % (42.0-52.0); Hemoglobin 9.2 g/dL (14.1-18.0); Lymphocytes # 1.3 K/mm3 (0.7-4.5); Lymphocytes % 11.3 % (10-50); Mean Corpuscular HGB Conc 30.7 g/dL (31.8-35.4); Mean Corpuscular Hemoglobin 28.1 pg (27.0-31.2); Mean Corpuscular Volume 91.7 fl (80-94); Mean Platelet Volume 10.2 fl (7.4-10.4); Monocytes # 0.9 K/mm3 (0.1-1.0); Neutrophils # 9.1 K/mm3 (1.8-7.8); Neutrophils % 79.3 % (37.0-80.0); Platelet Count 241 K/mm3 (142-424); Red Blood Count 3.28 M/mm3 (4.60-6.20); White Blood Count 11.5 K/mm3 (4.8-10.8)
--- NOTE | 2021-03-10 08:25 | HMH.PNCARD ---
Subjective Date: 03/10/21 Time: 08:00 Principal diagnosis: Left foot osteomyelitis status post below-knee amputation, chf Interval history: 66-year-old male admitted to [facility] on 02/21/2021 with status post left below the knee amputation secondary to osteomyelitis. Managed by orthopedic. Since admission to this facility, patient has been diagnosed with COVID-19. COVID-19 protocol is being followed. Patient denies chest pain, tightness or pressure. Patient denies shortness of breath. site monitor reveals paced rhythm with a heart rate of 70 bpm. Patient is noted to have right below the knee amputation. Patient is status post left below-knee amputation. No oozing noted at the site. Patient did undergo left lower extremity runoff and November 2019. This revealed medical management, there was calcified and large collaterals on the left leg providing adequate distal flow. It was not recommended at that time to open the vessel unless limb threatening ischemia occurs. Due to the large dense collateralization in the superior femoral artery only the popliteal artery retrograde revascularization approach would be advised. Patient is currently on Xarelto 20 mg daily for chronic A. fib. Patient does have history of chronic systolic congestive heart failure and known ischemic cardiomyopathy. Status post AICD/RETAIL ASSISTANT STORE MANAGER-D placement. PCP requesting evaluation of lower extremity vascularization. Dr. Stiles stated he will review lower extremity runoff images and determine whether or not it be beneficial for patient to undergo lower extremity runoff at this time. Lower extremity runoff:PLAN (11/2019) 1. Medical management. 2. The very dense calcified and large collaterals of the left leg are providing adequate distal flow. I do not recommend trying to open this vessel unless limb threatening ischemia occurs. Due to the large dense collateralization in the superficial femoral artery only a popliteal artery retrograde revascularization approach would be advised. 3. Consideration of Xarelto 2.5 twice daily combined with aspirin 81 mg daily for PAD 4. Aggressive risk factor modification 5. Avoidance of tobacco products 6. LDL less than 55 Exam Vital signs and Labs for Last 24 Hours: Temp Pulse Resp BP Pulse Ox 98.3 F 72 18 116/74 94 L 03/10/21 07:42 03/10/21 07:42 03/10/21 07:42 03/10/21 07:42 03/10/21 07:42 Laboratory Results - last 24 hr 03/09/21 06:00: Sodium 138, Potassium 3.1 L, Chloride 104, Carbon Dioxide 26, Anion Gap 11.1, BUN 56 H, Creatinine 1.70 H, Estimated Creat Clear 48, Estimated GFR 41 L, Est GFR ( Amer) 49 L, Glucose 104 H D, Calcium 7.5 L 03/09/21 11:22: POC Glucose 220 H 03/09/21 16:04: POC Glucose 237 H 03/09/21 21:12: POC Glucose 175 H 03/10/21 05:50: POC Glucose 144 H 03/10/21 06:10: WBC 11.5 H, RBC 3.28 L, Hgb 9.2 L, Hct 30.1 L, MCV 91.7, MCH 28.1, MCHC 30.7 L, RDW 16.0, Plt Count 241, MPV 10.2, Neut % (Auto) 79.3, Lymph % (Auto) 11.3, [place] % (Auto) 8.0, Eos % (Auto) 1.1, Baso % (Auto) 0.3, Neut # (Auto) 9.1 H, Lymph # (Auto) 1.3, [place] # (Auto) 0.9, Eos # (Auto) 0.1, Baso # (Auto) 0.0 I & O for Last 24 hours: Intake & Output 03/08/21 03/09/21 03/09/21 03/10/21 00:59 00:59 23:59 23:59 Intake Total 360 / 360 Output Total Balance 360 / 360 Weight 179 lb Microbiology Reports for the Last 24 Hours: Microbiology 03/07/21 17:30 Leg,Left - Left Side Gram Stain - Final 03/07/21 17:30 Leg,Left - Left Side Wound Culture - Preliminary Serratia marcescens 03/07/21 17:30 Leg,Left - Left Side - Final - Constitutional no acute distress, average body habitus, cooperative - *Routine HEENT Exam Head: Present: normocephalic ENT: Present: mucous membranes moist - *Routine Neck Exam Present: supple, full ROM, normal carotid upstroke. Absent: JVD, carotid bruit, lymphadenopathy - Routine Chest/Breast/Axilla Exam Meghan
--- NOTE | 2021-03-10 09:27 | HMH.ACPN2 ---
Internal Medicine - PN: Subj *Date: 03/10/21 *Time: 08:40 Interval history: pt laying in bed states he is doing well, no c/o Exam Vital signs and Labs for Last 24 Hours: Temp Pulse Resp BP Pulse Ox 98.3 F 72 18 116/74 94 L 03/10/21 07:42 03/10/21 07:42 03/10/21 07:42 03/10/21 07:42 03/10/21 07:42 Laboratory Results - last 24 hr 03/09/21 06:00: Sodium 138, Potassium 3.1 L, Chloride 104, Carbon Dioxide 26, Anion Gap 11.1, BUN 56 H, Creatinine 1.70 H, Estimated Creat Clear 48, Estimated GFR 41 L, Est GFR ( Amer) 49 L, Glucose 104 H D, Calcium 7.5 L 03/09/21 11:22: POC Glucose 220 H 03/09/21 16:04: POC Glucose 237 H 03/09/21 21:12: POC Glucose 175 H 03/10/21 05:50: POC Glucose 144 H 03/10/21 06:10: WBC 11.5 H, RBC 3.28 L, Hgb 9.2 L, Hct 30.1 L, MCV 91.7, MCH 28.1, MCHC 30.7 L, RDW 16.0, Plt Count 241, MPV 10.2, Neut % (Auto) 79.3, Lymph % (Auto) 11.3, [place] % (Auto) 8.0, Eos % (Auto) 1.1, Baso % (Auto) 0.3, Neut # (Auto) 9.1 H, Lymph # (Auto) 1.3, [place] # (Auto) 0.9, Eos # (Auto) 0.1, Baso # (Auto) 0.0 I & O for Last 24 hours: Intake & Output 03/07/21 03/08/21 03/09/21 03/10/21 12:59 12:59 11:59 11:59 Intake Total 960 / 960 Output Total 1000 / 1000 Balance -40 / -40 Weight 179 lb Microbiology Reports for the Last 24 Hours: Microbiology 03/07/21 17:30 Leg,Left - Left Side Gram Stain - Final 03/07/21 17:30 Leg,Left - Left Side Wound Culture - Preliminary Serratia marcescens 03/07/21 17:30 Leg,Left - Left Side - Final - Constitutional no acute distress, chronically ill appearing - *Routine HEENT Exam Head: Present: normocephalic Eye: Present: PERRL ENT: Present: mucous membranes moist - *Routine Neck Exam Present: supple. Absent: lymphadenopathy - *Routine Respiratory Exam Present: CTA bilaterally - *Routine Cardiovascular Exam Present: RRR - *Routine Abdominal Exam Present: soft, normoactive bowel sounds. Absent: tenderness - *Routine Extremities Exam Present: amputation. Absent: cyanosis, clubbing, edema Comments: rt bka left aka - *Routine Skin Exam Present: warm, wounds. Absent: rash Comments: dressing c/d/i - *Routine Neurological Exam Present: alert, oriented X3 Assessment and Plan (1) COVID Status: Acute Category: Medical Code(s): U07.1 - COVID-19 (2) Systolic heart failure Status: Chronic Qualifiers: Heart failure chronicity: unspecified Qualified Code(s): I50.20 - Unspecified systolic (congestive) heart failure Category: Medical Code(s): I50.20 - Unspecified systolic (congestive) heart failure (3) Osteomyelitis of left foot Status: Acute Category: Medical Code(s): M86.9 - Osteomyelitis, unspecified (4) Type 2 diabetes mellitus Status: Acute Qualifiers: Diabetes mellitus petroleum terminal plant operator insulin use: with snf use Diabetes mellitus complication status: with kidney complications Diabetes mellitus complication detail: with chronic kidney disease Chronic kidney disease stage: unspecified stage Qualified Code(s): E11.22 - Type 2 diabetes mellitus with diabetic chronic kidney disease; Z79.4 - petroleum terminal plant operator (current) use of insulin Category: Medical Code(s): E11.9 - Type 2 diabetes mellitus without complications (5) AICD (automatic cardioverter/defibrillator) present Status: Chronic Category: Surgical Code(s): Z95.810 - Presence of automatic (implantable) cardiac defibrillator (6) CAD (coronary artery disease) Status: Chronic Qualifiers: Coronary Disease-Associated Artery/Lesion type: [place] artery [place] vs. transplanted heart: [place] heart Associated angina: without angina Qualified Code(s): I25.10 - Atherosclerotic heart disease of [place] coronary artery without angina pectoris Category: Medical Code(s): I25.10 - Atherosclerotic heart disease of [place] coronary artery without angina pectoris (7) CHF (congestive he
--- NOTE | 2021-03-10 11:21 | HMH.ANESII ---
[facility] Anesthesia Record Part II Discharge Time: 18:25 Destination: [facility] (OP Surgery) PACU nurse assessment reviewed?: Yes Patient Condition:: Good Anesthesia Complications:: None Swallowing reflex intact?: Yes Cyanosis?: No Blood Pressure: 91/60 Pulse Rate: 75 Temperature: 98.3 F Mental Status: Alert & Oriented Pain level:: 5 Nausea and/or vomitting:: None Intake, IV Amount: 0
--- NOTE | 2021-03-10 17:31 | PC.NURSE ---
Pt has done well this shift, no new complaints. Pt remains on RA. Pt has been encouraged to be turned q2h but has refused multiple times. No other acute changes or complaints, will continue to monitor.
[2021-03-11] VITALS: BP 102/68; PULSE 64; RESP 20; TEMP 36.6; O2SAT 98
[2021-03-11 03:41] VITALS: BP 109/57; PULSE 75; RESP 20; TEMP 36.6; O2SAT 98
[2021-03-11 05:00] VITALS: BMI 25.0
--- NOTE | 2021-03-11 06:24 | PC.NURSE ---
Pt rested well this shift. Voiced no c/o of pain this shift. Dressing to LLE to C/D/I. Call light within reach.
[2021-03-11 07:16] LABS: Basophils % 0.2 % (0.1-2.0); Eosinophils # 0.2 K/mm3 (0.0-0.4); Eosinophils % 1.9 % (0.1-12.0); Hematocrit 31.6 % (42.0-52.0); Hemoglobin 9.6 g/dL (14.1-18.0); Lymphocytes # 1.5 K/mm3 (0.7-4.5); Lymphocytes % 15.7 % (10-50); Mean Corpuscular HGB Conc 30.5 g/dL (31.8-35.4); Mean Corpuscular Hemoglobin 28.1 pg (27.0-31.2); Mean Corpuscular Volume 92.1 fl (80-94); Mean Platelet Volume 10.6 fl (7.4-10.4); Monocytes # 1.1 K/mm3 (0.1-1.0); Monocytes % 11.1 % (1.7-9.3); Neutrophils # 6.7 K/mm3 (1.8-7.8); Platelet Count 240 K/mm3 (142-424); Red Blood Count 3.43 M/mm3 (4.60-6.20); Red Cell Distribution Width 16.1 % (11.5-17.5); White Blood Count 9.5 K/mm3 (4.8-10.8)
[2021-03-11 07:31] LABS: Anion Gap 7.8 mEq/L (5-15); Blood Urea Nitrogen 34 mg/dl (9-20); Calcium 7.3 mg/dl (8.4-10.2); Carbon Dioxide 25 mmol/L (22.0-30.0); Chloride 108 mmol/L (98-107); Creatinine Clearance Estimated 70 mL/min (50-200); Estimated Glomerular Filt Rate 61 ml/min (>60); GFR (African American) 73 ML/MIN (>60); Glucose 103 mg/dl (74-100); Potassium 3.8 mmoL/L (3.5-5.1); Sodium 137 mmol/L (136-145)
[2021-03-11 07:48] VITALS: BP 105/47; PULSE 73; RESP 18; TEMP 36.6; O2SAT 95
--- NOTE | 2021-03-11 08:37 | HMH.ACPN2 ---
Internal Medicine - PN: Subj *Date: 03/11/21 *Time: 09:04 Interval history: 66-year-old male patient sitting up in bed denies any respiratory distress during the night, reports pain is at a tolerable level. Dressing to left stump clean dry and intact. Discussed discharge to rehab facility patient is in agreement with this and will begin process Exam Vital signs and Labs for Last 24 Hours: Temp Pulse Resp BP Pulse Ox 98 F 73 18 105/47 L 95 03/11/21 07:48 03/11/21 07:48 03/11/21 07:48 03/11/21 07:48 03/11/21 07:48 Laboratory Results - last 24 hr 03/11/21 06:48: WBC 9.5, RBC 3.43 L, Hgb 9.6 L, Hct 31.6 L, MCV 92.1, MCH 28.1, MCHC 30.5 L, RDW 16.1, Plt Count 240, MPV 10.6 H, Neut % (Auto) 71.0, Lymph % (Auto) 15.7, [place] % (Auto) 11.1 H, Eos % (Auto) 1.9, Baso % (Auto) 0.2, Neut # (Auto) 6.7, Lymph # (Auto) 1.5, [place] # (Auto) 1.1 H, Eos # (Auto) 0.2, Baso # (Auto) 0.0 03/11/21 06:48: Sodium 137, Potassium 3.8 D, Chloride 108 H, Carbon Dioxide 25, Anion Gap 7.8, BUN 34 H D, Creatinine 1.20 D, Estimated Creat Clear 70, Estimated GFR 61, Est GFR ( Amer) 73 D, Glucose 103 H, Calcium 7.3 L I & O for Last 24 hours: Intake & Output 03/09/21 03/09/21 03/10/21 03/11/21 00:59 23:59 23:59 23:59 Intake Total 840 / 840 240 / 240 Output Total 550 / 950 400 / 400 Balance 290 / -110 -160 / -160 Weight 179 lb 179 lb 0.246 oz Microbiology Reports for the Last 24 Hours: Microbiology 03/07/21 17:30 Leg,Left - Left Side Gram Stain - Final 03/07/21 17:30 Leg,Left - Left Side Wound Culture - Preliminary Serratia marcescens - Constitutional no acute distress - *Routine HEENT Exam Head: Present: normocephalic Eye: Present: EOMI ENT: Present: mucous membranes moist - *Routine Neck Exam Present: trachea midline. Absent: tracheal deviation - *Routine Respiratory Exam Present: CTA bilaterally. Absent: accessory muscle use - *Routine Cardiovascular Exam Present: RRR - *Routine Abdominal Exam Present: soft, normoactive bowel sounds. Absent: tenderness, rigid - *Routine Extremities Exam Present: tenderness, amputation. Absent: cyanosis - *Routine Skin Exam Present: warm, wounds Comments: L BKA Amputation - *Routine Neurological Exam Present: alert, oriented X3. Absent: pronator drift - Routine Psychiatric Exam Present: normal affect, normal thought process. Absent: visual hallucinations Assessment and Plan (1) COVID Status: Acute Category: Medical Code(s): U07.1 - COVID-19 (2) Systolic heart failure Status: Chronic Qualifiers: Heart failure chronicity: unspecified Qualified Code(s): I50.20 - Unspecified systolic (congestive) heart failure Category: Medical Code(s): I50.20 - Unspecified systolic (congestive) heart failure (3) Osteomyelitis of left foot Status: Acute Category: Medical Code(s): M86.9 - Osteomyelitis, unspecified (4) Type 2 diabetes mellitus Status: Acute Qualifiers: Diabetes mellitus prison insulin use: with oysterman use Diabetes mellitus complication status: with kidney complications Diabetes mellitus complication detail: with chronic kidney disease Chronic kidney disease stage: unspecified stage Qualified Code(s): E11.22 - Type 2 diabetes mellitus with diabetic chronic kidney disease; Z79.4 - snf (current) use of insulin Category: Medical Code(s): E11.9 - Type 2 diabetes mellitus without complications (5) AICD (automatic cardioverter/defibrillator) present Status: Chronic Category: Surgical Code(s): Z95.810 - Presence of automatic (implantable) cardiac defibrillator (6) CAD (coronary artery disease) Status: Chronic Qualifiers: Coronary Disease-Associated Artery/Lesion type: [place] artery [place] vs. transplanted heart: [place] heart Associated angina: without angina Qualified Code(s): I25.10 - Atherosclerotic heart disease of [place] coronary
--- NOTE | 2021-03-11 08:59 | HMH.ACPN ---
Internal Medicine - PN: Subj *Date: 03/11/21 *Time: 08:59 Exam Vital signs and Labs for Last 24 Hours: Temp Pulse Resp BP Pulse Ox 98 F 73 18 105/47 L 95 03/11/21 07:48 03/11/21 07:48 03/11/21 07:48 03/11/21 07:48 03/11/21 07:48 Laboratory Results - last 24 hr 03/11/21 06:48: WBC 9.5, RBC 3.43 L, Hgb 9.6 L, Hct 31.6 L, MCV 92.1, MCH 28.1, MCHC 30.5 L, RDW 16.1, Plt Count 240, MPV 10.6 H, Neut % (Auto) 71.0, Lymph % (Auto) 15.7, [place] % (Auto) 11.1 H, Eos % (Auto) 1.9, Baso % (Auto) 0.2, Neut # (Auto) 6.7, Lymph # (Auto) 1.5, [place] # (Auto) 1.1 H, Eos # (Auto) 0.2, Baso # (Auto) 0.0 03/11/21 06:48: Sodium 137, Potassium 3.8 D, Chloride 108 H, Carbon Dioxide 25, Anion Gap 7.8, BUN 34 H D, Creatinine 1.20 D, Estimated Creat Clear 70, Estimated GFR 61, Est GFR ( Amer) 73 D, Glucose 103 H, Calcium 7.3 L I & O for Last 24 hours: Intake & Output 03/09/21 03/09/21 03/10/21 03/11/21 00:59 23:59 23:59 23:59 Intake Total 840 / 840 240 / 240 Output Total 550 / 950 400 / 400 Balance 290 / -110 -160 / -160 Weight 81.193 kg 81.2 kg Microbiology Reports for the Last 24 Hours: Microbiology 03/07/21 17:30 Leg,Left - Left Side Gram Stain - Final 03/07/21 17:30 Leg,Left - Left Side Wound Culture - Preliminary Serratia marcescens Assessment and Plan (1) COVID Status: Acute Category: Medical Code(s): U07.1 - COVID-19 (2) Systolic heart failure Status: Chronic Qualifiers: Heart failure chronicity: unspecified Qualified Code(s): I50.20 - Unspecified systolic (congestive) heart failure Category: Medical Code(s): I50.20 - Unspecified systolic (congestive) heart failure (3) Osteomyelitis of left foot Status: Acute Category: Medical Code(s): M86.9 - Osteomyelitis, unspecified (4) Type 2 diabetes mellitus Status: Acute Qualifiers: Diabetes mellitus circulating process inspector insulin use: with circulating process inspector use Diabetes mellitus complication status: with kidney complications Diabetes mellitus complication detail: with chronic kidney disease Chronic kidney disease stage: unspecified stage Qualified Code(s): E11.22 - Type 2 diabetes mellitus with diabetic chronic kidney disease; Z79.4 - custodial (current) use of insulin Category: Medical Code(s): E11.9 - Type 2 diabetes mellitus without complications (5) AICD (automatic cardioverter/defibrillator) present Status: Chronic Category: Surgical Code(s): Z95.810 - Presence of automatic (implantable) cardiac defibrillator (6) CAD (coronary artery disease) Status: Chronic Qualifiers: Coronary Disease-Associated Artery/Lesion type: [place] artery [place] vs. transplanted heart: [place] heart Associated angina: without angina Qualified Code(s): I25.10 - Atherosclerotic heart disease of [place] coronary artery without angina pectoris Category: Medical Code(s): I25.10 - Atherosclerotic heart disease of [place] coronary artery without angina pectoris (7) CHF (congestive heart failure), NYHA class IV Status: Chronic Qualifiers: Congestive heart failure type: unspecified Qualified Code(s): I50.9 - Heart failure, unspecified Category: Medical Code(s): I50.9 - Heart failure, unspecified (8) Diabetes mellitus Status: Chronic Qualifiers: Diabetes mellitus type: type 2 Diabetes mellitus circulating process inspector insulin use: without circulating process inspector use Diabetes mellitus complication status: without complication Qualified Code(s): E11.9 - Type 2 diabetes mellitus without complications Category: Medical Code(s): E11.9 - Type 2 diabetes mellitus without complications (9) HLD (hyperlipidemia) Status: Chronic Qualifiers: Hyperlipidemia type: mixed hyperlipidemia Qualified Code(s): E78.2 - Mixed hyperlipidemia Category: Medical Code(s): E78.5 - Hyperlipidemia, unspecified (10) HTN (hypertension) Status: Chronic Qualifiers: Hypertension type: es
--- NOTE | 2021-03-11 09:52 | SW/DCPLANNER ---
Addendum entered by Anjelica Blanco 03/12/21 10:47: I have notified Savanna with [facility] that this patient will be transferring. Addendum entered by Anjelica Blanco 03/11/21 12:28: Savanna w/ [facility] stated that precert has been started on this patient. Original Note: This patient is expected to be medically stable for discharge tomorrow pending no setbacks. Patient stated that he prefer to discharge to [facility] rather than [facility]. I will fax updated patient information to Savanna with [facility]. I will ask Savanna to start precert for SNF level of care at [facility].
[2021-03-11 12:00] VITALS: BP 108/56; PULSE 76; RESP 20; TEMP 36.8; O2SAT 94
[2021-03-11 12:39] LABS: POC Glucose,Bedside 177 (70-110)
[2021-03-11 16:00] VITALS: BP 103/56; PULSE 77; RESP 20; TEMP 36.9; O2SAT 93
[2021-03-11 18:08] LABS: POC Glucose,Bedside 228 (70-110)
--- NOTE | 2021-03-11 18:41 | PC.NURSE ---
Patient is non tele and on room air. Patient is still in covid precautions. Dressing changed to Left BKA. No complaints from patient. Alert and oriented times four. Plan of care is to discharge to rehab on 03/12, patient eager to go. Bed in lowest position and call light in reach. Will continue to monitor.
[2021-03-11 20:00] VITALS: BP 105/62; PULSE 76; RESP 20; TEMP 37; O2SAT 94
[2021-03-11 21:38] LABS: POC Glucose,Bedside 220 (70-110)
[2021-03-11 23:45] LABS: Vancomycin,Trough 18.5 ug/mL (5.0-10.0)
[2021-03-12] VITALS: BP 106/67; PULSE 77; RESP 20; TEMP 36.7; O2SAT 92
[2021-03-12 04:00] VITALS: BP 107/69; PULSE 77; RESP 20; TEMP 36.9; O2SAT 93
[2021-03-12 04:52] VITALS: BMI 25.0
[2021-03-12 06:16] LABS: POC Glucose,Bedside 111 (70-110)
[2021-03-12 07:10] LABS: Basophils # 0.1 K/mm3 (0-0.2); Basophils % 0.5 % (0.1-2.0); Eosinophils # 0.1 K/mm3 (0.0-0.4); Eosinophils % 1.5 % (0.1-12.0); Hematocrit 30.7 % (42.0-52.0); Hemoglobin 9.2 g/dL (14.1-18.0); Lymphocytes # 1.4 K/mm3 (0.7-4.5); Lymphocytes % 15.5 % (10-50); Mean Corpuscular HGB Conc 30.1 g/dL (31.8-35.4); Mean Corpuscular Hemoglobin 27.6 pg (27.0-31.2); Mean Corpuscular Volume 91.7 fl (80-94); Mean Platelet Volume 9.9 fl (7.4-10.4); Monocytes # 1.1 K/mm3 (0.1-1.0); Monocytes % 12.4 % (1.7-9.3); Neutrophils # 6.4 K/mm3 (1.8-7.8); Platelet Count 243 K/mm3 (142-424); Red Blood Count 3.34 M/mm3 (4.60-6.20); White Blood Count 9.1 K/mm3 (4.8-10.8)
[2021-03-12 07:25] LABS: Anion Gap 9.5 mEq/L (5-15); Blood Urea Nitrogen 27 mg/dl (9-20); Calcium 7.5 mg/dl (8.4-10.2); Carbon Dioxide 25 mmol/L (22.0-30.0); Chloride 109 mmol/L (98-107); Creatinine Clearance Estimated 64 mL/min (50-200); Estimated Glomerular Filt Rate 55 ml/min (>60); GFR (African American) 67 ML/MIN (>60); Glucose 107 mg/dl (74-100); Potassium 3.5 mmoL/L (3.5-5.1); Sodium 140 mmol/L (136-145)
[2021-03-12 08:00] VITALS: BP 112/64; PULSE 80; RESP 18; TEMP 36.8; O2SAT 100
--- NOTE | 2021-03-12 10:05 | HMH.DCSUM ---
General - General Admission date:: 02/21/21 Discharge date: 03/12/21 HPI HPI: Patient is a 66-year-old white male, patient of Dr. Freeman, Multiple medical comorbidities. Patient developed aggressive cellulitis, wet gangrene of the left foot requiring below the knee amputation. He was taken to the operating room for Dr. Matos. Op note is reviewed. Patient is looking well this morning. He is alert lucid and cooperative. His current regimen is satisfactory for modulating his pain. Hospital Course Hospital Course: Laboratory Tests 02/21/21 02/21/21 02/21/21 11:05 12:19 17:55 WBC RBC Hgb Hct MCV MCH MCHC RDW Plt Count MPV Neut % (Auto) Lymph % (Auto) [place] % (Auto) Eos % (Auto) Baso % (Auto) Neut # (Auto) Lymph # (Auto) [place] # (Auto) Eos # (Auto) Baso # (Auto) Total Counted Neutrophils % (Manual) Band Neutrophils % Lymphocytes % (Manual) Monocytes % (Manual) Nucleated RBCs Platelet Estimate Hypochromasia Anisocytosis Macrocytosis [place] Bodies Sodium Potassium Chloride Carbon Dioxide Anion Gap BUN Creatinine Estimated Creat Clear Estimated GFR Est GFR ( Amer) Glucose POC Glucose 165 H 146 H Calcium Total Creatine Kinase CK-MB (CK-2) CK-MB (CK-2) Rel Index Troponin I NT-Pro-B Natriuret Pep TSH Urine Color Urine Appearance Urine pH Ur Specific [place] Urine Protein Urine Glucose (UA) Urine Ketones Urine Blood Urine Nitrate Urine Bilirubin Urine Urobilinogen Ur Leukocyte Esterase Urine RBC Urine WBC Ur Squamous Epith Cells Urine Bacteria Stl Aeromonas (PCR) Stl C. cayetanensis PCR Stool Rotavirus (PCR) Stl Adenov F 40/41 PCR Stool Astrovirus (PCR) Stool Campylobacter PCR Stl C.difficile Tox PCR Stool Cryptosporidium PCR Stl E.coli Shiga Tox PCR Stool E coli O157 PCR Stl Enterotoxigenic E PCR Stool EPEC (PCR) Stool EAEC (PCR) Stl E. histolytica PCR Stool Giardia Lamblia PCR Stool Salmonella PCR Stool Sapovirus (PCR) Stl P. shigelloides PCR Stl Shigella/EIEC PCR St Y.enterocolitica PCR Stool Vibrio (PCR) Stl Vibrio cholerae PCR Stl Norovirus GI/GII PCR Vancomycin Peak Vancomycin Trough Chlamy pneumoniae PCR Adenovirus (PCR) B. pertussis DNA (PCR) Coronavirus OC43 (PCR) Coronavirus HKU1 (PCR) Coronavirus 229E (PCR) SARS-CoV-2 (PCR) Not detected Coronavirus NL63 (PCR) Human Metapneumovir PCR Influenza A (H1) PCR Influ A (H1N1/09) PCR Influenza A (H3) PCR Influenza Type A (PCR) Influenza A Untype (PCR) Not detected Influenza Type B (PCR) Not detected M. pneumoniae (PCR) Parainfluenza 1 (PCR) Parainfluenza 2 (PCR) Parainfluenza 3 (PCR) Parainfluenza 4 (PCR) RSV (PCR) Entero/Rhino (PCR) SARS-CoV-2 IgG Ab (Rapid) SARS-CoV-2 IgM Ab (Rapid) 02/21/21 02/22/21 02/22/21 20:26 05:08 05:30 WBC 11.5 H D RBC 3.12 L Hgb 9.2 L D Hct 30.4 L MCV 97.4 H MCH 29.4 MCHC 30.2 L RDW 15.5 Plt Count 209 MPV 9.7 Neut % (Auto) 78.7 Lymph % (Auto) 9.2 L [place] % (Auto) 10.3 H Eos % (Auto) 0.9 Baso % (Auto) 0.9 Neut # (Auto) 9.1 H Lymph # (Auto) 1.1 [place] # (Auto) 1.2 H Eos # (Auto) 0.1 Baso # (Auto) 0.1 Total Counted Neutrophils % (Manual) Band Neutrophils % Lymphocytes % (Manual) Monocytes % (Manual) Nucleated RBCs Platelet Estimate Hypochromasia Anisocytosis Macrocytosis [place] Bodies Sodium Potassium Chloride Carbon Dioxide Anion Gap BUN Creatinine Estimated Creat Clear Estimated GFR Est GFR ( Amer) Glucose POC Glucose 137 H 110 Calcium Total Creatine
[2021-03-12 10:38] VITALS: BP 101/56; PULSE 78; RESP 20; TEMP 36.5; O2SAT 98
[2021-03-12 11:04] LABS: POC Glucose,Bedside 140 (70-110)
--- NOTE | 2021-03-12 11:45 | PC.NURSE ---
Called report to Adriana @ [facility], 4th floor @ 11:29. [facility] notified for transport. Received order this am for morphine 4 mg IV q 4 prn. Pt stated this helped his pain. Dsg changed to buttocks, open area. VSS. PICC in place to IVANNA. CB in reach.
--- NOTE | 2021-03-12 14:54 | HMH.PHACONS ---
- Pharmacy Consult Date: 03/12/21 Time: 14:54 Referring provider: DR. TOLENTINO Reason for Consult:: VANCOMYCIN LEVEL Allergies and ADEs:: Allergies Allergy/AdvReac Type Severity Reaction Status Date / Time No Known Allergies Allergy Verified 02/21/21 09:56 Home Medications:: Home Medications Medication Instructions Recorded Confirmed Type Aspirin [Low Dose Aspirin EC] 81 mg PO DAILY 01/17/21 02/21/21 History Atorvastatin Calcium [Lipitor 40mg 40 mg PO DAILY 01/17/21 02/21/21 History Tab] Docusate Sodium 100 mg PO BID 01/17/21 02/21/21 History Ergocalciferol (Vitamin D2) 1,250 mg PO WEEKLY 01/17/21 02/21/21 History [Drisdol] Levothyroxine Sodium [Synthroid 50 mcg PO DAILY 01/17/21 02/21/21 History 50mcg (0.05mg) tab] Loratadine [Allergy Relief] 10 mg PO DAILY 01/17/21 02/21/21 History Rivaroxaban [Xarelto 20mg Tablet*] 20 mg PO QPMWITHMEAL 01/17/21 02/21/21 History lisinopriL [Lisinopril 2.5mg Tab] 2.5 mg PO DAILY 01/17/21 02/21/21 History furosemide 20 mg tablet 20 mg PO DAILY 01/29/21 02/21/21 History metformin 500 mg tablet 500 mg PO BID #60 tab 02/12/21 02/21/21 Rx bisoproloL fumarate [Bisoprolol 2.5 mg PO DAILY 02/21/21 02/21/21 History Fumarate] Oxycodone HCl [Oxycodone 5mg tab 5 mg PO Q3MINP PRN 10 Days #60 tab 02/24/21 Rx (IR)] Dapagliflozin Propanediol [Farxiga] 5 mg PO DAILY 30 Days #30 tab 02/26/21 Rx Height: 1.8 m Weight: 81.193 kg Laboratory Results:: Laboratory Results - last 24 hr 03/11/21 17:42: POC Glucose 228 H 03/11/21 21:17: POC Glucose 220 H 03/11/21 23:00: Vancomycin Trough 18.5 H 03/12/21 06:05: WBC 9.1, RBC 3.34 L, Hgb 9.2 L, Hct 30.7 L, MCV 91.7, MCH 27.6, MCHC 30.1 L, RDW 16.0, Plt Count 243, MPV 9.9, Neut % (Auto) 70.0, Lymph % (Auto) 15.5, [place] % (Auto) 12.4 H, Eos % (Auto) 1.5, Baso % (Auto) 0.5, Neut # (Auto) 6.4, Lymph # (Auto) 1.4, [place] # (Auto) 1.1 H, Eos # (Auto) 0.1, Baso # (Auto) 0.1 03/12/21 06:05: Sodium 140, Potassium 3.5, Chloride 109 H, Carbon Dioxide 25, Anion Gap 9.5, BUN 27 H, Creatinine 1.30 H, Estimated Creat Clear 64, Estimated GFR 55 L, Est GFR ( Amer) 67, Glucose 107 H, Calcium 7.5 L 03/12/21 06:08: POC Glucose 111 H 03/12/21 10:26: POC Glucose 140 H Medical History: Reports:: Atrial Fibrillation, Congestive Heart Failure, Chronic Obstructive Pulmonary Disease (COPD), Coronary Artery Disease, Diabetes Mellitus Type 2, Hyperlipidemia, Hypertension, Internal Pacemaker, Myocardial Infarction, Peripheral Artery Disease Denies:: Cancer, Diabetes Mellitus Type 1, MRSA, Seizures Assessment and Plan (1) COVID Status: Acute Category: Medical Code(s): U07.1 - COVID-19 (2) Systolic heart failure Status: Chronic Qualifiers: Heart failure chronicity: unspecified Qualified Code(s): I50.20 - Unspecified systolic (congestive) heart failure Category: Medical Code(s): I50.20 - Unspecified systolic (congestive) heart failure (3) Osteomyelitis of left foot Status: Acute Category: Medical Code(s): M86.9 - Osteomyelitis, unspecified (4) Type 2 diabetes mellitus Status: Acute Qualifiers: Diabetes mellitus terminal makeup operator insulin use: with terminal makeup operator use Diabetes mellitus complication status: with kidney complications Diabetes mellitus complication detail: with chronic kidney disease Chronic kidney disease stage: unspecified stage Qualified Code(s): E11.22 - Type 2 diabetes mellitus with diabetic chronic kidney disease; Z79.4 - [facility]entiary (current) use of insulin Category: Medical Code(s): E11.9 - Type 2 diabetes mellitus without complications (5) AICD (automatic cardioverter/defibrillator) present Status: Chronic Category: Surgical Code(s): Z95.810 - Presence of automatic (implantable) cardiac defibrillator (6) CAD (coronary artery disease) Status: Chronic Qualifiers: Coronary Disease-Associated Artery/Lesion type: [place] artery [place] vs. transplanted heart: [place] heart Associated lauren
== END 2021-03-12 15:30 | disposition short-term general hospital (02) | DRG 616 ==
PROVIDERS: Nurse Practitioner Family; Orthopaedic Surgery; Admitting Provider Emergency Medicine; PCP Family Medicine; Visit Provider Emergency Medicine
PROC: 0Y6J0Z2 Detachment at Left Lower Leg, Mid, Open Approach (ICD-10-PCS; CPT 27880; principal; 2021-02-21 14:00)
PROC: 0KBT0ZZ Excision of Left Lower Leg Muscle, Open Approach (ICD-10-PCS; principal; 2021-03-07 15:00)
DX: E11.69 Type 2 diabetes mellitus with other specified complication (principal); U07.1 COVID-19; J12.82 Pneumonia due to coronavirus disease 2019; I50.23 Acute on chronic systolic (congestive) heart failure; E11.52 Type 2 diabetes mellitus with diabetic peripheral angiopathy with gangrene; M86.9 Osteomyelitis, unspecified; J44.0 Chronic obstructive pulmonary disease with (acute) lower respiratory infection; L03.116 Cellulitis of left lower limb; I96 Gangrene, not elsewhere classified; I48.20 Chronic atrial fibrillation, unspecified; T87.81 Dehiscence of amputation stump; Y83.5 Amputation of limb(s) as the cause of abnormal reaction of the patient, or of later complication, without mention of misadventure at the time of the procedure; I25.5 Ischemic cardiomyopathy; F17.210 Nicotine dependence, cigarettes, uncomplicated; E11.22 Type 2 diabetes mellitus with diabetic chronic kidney disease; Z79.4 Long term (current) use of insulin; N18.9 Chronic kidney disease, unspecified; I25.10 Atherosclerotic heart disease of native coronary artery without angina pectoris; I25.2 Old myocardial infarction; E03.9 Hypothyroidism, unspecified; Z89.511 Acquired absence of right leg below knee; Z95.5 Presence of coronary angioplasty implant and graft; Z71.6 Tobacco abuse counseling; Z95.810 Presence of automatic (implantable) cardiac defibrillator; E78.2 Mixed hyperlipidemia; I11.0 Hypertensive heart disease with heart failure
CPT/HCPCS: 27880; 11043; 36415; 71045; 71275; 73701; 80048; 80202; 81001; 82550; 82553; 82962; 83880; 84443; 84484; 85007; 85025; 85651; 86140; 86328; 87070; 87075; 87077; 87186; 87205; 87506; 87581; 87632; 87798; 88307; 93005; 93306; 97110; 97162; 97166; 97530; C9803; J1956; J2405; Q9967; U0003; U0005

== ENCOUNTER 2021-04-12 01:12 | Inpatient (IN) | payer MEDICARE, MEDICAID, SELFPAY ==
[2021-04-12] VITALS (14 sets, daily range): BP systolic 89–146; BP diastolic 47–66; PULSE 66–88; RESP 16–32; TEMP 36.6–38.8; O2SAT 91–100; BMI 25.8; BMI 27.2; BMI 24.2
--- NOTE | 2021-04-12 01:23 | ECG_ITS ---
APPROVED REPORT Exam: Resting ECG HR:75 bpm ECG Measurements Heart Rate 75 AXES AR 152 P 107 QRSd 78 QRS -44 QT 352 T 112 QTc 393 Conclusion Electronic ventricular pacemaker Electronically signed by : Dominik Burton MD 04/12/2021 08:31:34
--- NOTE | 2021-04-12 01:35 | XR_ITS ---
PROCEDURE INFORMATION: Exam: XR Chest Exam date and time: 04/12/2021 1:35 AM Age: 66 years old Clinical indication: Shortness of breath; Additional info: SOA, requiring 100% o2 TECHNIQUE: Imaging protocol: XR of the chest. Views: 1 view. Total images: 1 COMPARISON: CR XR CHEST PORTABLE 03/09/2021 9:07 AM FINDINGS: Tubes, catheters and devices: A pacemaker is present. Lungs: Diffuse pulmonary opacities favor edema over pneumonia or atypical pneumonia. Pleural spaces: Unremarkable. No pleural effusion. No pneumothorax. Heart/Mediastinum: Cardiomegaly. Bones/joints: Unremarkable. IMPRESSION: Diffuse pulmonary opacities favor edema over pneumonia or atypical pneumonia. Radiographic surveillance is recommended to document resolution.
[2021-04-12 01:49] LABS: ABG Base Excess -0.5 mmol/L (-2.4-2.3); ABG HCO3 23.7 mmhg (22.0-26.0); ABG Oxygen Saturation 73 % (90-100); ABG PCO2 36.3 mmhg (35.0-45.0); ABG PH 7.43 mmol/L (7.35-7.45); ABG TCO2 24.8 mmhg (23-27); Allen's Test Acceptable; Oxygen 100 %
[2021-04-12 01:50] LABS: Source Left Radial
[2021-04-12 01:51] LABS: Microscopic, Urine URINE MICROSCOPIC (MICROSCOPIC)
[2021-04-12 01:51] LABS: ABG PO2 41.2 mmhg (80-100)
[2021-04-12 01:52] LABS: Appearance,Urine CLOUDY (Clear); Blood, Urine 3+ (Negative); Color,Urine DK YELLOW (Yellow); Glucose,Urine (UA) Negative (Negative); Ketones,Urine Negative (Negative); Leukocyte Esterase,Urine 2+ (Negative); Nitrate,Urine POSITIVE (Negative); PH,Urine 5.5 (5.0-8.5); Protein,Urine 1+ (Negative); Specific Gravity, Urine 1.025 (1.005-1.030); Urobilinogen,Urine 0.2 EU/dl (0.2)
[2021-04-12 01:57] LABS: Hemoglobin 8.1 g/dL (14.1-18.0); Mean Corpuscular Volume 87.6 fl (80-94)
[2021-04-12 02:00] LABS: Bilirubin,Urine Negative (Negative); Mucus,Urine 4+ /lpf; Red Blood Cell Casts,Urine Occasional #/lpf (0); White Blood Cell Casts,Urine Occasional #/lpf (0)
[2021-04-12 02:05] LABS: Basophils % 0.1 % (0.1-2.0); Lymphocytes # 0.6 K/mm3 (0.7-4.5); Lymphocytes % 3.1 % (10-50); Mean Corpuscular HGB Conc 31.4 g/dL (31.8-35.4); Mean Corpuscular Hemoglobin 27.5 pg (27.0-31.2); Mean Platelet Volume 13.1 fl (7.4-10.4); Monocytes # 1.3 K/mm3 (0.1-1.0); Monocytes % 6.8 % (1.7-9.3); Neutrophils # 16.5 K/mm3 (1.8-7.8); Platelet Count 106 K/mm3 (142-424); Red Blood Count 2.96 M/mm3 (4.60-6.20); Red Cell Distribution Width 18.4 % (11.5-17.5); White Blood Count 18.3 K/mm3 (4.8-10.8)
[2021-04-12 02:08] LABS: Coronavirus 19, PCR Not Detected (NotDetected); Influenza A, PCR Not Detected (NotDetected); Influenza B, PCR Not Detected (NotDetected)
[2021-04-12 02:10] LABS: Alanine Aminotransferase 35 U/L (12-78); Albumin Level 2.6 g/dl (3.5-5.0); Albumin/Globulin Ratio 0.7 (1.1-1.8); Alkaline Phosphatase 156 U/L (38-126); Aspartate Amino Transferase 56 U/L (17-59); Bilirubin,Total 2.9 mg/dl (0.2-1.3); Carbon Dioxide 24 mmol/L (22.0-30.0); Chloride 95 mmol/L (98-107); Creatinine Clearance Estimated 18 mL/min (50-200); Estimated Glomerular Filt Rate 12 ml/min (>60); Globulin 3.9 g/dL (1.3-3.2); Glucose 301 mg/dl (74-100); Magnesium 1.4 mg/dl (1.6-2.3); Sodium 130 mmol/L (136-145); Total Protein,Serum 6.5 g/dl (6.3-8.2)
[2021-04-12 02:13] LABS: Lactic Acid 2.4 mmol/L (0.7-2.1)
[2021-04-12 02:14] LABS: Blood Urea Nitrogen 96 mg/dl (9-20); MANUAL DIFFERENTIAL MANUAL DIFFERENTIAL (MANUAL DIFF)
[2021-04-12 02:15] LABS: GFR (African American) 15 ML/MIN (>60)
[2021-04-12 02:16] LABS: C-Reactive Protein 204.1 mg/L (0-4)
[2021-04-12 02:19] LABS: Hypochromasia 1+; Lymphocytes % 3 % (10-50); Monocytes % 3 % (2-9); Neutrophils % 84 % (42-76); Platelet Estimate Slight Decrease; Rouleaux 3+; Total Cells Counted 100
--- NOTE | 2021-04-12 02:20 | PC.NURSE ---
Dr. Freeman notified of critical creatinine
[2021-04-12 02:25] LABS: Troponin I 0.11 ng/ml (0.00-0.034)
[2021-04-12 02:30] LABS: Erythrocyte Sedimentation Rate 93 mm/hr (0-20); Procalcitonin 11.1 ng/mL (0.0-2.0); T4 (Thyroxine) 4.5 ug/dl (5.53-11.0)
[2021-04-12 02:42] LABS: NT Pro Brain Natriuretic Pep. 54500 pg/mL (0-125)
[2021-04-12 02:44] LABS: Thyroid Stimulating Hormone 3.07 uIU/mL (0.465-4.68)
--- NOTE | 2021-04-12 02:56 | HMH.EDSOB ---
ED Disposition Clinical Impression: AICD (automatic cardioverter/defibrillator) present, Elevated troponin, JAYDE (acute kidney injury), Thrombocytopenia, Severe sepsis with acute organ dysfunction UTI (urinary tract infection) Qualifiers: Urinary tract infection type: site unspecified Hematuria presence: without hematuria Qualified Code(s): N39.0 - Urinary tract infection, site not specified Hypothyroid Qualifiers: Hypothyroidism type: acquired Qualified Code(s): E03.9 - Hypothyroidism, unspecified Type 2 diabetes mellitus Qualifiers: Diabetes mellitus intermediate designer insulin use: unspecified fci insulin use status Diabetes mellitus complication status: with other specified complication Qualified Code(s): E11.69 - Type 2 diabetes mellitus with other specified complication CHF (congestive heart failure), NYHA class IV Qualifiers: Congestive heart failure type: combined Congestive heart failure chronicity: acute on chronic Qualified Code(s): I50.43 - Acute on chronic combined systolic (congestive) and diastolic (congestive) heart failure Respiratory failure with hypoxia Qualifiers: Chronicity: acute on chronic Qualified Code(s): J96.21 - Acute and chronic respiratory failure with hypoxia Anemia Qualifiers: Anemia type: unspecified type Qualified Code(s): D64.9 - Anemia, unspecified Disposition: Admitted As Inpatient Condition on Discharge: Serious Referrals: Jonny Freeman MD [Primary Care Provider] - - Critical Care Critical Care Time: No Attestation: On 04/12/21, the high probability of a clinically significant, sudden or life threatening deterioration of the following system(s) required my full and direct attention, intervention and personal management. The time I documented below is in addition to time spent performing reported procedures but includes the following listed in this critical care notation. Medical Decision Making - Medical Records Medical records reviewed: Yes: I reviewed the patient's medical records. - [place] Inquiry Pt receiving controlled substance: No Vital Signs: 04/12/21 00:58 04/12/21 01:30 04/12/21 02:01 Temperature 102 F H Temperature Source Rectal Pulse Rate 75 75 Pulse Rate [Right] 79 Respiratory Rate 27 H 30 H 32 H Blood Pressure 95/54 L Blood Pressure [Right Arm] 105/65 L Blood Pressure Mean Blood Pressure Mean [Right Arm] 78 Blood Pressure Source [Right Arm] Automatic Cuff 02 Sat by Pulse Oximetry 98 100 98 Oxygen Delivery Method Non-Rebreather Non-Rebreather Non-Rebreather Oxygen Flow Rate (LPM) 04/12/21 02:30 04/12/21 03:00 04/12/21 03:30 Temperature Temperature Source Pulse Rate 75 75 72 Pulse Rate [Right] Respiratory Rate 25 H 22 26 H Blood Pressure 98/47 L 107/52 L 99/56 L Blood Pressure [Right Arm] Blood Pressure Mean 61 Blood Pressure Mean [Right Arm] Blood Pressure Source [Right Arm] 02 Sat by Pulse Oximetry 99 99 100 Oxygen Delivery Method Non-Rebreather Non-Rebreather Non-Rebreather Oxygen Flow Rate (LPM) 04/12/21 04:00 04/12/21 04:30 Temperature Temperature Source Pulse Rate 75 72 Pulse Rate [Right] Respiratory Rate 25 H 22 Blood Pressure 91/58 L 104/64 L Blood Pressure [Right Arm] Blood Pressure Mean 65 Blood Pressure Mean [Right Arm] Blood Pressure Source [Right Arm] 02 Sat by Pulse Oximetry 100 97 Oxygen Delivery Method Nasal Cannula Nasal Cannula Oxygen Flow Rate (LPM) 5 3 - Lab Data Lab results reviewed: Yes: I reviewed the patient's lab results. Lab Results 04/12/21 01:20: WBC 18.3 H, RBC 2.96 L, Hgb 8.1 L, Hct 26.0 L, MCV 87.6, MCH 27.5, MCHC 31.4 L, RDW 18.4 H, Plt Count 106 L, MPV 13.1 H, Neut % (Auto) 90.0 H, Lymph % (Auto) 3.1 L, [place] % (Auto) 6.8, Eos % (Auto) 0.0 L, Baso % (Auto) 0.1, Neut # (Auto) 16.5 H, Lymph # (Auto) 0.6 L, [place] # (Auto) 1.3 H, Eos # (Auto) 0.0, Baso # (Auto) 0.0, Total Counted 100, Neutrophils % (Manual) 84 H, Band Neutrophils % 10.0 H, Lym
[2021-04-12 04:46] LABS: Reflex Lactic Add Lactic Reflex
[2021-04-12 04:58] LABS: Lactic Acid Follow Up (RFLX 1) 1.1 mmol/L (0.7-2.1)
--- NOTE | 2021-04-12 05:08 | PC.NURSE ---
s/w skilled nursing nurse to give update and collect recent lab results
[2021-04-12 05:11] LABS: Troponin I 0.13 ng/ml (0.00-0.034)
--- NOTE | 2021-04-12 06:24 | PC.NURSE ---
patient up to floor via stretcher @ this time.
[2021-04-12 06:44] LABS: POC Glucose,Bedside 350 (70-110)
--- NOTE | 2021-04-12 07:03 | PC.WOUNDNOTE ---
MULTIPLE STAGE 2 AREAS NOTED TO BOTTOM AND UPPER R LEG. PRESSURE DRESSING APPLIED. WILL TURN Q2H.
[2021-04-12 08:32] LABS: Troponin I 0.12 ng/ml (0.00-0.034)
--- NOTE | 2021-04-12 09:52 | HMH.PHACONS ---
- Pharmacy Consult Date: 04/12/21 Time: 09:52 Referring provider: DR. TOLENTINO Reason for Consult:: VANCOMYCIN DOSING Allergies and ADEs:: Allergies Allergy/AdvReac Type Severity Reaction Status Date / Time No Known Allergies Allergy Verified 02/21/21 09:56 Home Medications:: Home Medications Medication Instructions Recorded Confirmed Type Atorvastatin Calcium [Lipitor 40mg 40 mg PO DAILY 01/17/21 04/12/21 History Tab] Docusate Sodium 100 mg PO BID 01/17/21 04/12/21 History Levothyroxine Sodium [Synthroid 62.5 mcg PO DAILY 01/17/21 04/12/21 History 50mcg (0.05mg) tab] lisinopriL [Lisinopril 2.5mg Tab] 2.5 mg PO DAILY 01/17/21 04/12/21 History bisoproloL fumarate [Bisoprolol 2.5 mg PO DAILY 02/21/21 04/12/21 History Fumarate] Acetaminophen [Tylenol 325mg 650 mg PO Q4HP PRN 04/12/21 04/12/21 History Tablet] Bumetanide [Bumex 1mg tablet] 1 mg PO DAILY 04/12/21 04/12/21 History Ipratropium/Albuterol Sulfate 2 puff IH TID 04/12/21 04/12/21 History [Combivent Respimat Inh] Isosorbide Mononitrate [Isosorbide 30 mg PO DAILY 04/12/21 04/12/21 History Mononitrate ER] Multivit with Calcium,Iron,Min 1 each PO DAILY 04/12/21 04/12/21 History [One Daily with Calcium-Iron] Nystatin [Nystatin Topical Powder 1 applicatio TP BID 04/12/21 04/12/21 History 30GM*] Pantoprazole Sodium [Protonix 40mg 40 mg PO DAILY 04/12/21 04/12/21 History tablet] Potassium Chloride [Klor-Con] 20 meq PO DAILY 04/12/21 04/12/21 History polyethylene glycoL 3350 [Miralax 17 gm PO DAILYP PRN 04/12/21 04/12/21 History 17gm Packet] Height: 1.78 m Weight: 76.748 kg Laboratory Results:: Laboratory Results - last 24 hr 04/12/21 01:20: WBC 18.3 H, RBC 2.96 L, Hgb 8.1 L, Hct 26.0 L, MCV 87.6, MCH 27.5, MCHC 31.4 L, RDW 18.4 H, Plt Count 106 L, MPV 13.1 H, Neut % (Auto) 90.0 H, Lymph % (Auto) 3.1 L, [place] % (Auto) 6.8, Eos % (Auto) 0.0 L, Baso % (Auto) 0.1, Neut # (Auto) 16.5 H, Lymph # (Auto) 0.6 L, [place] # (Auto) 1.3 H, Eos # (Auto) 0.0, Baso # (Auto) 0.0, Total Counted 100, Neutrophils % (Manual) 84 H, Band Neutrophils % 10.0 H, Lymphocytes % (Manual) 3 L, Monocytes % (Manual) 3, Platelet Estimate Slight decrease, RBC Morphology Not Reportable, Hypochromasia 1+, [place]le[place] 3+, ESR 93 H 04/12/21 01:20: Sodium 130 L, Potassium 5.0, Chloride 95 L, Carbon Dioxide 24, Anion Gap 16.0 H, BUN 96 H, Creatinine 4.80 H, Estimated Creat Clear 18, Estimated GFR 12 L*, Est GFR ( Amer) 15 L*, Glucose 301 H, Calcium 8.0 L, Magnesium 1.4 L, Total Bilirubin 2.9 H, AST 56, ALT 35, Alkaline Phosphatase 156 H, Troponin I 0.11 H, C-Reactive Protein 204.1 H, NT-Pro-B Natriuret Pep 08988 H, Total Protein 6.5, Albumin 2.6 L, Globulin 3.9 H, Albumin/Globulin Ratio 0.7 L, Procalcitonin 11.1 H, TSH 3.07, Thyroxine (T4) 4.5 L 04/12/21 01:20: Lactate 2.4 H 04/12/21 01:20: Urine Color Dk yellow, Urine Appearance Cloudy, Urine pH 5.5, Ur Specific [place] 1.025, Urine Protein 1+, Urine Glucose (UA) Negative, Urine Ketones Negative, Urine Blood 3+, Urine Nitrate Positive, Urine Bilirubin Negative, Urine Urobilinogen 0.2, Ur Leukocyte Esterase 2+ A, Urine RBC 10-20, Urine WBC 10-20, RBC Casts Occasional, WBC Casts Occasional, Urine Mucus 4+ 04/12/21 01:20: SARS-CoV-2 (PCR) Not detected, Influenza A Untype (PCR) Not detected, Influenza Type B (PCR) Not detected 04/12/21 01:35: Specimen Source Left radial, O2 % 100, ABG pH 7.43, ABG pCO2 36.3, ABG pO2 41.2 L, ABG HCO3 23.7, ABG Total CO2 24.8, ABG O2 Saturation 73 L*, ABG Base Excess -0.5, Bruno Test Acceptable 04/12/21 04:40: Troponin I 0.13 H 04/12/21 04:40: Lactate 1.1 04/12/21 06:37: POC Glucose 350 H* 04/12/21 07:55: Troponin I 0.12 H Medical History: Reports:: Atrial Fibrillation, Congestive Heart Failure, Chronic Obstructive Pulmonary Disease (COPD), Coronary Artery Disease, Diabetes Mellitus Type 2, Hyperlipidemia, Hypertension, Internal Pacemaker, Myocardial Infarction, Peripheral Artery Disease
--- NOTE | 2021-04-12 09:55 | HMH.HP ---
*Admission Date: 04/12/21 *Chief complaint: fever *History of present illness: this patient from sent from [facility] with fever and sob- pt was discovered to be breathing heavy and O2 sat was 70s, he was placed on simple mask and O2 increased to 83%. EMS placed pt on 100% NRB and sat quickly deuce to to mid 90s. RR 27 and pt c/o feeling tired . Skin is clammy and warm to touch. Denies cough or N/V/D. L elbow redness and stag 2 to coccyx pt sent from [facility] with sob and fever - pt awake but with no specific c/o - pt with recent admit at [facility] with ugi bleed and sara and back to [facility] and had fever and increased bun/creat and sent to ed and found to have sepsis and uti and prob chf with sara- pt was admitted with orders [facility] History I have reviewed the patient's past medical history: Yes Medical History: Reports:: Atrial Fibrillation, Congestive Heart Failure, Chronic Obstructive Pulmonary Disease (COPD), Coronary Artery Disease, Diabetes Mellitus Type 2, Hyperlipidemia, Hypertension, Internal Pacemaker, Myocardial Infarction, Peripheral Artery Disease Denies:: Cancer, Diabetes Mellitus Type 1, MRSA, Seizures *Have you ever received a pneumonia vaccine?: Yes *Have you received a flu vaccine this season?: Yes Other Medical History: Reports: Anemia, Arthritis, Hypothyroidism. Denies: Blood Transfusion Reaction, Cataracts, Glaucoma, Thyroid Disease Laterality Cases: Left: Other Other Surgeries: Yes: Angiogram, Cardiac Catheterization, Coronary Stent, Pacemaker, Other Amputation: Yes (RT lower leg) Fractures: No - *Social History Smoking Status: Current every day smoker Tobacco Type: cigarettes # Packs/Day (cigarettes): 1 Alcohol Intake: never Alcohol Intake Frequency:: other Substance Use Type: denies use *Occupational Status:: disabled Housing: house Household Members: family *Travel in the last 8 weeks: None Family Hx:: No significant family history Review of Systems - Review of Systems Review of systems:: unable to obtain - *Neurologic Denies seizure-like activity Meds Home Medications Medication Instructions Recorded Confirmed Type Atorvastatin Calcium [Lipitor 40mg 40 mg PO HS 01/17/21 04/12/21 History Tab] Docusate Sodium 100 mg PO BID 01/17/21 04/12/21 History lisinopriL [Lisinopril 2.5mg Tab] 2.5 mg PO DAILY 01/17/21 04/12/21 History bisoproloL fumarate [Bisoprolol 2.5 mg PO DAILY 02/21/21 04/12/21 History Fumarate] Acetaminophen [Tylenol 325mg 650 mg PO Q4HP PRN 04/12/21 04/12/21 History Tablet] Bumetanide [Bumex 1mg tablet] 1 mg PO DAILY 04/12/21 04/12/21 History Ipratropium/Albuterol Sulfate 1 puff IH TIDP PRN 04/12/21 04/12/21 History [Combivent Respimat Inh] Isosorbide Mononitrate [Isosorbide 30 mg PO DAILY 04/12/21 04/12/21 History Mononitrate ER] Levothyroxine Sodium 62.5 mcg PO DAILY 04/12/21 04/12/21 History [Levothyroxine 125mcg (0.125mg) Tab] Multivit with Calcium,Iron,Min 1 each PO DAILY 04/12/21 04/12/21 History [One Daily with Calcium-Iron] Nystatin [Nystatin Topical Powder 1 applicatio TP BID 04/12/21 04/12/21 History 30GM*] Pantoprazole Sodium [Protonix 40mg 40 mg PO DAILY 04/12/21 04/12/21 History tablet] Potassium Chloride [Klor-Con] 20 meq PO DAILY 04/12/21 04/12/21 History Rivaroxaban [Xarelto 20mg Tablet*] 20 mg PO DAILY 04/12/21 04/12/21 History polyethylene glycoL 3350 [Miralax 17 gm PO DAILYP PRN 04/12/21 04/12/21 History 17gm Packet] Allergies Allergy/AdvReac Type Severity Reaction Status Date / Time No Known Allergies Allergy Verified 02/21/21 09:56 Exam Vital signs and Labs for Last 24 Hours: Temp Pulse Resp BP Pulse Ox 97.9 F 72 22 146/66 H 91 L 04/12/21 06:24 04/12/21 08:00 04/12/21 06:24 04/12/21 06:24 04/12/21 06:24 Laboratory Results - last 24 hr 12/11/21 01:20: WBC 18.3 H, RBC 2.96 L, Hgb 8.1 L, Hct 26.0 L, MCV 87.6, MCH 27.5, MCHC 31.4 L, RDW 18.4 H, Plt Count 106 L, MPV 13.1 H, Neut % (Auto) 90.0 H, L
--- NOTE | 2021-04-12 12:22 | HMH.PHAINT ---
MEDICATION RECONCILIATION COMPLETED ON PATIENT USING MAR FROM [facility]. -LIZETTE VALERO, JAMIED
[2021-04-12 21:11] LABS: POC Glucose,Bedside 217 (70-110)
[2021-04-12 21:33] LABS: POC Glucose,Bedside 294 (70-110)
[2021-04-12 21:33] LABS: POC Glucose,Bedside 237 (70-110)
[2021-04-13] VITALS (11 sets, daily range): BP systolic 68–115; BP diastolic 40–64; PULSE 69–105; RESP 18–24; TEMP 35.1–36.6; O2SAT 94–99; BMI 24.3
[2021-04-13 05:39] LABS: POC Glucose,Bedside 216 (70-110)
--- NOTE | 2021-04-13 06:18 | PC.NURSE ---
Pt is A/O x3. Pt has not rested well thus far in shift. Rectal temp at 04:00 95.2, applied roscoe hugger and warm blankets. Will continue to take rectal temps every hour. Pt's last rectal was 95.7. Pt tolerated a bed bath, and changed dressing on bottom at beginning of shift. FSBS have been 217, 216. Pt has snacked on some crackers t/o shift.
--- NOTE | 2021-04-13 08:27 | PC.NURSE ---
notofiex md of hypotension and low temp
[2021-04-13 09:51] LABS: Basophils % 0.1 % (0.1-2.0); Eosinophils # 0.1 K/mm3 (0.0-0.4); Eosinophils % 0.3 % (0.1-12.0); Hematocrit 29.1 % (42.0-52.0); Hemoglobin 9.2 g/dL (14.1-18.0); Lymphocytes # 0.9 K/mm3 (0.7-4.5); Lymphocytes % 4.6 % (10-50); Mean Corpuscular HGB Conc 31.7 g/dL (31.8-35.4); Mean Corpuscular Hemoglobin 27.7 pg (27.0-31.2); Mean Corpuscular Volume 87.4 fl (80-94); Mean Platelet Volume 13.4 fl (7.4-10.4); Monocytes # 1.9 K/mm3 (0.1-1.0); Monocytes % 9.6 % (1.7-9.3); Neutrophils # 16.5 K/mm3 (1.8-7.8); Neutrophils % 85.3 % (37.0-80.0); Platelet Count 91 K/mm3 (142-424); Red Blood Count 3.33 M/mm3 (4.60-6.20); Red Cell Distribution Width 18.6 % (11.5-17.5); White Blood Count 19.3 K/mm3 (4.8-10.8)
[2021-04-13 09:53] LABS: Chloride 102 mmol/L (98-107); MANUAL DIFFERENTIAL MANUAL DIFFERENTIAL (MANUAL DIFF); Potassium 4.2 mmoL/L (3.5-5.1); Sodium 135 mmol/L (136-145)
[2021-04-13 09:55] LABS: Creatinine Clearance Estimated 16 mL/min (50-200); Estimated Glomerular Filt Rate 12 ml/min (>60); GFR (African American) 15 ML/MIN (>60)
[2021-04-13 09:56] LABS: Alanine Aminotransferase 27 U/L (12-78); Albumin Level 2.2 g/dl (3.5-5.0); Albumin/Globulin Ratio 0.6 (1.1-1.8); Alkaline Phosphatase 125 U/L (38-126); Anion Gap 15.2 mEq/L (5-15); Aspartate Amino Transferase 47 U/L (17-59); Bilirubin,Total 1.6 mg/dl (0.2-1.3); Calcium 7.4 mg/dl (8.4-10.2); Carbon Dioxide 22 mmol/L (22.0-30.0); Globulin 3.6 g/dL (1.3-3.2); Glucose 184 mg/dl (74-100); Total Protein,Serum 5.8 g/dl (6.3-8.2)
[2021-04-13 10:04] LABS: Blood Urea Nitrogen 107 mg/dl (9-20)
--- NOTE | 2021-04-13 10:34 | HMH.ACPN2 ---
Internal Medicine - PN: Subj *Date: 04/14/21 *Time: 06:50 Interval history: hypotensive and hypothermic this am but alert and no specific c/o- has gram neg sepsis Exam Vital signs and Labs for Last 24 Hours: Temp Pulse Resp BP Pulse Ox 97.3 F L 96 H 20 68/48 L 96 04/13/21 10:20 04/13/21 08:00 04/13/21 08:00 04/13/21 08:00 04/13/21 08:00 Laboratory Results - last 24 hr 04/12/21 01:20: Urine Color Dk yellow, Urine Appearance Cloudy, Urine pH 5.5, Ur Specific [place] 1.025, Urine Protein 1+, Urine Glucose (UA) Negative, Urine Ketones Negative, Urine Blood 3+, Urine Nitrate Positive, Urine Bilirubin Negative, Urine Urobilinogen 0.2, Ur Leukocyte Esterase 2+ A, Urine RBC 10-20, Urine WBC 10-20, RBC Casts Occasional, WBC Casts Occasional, Urine Mucus 4+ 04/12/21 11:22: POC Glucose 294 H 04/12/21 16:28: POC Glucose 237 H 04/12/21 20:08: POC Glucose 217 H 04/13/21 05:28: POC Glucose 216 H 04/13/21 09:30: WBC 19.3 H, RBC 3.33 L, Hgb 9.2 L, Hct 29.1 L, MCV 87.4, MCH 27.7, MCHC 31.7 L, RDW 18.6 H, Plt Count 91 L, MPV 13.4 H, Neut % (Auto) 85.3 H, Lymph % (Auto) 4.6 L, [place] % (Auto) 9.6 H, Eos % (Auto) 0.3, Baso % (Auto) 0.1, Neut # (Auto) 16.5 H, Lymph # (Auto) 0.9, [place] # (Auto) 1.9 H, Eos # (Auto) 0.1, Baso # (Auto) 0.0 04/13/21 09:30: Sodium 135 L, Potassium 4.2, Chloride 102, Carbon Dioxide 22, Anion Gap 15.2 H, BUN 107 H*, Creatinine 4.80 H, Estimated Creat Clear 16, Estimated GFR 12 L*, Est GFR ( Amer) 15 L*, Glucose 184 H, Calcium 7.4 L, Total Bilirubin 1.6 H, AST 47, ALT 27, Alkaline Phosphatase 125, Total Protein 5.8 L, Albumin 2.2 L D, Globulin 3.6 H, Albumin/Globulin Ratio 0.6 L I & O for Last 24 hours: Intake & Output 04/10/21 04/11/21 04/12/21 04/13/21 11:59 11:59 11:59 11:59 Intake Total 2099 240 / 240 Output Total 300 / 300 Balance 2099 -60 / -60 Weight 169 lb 3.2 oz 169 lb 11.2 oz Microbiology Reports for the Last 24 Hours: Microbiology 04/12/21 01:37 Blood Blood Culture - Preliminary Gram Negative Rods 04/12/21 01:37 Blood Blood Culture - Preliminary Gram Negative Rods 04/12/21 01:20 Urine,Clean Catch Urine Culture - Preliminary Gram Negative Rods - Constitutional chronically ill appearing - *Routine HEENT Exam Head: Present: normocephalic Eye: Present: EOMI, PERRL ENT: Present: mucous membranes dry - *Routine Neck Exam Absent: JVD - *Routine Respiratory Exam Present: decreased breath sounds - *Routine Cardiovascular Exam Present: RRR - *Routine Abdominal Exam Present: soft - *Routine Extremities Exam Present: amputation - *Routine Skin Exam Absent: erythema - *Routine Neurological Exam Present: alert, CN II-XII intact - Routine Psychiatric Exam Present: unable to assess Assessment and Plan (1) UTI (urinary tract infection) Status: Acute Qualifiers: Urinary tract infection type: site unspecified Hematuria presence: without hematuria Qualified Code(s): N39.0 - Urinary tract infection, site not specified Category: Medical Code(s): N39.0 - Urinary tract infection, site not specified (2) Elevated troponin Status: Acute Category: Medical Code(s): R77.8 - Other specified abnormalities of plasma proteins (3) JAYDE (acute kidney injury) Status: Acute Category: Medical Code(s): N17.9 - Acute kidney failure, unspecified (4) Respiratory failure with hypoxia Status: Acute Qualifiers: Chronicity: acute on chronic Qualified Code(s): J96.21 - Acute and chronic respiratory failure with hypoxia Category: Medical Code(s): J96.91 - Respiratory failure, unspecified with hypoxia (5) Thrombocytopenia Status: Acute Category: Medical Code(s): D69.6 - Thrombocytopenia, unspecified (6) Severe sepsis with acute organ dysfunction Status: Acute Category: Medical Code(s): A41.9 - Sepsis, unspecified org
[2021-04-13 11:03] LABS: Acanthocytes 1+; Hypochromasia 1+; Lymphocytes % 4 % (10-50); Monocytes % 8 % (2-9); Neutrophils % 88 % (42-76); Platelet Estimate Slight Decrease; Total Cells Counted 100
[2021-04-13 21:35] LABS: POC Glucose,Bedside 217 (70-110)
[2021-04-13 21:35] LABS: POC Glucose,Bedside 200 (70-110)
[2021-04-13 22:30] LABS: POC Glucose,Bedside 247 (70-110)
[2021-04-14] VITALS (15 sets, daily range): BP systolic 76–110; BP diastolic 42–61; PULSE 62–80; RESP 12–25; TEMP 36.4–36.6; O2SAT 90–99; BMI 25.0; BMI 24.9
[2021-04-14 07:05] LABS: Chloride 102 mmol/L (98-107); Sodium 135 mmol/L (136-145)
[2021-04-14 07:06] LABS: Potassium 4.3 mmoL/L (3.5-5.1)
[2021-04-14 07:08] LABS: Creatinine Clearance Estimated 15 mL/min (50-200); Estimated Glomerular Filt Rate 11 ml/min (>60); GFR (African American) 13 ML/MIN (>60)
[2021-04-14 07:09] LABS: Anion Gap 15.3 mEq/L (5-15); Calcium 7.4 mg/dl (8.4-10.2); Carbon Dioxide 22 mmol/L (22.0-30.0); Glucose 206 mg/dl (74-100)
[2021-04-14 07:50] LABS: Blood Urea Nitrogen 104 mg/dl (9-20)
--- NOTE | 2021-04-14 07:53 | PC.NURSE ---
CRITICAL BUN AND CREATININE REPORTED VIA LAB. NAME AND VERIFIED. MD NOTIFIED. 500 ML BOLUS OF NS ORDERED BY .
--- NOTE | 2021-04-14 08:56 | HMH.ACPN2 ---
Internal Medicine - PN: Subj *Date: 04/14/21 *Time: 13:09 Interval history: hypotensive this morning alert and answering questions micro growing gram neg organisms renal function markedly worsening receiving fluid bolus immediately upon notice of low bp anticipate further boluses as tolerated no dyspnea while supine ortho course revd bishnu remain in place, wound looks good sacral decub noted several open areas malodorous Exam Vital signs and Labs for Last 24 Hours: Temp Pulse Resp BP Pulse Ox 97.9 F 75 19 81/48 L 97 04/14/21 04:00 04/14/21 04:00 04/14/21 04:00 04/14/21 04:00 04/14/21 04:00 Laboratory Results - last 24 hr 04/13/21 09:30: WBC 19.3 H, RBC 3.33 L, Hgb 9.2 L, Hct 29.1 L, MCV 87.4, MCH 27.7, MCHC 31.7 L, RDW 18.6 H, Plt Count 91 L, MPV 13.4 H, Neut % (Auto) 85.3 H, Lymph % (Auto) 4.6 L, [place] % (Auto) 9.6 H, Eos % (Auto) 0.3, Baso % (Auto) 0.1, Neut # (Auto) 16.5 H, Lymph # (Auto) 0.9, [place] # (Auto) 1.9 H, Eos # (Auto) 0.1, Baso # (Auto) 0.0, Total Counted 100, Neutrophils % (Manual) 88 H, Lymphocytes % (Manual) 4 L, Monocytes % (Manual) 8, Platelet Estimate Slight decrease, Hypochromasia 1+, Acanthocytes (Spur) 1+ 04/13/21 09:30: Sodium 135 L, Potassium 4.2, Chloride 102, Carbon Dioxide 22, Anion Gap 15.2 H, BUN 107 H*, Creatinine 4.80 H, Estimated Creat Clear 16, Estimated GFR 12 L*, Est GFR ( Amer) 15 L*, Glucose 184 H, Calcium 7.4 L, Total Bilirubin 1.6 H, AST 47, ALT 27, Alkaline Phosphatase 125, Total Protein 5.8 L, Albumin 2.2 L D, Globulin 3.6 H, Albumin/Globulin Ratio 0.6 L 04/13/21 11:38: POC Glucose 200 H 04/13/21 16:40: POC Glucose 217 H 04/13/21 21:52: POC Glucose 247 H 04/14/21 05:17: Sodium 135 L, Potassium 4.3, Chloride 102, Carbon Dioxide 22, Anion Gap 15.3 H, BUN 104 H*, Creatinine 5.30 H, Estimated Creat Clear 15, Estimated GFR 11 L*, Est GFR ( Amer) 13 L*, Glucose 206 H, Calcium 7.4 L I & O for Last 24 hours: Intake & Output 04/11/21 04/12/21 04/13/21 04/14/21 23:59 23:59 23:59 23:59 Intake Total 2100 / 2100 480 / 480 2461 / 2461 Output Total 300 / 300 550 / 550 200 / 200 Balance 1800 / 1800 -70 / -70 2261 / 2261 Weight 169 lb 3.2 oz 169 lb 11.2 oz 174 lb 11.2 oz Microbiology Reports for the Last 24 Hours: Microbiology 04/12/21 01:37 Blood Blood Culture - Preliminary Gram Negative Rods 04/12/21 01:37 Blood Blood Culture - Preliminary Gram Negative Rods 04/12/21 01:20 Urine,Clean Catch Urine Culture - Preliminary Gram Negative Rods - Constitutional chronically ill appearing, disheveled - *Routine HEENT Exam ENT: Present: mucous membranes moist - *Routine Neck Exam Present: supple. Absent: lymphadenopathy - *Routine Respiratory Exam Absent: accessory muscle use, rales, respiratory distress, wheezes - *Routine Cardiovascular Exam Present: RRR - *Routine Abdominal Exam Present: soft, normoactive bowel sounds. Absent: tenderness - *Routine Extremities Exam Present: amputation - *Routine Skin Exam Present: lesions, wounds. Absent: jaundice - *Routine Neurological Exam Present: alert, vision grossly intact, hearing grossly intact Assessment and Plan (1) UTI (urinary tract infection) Status: Acute Qualifiers: Urinary tract infection type: site unspecified Hematuria presence: without hematuria Qualified Code(s): N39.0 - Urinary tract infection, site not specified Category: Medical Code(s): N39.0 - Urinary tract infection, site not specified (2) Elevated troponin Status: Acute Category: Medical Code(s): R77.8 - Other specified abnormalities of plasma proteins (3) JAYDE (acute kidney injury) Status: Acute Category: Medical Code(s): N17.9 - Acute kidney failure, unspecified (4) Respiratory failure with hypoxia Status: Acute Qualifiers: Chronicity: acute on chronic Qualified Code(s
[2021-04-14 09:36] LABS: Basophils % 0.1 % (0.1-2.0); Eosinophils # 0.2 K/mm3 (0.0-0.4); Eosinophils % 1.1 % (0.1-12.0); Hematocrit 28.1 % (42.0-52.0); Hemoglobin 8.9 g/dL (14.1-18.0); Lymphocytes # 1.3 K/mm3 (0.7-4.5); Lymphocytes % 7.5 % (10-50); Mean Corpuscular HGB Conc 31.7 g/dL (31.8-35.4); Mean Corpuscular Hemoglobin 27.8 pg (27.0-31.2); Mean Corpuscular Volume 87.9 fl (80-94); Mean Platelet Volume 15.2 fl (7.4-10.4); Monocytes % 5.7 % (1.7-9.3); Neutrophils % 85.6 % (37.0-80.0); Platelet Count 85 K/mm3 (142-424); Red Blood Count 3.19 M/mm3 (4.60-6.20); Red Cell Distribution Width 18.6 % (11.5-17.5); White Blood Count 17.5 K/mm3 (4.8-10.8)
[2021-04-14 09:40] LABS: MANUAL DIFFERENTIAL MANUAL DIFFERENTIAL (MANUAL DIFF)
[2021-04-14 09:47] LABS: Lactic Acid 1.1 mmol/L (0.7-2.1)
--- NOTE | 2021-04-14 09:53 | SW/DCPLANNER ---
This patient currently resides at [facility] under SNF level of care. I will continue to follow up with Savanna at [facility] regarding this patient. Discharge date is unknown at this time. Updated patient information has been faxed.
[2021-04-14 10:06] LABS: Lymphocytes % 9 % (10-50); Monocytes % 3 % (2-9); Neutrophils % 88 % (42-76); Total Cells Counted 100
[2021-04-14 10:08] LABS: Acanthocytes 1+; Burr Cells 1+
[2021-04-14 10:09] LABS: Hypochromasia 1+; Platelet Estimate Marked Decrease
[2021-04-14 10:10] LABS: Poikilocytosis 2+
[2021-04-14 11:22] LABS: POC Glucose,Bedside 201 (70-110)
--- NOTE | 2021-04-14 13:29 | SW/DCPLANNER ---
Addendum entered by [facility] 04/18/21 08:51: Selam yarbrough/ Hospice evaluated this patient last night: the plan is for patient to return home today under Hospice services. Kiya yarbrough/ Hospice stated that DME will be set up this AM at home. Patient will discharge today. Addendum entered by [facility] 04/17/21 11:32: Kiya yarbrough/ Hospice has stated that Hospice nurse will be present in patients room today at 4PM. Addendum entered by [facility] 04/17/21 09:43: Patient and his sister are agreeable to Hospice services. Sister stated that she can be here at 4PM today to speak with Hospice. I will fax information to Hospice and follow up with Kiya. Addendum entered by [facility] 04/16/21 12:54: Curb Builder (Zelalem Harris) and myself spoke with this patient this afternoon regarding comfort care. MD has requested a chest tube at this time and patient is not interested. Patient stated that he would like to speak with his sister (Leyda) regarding comfort care prior to making a decision. I attempted to contact patients sister (Leyda) regarding situation: no answer VM left at this time. Addendum entered by [facility] 04/16/21 10:02: I have updated Savanna w/ [facility] and I spoke with patients brother (Erik): he is on his way to [facility] with patients belongings. Addendum entered by [facility] 04/15/21 10:17: I have updated Savanna yarbrough/ [facility] regarding this patient. Addendum entered by [facility] 04/14/21 13:30: I have also informed family that they are welcomed to contact Dr Michel about POC. Original Note: I have notified patients family regarding inpatient status for this patient. I have also informed patients brother (Erik) regarding patients belongings including wheelchair and cell phone.
--- NOTE | 2021-04-14 13:51 | HMH.PTWOUND ---
Rehab Inpt Wound Evaluation Rehab IP Wound Evaluation Start: 04/14/21 11:02 Freq: ONCE Status: Active Protocol: Document 04/14/21 13:35 PWILLIAMS (Rec: 04/14/21 13:51 [email or web address] [id number]) Rehab PT Wound Assessment Patient Status Premedicated Prior to Dressing Change No Subjective Subjective pt reports severe c/o TTP along buttocks and sacral wounds - pt has multiple stage II wounds on buttock and sacral areas. Wound Left Medial Buttock Wound Type Pressure Ulcer Is This a Chronic Wound Yes Wound Staging Stage II Query Text:Stage I - Unbroken, red skin, no blanching. Stage II - Skin broken, superficial skin loss involving epidermis alone or also dermis. Partial loss of skin layers. Stage III - Pressure area involves epidermis, dermis and subcutaneous tissue, full thickness skin loss. Stage IV - Pressure area involves epidermis, subcutaneous tissue, bone and other supportive tissue. Full thickness skin loss with extensive destruction of underlying tissue and structures. Wound Length (cm) 3 Wound Width (cm) 1 Wound Bed Appearance Beefy Red Wound Margins Description Indistinct Surrounding Tissue Appearance Bright Red Wound Drainage Description Serosanguineous Drainage Amount Small Drainage Odor No Odor Dressing Status Open to Air Wound Topical Solution/Irrigant Antibiotic Irrigant Primary Dressing Absorbant Pad Comment optifoam sacral Wound Debridement Amount of Tissue None Removed Dressing Change Patient Tolerance Tolerated Poorly Left Lateral Buttock Wound Type Pressure Ulcer Is This a Chronic Wound Yes Wound Staging Stage II Query Text:Stage I - Unbroken, red skin, no blanching. Stage II - Skin broken, superficial skin loss involving epidermis alone or also dermis. Partial loss of skin layers. Stage III - Pressure area involves epidermis, dermis and subcutaneous tissue, full thickness skin loss. Stage IV - Pressure area involves epidermis, subcutaneous tissue, bone and other supportive tissue. Full thickness skin loss with extensive destruction of underlying tissue and structures. Wound Length (cm) 5 Wound Width (cm)
--- NOTE | 2021-04-14 14:23 | PC.NURSE ---
pt now in room 219 and in step down as Levo gtt was started @ 1405. THis RN is now assuming care of pt as of 1405.
--- NOTE | 2021-04-14 15:59 | HMH.PHAVTE ---
[facility] Pharmacy VTE Monitoring - Patient Demographics Admission date: 04/12/21 Report Date: 04/14/21 Time: 15:59 Allergies/Adverse Reactions: Patient Allergies No Known Allergies Allergy (Verified 02/21/21 09:56) Height: 1.78 m Weight: 79 kg Patient Problems: Current Active Problems Hypothyroid (Chronic) Anemia (Acute) UTI (urinary tract infection) (Acute) Elevated troponin (Acute) JAYDE (acute kidney injury) (Acute) Respiratory failure with hypoxia (Acute) Thrombocytopenia (Acute) Severe sepsis with acute organ dysfunction (Acute) Gram negative sepsis (Acute) HLD (hyperlipidemia) (Chronic) Type 2 diabetes mellitus (Acute) CHF (congestive heart failure), NYHA class IV (Chronic) AICD (automatic cardioverter/defibrillator) present (Chronic) - VTE Risk Labs: VTE Related Lab Results Hgb 8.9 g/dL (14.1-18.0) L 04/14/21 08:55 Hct 28.1 % (42.0-52.0) L 04/14/21 08:55 Plt Count 85 K/mm3 (142-424) L 04/14/21 08:55 BUN 104 mg/dl (9-20) H* 04/14/21 05:17 Creatinine 5.30 mg/dl (0.66-1.25) H 04/14/21 05:17 Estimated Creat Clear 15 mL/min (50-200) 04/14/21 05:17 - Prophylaxis VTE Prophylaxis Ordered?: Yes Types of VTE Prophylaxis: Pharmacological Pharmacologic Type: Enoxaparin
[2021-04-14 16:56] LABS: POC Glucose,Bedside 209 (70-110)
[2021-04-14 21:21] LABS: POC Glucose,Bedside 221 (70-110)
[2021-04-14 21:21] LABS: POC Glucose,Bedside 188 (70-110)
[2021-04-15] VITALS (10 sets, daily range): BP systolic 90–108; BP diastolic 51–66; PULSE 70–124; RESP 17–24; TEMP 36.3–36.6; O2SAT 95–100; BMI 25.2
[2021-04-15 06:45] LABS: Basophils % 0.2 % (0.1-2.0); Eosinophils # 0.2 K/mm3 (0.0-0.4); Eosinophils % 1.5 % (0.1-12.0); Hematocrit 26.4 % (42.0-52.0); Hemoglobin 8.4 g/dL (14.1-18.0); Lymphocytes # 1.5 K/mm3 (0.7-4.5); Lymphocytes % 9.5 % (10-50); Mean Corpuscular HGB Conc 31.9 g/dL (31.8-35.4); Mean Corpuscular Hemoglobin 27.9 pg (27.0-31.2); Mean Corpuscular Volume 87.4 fl (80-94); Mean Platelet Volume 15.8 fl (7.4-10.4); Monocytes # 1.7 K/mm3 (0.1-1.0); Monocytes % 10.9 % (1.7-9.3); Neutrophils # 11.9 K/mm3 (1.8-7.8); Neutrophils % 77.9 % (37.0-80.0); Platelet Count 106 K/mm3 (142-424); Red Blood Count 3.02 M/mm3 (4.60-6.20); Red Cell Distribution Width 18.7 % (11.5-17.5); White Blood Count 15.3 K/mm3 (4.8-10.8)
[2021-04-15 06:55] LABS: Chloride 107 mmol/L (98-107); Sodium 137 mmol/L (136-145)
[2021-04-15 06:56] LABS: Potassium 4.8 mmoL/L (3.5-5.1)
[2021-04-15 06:57] LABS: POC Glucose,Bedside 187 (70-110)
[2021-04-15 06:58] LABS: Anion Gap 16.8 mEq/L (5-15); Carbon Dioxide 18 mmol/L (22.0-30.0); Creatinine Clearance Estimated 16 mL/min (50-200); Estimated Glomerular Filt Rate 11 ml/min (>60); GFR (African American) 14 ML/MIN (>60)
[2021-04-15 06:59] LABS: Calcium 7.4 mg/dl (8.4-10.2); Glucose 180 mg/dl (74-100)
[2021-04-15 07:08] LABS: MANUAL DIFFERENTIAL MANUAL DIFFERENTIAL (MANUAL DIFF)
[2021-04-15 07:44] LABS: Blood Urea Nitrogen 108 mg/dl (9-20)
--- NOTE | 2021-04-15 08:53 | XR_ITS ---
PROCEDURE: XR CHEST PORTABLE CLINICAL HISTORY: sob COMPARISON: CT CT ANGIO CHEST PE PROTOCOL from 03/01/2021 CR XR CHEST PORTABLE from 03/03/2021 CR XR CHEST PORTABLE from 03/09/2021 CR XR CHEST PORTABLE from 04/12/2021 FINDINGS: There is cardiomegaly. Left subclavian pacemaker is present with biventricular and right atrial leads. Diffuse bilateral airspace disease which appears slightly worse on the right. Right pleural effusion is now noted. There is also a small right apical pneumothorax less than 10 percent with an apical pleural distance of approximately 1.5 cm No acute bony abnormalities. IMPRESSION: New small right apical pneumothorax. Diffuse bilateral airspace disease slightly worse on the right New right pleural effusion. Coty the patient's nurse was notified of the above pneumothorax by telephone 04/15/2021 at 9:25 a.m. Dictated by: Bruno Delgado MD 04/15/2021 09:35 Bruno Delgado MD in OV 04/15/2021 09:35
--- NOTE | 2021-04-15 08:57 | PC.NURSE ---
Levophed gtt was stopped at 0630.
[2021-04-15 08:58] LABS: Eosinophils % 1 % (0-3); Lymphocytes % 7 % (10-50); Monocytes % 4 % (2-9); Neutrophils % 88 % (42-76); Total Cells Counted 100
[2021-04-15 09:02] LABS: Platelet Estimate Moderate Decrease
[2021-04-15 09:03] LABS: Burr Cells 2+; Poikilocytosis 2+
[2021-04-15 09:04] LABS: Acanthocytes 1+; Target Cells 2+
--- NOTE | 2021-04-15 09:16 | PC.NURSE ---
KENNETH Coronado called to report pt coming out of stepdown. Called admissions to change status of patient.
--- NOTE | 2021-04-15 09:31 | PC.NURSE ---
Spoke to MD Delgado regarding pt's CXR results. Results given to Kwame Patterson APRN
--- NOTE | 2021-04-15 09:59 | HMH.ACPN2 ---
Internal Medicine - PN: Subj *Date: 04/15/21 *Time: 22:10 Interval history: 66 YOM sitting up in bed reports feeling better today. BUN/Creat better at 108/5.10, Bld Culture resulted Serratia Marcescens and is covered with Levoflox. Exam Vital signs and Labs for Last 24 Hours: Temp Pulse Resp BP Pulse Ox 97.4 F L 102 H 22 97/66 L 97 04/15/21 06:00 04/15/21 08:00 04/15/21 08:00 04/15/21 08:00 04/15/21 08:00 Laboratory Results - last 24 hr 04/14/21 05:34: POC Glucose 221 H 04/14/21 08:55: Total Counted 100, Neutrophils % (Manual) 88 H, Lymphocytes % (Manual) 9 L, Monocytes % (Manual) 3, Platelet Estimate Marked decrease, Hypochromasia 1+, Poikilocytosis 2+, [place] Cells 1+, Acanthocytes (Spur) 1+ 04/14/21 11:11: POC Glucose 201 H 04/14/21 16:48: POC Glucose 209 H 04/14/21 21:06: POC Glucose 188 H 04/15/21 05:31: WBC 15.3 H, RBC 3.02 L, Hgb 8.4 L, Hct 26.4 L, MCV 87.4, MCH 27.9, MCHC 31.9, RDW 18.7 H, Plt Count 106 L, MPV 15.8 H, Neut % (Auto) 77.9, Lymph % (Auto) 9.5 L, [place] % (Auto) 10.9 H, Eos % (Auto) 1.5, Baso % (Auto) 0.2, Neut # (Auto) 11.9 H, Lymph # (Auto) 1.5, [place] # (Auto) 1.7 H, Eos # (Auto) 0.2, Baso # (Auto) 0.0, Total Counted 100, Neutrophils % (Manual) 88 H, Lymphocytes % (Manual) 7 L, Monocytes % (Manual) 4, Eosinophils % (Manual) 1, Platelet Estimate Moderate decrease, Poikilocytosis 2+, Target Cells 2+, [place] Cells 2+, Acanthocytes (Spur) 1+ 04/15/21 05:31: Sodium 137, Potassium 4.8, Chloride 107, Carbon Dioxide 18 L, Anion Gap 16.8 H, BUN 108 H*, Creatinine 5.10 H, Estimated Creat Clear 16, Estimated GFR 11 L*, Est GFR ( Amer) 14 L*, Glucose 180 H, Calcium 7.4 L 04/15/21 06:49: POC Glucose 187 H I & O for Last 24 hours: Intake & Output 04/12/21 04/13/21 04/14/21 04/15/21 23:59 23:59 23:59 23:59 Intake Total 2100 / 2100 480 / 480 3898 / 3898 Output Total 300 / 300 550 / 550 200 / 200 250 / 250 Balance 1800 / 1800 -70 / -70 3698 / 3698 -250 / -250 Weight 169 lb 3.2 oz 169 lb 11.2 oz 174 lb 2.643 oz 176 lb 3.2 oz Microbiology Reports for the Last 24 Hours: Microbiology 04/12/21 01:37 Blood Blood Culture - Final Serratia marcescens 04/12/21 01:37 Blood Blood Culture - Final Serratia marcescens - Constitutional no acute distress, chronically ill appearing - *Routine HEENT Exam Head: Present: normocephalic Eye: Present: EOMI ENT: Present: mucous membranes moist - *Routine Neck Exam Present: trachea midline. Absent: tracheal deviation - *Routine Respiratory Exam Present: decreased breath sounds, wheezes. Absent: accessory muscle use - *Routine Cardiovascular Exam Present: RRR - *Routine Abdominal Exam Present: soft, normoactive bowel sounds. Absent: tenderness - *Routine Extremities Exam Present: full ROM, amputation. Absent: cyanosis Comments: BLE Amputee - *Routine Skin Exam Present: erythema, dry, warm, wounds. Absent: intact, cyanosis Comments: Multiple wounds to Bilat Buttocks - *Routine Neurological Exam Present: alert. Absent: motor deficit - Routine Psychiatric Exam Present: normal affect, cooperative. Absent: auditory hallucinations Assessment and Plan (1) UTI (urinary tract infection) Status: Acute Qualifiers: Urinary tract infection type: site unspecified Hematuria presence: without hematuria Qualified Code(s): N39.0 - Urinary tract infection, site not specified Category: Medical Code(s): N39.0 - Urinary tract infection, site not specified (2) Elevated troponin Status: Acute Category: Medical Code(s): R77.8 - Other specified abnormalities of plasma proteins (3) JAYDE (acute kidney injury) Status: Acute Category: Medical Code(s): N17.9 - Acute kidney failure, unspecified (4) Respiratory failure with hypoxia Status: Acute Qualifiers: Chronicity: acute on chronic Qualified Code(s): J96.21 - Acute and chronic respiratory sunil
--- NOTE | 2021-04-15 10:19 | PC.NURSE ---
0742- critical BUN and creatinine reported by Ingrid in lab, verified name and room number [id number] notified during rounds
--- NOTE | 2021-04-15 10:56 | HMH.CNCARD ---
History of Present Illness Consult date: 04/15/21 Requesting physician: Jonny Freeman Consult reason: hypotension Chief complaint: fatigue History of present illness: This is a 66-year-old white gentleman who was sent from a nursing home facility for shortness of breath and fever. The patient was discovered to have heavy breathing and appearing to be short of breath at the long term. His oxygen saturations were in the 70s and he was placed on a simple mask for oxygen and his oxygen saturation improved to 83%. Once EMS arrived he was put on a nonrebreather and his oxygen saturations improved to 100%. The patient complained of feeling tired and his skin was clammy but warm to the touch. This morning he complains of fatigue. He states he just has no energy. He denies any chest pain or pressure. He denies any shortness of breath. He denies any edema. He denies any fever, chills, nausea, vomiting, diarrhea, PND or orthopnea. The patient was recently admitted at [facility] with an upper GI bleed and acute kidney injury. He also recently had an amputation to his lower extremity which he states is now healing better. [facility] History I have reviewed the patient's past medical history: Yes Medical History: Reports:: Atrial Fibrillation, Congestive Heart Failure, Chronic Obstructive Pulmonary Disease (COPD), Coronary Artery Disease, Diabetes Mellitus Type 2, Hyperlipidemia, Hypertension, Internal Pacemaker, Myocardial Infarction, Peripheral Artery Disease Denies:: Cancer, Diabetes Mellitus Type 1, MRSA, Seizures *Have you ever received a pneumonia vaccine?: Yes *Have you received a flu vaccine this season?: Yes Other Medical History: Reports: Anemia, Arthritis, Hypothyroidism. Denies: Blood Transfusion Reaction, Cataracts, Glaucoma, Thyroid Disease Laterality Cases: Left: Other Other Surgeries: Yes: Angiogram, Cardiac Catheterization, Coronary Stent, Pacemaker, Other Amputation: Yes (RT lower leg) Fractures: No - *Social History Smoking Status: Current every day smoker Tobacco Type: cigarettes # Packs/Day (cigarettes): 1 Alcohol Intake: never Alcohol Intake Frequency:: other Substance Use Type: denies use *Occupational Status:: disabled Housing: house Household Members: family *Travel in the last 8 weeks: None Family Hx:: No significant family history Meds Home Medications Medication Instructions Recorded Confirmed Type Atorvastatin Calcium [Lipitor 40mg 40 mg PO HS 01/17/21 04/12/21 History Tab] Docusate Sodium 100 mg PO BID 01/17/21 04/12/21 History lisinopriL [Lisinopril 2.5mg Tab] 2.5 mg PO DAILY 01/17/21 04/12/21 History bisoproloL fumarate [Bisoprolol 2.5 mg PO DAILY 02/21/21 04/12/21 History Fumarate] Acetaminophen [Tylenol 325mg 650 mg PO Q4HP PRN 04/12/21 04/12/21 History Tablet] Bumetanide [Bumex 1mg tablet] 1 mg PO DAILY 04/12/21 04/12/21 History Ipratropium/Albuterol Sulfate 1 puff IH TIDP PRN 04/12/21 04/12/21 History [Combivent Respimat Inh] Isosorbide Mononitrate [Isosorbide 30 mg PO DAILY 04/12/21 04/12/21 History Mononitrate ER] Levothyroxine Sodium 62.5 mcg PO DAILY 04/12/21 04/12/21 History [Levothyroxine 125mcg (0.125mg) Tab] Multivit with Calcium,Iron,Min 1 each PO DAILY 04/12/21 04/12/21 History [One Daily with Calcium-Iron] Nystatin [Nystatin Topical Powder 1 applicatio TP BID 04/12/21 04/12/21 History 30GM*] Pantoprazole Sodium [Protonix 40mg 40 mg PO DAILY 04/12/21 04/12/21 History tablet] Potassium Chloride [Klor-Con] 20 meq PO DAILY 04/12/21 04/12/21 History Rivaroxaban [Xarelto 20mg Tablet*] 20 mg PO DAILY 04/12/21 04/12/21 History polyethylene glycoL 3350 [Miralax 17 gm PO DAILYP PRN 04/12/21 04/12/21 History 17gm Packet] Allergies Allergy/AdvReac Type Severity Reaction Status Date / Time No Known Allergies Allergy Verified 02/21/21 09:56 Exam Vital signs and Labs for Last 24 Hours: Temp Pulse Resp BP Pulse Ox
[2021-04-15 11:27] LABS: POC Glucose,Bedside 242 (70-110)
--- NOTE | 2021-04-15 13:44 | XR_ITS ---
PROCEDURE: XR CHEST PORTABLE CLINICAL HISTORY: Pneumothorax COMPARISON: CT CT ANGIO CHEST PE PROTOCOL from 03/01/2021 CR XR CHEST PORTABLE from 03/09/2021 CR XR CHEST PORTABLE from 04/12/2021 CR XR CHEST PORTABLE from 04/15/2021 FINDINGS: Small right-sided pneumothorax once again noted overall not significantly changed. Left subclavian pacemaker present with biventricular and right atrial leads. Bilateral airspace disease is worse. Right pleural effusion also noted. IMPRESSION: No change right apical pneumothorax Worsening bilateral pneumonia with small right effusion Dictated by: Bruno Delgado MD 04/15/2021 14:25 Bruno Delgado MD in OV 04/15/2021 14:25
--- NOTE | 2021-04-15 14:53 | HMH.PULMCON ---
*Admission Date: 04/12/21 *Reason for consult:: Pneumothorax *History of present illness: Ms. Chris Covarrubias is a 66-year-old male greater than [id number] smoking history, currently self-reported diagnosis of COPD, congestive heart failure, presented to the hospital with worsening respiratory respiratory distress, sepsis, eventually found to be bacteremic and was initiated on antibiotics, also found to be in congestive heart failure cardiology following with diuresis was found to have a right-sided apical pneumothorax and this morning's chest x-ray and pulmonary was called for further management. [facility] [place] History Medical History: Reports:: Atrial Fibrillation, Congestive Heart Failure, Chronic Obstructive Pulmonary Disease (COPD), Coronary Artery Disease, Diabetes Mellitus Type 2, Hyperlipidemia, Hypertension, Internal Pacemaker, Myocardial Infarction, Peripheral Artery Disease Denies:: Cancer, Diabetes Mellitus Type 1, MRSA, Seizures *Have you ever received a pneumonia vaccine?: Yes *Have you received a flu vaccine this season?: Yes Other Medical History: Reports: Anemia, Arthritis, Hypothyroidism. Denies: Blood Transfusion Reaction, Cataracts, Glaucoma, Thyroid Disease Laterality Cases: Left: Other Other Surgeries: Yes: Angiogram, Cardiac Catheterization, Coronary Stent, Pacemaker, Other Amputation: Yes (RT lower leg) Fractures: No - *Social History Smoking Status: Current every day smoker Tobacco Type: cigarettes # Packs/Day (cigarettes): 1 Alcohol Intake: never Alcohol Intake Frequency:: other Substance Use Type: denies use *Occupational Status:: disabled Housing: house Household Members: family *Travel in the last 8 weeks: None Family Hx:: No significant family history ROS - Cons Reports fatigue - ENT Denies bleeding gums - Card Reports shortness of breath, Reports shortness of breath with activity - Resp Respiratory: Denies change in phlegm color, Reports dyspnea, Reports dyspnea on exertion, Denies excessive phlegm production - GI Gastrointestingal: Denies: abdominal pain - Psych Denies thoughts of hurting/killing others, Denies thoughts of hurting/killing yourself Meds Home Medications Medication Instructions Recorded Confirmed Type Atorvastatin Calcium [Lipitor 40mg 40 mg PO HS 01/17/21 04/12/21 History Tab] Docusate Sodium 100 mg PO BID 01/17/21 04/12/21 History lisinopriL [Lisinopril 2.5mg Tab] 2.5 mg PO DAILY 01/17/21 04/12/21 History bisoproloL fumarate [Bisoprolol 2.5 mg PO DAILY 02/21/21 04/12/21 History Fumarate] Acetaminophen [Tylenol 325mg 650 mg PO Q4HP PRN 04/12/21 04/12/21 History Tablet] Bumetanide [Bumex 1mg tablet] 1 mg PO DAILY 04/12/21 04/12/21 History Ipratropium/Albuterol Sulfate 1 puff IH TIDP PRN 04/12/21 04/12/21 History [Combivent Respimat Inh] Isosorbide Mononitrate [Isosorbide 30 mg PO DAILY 04/12/21 04/12/21 History Mononitrate ER] Levothyroxine Sodium 62.5 mcg PO DAILY 04/12/21 04/12/21 History [Levothyroxine 125mcg (0.125mg) Tab] Multivit with Calcium,Iron,Min 1 each PO DAILY 04/12/21 04/12/21 History [One Daily with Calcium-Iron] Nystatin [Nystatin Topical Powder 1 applicatio TP BID 04/12/21 04/12/21 History 30GM*] Pantoprazole Sodium [Protonix 40mg 40 mg PO DAILY 04/12/21 04/12/21 History tablet] Potassium Chloride [Klor-Con] 20 meq PO DAILY 04/12/21 04/12/21 History Rivaroxaban [Xarelto 20mg Tablet*] 20 mg PO DAILY 04/12/21 04/12/21 History polyethylene glycoL 3350 [Miralax 17 gm PO DAILYP PRN 04/12/21 04/12/21 History 17gm Packet] Allergies Allergy/AdvReac Type Severity Reaction Status Date / Time No Known Allergies Allergy Verified 02/21/21 09:56 Exam - Constitutional Constitutional:: Present: no acute distress, comfortable - HENMT Exam HENMT: Present: normocephalic, atraumatic - Eye Exam Eyes:: Present: normal appearance both eyes and related structures - Neck Exam Neck:: Present: normal vi
[2021-04-15 16:48] LABS: POC Glucose,Bedside 181 (70-110)
[2021-04-15 22:08] LABS: POC Glucose,Bedside 164 (70-110)
[2021-04-16] VITALS (10 sets, daily range): BP systolic 89–99; BP diastolic 41–59; PULSE 67–83; RESP 16–24; TEMP 36.4–36.6; O2SAT 95–100; BMI 25.3
[2021-04-16 06:01] LABS: POC Glucose,Bedside 129 (70-110)
[2021-04-16 07:17] LABS: Chloride 107 mmol/L (98-107); Potassium 4.4 mmoL/L (3.5-5.1); Sodium 138 mmol/L (136-145)
[2021-04-16 07:18] LABS: Basophils % 0.1 % (0.1-2.0); Eosinophils # 0.2 K/mm3 (0.0-0.4); Eosinophils % 1.6 % (0.1-12.0); Hematocrit 26.7 % (42.0-52.0); Hemoglobin 8.5 g/dL (14.1-18.0); Lymphocytes % 6.6 % (10-50); Mean Corpuscular HGB Conc 31.8 g/dL (31.8-35.4); Mean Corpuscular Hemoglobin 27.6 pg (27.0-31.2); Mean Corpuscular Volume 86.7 fl (80-94); Mean Platelet Volume 13.3 fl (7.4-10.4); Monocytes # 0.8 K/mm3 (0.1-1.0); Monocytes % 5.7 % (1.7-9.3); Neutrophils # 12.4 K/mm3 (1.8-7.8); Neutrophils % 85.8 % (37.0-80.0); Platelet Count 91 K/mm3 (142-424); Red Blood Count 3.08 M/mm3 (4.60-6.20); White Blood Count 14.4 K/mm3 (4.8-10.8)
[2021-04-16 07:20] LABS: Anion Gap 15.4 mEq/L (5-15); Carbon Dioxide 20 mmol/L (22.0-30.0); Creatinine Clearance Estimated 15 mL/min (50-200); Estimated Glomerular Filt Rate 11 ml/min (>60); GFR (African American) 13 ML/MIN (>60)
[2021-04-16 07:21] LABS: Calcium 7.6 mg/dl (8.4-10.2); Glucose 122 mg/dl (74-100)
[2021-04-16 07:22] LABS: MANUAL DIFFERENTIAL MANUAL DIFFERENTIAL (MANUAL DIFF)
[2021-04-16 07:46] LABS: Blood Urea Nitrogen 105 mg/dl (9-20)
[2021-04-16 08:29] LABS: Eosinophils % 1 % (0-3); Lymphocytes % 4 % (10-50); Monocytes % 1 % (2-9); Neutrophils % 94 % (42-76); Total Cells Counted 100
[2021-04-16 08:34] LABS: Platelet Estimate Marked Decrease; Poikilocytosis 2+
[2021-04-16 08:35] LABS: Hypochromasia 1+; Target Cells 1+
[2021-04-16 08:36] LABS: Acanthocytes 1+
--- NOTE | 2021-04-16 09:16 | XR_ITS ---
PROCEDURE: XR CHEST PORTABLE CLINICAL HISTORY: pneumothorax COMPARISON: CT CT ANGIO CHEST PE PROTOCOL from 03/01/2021 CR XR CHEST PORTABLE from 04/12/2021 CR XR CHEST PORTABLE from 04/15/2021 CR XR CHEST PORTABLE from 04/15/2021 FINDINGS: There has been an interval increase in size of the right pneumothorax with apical pleural distance 2.6 cm previously 1.4 cm. Right-sided pleural effusion also noted which appears slightly larger. There is continued opacification of the right lung as well as the left upper lobe. There is cardiomegaly with cardiac pacemaker device present. No mediastinal shift. IMPRESSION: Right-sided pneumothorax is slightly larger and now felt to be greater than 10 percent of the total lung volume.. Enlarging right-sided pleural effusion. Bilateral pneumonia unchanged Dictated by: Bruno Delgado MD 04/16/2021 11:59 Bruno Delgado MD in [place] 04/16/2021 11:59
--- NOTE | 2021-04-16 09:29 | HMH.ACPN2 ---
Internal Medicine - PN: Subj *Date: 04/16/21 *Time: 08:50 Interval history: pt laying in bed states he feels ok, soa at times Exam Vital signs and Labs for Last 24 Hours: Temp Pulse Resp BP Pulse Ox 97.9 F 81 18 89/44 L 95 04/16/21 08:00 04/16/21 08:00 04/16/21 08:00 04/16/21 08:00 04/16/21 08:00 Laboratory Results - last 24 hr 04/15/21 11:16: POC Glucose 242 H 04/15/21 16:41: POC Glucose 181 H 04/15/21 21:54: POC Glucose 164 H 04/16/21 05:54: POC Glucose 129 H 04/16/21 06:20: WBC 14.4 H, RBC 3.08 L, Hgb 8.5 L, Hct 26.7 L, MCV 86.7, MCH 27.6, MCHC 31.8, RDW 19.0 H, Plt Count 91 L, MPV 13.3 H, Neut % (Auto) 85.8 H, Lymph % (Auto) 6.6 L, [place] % (Auto) 5.7, Eos % (Auto) 1.6, Baso % (Auto) 0.1, Neut # (Auto) 12.4 H, Lymph # (Auto) 1.0, [place] # (Auto) 0.8, Eos # (Auto) 0.2, Baso # (Auto) 0.0, Total Counted 100, Neutrophils % (Manual) 94 H, Lymphocytes % (Manual) 4 L, Monocytes % (Manual) 1 L, Eosinophils % (Manual) 1, Platelet Estimate Marked decrease, Hypochromasia 1+, Poikilocytosis 2+, Target Cells 1+, Acanthocytes (Spur) 1+ 04/16/21 06:20: Sodium 138, Potassium 4.4, Chloride 107, Carbon Dioxide 20 L, Anion Gap 15.4 H, BUN 105 H*, Creatinine 5.40 H, Estimated Creat Clear 15, Estimated GFR 11 L*, Est GFR ( Amer) 13 L*, Glucose 122 H, Calcium 7.6 L I & O for Last 24 hours: Intake & Output 04/13/21 04/14/21 04/15/21 04/16/21 11:59 11:59 11:59 11:59 Intake Total 240 / 240 2811 / 2811 1327 / 1327 360 / 360 Output Total 300 / 300 750 / 750 250 / 250 575 / 575 Balance -60 / -60 2060 / 2060 1077 / 1077 -215 / -215 Weight 169 lb 11.2 oz 174 lb 11.2 oz 176 lb 3.2 oz 177 lb 3.2 oz Microbiology Reports for the Last 24 Hours: Microbiology 04/12/21 01:20 Urine,Clean Catch Urine Culture - Final Serratia marcescens - Constitutional no acute distress - *Routine HEENT Exam Head: Present: normocephalic Eye: Present: PERRL ENT: Present: mucous membranes moist - *Routine Neck Exam Present: supple. Absent: lymphadenopathy - *Routine Respiratory Exam Present: rhonchi - *Routine Cardiovascular Exam Present: RRR - *Routine Abdominal Exam Present: soft, normoactive bowel sounds. Absent: tenderness - *Routine Extremities Exam Absent: cyanosis, clubbing, edema - *Routine Skin Exam Present: warm, wounds. Absent: rash Comments: multiple stage 2 to coccyx and one stage 3 - *Routine Neurological Exam Present: alert, oriented X3 Assessment and Plan (1) UTI (urinary tract infection) Status: Acute Qualifiers: Urinary tract infection type: site unspecified Hematuria presence: without hematuria Qualified Code(s): N39.0 - Urinary tract infection, site not specified Category: Medical Code(s): N39.0 - Urinary tract infection, site not specified (2) Elevated troponin Status: Acute Category: Medical Code(s): R77.8 - Other specified abnormalities of plasma proteins (3) JAYDE (acute kidney injury) Status: Acute Category: Medical Code(s): N17.9 - Acute kidney failure, unspecified (4) Respiratory failure with hypoxia Status: Acute Qualifiers: Chronicity: acute on chronic Qualified Code(s): J96.21 - Acute and chronic respiratory failure with hypoxia Category: Medical Code(s): J96.91 - Respiratory failure, unspecified with hypoxia (5) Thrombocytopenia Status: Acute Category: Medical Code(s): D69.6 - Thrombocytopenia, unspecified (6) Severe sepsis with acute organ dysfunction Status: Acute Category: Medical Code(s): A41.9 - Sepsis, unspecified organism; R65.20 - Severe sepsis without septic shock (7) HLD (hyperlipidemia) Status: Chronic Qualifiers: Hyperlipidemia type: mixed hyperlipidemia Qualified Code(s): E78.2 - Mixed hyperlipidemia Category: Medical Code(s): E78.5 - Hyperlipidemia, unspecified (8) Gram negative sepsis Status: Acute Category: Medical Code(s): A41.50 - Gram-negat
--- NOTE | 2021-04-16 09:54 | HMH.PNCARD ---
Subjective Date: 04/16/21 Time: 09:30 Principal diagnosis: SOA Interval history: This is a 66-year-old white gentleman who was admitted to the hospital with shortness of breath and decreased oxygen saturations. This morning he states that he is only short of breath at times but he is not currently having any shortness of breath. He is on a nonrebreather today maintaining his oxygen saturations. He did state that he was a little bit nauseated this morning. He denies any chest pain or pressure. He denies any edema. He denies any fever, chills, nausea, vomiting, diarrhea, PND or orthopnea. When I walk in the room the patient is lying flat with no complaints. Exam Vital signs and Labs for Last 24 Hours: Temp Pulse Resp BP Pulse Ox 97.9 F 81 18 89/44 L 95 04/16/21 08:00 04/16/21 08:00 04/16/21 08:00 04/16/21 08:00 04/16/21 08:00 Laboratory Results - last 24 hr 04/15/21 11:16: POC Glucose 242 H 04/15/21 16:41: POC Glucose 181 H 04/15/21 21:54: POC Glucose 164 H 04/16/21 05:54: POC Glucose 129 H 04/16/21 06:20: WBC 14.4 H, RBC 3.08 L, Hgb 8.5 L, Hct 26.7 L, MCV 86.7, MCH 27.6, MCHC 31.8, RDW 19.0 H, Plt Count 91 L, MPV 13.3 H, Neut % (Auto) 85.8 H, Lymph % (Auto) 6.6 L, [place] % (Auto) 5.7, Eos % (Auto) 1.6, Baso % (Auto) 0.1, Neut # (Auto) 12.4 H, Lymph # (Auto) 1.0, [place] # (Auto) 0.8, Eos # (Auto) 0.2, Baso # (Auto) 0.0, Total Counted 100, Neutrophils % (Manual) 94 H, Lymphocytes % (Manual) 4 L, Monocytes % (Manual) 1 L, Eosinophils % (Manual) 1, Platelet Estimate Marked decrease, Hypochromasia 1+, Poikilocytosis 2+, Target Cells 1+, Acanthocytes (Spur) 1+ 04/16/21 06:20: Sodium 138, Potassium 4.4, Chloride 107, Carbon Dioxide 20 L, Anion Gap 15.4 H, BUN 105 H*, Creatinine 5.40 H, Estimated Creat Clear 15, Estimated GFR 11 L*, Est GFR ( Amer) 13 L*, Glucose 122 H, Calcium 7.6 L I & O for Last 24 hours: Intake & Output 04/13/21 04/14/21 04/15/21 04/16/21 23:59 23:59 23:59 23:59 Intake Total 480 / 480 3898 / 3898 240 / 240 120 / 120 Output Total 550 / 550 200 / 200 625 / 825 200 / 200 Balance -70 / -70 3698 / 3698 -385 / -585 -80 / -80 Weight 169 lb 11.2 oz 174 lb 2.643 oz 176 lb 3.2 oz 177 lb 3.2 oz Microbiology Reports for the Last 24 Hours: Microbiology 04/12/21 01:20 Urine,Clean Catch Urine Culture - Final Serratia marcescens - Constitutional no acute distress, average body habitus - *Routine HEENT Exam Head: Present: normocephalic, atraumatic Eye: Present: EOMI, PERRL ENT: Present: mucous membranes moist - *Routine Neck Exam Present: supple, full ROM, normal carotid upstroke. Absent: JVD, carotid bruit, lymphadenopathy - *Routine Respiratory Exam Present: decreased breath sounds, wheezes - *Routine Cardiovascular Exam Present: RRR, Normal S1, Normal S2. Absent: murmur - *Routine Abdominal Exam Present: soft, normoactive bowel sounds. Absent: tenderness, distended - *Routine Extremities Exam Present: amputation (bilateral amputee). Absent: cyanosis, clubbing, edema - *Routine Skin Exam Present: warm, wounds (ulcers to coccyx). Absent: rash - *Routine Neurological Exam Present: alert, oriented X3, CN II-XII intact Progress Note: A&P (1) UTI (urinary tract infection) Status: Acute (2) Elevated troponin Status: Acute (3) JAYDE (acute kidney injury) Status: Acute (4) Respiratory failure with hypoxia Status: Acute (5) Thrombocytopenia Status: Acute (6) Severe sepsis with acute organ dysfunction Status: Acute (7) HLD (hyperlipidemia) Status: Chronic (8) Gram negative sepsis Status: Acute (9) Bacterial infection due to Serratia Problem details: Blood x 2 bottles and Urine Status: Acute (10) Severe protein-calorie malnutrition Status: Acute Assessment and Plan for All Diagnoses:: Plan: 1. The patient was admitted to hospital with shortness of breath and fatigue. He was found to have gram-n
--- NOTE | 2021-04-16 11:18 | HMH.PULMPN ---
Internal Medicine - PN: Subj *Date: 04/16/21 *Time: 11:18 Interval history: Patient personally denies any worsening respiratory distress. Denies any new complaints. Exam - Constitutional Constitutional:: Absent: no acute distress - HENMT Exam HENMT: Present: normocephalic, atraumatic - Eye Exam Eyes:: Present: normal appearance both eyes and related structures - Neck Exam Neck:: Present: normal visual inspection - Respiratory Exam Respiratory:: Present: able to speak in complete sentences, respiratory distress, wheezing - Cardiovascular Exam Cardiac:: Present: S1, S2 - GI Exam GI:: Present: soft - Skin Exam Skin: Present: warm, no rash - Neurological Exam Neurological: Present: alert, awake, normal cognition - Extremities Exam Extremities: Present: no cyanosis, no clubbing Comments: Bilateral above-knee amputation Assessment and Plan (1) UTI (urinary tract infection) Status: Acute Qualifiers: Urinary tract infection type: site unspecified Hematuria presence: without hematuria Qualified Code(s): N39.0 - Urinary tract infection, site not specified Category: Medical Code(s): N39.0 - Urinary tract infection, site not specified (2) Elevated troponin Status: Acute Category: Medical Code(s): R77.8 - Other specified abnormalities of plasma proteins (3) JAYDE (acute kidney injury) Status: Acute Category: Medical Code(s): N17.9 - Acute kidney failure, unspecified (4) Respiratory failure with hypoxia Status: Acute Qualifiers: Chronicity: acute on chronic Qualified Code(s): J96.21 - Acute and chronic respiratory failure with hypoxia Category: Medical Code(s): J96.91 - Respiratory failure, unspecified with hypoxia (5) Thrombocytopenia Status: Acute Category: Medical Code(s): D69.6 - Thrombocytopenia, unspecified (6) Severe sepsis with acute organ dysfunction Status: Acute Category: Medical Code(s): A41.9 - Sepsis, unspecified organism; R65.20 - Severe sepsis without septic shock (7) HLD (hyperlipidemia) Status: Chronic Qualifiers: Hyperlipidemia type: mixed hyperlipidemia Qualified Code(s): E78.2 - Mixed hyperlipidemia Category: Medical Code(s): E78.5 - Hyperlipidemia, unspecified (8) Gram negative sepsis Status: Acute Category: Medical Code(s): A41.50 - Gram-negative sepsis, unspecified (9) Bacterial infection due to Serratia Problem details: Blood x 2 bottles and Urine Status: Acute Category: Medical Code(s): A49.8 - Other bacterial infections of unspecified site (10) Severe protein-calorie malnutrition Status: Acute Category: Medical Code(s): E43 - Unspecified severe protein-calorie malnutrition - Assessment and plan all Dx Assessment and Plan for all problems:: #Right-sided pneumothorax: Smoker greater than 90-[id number] smoking history carries a diagnosis COPD. Mid baseline respiratory symptoms. Other comorbidities including CHF exacerbation, bacteremia with Serratia and acute kidney injury. Currently on levofloxacin oral renally dosed for his bacteremia. Cardiology following for his volume optimization. Chest x-ray from this morning showed right-sided pneumothorax, 1.5 cm from the pleural surface. Patient appear to be having worsening distress this morning. Worsening wheeze on both sides. Repeat chest x-ray from this morning showed worsening pneumothorax. Will consult surgery for chest tube placement. Chest x-ray continued showed bilateral diffuse airspace disease along with worsening in the right side. Plan: -Chest tube for pneumothorax. -Sputum cultures. Currently receiving levofloxacin for his Serratia bacteremia and UTI. Recommend to consider changing antibiotics to IV route. We'll also recommend to repeat blood cultures -DuoNebs every 6 hours scheduled. -Continue nasal cannula oxygen supplementation to maintain O2 saturation goal of 88% and above #Thank you for involving pulmonary in this
[2021-04-16 11:56] LABS: POC Glucose,Bedside 197 (70-110)
--- NOTE | 2021-04-16 12:21 | HMH.GSCON ---
*Admission Date: 04/12/21 *Reason for consult:: Pneumothorax *History of present illness: This is a 66-year-old gentleman seen in consultation from the pulmonology service for possible chest tube placement. Please see HPI from pulmonology note forwarded below. Forwarded from pulmonology evaluation: Ms. Chris Covarrubias is a 66-year-old male greater than 65-[id number] smoking history, currently self-reported diagnosis of COPD, congestive heart failure, presented to the hospital with worsening respiratory respiratory distress, sepsis, eventually found to be bacteremic and was initiated on antibiotics, also found to be in congestive heart failure cardiology following with diuresis was found to have a right-sided apical pneumothorax and this morning's chest x-ray and pulmonary was called for further management. Review of Systems - *Cardiovascular Reports shortness of breath - *Neurologic Denies seizure-like activity [facility] History Medical History: Reports:: Atrial Fibrillation, Congestive Heart Failure, Chronic Obstructive Pulmonary Disease (COPD), Coronary Artery Disease, Diabetes Mellitus Type 2, Hyperlipidemia, Hypertension, Internal Pacemaker, Myocardial Infarction, Peripheral Artery Disease Denies:: Cancer, Diabetes Mellitus Type 1, MRSA, Seizures *Have you ever received a pneumonia vaccine?: Yes *Have you received a flu vaccine this season?: Yes Other Medical History: Reports: Anemia, Arthritis, Hypothyroidism. Denies: Blood Transfusion Reaction, Cataracts, Glaucoma, Thyroid Disease Laterality Cases: Left: Other Other Surgeries: Yes: Angiogram, Cardiac Catheterization, Coronary Stent, Pacemaker, Other Amputation: Yes (RT lower leg) Fractures: No - *Social History Smoking Status: Current every day smoker Tobacco Type: cigarettes # Packs/Day (cigarettes): 1 Alcohol Intake: never Alcohol Intake Frequency:: other Substance Use Type: denies use *Occupational Status:: disabled Housing: house Household Members: family *Travel in the last 8 weeks: None Family Hx:: No significant family history Meds Home Medications Medication Instructions Recorded Confirmed Type Atorvastatin Calcium [Lipitor 40mg 40 mg PO HS 01/17/21 04/12/21 History Tab] Docusate Sodium 100 mg PO BID 01/17/21 04/12/21 History lisinopriL [Lisinopril 2.5mg Tab] 2.5 mg PO DAILY 01/17/21 04/12/21 History bisoproloL fumarate [Bisoprolol 2.5 mg PO DAILY 02/21/21 04/12/21 History Fumarate] Acetaminophen [Tylenol 325mg 650 mg PO Q4HP PRN 04/12/21 04/12/21 History Tablet] Bumetanide [Bumex 1mg tablet] 1 mg PO DAILY 04/12/21 04/12/21 History Ipratropium/Albuterol Sulfate 1 puff IH TIDP PRN 04/12/21 04/12/21 History [Combivent Respimat Inh] Isosorbide Mononitrate [Isosorbide 30 mg PO DAILY 04/12/21 04/12/21 History Mononitrate ER] Levothyroxine Sodium 62.5 mcg PO DAILY 04/12/21 04/12/21 History [Levothyroxine 125mcg (0.125mg) Tab] Multivit with Calcium,Iron,Min 1 each PO DAILY 04/12/21 04/12/21 History [One Daily with Calcium-Iron] Nystatin [Nystatin Topical Powder 1 applicatio TP BID 04/12/21 04/12/21 History 30GM*] Pantoprazole Sodium [Protonix 40mg 40 mg PO DAILY 04/12/21 04/12/21 History tablet] Potassium Chloride [Klor-Con] 20 meq PO DAILY 04/12/21 04/12/21 History Rivaroxaban [Xarelto 20mg Tablet*] 20 mg PO DAILY 04/12/21 04/12/21 History polyethylene glycoL 3350 [Miralax 17 gm PO DAILYP PRN 04/12/21 04/12/21 History 17gm Packet] Allergies Allergy/AdvReac Type Severity Reaction Status Date / Time No Known Allergies Allergy Verified 02/21/21 09:56 Exam Vital signs and Labs for Last 24 Hours: Temp Pulse Resp BP Pulse Ox 97.9 F 74 18 89/44 L 100 04/16/21 08:00 04/16/21 11:15 04/16/21 08:00 04/16/21 08:00 04/16/21 11:15 Laboratory Results - last 24 hr 04/15/21 16:41: POC Glucose 181 H 04/15/21 21:54: POC Glucose 164 H 04/16/21 05:54: POC Glucose 129 H 04/16/21 06:20: WBC 14.4 H
[2021-04-16 16:09] LABS: POC Glucose,Bedside 246 (70-110)
--- NOTE | 2021-04-16 18:10 | PC.NURSE ---
Pt has been pleasant and cooperative this shift. A&O X4. Pt is currently receiving O2 via non-rebreather @ 15 LPM with sats. >90%. Lung sounds reveal expiratory wheezing. 1+ pitting edema noted to LUE. Redness/excoriation and multiple stage 2 ulcerations noted to bilateral buttocks. Pressure-relief dressing applied. Bilateral AKA's noted. Abdomen is flat, soft, and non-tender. F/C is patent and draining clear, yellow urine at bedside to gravity. No BM thus far today. Appetite is poor and pt eats about 25% of every meal. Pt has been turned Q2H this shift. FSBS results have been 197 and 246. 20 G peripheral IV in the LT hand is patent and SL. B/P has been sightly low this shift. Other VSS. Call light within reach. Will continue to monitor.
[2021-04-16 21:24] LABS: POC Glucose,Bedside 204 (70-110)
[2021-04-17] VITALS (9 sets, daily range): BP systolic 89–116; BP diastolic 49–62; PULSE 74–88; RESP 19–26; TEMP 35.9–36.7; O2SAT 90–100; BMI 24.7
[2021-04-17 06:10] LABS: POC Glucose,Bedside 166 (70-110)
[2021-04-17 06:59] LABS: Basophils % 0.1 % (0.1-2.0); Eosinophils # 0.2 K/mm3 (0.0-0.4); Eosinophils % 1.8 % (0.1-12.0); Hematocrit 24.3 % (42.0-52.0); Hemoglobin 7.8 g/dL (14.1-18.0); Lymphocytes % 7.4 % (10-50); Mean Corpuscular HGB Conc 31.9 g/dL (31.8-35.4); Mean Corpuscular Hemoglobin 27.8 pg (27.0-31.2); Mean Corpuscular Volume 86.9 fl (80-94); Mean Platelet Volume 13.2 fl (7.4-10.4); Monocytes % 7.4 % (1.7-9.3); Neutrophils # 10.8 K/mm3 (1.8-7.8); Neutrophils % 83.2 % (37.0-80.0); Platelet Count 74 K/mm3 (142-424)
[2021-04-17 07:06] LABS: Chloride 108 mmol/L (98-107); Sodium 140 mmol/L (136-145)
[2021-04-17 07:07] LABS: Potassium 4.6 mmoL/L (3.5-5.1)
[2021-04-17 07:09] LABS: Creatinine Clearance Estimated 15 mL/min (50-200); Estimated Glomerular Filt Rate 11 ml/min (>60); GFR (African American) 13 ML/MIN (>60)
[2021-04-17 07:10] LABS: Anion Gap 16.6 mEq/L (5-15); Calcium 7.8 mg/dl (8.4-10.2); Carbon Dioxide 20 mmol/L (22.0-30.0); Glucose 160 mg/dl (74-100)
[2021-04-17 07:55] LABS: Blood Urea Nitrogen 109 mg/dl (9-20)
--- NOTE | 2021-04-17 08:29 | DIET.NUTRFU ---
Pt PO intake is poor with 25% recorded at the last two meals and he refused dinner. Pt receiving glucerna BID currently will increase to TID to add additional supplementation. GFR remains low and BUN high. Glucose running at 246, 204, 166. Will continue to monitor.
--- NOTE | 2021-04-17 09:32 | HMH.ACPN2 ---
Internal Medicine - PN: Subj *Date: 04/17/21 *Time: 08:25 Interval history: long discussion with pt and spoke with sister at this time they wish to be comfort care only no more interventions and hospice consult. they wish to take him home with hospice. Exam Vital signs and Labs for Last 24 Hours: Temp Pulse Resp BP Pulse Ox 97.5 F L 75 22 89/49 L 94 L 04/17/21 07:53 04/17/21 07:53 04/17/21 07:53 04/17/21 07:53 04/17/21 07:53 Laboratory Results - last 24 hr 04/16/21 11:36: POC Glucose 197 H 04/16/21 15:58: POC Glucose 246 H 04/16/21 20:47: POC Glucose 204 H 04/17/21 05:56: WBC 13.0 H, RBC 2.80 L, Hgb 7.8 L, Hct 24.3 L, MCV 86.9, MCH 27.8, MCHC 31.9, RDW 19.0 H, Plt Count 74 L, MPV 13.2 H, Neut % (Auto) 83.2 H, Lymph % (Auto) 7.4 L, [place] % (Auto) 7.4, Eos % (Auto) 1.8, Baso % (Auto) 0.1, Neut # (Auto) 10.8 H, Lymph # (Auto) 1.0, [place] # (Auto) 1.0, Eos # (Auto) 0.2, Baso # (Auto) 0.0 04/17/21 05:56: Sodium 140, Potassium 4.6, Chloride 108 H, Carbon Dioxide 20 L, Anion Gap 16.6 H, BUN 109 H*, Creatinine 5.30 H, Estimated Creat Clear 15, Estimated GFR 11 L*, Est GFR ( Amer) 13 L*, Glucose 160 H D, Calcium 7.8 L 04/17/21 06:01: POC Glucose 166 H I & O for Last 24 hours: Intake & Output 04/14/21 04/15/21 04/16/21 04/17/21 11:59 11:59 11:59 11:59 Intake Total 2811 / 2811 1327 / 1327 360 / 360 240 / 240 Output Total 750 / 750 250 / 250 575 / 575 475 / 475 Balance 2060 1077 / 1077 -215 / -215 -235 / -235 Weight 174 lb 11.2 oz 176 lb 3.2 oz 177 lb 3.2 oz 173 lb - Constitutional no acute distress, chronically ill appearing - *Routine HEENT Exam Head: Present: normocephalic Eye: Present: PERRL ENT: Present: mucous membranes moist - *Routine Neck Exam Present: supple. Absent: lymphadenopathy - *Routine Respiratory Exam Present: rhonchi - *Routine Cardiovascular Exam Present: RRR - *Routine Abdominal Exam Present: soft, normoactive bowel sounds. Absent: tenderness - *Routine Extremities Exam Present: amputation Comments: bobbi bka - *Routine Skin Exam Present: warm. Absent: rash Comments: bishnu in place to stump multiple stage 2 to coccyx stage 3 at top of coccyx Assessment and Plan (1) UTI (urinary tract infection) Status: Acute Qualifiers: Urinary tract infection type: site unspecified Hematuria presence: without hematuria Qualified Code(s): N39.0 - Urinary tract infection, site not specified Category: Medical Code(s): N39.0 - Urinary tract infection, site not specified (2) Elevated troponin Status: Acute Category: Medical Code(s): R77.8 - Other specified abnormalities of plasma proteins (3) JAYDE (acute kidney injury) Status: Acute Category: Medical Code(s): N17.9 - Acute kidney failure, unspecified (4) Respiratory failure with hypoxia Status: Acute Qualifiers: Chronicity: acute on chronic Qualified Code(s): J96.21 - Acute and chronic respiratory failure with hypoxia Category: Medical Code(s): J96.91 - Respiratory failure, unspecified with hypoxia (5) Thrombocytopenia Status: Acute Category: Medical Code(s): D69.6 - Thrombocytopenia, unspecified (6) Severe sepsis with acute organ dysfunction Status: Acute Category: Medical Code(s): A41.9 - Sepsis, unspecified organism; R65.20 - Severe sepsis without septic shock (7) HLD (hyperlipidemia) Status: Chronic Qualifiers: Hyperlipidemia type: mixed hyperlipidemia Qualified Code(s): E78.2 - Mixed hyperlipidemia Category: Medical Code(s): E78.5 - Hyperlipidemia, unspecified (8) Gram negative sepsis Status: Acute Category: Medical Code(s): A41.50 - Gram-negative sepsis, unspecified (9) Bacterial infection due to Serratia Problem details: Blood x 2 bottles and Urine Status: Acute Category: Medical Code(s): A49.8 - Other bacterial infections of unspecified site (10) Severe protein-calorie malnutrition Status: Acute [place]
[2021-04-17 11:00] LABS: POC Glucose,Bedside 146 (70-110)
--- NOTE | 2021-04-17 13:44 | HMH.PULMPN ---
Internal Medicine - PN: Subj *Date: 04/17/21 *Time: 13:44 Interval history: No acute respiratory events overnight. Patient continued to refuse chest tube placement and any other invasive interventions. Exam - Constitutional Constitutional:: Present: comfortable - HENMT Exam HENMT: Present: normocephalic, atraumatic - Eye Exam Eyes:: Present: normal appearance both eyes and related structures - Neck Exam Neck:: Present: normal visual inspection - Respiratory Exam Respiratory:: Present: able to speak in complete sentences, respiratory distress, wheezing - Cardiovascular Exam Cardiac:: Present: S1, S2 - GI Exam GI:: Present: soft - Skin Exam Skin: Present: warm, no rash - Neurological Exam Neurological: Present: alert, awake - Extremities Exam Extremities: Present: no cyanosis, no clubbing - Psychiatric Exam Psychiatric: Present: normal affect Assessment and Plan (1) UTI (urinary tract infection) Status: Acute Qualifiers: Urinary tract infection type: site unspecified Hematuria presence: without hematuria Qualified Code(s): N39.0 - Urinary tract infection, site not specified Category: Medical Code(s): N39.0 - Urinary tract infection, site not specified (2) Elevated troponin Status: Acute Category: Medical Code(s): R77.8 - Other specified abnormalities of plasma proteins (3) JAYDE (acute kidney injury) Status: Acute Category: Medical Code(s): N17.9 - Acute kidney failure, unspecified (4) Respiratory failure with hypoxia Status: Acute Qualifiers: Chronicity: acute on chronic Qualified Code(s): J96.21 - Acute and chronic respiratory failure with hypoxia Category: Medical Code(s): J96.91 - Respiratory failure, unspecified with hypoxia (5) Thrombocytopenia Status: Acute Category: Medical Code(s): D69.6 - Thrombocytopenia, unspecified (6) Severe sepsis with acute organ dysfunction Status: Acute Category: Medical Code(s): A41.9 - Sepsis, unspecified organism; R65.20 - Severe sepsis without septic shock (7) HLD (hyperlipidemia) Status: Chronic Qualifiers: Hyperlipidemia type: mixed hyperlipidemia Qualified Code(s): E78.2 - Mixed hyperlipidemia Category: Medical Code(s): E78.5 - Hyperlipidemia, unspecified (8) Gram negative sepsis Status: Acute Category: Medical Code(s): A41.50 - Gram-negative sepsis, unspecified (9) Bacterial infection due to Serratia Problem details: Blood x 2 bottles and Urine Status: Acute Category: Medical Code(s): A49.8 - Other bacterial infections of unspecified site (10) Severe protein-calorie malnutrition Status: Acute Category: Medical Code(s): E43 - Unspecified severe protein-calorie malnutrition (11) Pneumothorax Status: Acute Category: Medical Code(s): J93.9 - Pneumothorax, unspecified - Assessment and plan all Dx Assessment and Plan for all problems:: #Right-sided pneumothorax: Smoker greater than [id number] smoking history carries a diagnosis COPD. Mid baseline respiratory symptoms. Other comorbidities including CHF exacerbation, bacteremia with Serratia and acute kidney injury. Currently on levofloxacin oral renally dosed for his bacteremia. Cardiology following for his volume optimization. Chest x-ray from this morning showed right-sided pneumothorax, 1.5 cm from the pleural surface. Patient appear to be having worsening distress this morning. Worsening wheeze on both sides. Repeat chest x-ray from this morning showed worsening pneumothorax. Given worsening pneumothorax have consulted surgery however unfortunately despite extensive discussions by Dr. Steward, myself and primary team, patient continued to refuse chest tube placement. Primary team also having goals of care discussion along with possible hospice care. Plan: -Continue oxygen supplementation via facemask/nonrebreather to maintain O2 saturation goal of 100% -Continue levofloxacin IV for bacteremia.
[2021-04-17 15:52] LABS: POC Glucose,Bedside 160 (70-110)
--- NOTE | 2021-04-17 16:57 | PC.NURSE ---
Pt has been pleasant and cooperative this shift. A&O X4. Pt is currently receiving O2 via NC @ 5 LPM with sats. >90%. Lung sounds reveal expiratory rhonchi. 1+ pitting edema noted to LUE. Redness/excoriation and multiple stage 2 ulcerations noted to bilateral buttocks. Pressure-relief dressing removed and reapplied. Bilateral AKA's noted. Abdomen is flat, soft, and non-tender. F/C is patent and draining clear, yellow urine at bedside to gravity. No BM thus far today. Pt has refused all meals today. Pt has been turned/repositioned and provided oral care Q2H this shift. FSBS results have been 146 and 160. 20 G peripheral IV in the LT hand is patent and SL. B/P noted to be slightly low today. Other VSS. Call light within reach. Will continue to monitor.
[2021-04-17 20:42] LABS: POC Glucose,Bedside 151 (70-110)
[2021-04-18 04:00] VITALS: BP 97/50; PULSE 77; RESP 18; TEMP 37.1; O2SAT 95
[2021-04-18 05:00] VITALS: BMI 25.0
[2021-04-18 06:20] VITALS: PULSE 75; O2SAT 96
--- NOTE | 2021-04-18 06:38 | PC.NURSE ---
pt has rested well t/o shift, has remained on 5L t/o shift, no complaints of pain or SOA this shift, andre remains in place draining at bedside
[2021-04-18 06:58] LABS: Basophils % 0.2 % (0.1-2.0); Eosinophils # 0.2 K/mm3 (0.0-0.4); Eosinophils % 1.6 % (0.1-12.0); Hematocrit 23.9 % (42.0-52.0); Hemoglobin 7.6 g/dL (14.1-18.0); Lymphocytes % 8.3 % (10-50); Mean Corpuscular HGB Conc 31.9 g/dL (31.8-35.4); Mean Corpuscular Hemoglobin 27.9 pg (27.0-31.2); Mean Corpuscular Volume 87.6 fl (80-94); Mean Platelet Volume 13.6 fl (7.4-10.4); Monocytes # 0.8 K/mm3 (0.1-1.0); Monocytes % 6.6 % (1.7-9.3); Neutrophils # 10.2 K/mm3 (1.8-7.8); Neutrophils % 83.4 % (37.0-80.0); Platelet Count 64 K/mm3 (142-424); Red Blood Count 2.73 M/mm3 (4.60-6.20); Red Cell Distribution Width 19.1 % (11.5-17.5); White Blood Count 12.2 K/mm3 (4.8-10.8)
[2021-04-18 07:04] LABS: Chloride 109 mmol/L (98-107); Sodium 140 mmol/L (136-145)
[2021-04-18 07:07] LABS: Carbon Dioxide 21 mmol/L (22.0-30.0); Creatinine Clearance Estimated 16 mL/min (50-200); Estimated Glomerular Filt Rate 11 ml/min (>60); GFR (African American) 14 ML/MIN (>60)
[2021-04-18 07:08] LABS: Calcium 7.9 mg/dl (8.4-10.2); Glucose 138 mg/dl (74-100)
[2021-04-18 07:19] LABS: Blood Urea Nitrogen 110 mg/dl (9-20)
[2021-04-18 08:00] VITALS: BP 111/57; PULSE 113; RESP 20; O2SAT 94
--- NOTE | 2021-04-18 10:03 | PC.NURSE ---
late entry. lab called and stated critical lab values of bun and creatniine. is aware of those values
--- NOTE | 2021-04-18 10:18 | HMH.PULMPN ---
Internal Medicine - PN: Subj *Date: 04/18/21 *Time: 14:04 Interval history: No acute respiratory events overnight. Patient denies any new complaints. Exam - Constitutional Constitutional:: Present: comfortable - HENMT Exam HENMT: Present: normocephalic - Eye Exam Eyes:: Present: normal appearance both eyes and related structures - Respiratory Exam Respiratory:: Present: able to speak in complete sentences, respiratory distress, decreased breath sounds. Absent: wheezing - Cardiovascular Exam Cardiac:: Present: S1, S2 - GI Exam GI:: Present: soft - Skin Exam Skin: Present: warm - Neurological Exam Neurological: Present: alert, awake, normal cognition - Extremities Exam Extremities: Present: no cyanosis, no clubbing Assessment and Plan (1) UTI (urinary tract infection) Status: Acute Qualifiers: Urinary tract infection type: site unspecified Hematuria presence: without hematuria Qualified Code(s): N39.0 - Urinary tract infection, site not specified Category: Medical Code(s): N39.0 - Urinary tract infection, site not specified (2) Elevated troponin Status: Acute Category: Medical Code(s): R77.8 - Other specified abnormalities of plasma proteins (3) JAYDE (acute kidney injury) Status: Acute Category: Medical Code(s): N17.9 - Acute kidney failure, unspecified (4) Respiratory failure with hypoxia Status: Acute Qualifiers: Chronicity: acute on chronic Qualified Code(s): J96.21 - Acute and chronic respiratory failure with hypoxia Category: Medical Code(s): J96.91 - Respiratory failure, unspecified with hypoxia (5) Thrombocytopenia Status: Acute Category: Medical Code(s): D69.6 - Thrombocytopenia, unspecified (6) Severe sepsis with acute organ dysfunction Status: Acute Category: Medical Code(s): A41.9 - Sepsis, unspecified organism; R65.20 - Severe sepsis without septic shock (7) HLD (hyperlipidemia) Status: Chronic Qualifiers: Hyperlipidemia type: mixed hyperlipidemia Qualified Code(s): E78.2 - Mixed hyperlipidemia Category: Medical Code(s): E78.5 - Hyperlipidemia, unspecified (8) Gram negative sepsis Status: Acute Category: Medical Code(s): A41.50 - Gram-negative sepsis, unspecified (9) Bacterial infection due to Serratia Problem details: Blood x 2 bottles and Urine Status: Acute Category: Medical Code(s): A49.8 - Other bacterial infections of unspecified site (10) Severe protein-calorie malnutrition Status: Acute Category: Medical Code(s): E43 - Unspecified severe protein-calorie malnutrition (11) Pneumothorax Status: Acute Category: Medical Code(s): J93.9 - Pneumothorax, unspecified - Assessment and plan all Dx Assessment and Plan for all problems:: #Right-sided pneumothorax: Smoker greater than [id number] smoking history carries a diagnosis COPD. Mid baseline respiratory symptoms. Other comorbidities including CHF exacerbation, bacteremia with Serratia and acute kidney injury. Currently on levofloxacin oral renally dosed for his bacteremia. Cardiology following for his volume optimization. Chest x-ray from this morning showed right-sided pneumothorax, 1.5 cm from the pleural surface. Patient appear to be having worsening distress this morning. Worsening wheeze on both sides. Repeat chest x-ray from this morning showed worsening pneumothorax. Given worsening pneumothorax have consulted surgery however unfortunately despite extensive discussions by Dr. Steward, myself and primary team, patient continued to refuse chest tube placement. Repeat chest x-ray from today minimal improvement in pneumothorax along with stable airspace disease. Primary team also having goals of care discussion and hospice care consult Plan: -Continue oxygen supplementation via facemask/nonrebreather to maintain O2 saturation goal of 100% -Continue levofloxacin IV for bacteremia. We'll also recommend to repeat blood cultur
--- NOTE | 2021-04-18 10:19 | XR_ITS ---
PROCEDURE: XR CHEST PORTABLE CLINICAL HISTORY: Pneumthorax COMPARISON: CT CT ANGIO CHEST PE PROTOCOL from 03/01/2021 CR XR CHEST PORTABLE from 04/15/2021 CR XR CHEST PORTABLE from 04/15/2021 CR XR CHEST PORTABLE from 04/16/2021 FINDINGS: Cardiomegaly. No change tripolar cardiac pacemaker device. Small right-sided pneumothorax once again noted and appears slightly smaller from the previous exam. Moderate-sized right effusion with right-sided airspace disease unchanged. Airspace disease left midlung unchanged. No acute bony abnormalities. IMPRESSION: Slight decrease in size of right-sided pneumothorax with no change in the bilateral airspace disease/pneumonia with moderate right effusion Dictated by: Bruno Delgado MD 04/18/2021 11:37 Bruno Delgado MD in [facility] 04/18/2021 11:37
[2021-04-18 11:12] LABS: POC Glucose,Bedside 184 (70-110)
[2021-04-18 11:12] LABS: POC Glucose,Bedside 155 (70-110)
[2021-04-18 11:22] VITALS: PULSE 74; O2SAT 95
--- NOTE | 2021-04-18 11:31 | HMH.DCSUM ---
General - General Admission date:: 04/12/21 Discharge date: 04/18/21 HPI HPI: this patient from sent from [facility] with fever and sob- pt was discovered to be breathing heavy and O2 sat was 70s, he was placed on simple mask and O2 increased to 83%. EMS placed pt on 100% NRB and sat quickly deuce to to mid 90s. RR 27 and pt c/o feeling tired . Skin is clammy and warm to touch. Denies cough or N/V/D. L elbow redness and stag 2 to coccyx pt sent from [facility] with sob and fever - pt awake but with no specific c/o - pt with recent admit at [facility] with ugi bleed and sara and back to [facility] and had fever and increased bun/creat and sent to ed and found to have sepsis and uti and prob chf with sara- pt was admitted with orders Hospital Course Hospital Course: Laboratory Tests 04/12/21 04/12/21 04/12/21 01:20 01:20 01:20 WBC 18.3 H RBC 2.96 L Hgb 8.1 L Hct 26.0 L MCV 87.6 MCH 27.5 MCHC 31.4 L RDW 18.4 H Plt Count 106 L MPV 13.1 H Neut % (Auto) 90.0 H Lymph % (Auto) 3.1 L Dougherty % (Auto) 6.8 Eos % (Auto) 0.0 L Baso % (Auto) 0.1 Neut # (Auto) 16.5 H Lymph # (Auto) 0.6 L Dougherty # (Auto) 1.3 H Eos # (Auto) 0.0 Baso # (Auto) 0.0 Total Counted 100 Neutrophils % (Manual) 84 H Band Neutrophils % 10.0 H Lymphocytes % (Manual) 3 L Monocytes % (Manual) 3 Eosinophils % (Manual) Platelet Estimate Slight decrease RBC Morphology Not Reportable Hypochromasia 1+ Poikilocytosis Target Cells Liliana Cells Acanthocytes (Spur) Rouleaux 3+ ESR 93 H Specimen Source O2 % ABG pH ABG pCO2 ABG pO2 ABG HCO3 ABG Total CO2 ABG O2 Saturation ABG Base Excess Bruno Test Sodium 130 L Potassium 5.0 Chloride 95 L Carbon Dioxide 24 Anion Gap 16.0 H BUN 96 H Creatinine 4.80 H Estimated Creat Clear 18 Estimated GFR 12 L* Est GFR ( Amer) 15 L* Glucose 301 H POC Glucose Lactate 2.4 H Calcium 8.0 L Magnesium 1.4 L Total Bilirubin 2.9 H AST 56 ALT 35 Alkaline Phosphatase 156 H Troponin I 0.11 H C-Reactive Protein 204.1 H NT-Pro-B Natriuret Pep 35327 H Total Protein 6.5 Albumin 2.6 L Globulin 3.9 H Albumin/Globulin Ratio 0.7 L Procalcitonin 11.1 H TSH 3.07 Thyroxine (T4) 4.5 L Urine Color Urine Appearance Urine pH Ur Specific [place] Urine Protein Urine Glucose (UA) Urine Ketones Urine Blood Urine Nitrate Urine Bilirubin Urine Urobilinogen Ur Leukocyte Esterase Urine RBC Urine WBC RBC Casts WBC Casts Urine Mucus SARS-CoV-2 (PCR) Influenza A Untype (PCR) Influenza Type B (PCR) 04/12/21 04/12/21 04/12/21 01:20 01:20 01:35 WBC RBC Hgb Hct MCV MCH MCHC RDW Plt Count MPV Neut % (Auto) Lymph % (Auto) Dougherty % (Auto) Eos % (Auto) Baso % (Auto) Neut # (Auto) Lymph # (Auto) Dougherty # (Auto) Eos # (Auto) Baso # (Auto) Total Counted Neutrophils % (Manual) Band Neutrophils % Lymphocytes % (Manual) Monocytes % (Manual) Eosinophils % (Manual) Platelet Estimate RBC Morphology Hypochromasia Poikilocytosis Target Cells Liliana Cells Acanthocytes (Spur) Rouleaux ESR Specimen Source Left radial O2 % 100 ABG pH 7.43 ABG pCO2 36.3 ABG pO2 41.2 L ABG HCO3 23.7 ABG Total CO2 24.8 ABG O2 Saturation 73 L* ABG Base Excess -0.5 Bruno Test Acceptable Sodium Potassium Chloride Carbon Dioxide Anion Gap BUN Creatinine Estimated Creat Clear Estimated GFR Est GFR ( Amer) Glucose POC Glucose Lactate Calcium Magnesium Total Bilirubin AST ALT Alkaline Phosphatase Troponin I C-Reactive Protein NT-Pro-B Natriuret Pep Total Protein Albumin
--- NOTE | 2021-04-18 16:36 | PC.WOUNDNOTE ---
STAGE 2 NOTED
== END 2021-04-18 16:39 | disposition hospice, home (50) | DRG 871 ==
LOC: ER 01:20 → 2ND 05:32
PROVIDERS: Family Medicine; Nurse Practitioner Family; Admitting Provider Emergency Medicine; Emergency Provider Emergency Medicine; PCP Emergency Medicine; Visit Provider Emergency Medicine
DX: A41.53 Sepsis due to Serratia (principal); J96.21 Acute and chronic respiratory failure with hypoxia; E43 Unspecified severe protein-calorie malnutrition; I50.23 Acute on chronic systolic (congestive) heart failure; J18.9 Pneumonia, unspecified organism; N39.0 Urinary tract infection, site not specified; J93.9 Pneumothorax, unspecified; N17.9 Acute kidney failure, unspecified; R65.20 Severe sepsis without septic shock; I48.91 Unspecified atrial fibrillation; I11.0 Hypertensive heart disease with heart failure; J44.9 Chronic obstructive pulmonary disease, unspecified; D69.6 Thrombocytopenia, unspecified; Z51.5 Encounter for palliative care; I25.10 Atherosclerotic heart disease of native coronary artery without angina pectoris; E03.9 Hypothyroidism, unspecified; Z20.822 Contact with and (suspected) exposure to COVID-19; E11.9 Type 2 diabetes mellitus without complications; F17.210 Nicotine dependence, cigarettes, uncomplicated; I73.9 Peripheral vascular disease, unspecified; I25.2 Old myocardial infarction; Z95.0 Presence of cardiac pacemaker; E78.5 Hyperlipidemia, unspecified; Z68.25 Body mass index [BMI] 25.0-25.9, adult; D64.9 Anemia, unspecified; Z95.5 Presence of coronary angioplasty implant and graft; L89.152 Pressure ulcer of sacral region, stage 2; R77.8 Other specified abnormalities of plasma proteins
CPT/HCPCS: 36415; 71045; 80048; 80053; 81001; 82803; 82962; 83605; 83735; 83880; 84145; 84436; 84443; 84484; 85007; 85025; 85651; 86140; 87040; 87077; 87086; 87088; 87186; 93005; 94640; 94760; 94761; 96365; 96367; 96375; 99285; C9803; J1956; J2405; J3370; U0003; U0005

== ENCOUNTER 2022-01-04 13:38 | Inpatient (IN) | payer OTHER, MEDICARE, SELFPAY ==
[2022-01-04] VITALS (11 sets, daily range): BP systolic 63–112; BP diastolic 32–63; PULSE 68–89; RESP 16–24; TEMP 36.5–36.7; O2SAT 100; BMI 23.7; BMI 27.7
--- NOTE | 2022-01-04 13:27 | ECG_ITS ---
APPROVED REPORT Exam: Resting ECG HR:75 bpm ECG Measurements Heart Rate 75 AXES KS 147 P 68 QRSd 138 QRS -48 QT 413 T 91 QTc 441 Conclusion ELECTRONIC VENTRICULAR PACEMAKER ABNORMAL RHYTHM ECG UNCONFIRMED REPORT Electronically signed by : Dominik Burton MD 01/05/2022 17:18:29
--- NOTE | 2022-01-04 13:29 | HMH.EDGENADL ---
Discharge Plan Disposition Patient Disposition: Admitted As Inpatient Condition: Critical Clinical Impressions Clinical Impression: Septic shock, Urinary tract infection, Pneumonia, Chronic kidney failure, Acute hyponatremia Discharge ED Provider: Dmitriy Connolly Adult HPI General Chief complaint: Chest Pain Stated complaint: Weakness Time Seen by Provider: 01/04/22 13:40 Mode of Arrival: EMS History of Present Illness HPI narrative: Patient arrives by ambulance. He is a poor historian. He states that he has pain in the left side of his chest that started this morning. He has a cough producing mucus. He has low back pain. He does not know whether he has had a fever. He is sometimes short of breath. He has bilateral [id number] amputations. He is on oxygen at home. He does not know his flow rate. He has an indwelling Ansari catheter. He states that he is in hospice. He thinks his hospice nurse comes out about every 2 weeks. He says he also has home health care that comes out to bathe him 3 times a week. Related Data Home Medications Medication Instructions Recorded Confirmed docusate sodium 100 mg capsule 100 mg PO BID stool softner 01/17/21 01/04/22 lisinopril 2.5 mg tablet 2.5 mg PO DAILY Hypertension 01/17/21 01/04/22 acetaminophen 325 mg tablet 650 mg PO Q4HP PRN As Needed For 04/12/21 01/04/22 Fever Or Pain bumetanide 1 mg tablet 1 mg PO DAILY chf 04/12/21 01/04/22 isosorbide mononitrate 30 mg 30 mg PO DAILY Hypertension 04/12/21 01/04/22 tablet,extended release 24 hr pantoprazole 40 mg tablet,delayed 40 mg PO DAILY GERD 04/12/21 01/04/22 release rivaroxaban 20 mg tablet 20 mg PO DAILY AFIB 04/12/21 01/04/22 furosemide 20 mg tablet (Lasix) 20 mg PO DAILY Fluid 01/04/22 01/04/22 levothyroxine 50 mcg tablet See Rx Instructions .Route 01/04/22 01/04/22 .COMPLEX Blood thinner oxycodone 5 mg capsule 5 mg PO TID PRN Pain 01/04/22 01/04/22 sennosides 8.6 mg tablet (senna) 8.6 mg PO BID CONSTIPATION 01/04/22 01/04/22 Allergies Allergy/AdvReac Type Severity Reaction Status Date / Time No Known Allergies Allergy Verified 02/21/21 09:56 PFSH PFSH Medical History CAD (coronary artery disease) Dyspnea Ischemic cardiomyopathy NYHA class 3 heart failure with reduced ejection fraction Systolic heart failure Tobacco use Surgical History AICD (automatic cardioverter/defibrillator) present Social History (Updated 01/04/22 @ 17:58 by Garo Brice RN) Smoking Status: Former smoker alcohol intake: never counseling provided: none substance use type: denies use current occupational status: disabled Travel in the last 8 weeks: None household members: family housing: house lives independently: No marital status: single service: No correction: No current occupational exposures/hazards: No caffeine: Yes physical activity: none ROS Obtained: Yes Systems reviewed as appropriate & no additional complaints except as documented Cardiovascular Cardiovascular: Reports chest pain Respiratory Respiratory: Reports shortness of breath and Reports cough with sputum production Gastrointestinal Gastrointestingal: Denies abdominal pain, diarrhea or vomiting Genitourinary Male Genitourinary: Reports as per HPI Musculoskeletal Musculoskeletal: Reports back pain Physical Exam General General appearance: alert Comment: Groaning, states he cannot get comfortable Head Head exam: atraumatic and normocephalic Eye Eye exam: Present normal appearance and EOMI ENT ENT exam: Present mucous membranes moist Neck Neck exam: Present normal inspection and trachea midline Chest Chest inspection: Present normal inspection and symmetric chest wall rise Respiratory Respiratory exam: Present normal lung sounds bilaterally; Absent respiratory distress Cardiovascular Cardiovascular exam: Present regular rat
--- NOTE | 2022-01-04 13:35 | PC.NURSE ---
1330 MD MADE AWARE OF HYPOTENSION, NO NEW ORDERS. CONTINUES WITH 500ML BAG FROM EMS
--- NOTE | 2022-01-04 13:46 | PC.NURSE ---
ED MD AT BEDSIDE FOR EVALUATION
--- NOTE | 2022-01-04 14:03 | XR_ITS ---
PROCEDURE INFORMATION: Exam: XR Chest Exam date and time: 01/04/2022 2:29 PM Age: 66 years old Clinical indication: Pain; Chest pressure; Additional info: Chest pain TECHNIQUE: Imaging protocol: Radiologic exam of the chest. Views: 1 view. COMPARISON: CR XR CHEST PORTABLE 04/18/2021 10:37 AM FINDINGS: Tubes, catheters and devices: A pacemaker device is present, and its leads are in appropriate position. Lungs: Atelectasis and/or early infiltrative changes noted within the right lung base. Pleural spaces: Right pleural effusion. There is no evidence of pneumothorax. Heart/Mediastinum: Heart demonstrates moderate diffuse enlargement. Bones/joints: The thoracic spine demonstrates mild degenerative changes at multiple levels. IMPRESSION: 1. Moderate cardiomegaly. 2. Atelectasis and/or early infiltrative changes noted within the right lung base. 3. Right pleural effusion.
--- NOTE | 2022-01-04 14:05 | PC.NURSE ---
1405 ED MD AWARE OF BLOOD PRESSURE, NO NEW ORDERS
--- NOTE | 2022-01-04 14:16 | PC.NURSE ---
PT REPOSITIONED MULTIPLE TIMES, CURRENTLY ON RIGHT SIDE. CALL LIGHT WITHIN REACH
--- NOTE | 2022-01-04 14:23 | PC.NURSE ---
XR AT BEDSIDE
[2022-01-04 14:27] LABS: Basophils % 0.1 % (0.1-2.0); Eosinophils % 0.1 % (0.1-12.0); Hematocrit 32.1 % (42.0-52.0); Hemoglobin 10.2 g/dL (14.1-18.0); Lymphocytes # 0.7 K/mm3 (0.7-4.5); Lymphocytes % 2.5 % (10-50); Mean Corpuscular HGB Conc 31.9 g/dL (31.8-35.4); Mean Corpuscular Hemoglobin 29.8 pg (27.0-31.2); Mean Corpuscular Volume 93.3 fl (80-94); Mean Platelet Volume 8.6 fl (7.4-10.4); Monocytes # 1.5 K/mm3 (0.1-1.0); Neutrophils # 27.5 K/mm3 (1.8-7.8); Neutrophils % 92.4 % (37.0-80.0); Platelet Count 391 K/mm3 (142-424); Red Blood Count 3.44 M/mm3 (4.60-6.20); Red Cell Distribution Width 13.8 % (11.5-17.5); White Blood Count 29.8 K/mm3 (4.8-10.8)
[2022-01-04 14:32] LABS: MANUAL DIFFERENTIAL MANUAL DIFFERENTIAL (MANUAL DIFF)
[2022-01-04 14:36] LABS: Coronavirus 19, PCR Not Detected (NotDetected); Influenza A, PCR Not Detected (NotDetected); Influenza B, PCR Not Detected (NotDetected)
[2022-01-04 14:39] LABS: Alanine Aminotransferase 15 U/L (12-78); Albumin Level 2.6 g/dl (3.5-5.0); Albumin/Globulin Ratio 0.7 (1.1-1.8); Alkaline Phosphatase 137 U/L (38-126); Anion Gap 17.2 mEq/L (5-15); Aspartate Amino Transferase 17 U/L (17-59); Bilirubin,Total 0.8 mg/dl (0.2-1.3); Calcium 7.4 mg/dl (8.4-10.2); Carbon Dioxide 15 mmol/L (22.0-30.0); Chloride 88 mmol/L (98-107); Globulin 3.9 g/dL (1.3-3.2); Glucose 129 mg/dl (74-100); Potassium 4.2 mmoL/L (3.5-5.1); Sodium 116 mmol/L (136-145); Total Protein,Serum 6.5 g/dl (6.3-8.2)
[2022-01-04 14:40] LABS: Lactic Acid 1.3 mmol/L (0.7-2.1)
[2022-01-04 14:45] LABS: Creatinine Clearance Estimated 17 mL/min (50-200); Estimated Glomerular Filt Rate 12 ml/min (>60); GFR (African American) 15 ML/MIN (>60)
[2022-01-04 14:46] LABS: Microscopic, Urine URINE MICROSCOPIC (MICROSCOPIC)
[2022-01-04 14:48] LABS: NT Pro Brain Natriuretic Pep. 33900 pg/mL (0-125)
[2022-01-04 14:49] LABS: Appearance,Urine CLOUDY (Clear); Blood, Urine 3+ (Negative); Color,Urine BROWN (Yellow); Glucose,Urine (UA) Negative (Negative); Ketones,Urine Negative (Negative); Leukocyte Esterase,Urine 3+ (Negative); Nitrate,Urine POSITIVE (Negative); PH,Urine 8.5 (5.0-8.5); Protein,Urine 2+ (Negative)
[2022-01-04 14:51] LABS: Troponin I 0.02 ng/ml (0.00-0.034)
[2022-01-04 14:53] LABS: Blood Urea Nitrogen 104 mg/dl (9-20)
[2022-01-04 14:58] LABS: Bilirubin,Urine 1+ (Negative)
--- NOTE | 2022-01-04 14:58 | PC.NURSE ---
1445 LEVOPHED STARTED AT 1.0 MCG/MIN 1500 B/P 80/46, RATE INCREASED TO 2.0MCG/MIN 1505 B/P 78/48 RATE INCREASED TO 4.0 MCG/MIN 1508 B/P 83/57 RATE INCREASED TO 6.0 MCG/MIN 1515 B/P 102/65 RATE REMAINS AT 6.0 MCG/MIN
[2022-01-04 15:00] LABS: RBC,Urine 20-50 #/hpf (0-3); WBC,Urine 50-100 #/hpf (0-3)
[2022-01-04 15:01] LABS: Amorphous Sediment,Urine 2+ /lpf; Bacteria,Urine 4+ /lpf; Squamous Epithelial Cell,Urine Occasional #/hpf (0-5)
[2022-01-04 15:02] LABS: Triple Phosphate Crystal,Urine 1+ /lpf
--- NOTE | 2022-01-04 15:18 | PC.NURSE ---
Dr sky speaking with Dr Michel
--- NOTE | 2022-01-04 15:21 | PC.NURSE ---
1517 DR. JONES SPEAKING WITH DR. MYLES FOR ADMISSION
[2022-01-04 15:35] LABS: Monocytes % 2 % (2-9); Neutrophils % 98 % (42-76); Total Cells Counted 100
[2022-01-04 15:36] LABS: Burr Cells 2+; Ovalocytes 1+; Platelet Estimate Normal
--- NOTE | 2022-01-04 16:56 | PC.NURSE ---
REPORT GIVEN TO Ni CHRISTENSEN RN
--- NOTE | 2022-01-04 17:15 | PC.NURSE ---
patient arrived to floor by stretcher from ED
--- NOTE | 2022-01-04 17:36 | PC.WOUNDNOTE ---
Blanchable redness to BL AKA sites present on admission Pressure injury to lower back present on admission Deep tissue injury to buttocks present on admission
[2022-01-04 18:57] LABS: Troponin I 0.02 ng/ml (0.00-0.034)
[2022-01-04 21:29] LABS: Troponin I 0.02 ng/ml (0.00-0.034)
[2022-01-05] VITALS (14 sets, daily range): BP systolic 84–136; BP diastolic 33–65; PULSE 65–97; RESP 16–22; TEMP 36.6–37; O2SAT 92–100; BMI 28.0
--- NOTE | 2022-01-05 05:06 | PC.NURSE ---
Pt A&O x3. Has c/o discomfort t/o shift. Complains when turned and repositioned. Pt educated on importance of turning. Pt noted to have multiple areas of erythema to back, buttocks and ble. Pt remains on Levophed gtt. Currently infusing @ 18 mcg/min. Blood Cx reported to . New orders received to place pt on vancomycin. Night watch consulted for Vancomycin. Pt currently resting at this time. Bathed. Call light within reach.
[2022-01-05 08:54] LABS: Basophils # 0.3 K/mm3 (0-0.2); Basophils % 0.6 % (0.1-2.0); Eosinophils % 0.1 % (0.1-12.0); Hematocrit 36.1 % (42.0-52.0); Lymphocytes # 0.1 K/mm3 (0.7-4.5); Lymphocytes % 0.2 % (10-50); Mean Corpuscular HGB Conc 31.3 g/dL (31.8-35.4); Mean Corpuscular Hemoglobin 29.8 pg (27.0-31.2); Mean Platelet Volume 8.7 fl (7.4-10.4); Monocytes # 1.5 K/mm3 (0.1-1.0); Monocytes % 3.1 % (1.7-9.3); Neutrophils # 44.2 K/mm3 (1.8-7.8); Neutrophils % 95.9 % (37.0-80.0); Platelet Count 417 K/mm3 (142-424); Red Cell Distribution Width 14.1 % (11.5-17.5)
[2022-01-05 09:02] LABS: MANUAL DIFFERENTIAL MANUAL DIFFERENTIAL (MANUAL DIFF); White Blood Count 46.1 K/mm3 (4.8-10.8)
[2022-01-05 09:03] LABS: Hemoglobin 11.3 g/dL (14.1-18.0)
[2022-01-05 09:10] LABS: Anion Gap 20.9 mEq/L (5-15); Calcium 7.7 mg/dl (8.4-10.2); Carbon Dioxide 12 mmol/L (22.0-30.0); Chloride 90 mmol/L (98-107); Glucose 166 mg/dl (74-100); Potassium 4.9 mmoL/L (3.5-5.1); Sodium 118 mmol/L (136-145)
[2022-01-05 09:17] LABS: Creatinine Clearance Estimated 16 mL/min (50-200); Estimated Glomerular Filt Rate 12 ml/min (>60); GFR (African American) 14 ML/MIN (>60)
[2022-01-05 09:19] LABS: Blood Urea Nitrogen 110 mg/dl (9-20)
--- NOTE | 2022-01-05 09:58 | P.CONPHA_ITS ---
[facility] Pharmacy VTE Monitoring Patient Demographics Admission date: 01/04/22 Report Date: 01/05/22 Time: 09:58 Patient Allergies No Known Allergies Allergy (Verified 02/21/21 09:56) Height: 1.63 m Weight: 74.588 kg Current Active Problems (Updated 01/04/22 @ 16:14 by Dmitriy Connolly MD) Septic shock (Acute) Urinary tract infection (Acute) Pneumonia (Acute) Chronic kidney failure (Acute) Acute hyponatremia (Acute) VTE Risk Labs: VTE Related Lab Results Hgb 11.3 g/dL (14.1-18.0) L D 01/05/22 08:35 Hct 36.1 % (42.0-52.0) L 01/05/22 08:35 Plt Count 417 K/mm3 (142-424) 01/05/22 08:35 BUN 110 mg/dl (9-20) H* 01/05/22 08:35 Creatinine 4.90 mg/dl (0.66-1.25) H 01/05/22 08:35 Estimated Creat Clear 16 mL/min (50-200) 01/05/22 08:35 VTE Score: 5 VTE Risk Level: Low Risk Clinical Trial Participant: No Prophylaxis VTE Prophylaxis Ordered?: Yes Types of VTE Prophylaxis: TEDS Knee High and Pharmacological Location of Applied Device: Not Applicable Pharmacologic Type: Other (XARELTO)
[2022-01-05 10:04] LABS: Lymphocytes % 1 % (10-50); Monocytes % 2 % (2-9); Neutrophils % 86 % (42-76); Total Cells Counted 100
[2022-01-05 10:05] LABS: Anisocytosis 1+; Ovalocytes 1+; Platelet Estimate Slight Increase; Poikilocytosis 1+
--- NOTE | 2022-01-05 12:01 | CT_ITS ---
PROCEDURE INFORMATION: Exam: CT Chest Without Contrast; Diagnostic Exam date and time: 01/05/2022 12:56 PM Age: 66 years old Clinical indication: Other: Pna; Additional info: Pna, leukocytosis TECHNIQUE: Imaging protocol: Diagnostic computed tomography of the chest without contrast. Radiation optimization: All CT scans at this facility use at least one of these dose optimization techniques: automated exposure control; mA and/or kV adjustment per patient size (includes targeted exams where dose is matched to clinical indication); or iterative reconstruction. COMPARISON: CT ANGIO CHEST PE PROTOCOL 03/01/2021 10:19 AM FINDINGS: Tubes, catheters and devices: Transvenous pacemaker leads in the heart Lungs: Consolidation in the right middle lobe and both lower lobes may represent atelectasis or pneumonia.. Pleural spaces: Large bilateral pleural effusions. The right pleural effusion may be loculated. Differential includes empyema. Heart: Coronary artery calcifications may indicate coronary artery disease. There is calcification of the aortic valve annulus. There is calcification of the mitral valve annulus. Lymph nodes: Unremarkable. No enlarged lymph nodes. Vasculature: Unremarkable. No aortic aneurysm. Bones/joints: Unremarkable. No acute fracture. Soft tissues: 2.5 cm nodule adjacent to the battery device in the soft tissues of the left chest. Unknown etiology. IMPRESSION: 1. Large bilateral pleural effusions. The right pleural effusion may be loculated. Differential includes empyema. 2. Consolidation in the right middle lobe and both lower lobes may represent atelectasis or pneumonia.. 3. 2.5 cm nodule adjacent to the battery device in the soft tissues of the left chest. Unknown etiology.
--- NOTE | 2022-01-05 12:02 | CT_ITS ---
PROCEDURE INFORMATION: Exam: CT Abdomen And Pelvis Without Contrast Exam date and time: 01/05/2022 12:56 PM Age: 66 years old Clinical indication: Fever; Additional info: Leukocytosis TECHNIQUE: Imaging protocol: Computed tomography of the abdomen and pelvis without contrast. Radiation optimization: All CT scans at this facility use at least one of these dose optimization techniques: automated exposure control; mA and/or kV adjustment per patient size (includes targeted exams where dose is matched to clinical indication); or iterative reconstruction. COMPARISON: CT ANGIO CHEST PE PROTOCOL 03/01/2021 10:19 AM FINDINGS: Liver: Normal. No mass. Gallbladder and bile ducts: Possible gallstone in the gallbladder Pancreas: Normal. No ductal dilation. Spleen: Normal. No splenomegaly. Adrenal glands: 2.7 cm left adrenal nodule-15 Hounsfield units consistent with left adrenal adenoma . No follow-up imaging recommended . Right adrenal nodule 4.5 by 2.1 cm. Twenty-one Hounsfield units. Not adrenal adenoma. It has increased in size since January 2021 when it measured 39 x 24 mm. Kidneys and ureters: Nonobstructing renal calculi in both kidneys Stomach and bowel: Unremarkable. No obstruction. No mucosal thickening. Appendix: No evidence of appendicitis. Intraperitoneal space: Inflammatory changes in both pericolic gutters. 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 Series 3, image 29, 30. .. Significant stenosis at the origin of the SMA Lymph nodes: Unremarkable. No enlarged lymph nodes. Urinary bladder: Ansari catheter in the bladder Reproductive: Unremarkable as visualized. Bones/joints: Unremarkable. No acute fracture. Soft tissues: Unremarkable. IMPRESSION: 1. 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 Series 3, image 29, 30. .. 2. Right adrenal nodule 4.5 by 2.1 cm. Twenty-one Hounsfield units. Not adrenal adenoma. It has increased in size since January 2021 when it measured 39 x 24 mm. 3. Possible gallstone in the gallbladder COMMENTS: Consistent with the [employer]'s Incidental Findings Committee white paper (J Am Elaine Radiol 2017): For any incidental adrenal lesion greater than or equal to 1 cm but less than or equal to 4 cm classified in this report as benign, likely benign, or containing fat (including classification as an adenoma or myelolipoma), no follow-up imaging is recommended per consensus recommendations based on imaging criteria. Further lab evaluation could be pursued if warranted based on clinical findings.
--- NOTE | 2022-01-05 12:03 | EXP.HP ---
History of Present Illness *Admission Date: 01/04/22 *Reason for visit:: septic shock *History of present illness: 66 yo male arrived at ER via ems with complaints of weakness/pain. Poor historian. History of AICD,, ischemic cardiomyopathy, bilateral aka. Currently a hospice patient. Workup included cxr and labwork. Infiltrative process RLL noted, and urine growing gram negative rods. May have been collected from the bag; if so may be contaminate. Pain localized to left anterior chest in region of implanted device. Palpation reproduces pain. Device present over 1 year. PFSH PFSH Medical History CAD (coronary artery disease) Dyspnea Ischemic cardiomyopathy NYHA class 3 heart failure with reduced ejection fraction Systolic heart failure Tobacco use Surgical History AICD (automatic cardioverter/defibrillator) present Social History (Updated 01/04/22 @ 17:58 by Garo Brice RN) Smoking Status: Former smoker alcohol intake: never counseling provided: none substance use type: denies use current occupational status: disabled Travel in the last 8 weeks: None household members: family housing: house lives independently: No marital status: single service: No mcc: No current occupational exposures/hazards: No caffeine: Yes physical activity: none Review of Systems Constitutional Constitutional: Reports fatigue, Reports lethargy, Reports malaise and Reports weakness Eyes Eyes: Reports system reviewed and no additional complaints, except as documented ENT Ears, Nose, Mouth, and Throat: Reports system reviewed and no additional complaints, except as documented *Cardiovascular Cardiovascular: Reports chest pain, Reports chest pain at rest and Reports dyspnea *Respiratory Respiratory: Reports dyspnea and Reports wheezing *Gastrointestinal Gastrointestinal: Reports system reviewed and no additional complaints, except as documented *Genitourinary Genitourinary: Reports as per HPI *Musculoskeletal Musculoskeletal: Reports system reviewed and no additional complaints, except as documented *Neurologic Neurologic: Reports system reviewed and no additional complaints, except as documented and Reports weakness Psychiatric Psychiatric: Reports system reviewed and no additional complaints, except as documented Endocrine Endocrine: Reports system reviewed and no additional complaints, except as documented and Reports fatigue Hematologic/Lymphatic Hematologic/Lymphatic: Reports system reviewed and no additional complaints, except as documented Allergic/Immunologic Allergic/Immunologic: Reports wheezing Meds Home Medications and Allergies Home Medications Medication Instructions Recorded Confirmed Type docusate sodium 100 mg capsule 100 mg PO BID constipation 01/17/21 01/04/22 History lisinopril 2.5 mg tablet 2.5 mg PO DAILY Hypertension 01/17/21 01/04/22 History acetaminophen 325 mg tablet 650 mg PO Q4HP PRN As Needed For 04/12/21 01/04/22 History Fever Or Pain bumetanide 1 mg tablet 1 mg PO DAILY Heart failure 04/12/21 01/04/22 History isosorbide mononitrate 30 mg 30 mg PO DAILY Hypertension 04/12/21 01/04/22 History tablet,extended release 24 hr pantoprazole 40 mg tablet,delayed 40 mg PO DAILY acid reflux 04/12/21 01/04/22 History release rivaroxaban 20 mg tablet 20 mg PO QPMWITHMEAL atrial fib 04/12/21 01/05/22 History oxycodone 5 mg capsule 5 mg PO Q6HP PRN Pain 01/04/22 01/05/22 History sennosides 8.6 mg tablet (senna) 8.6 mg PO DAILYP PRN Constipation 01/04/22 01/05/22 History bisacodyl 10 mg rectal suppository 10 mg DE DAILY PRN Constipation 01/05/22 01/05/22 History bisoprolol fumarate 5 mg tablet 2.5 mg PO DAILY Hypertension 01/05/22 01/05/22 History ipratropium 20 mcg-albuterol 100 1 puff inhalation QID PRN asthma 01/05/22 01/05/22 History mcg/actuation mist for inhalation (Combivent Respimat) lactulose 10
[2022-01-05 12:51] LABS: Vancomycin,Trough 9.1 ug/mL (5.0-10.0)
--- NOTE | 2022-01-05 13:13 | EXP.PHA.CONS ---
Pharmacy Consult Date: 01/05/22 Time: 09:00 Referring provider: TIM Reason for Consult:: PHARMACY CONSULTED TO MANAGE VANCOMYCIN THERAPY Allergies Allergy/AdvReac Type Severity Reaction Status Date / Time No Known Allergies Allergy Verified 02/21/21 09:56 Home Medications Medication Instructions Recorded Confirmed Type docusate sodium 100 mg capsule 100 mg PO BID constipation 01/17/21 01/04/22 History lisinopril 2.5 mg tablet 2.5 mg PO DAILY Hypertension 01/17/21 01/04/22 History acetaminophen 325 mg tablet 650 mg PO Q4HP PRN As Needed For 04/12/21 01/04/22 History Fever Or Pain bumetanide 1 mg tablet 1 mg PO DAILY Heart failure 04/12/21 01/04/22 History isosorbide mononitrate 30 mg 30 mg PO DAILY Hypertension 04/12/21 01/04/22 History tablet,extended release 24 hr pantoprazole 40 mg tablet,delayed 40 mg PO DAILY acid reflux 04/12/21 01/04/22 History release rivaroxaban 20 mg tablet 20 mg PO QPMWITHMEAL atrial fib 04/12/21 01/05/22 History oxycodone 5 mg capsule 5 mg PO Q6HP PRN Pain 01/04/22 01/05/22 History sennosides 8.6 mg tablet (senna) 8.6 mg PO DAILYP PRN Constipation 01/04/22 01/05/22 History bisacodyl 10 mg rectal suppository 10 mg LA DAILY PRN Constipation 01/05/22 01/05/22 History bisoprolol fumarate 5 mg tablet 2.5 mg PO DAILY Hypertension 01/05/22 01/05/22 History ipratropium 20 mcg-albuterol 100 1 puff inhalation QID PRN asthma 01/05/22 01/05/22 History mcg/actuation mist for inhalation (Combivent Respimat) lactulose 10 gram/15 mL oral 30 ml PO DAILYP PRN Constipation 01/05/22 01/05/22 History solution levothyroxine 125 mcg tablet 62.5 mcg PO DAILYDM hypothyroidism 01/05/22 01/05/22 History New Prescriptions to Start Prescriptions: Height: 1.63 m Weight: 74.588 kg Laboratory Results:: Laboratory Results - last 24 hr 01/04/22 13:38: SARS-CoV-2 (PCR) Not detected, Influenza A Untype (PCR) Not detected, Influenza Type B (PCR) Not detected 01/04/22 14:00: WBC 29.8 H*, RBC 3.44 L, Hgb 10.2 L, Hct 32.1 L, MCV 93.3, MCH 29.8, MCHC 31.9, RDW 13.8, Plt Count 391, MPV 8.6, Neut % (Auto) 92.4 H, Lymph % (Auto) 2.5 L, [place] % (Auto) 5.0, Eos % (Auto) 0.1, Baso % (Auto) 0.1, Neut # (Auto) 27.5 H, Lymph # (Auto) 0.7, [place] # (Auto) 1.5 H, Eos # (Auto) 0.0, Baso # (Auto) 0.0, Total Counted 100, Neutrophils % (Manual) 98 H, Monocytes % (Manual) 2, Platelet Estimate Normal, Ovalocytes 1+, [place] Cells 2+ 01/04/22 14:00: Sodium 116 L, Potassium 4.2, Chloride 88 L, Carbon Dioxide 15 L, Anion Gap 17.2 H, BUN 104 H*, Creatinine 4.80 H, Estimated Creat Clear 17, Estimated GFR 12 L*, Est GFR ( Amer) 15 L*, Glucose 129 H, Calcium 7.4 L, Total Bilirubin 0.8, AST 17, ALT 15, Alkaline Phosphatase 137 H, Troponin I 0.02, Total Protein 6.5, Albumin 2.6 L, Globulin 3.9 H, Albumin/Globulin Ratio 0.7 L 01/04/22 14:00: Lactate 1.3 01/04/22 14:00: NT-Pro-B Natriuret Pep 79245 H 01/04/22 14:30: Urine Color Brown, Urine Appearance Cloudy, Urine pH 8.5, Ur Specific [place] 1.010, Urine Protein 2+, Urine Glucose (UA) Negative, Urine Ketones Negative, Urine Blood 3+, Urine Nitrate Positive, Urine Bilirubin 1+ A, Urine Urobilinogen 1.0, Ur Leukocyte Esterase 3+ A, Urine RBC 20-50, Urine WBC 50-100, Ur Squamous Epith Cells Occasional, Triple Phos Crystals 1+, Amorphous Sediment 2+, Urine Bacteria 4+ 01/04/22 18:20: Troponin I 0.02 01/04/22 20:37: Troponin I 0.02 01/05/22 08:35: WBC 46.1 H* D, RBC 3.80 L, Hgb 11.3 L D, Hct 36.1 L, MCV 95.0 H, MCH 29.8, MCHC 31.3 L, RDW 14.1, Plt Count 417, MPV 8.7, Neut % (Auto) 95.9 H, Lymph % (Auto) 0.2 L, [place] % (Auto) 3.1, Eos % (Auto) 0.1, Baso % (Auto) 0.6, Neut # (Auto) 44.2 H, Lymph # (Auto) 0.1 L, [place] # (Auto) 1.5 H, Eos # (Auto) 0.0, Baso # (Auto) 0.3 H, Total Counted 100, Neutrophils % (Manual) 86 H, Band Neutrophils % 11.0 H, Lymphocytes % (Manual) 1 L, Monocytes % (Manual) 2, Platelet Estimate Slight increase, RBC Morphology Not Reportable, Poikilocytosis 1+, Anisocytosis 1+, Ovalocytes 1+
--- NOTE | 2022-01-05 14:20 | PC.NURSE ---
0901 critical lab value WBC 46.1 0918 Crea 4.9 BUN [address] Freeman [phone] Call returned [address] Michel 0938 Call returned, new orders give pt 250 ml bolus over an hour, increase ivf to 125/hr 1335 critical results from lab: anaerobic and aerobic blood culture have PCR that is showing staph species [address] Michel face to face no new orders.
--- NOTE | 2022-01-05 14:31 | PC.NURSE ---
pt has rested in bed this shift after receiving pain meds. he states he does not like lying on his left side. it was explained to pt that he gray spend an exptended amount of time on his back or his right side because of the breakdown/deep tissue injury that he currently has. lungs contain wheezes scattered , bowel sounds are hypo, belly is firm but non tended. nad noted. awaiting results from ct scan.
--- NOTE | 2022-01-05 18:03 | PC.NURSE ---
1720: levophed decreased from 18mcg to 16 mcg (108/54) 1805: levophed decreased to 14mcg (115/57)
[2022-01-05 19:05] LABS: POC Glucose,Bedside 167 (70-110)
[2022-01-05 19:05] LABS: POC Glucose,Bedside 164 (70-110)
[2022-01-05 19:05] LABS: POC Glucose,Bedside 182 (70-110)
[2022-01-06] VITALS (12 sets, daily range): BP systolic 91–118; BP diastolic 47–57; PULSE 70–85; RESP 16–21; TEMP 36.1–36.8; O2SAT 93–96; BMI 28.0
--- NOTE | 2022-01-06 06:05 | PC.NURSE ---
pt VSS with levo drip at 10mcg/min, paced rhythm, pt c/o pain and nausea twice this shift relieved with prn medications, pt turned q2, pt refuses insulin but fsbs have been less than 200 throughout shift, pt does not eat or drink much at all even when prompted, pt has andre catheter with uop approximately 25-30mL/hr, no bowel movement this shift, MIVF going at 125mL/hr
[2022-01-06 06:47] LABS: POC Glucose,Bedside 188 (70-110)
--- NOTE | 2022-01-06 08:39 | P.PN_ITS ---
Subjective *Date: 01/06/22 *Time: 22:52 Interval history: doing ok but has sepsis and dec po intake - denied pain c/o of weakness Medical Exam Vital signs and Labs for Last 24 Hours: Temp Pulse Resp BP Pulse Ox 98.1 F 75 18 104/49 L 95 01/06/22 04:00 01/06/22 06:00 01/06/22 06:00 01/06/22 06:00 01/06/22 06:00 Laboratory Results - last 24 hr 01/04/22 14:30: Urine Color Brown, Urine Appearance Cloudy, Urine pH 8.5, Ur Specific [place] 1.010, Urine Protein 2+, Urine Glucose (UA) Negative, Urine Ketones Negative, Urine Blood 3+, Urine Nitrate Positive, Urine Bilirubin 1+ A, Urine Urobilinogen 1.0, Ur Leukocyte Esterase 3+ A, Urine RBC 20-50, Urine WBC 50-100, Ur Squamous Epith Cells Occasional, Triple Phos Crystals 1+, Amorphous Sediment 2+, Urine Bacteria 4+ 01/04/22 21:12: POC Glucose 167 H 01/05/22 05:13: POC Glucose 164 H 01/05/22 08:35: WBC 46.1 H* D, RBC 3.80 L, Hgb 11.3 L D, Hct 36.1 L, MCV 95.0 H, MCH 29.8, MCHC 31.3 L, RDW 14.1, Plt Count 417, MPV 8.7, Neut % (Auto) 95.9 H, Lymph % (Auto) 0.2 L, [place] % (Auto) 3.1, Eos % (Auto) 0.1, Baso % (Auto) 0.6, Neut # (Auto) 44.2 H, Lymph # (Auto) 0.1 L, [place] # (Auto) 1.5 H, Eos # (Auto) 0.0, Baso # (Auto) 0.3 H, Total Counted 100, Neutrophils % (Manual) 86 H, Band Neutrophils % 11.0 H, Lymphocytes % (Manual) 1 L, Monocytes % (Manual) 2, Platelet Estimate Slight increase, RBC Morphology Not Reportable, Poikilocytosis 1+, Anisocytosis 1+, Ovalocytes 1+ 01/05/22 08:35: Sodium 118 L, Potassium 4.9, Chloride 90 L, Carbon Dioxide 12 L, Anion Gap 20.9 H, BUN 110 H*, Creatinine 4.90 H, Estimated Creat Clear 16, Estimated GFR 12 L*, Est GFR ( Amer) 14 L*, Glucose 166 H D, Calcium 7.7 L 01/05/22 12:10: Vancomycin Trough 9.1 01/05/22 16:39: POC Glucose 182 H 01/06/22 05:23: POC Glucose 188 H I & O for Labs for Last 24 Hours: Intake & Output 01/03/22 01/04/22 01/05/22 01/06/22 11:59 11:59 11:59 11:59 Intake Total 1253 / 1253 3906 / 3906 Output Total 50 / 50 300 / 300 Balance 1203 / 1203 3606 / 3606 Weight 164 lb 7 oz 164 lb 7 oz Microbiology Reports for the Last 24 Hours: Microbiology 01/04/22 14:00 Blood Blood Culture - Preliminary Gram Positive Cocci 01/04/22 14:00 Blood Blood Culture - Preliminary Gram Positive Cocci 01/04/22 14:30 Urine,Catheterized Urine Culture - Final Klebsiella pneumoniae Head: atraumatic Eyes: as per HPI ENT: mucous membranes dry Neck: trachea midline Respiratory: decreased breath sounds Cardiac: Reg Rate and Rhythm and Systolic Murmur GI: soft Extremities: other (bilat amputations ) Skin: lesions Neuro: Cranial Nerve 2-12 Intact
--- NOTE | 2022-01-06 10:53 | EXP.CARD.CON ---
History of Present Illness History of Present Illness Consult date: 01/06/22 Requesting physician: Jonny Freeman Consult reason: chest pain and shortness of breath Chief complaint: chest pain Additional Medical History:: 1.? Ischemic cardiomyopathy with history of myocardial infarction approximately 2005 with drug-eluting stent placement at that time A.? Cardiac catheterization 05/2017, recommendation for medical management ANGIOGRAPHIC RESULTS: 1.? The left main artery? has an ostial 20-30% nonflow limiting stenosis 2.? The left anterior descending artery? has a very proximal stent which is widely patent with minimal in-stent restenosis. Immediately proximal to the stent is a 10% stenosis and distal to the stent is a 30-40% stenosis. The mid LAD then has additional 30 and 40% mid vessel stenoses first diagonal artery is a 2.25 mm vessel and has a proximal 99% stenosis. 3.? The ramus intermedius is a 2.5 mm vessel and has an ostial proximal 80-90% stenosis 4.? The circumflex artery? appears to be a dominant system and has mid vessel 40% stenoses. 5.? The right coronary artery is proximally occluded with the distal segment filling via left to right collaterals 6.? The PALACIOS ventriculogram reveals severe left ventricular dilatation ejection fraction 10-15% 7.? The left ventricular end-diastolic pressure 30 mmHg IMPRESSION: 1.? Ischemic cardiomyopathy as described above 2.? Severe stenoses in the first diagonal artery and first ramus intermedius 3.? Severe left ventricular dilatation with severely reduced ejection fraction 4.? Elevated LVEDP PLAN: 1.? I would recommend medical management at this time. Although the diagonal artery and ramus intermedius could be stented I don't believe these stenoses are contributing to patient's cardiomyopathy. Based on the elevated LVEDP there is room for additional diuretics 2.? LDL less than 55 3.? Standard therapy for systolic heart failure 4.? Risk factor modification B.? Echo, 03/2021, 1.? Dilated left ventricle, severe reduced left ventricular systolic function, visually estimated ejection fraction 25%, left ventricle is globally hypokinetic, diastolic parameters are inconclusive. 2.? Mild mitral and tricuspid regurgitation. 3.? No significant pericardial effusion noted. C.? PHARMACIST IN CHARGE-D in place with generator change 05/2020, [employer] 2.? History of LV thrombus and chronic atrial fibrillation, chronic anticoagulation therapy with Xarelto 3.? PAD A.? History of right [id number] amputation B.? LE arteriogram, 11/2019, medical therapy unless limb threatening ischemia C.? Left below the knee amputation, 01/2021 after failing outpatient management and development of osteomyelitis 4.? Diabetes mellitus, type II 5.? Continued tobacco use with COPD 6.? Hyperlipidemia, on statin therapy with LDL of 50, 01/2021 7.? Chronic anemia with hemoglobin running 9-10. 8. CKD, stage 5 with GFR 11-12 and Cr 4.8-5.3 since 04/2021 (new at that time) History of present illness: This is a 66-year-old male who presented to the ER on Saturday 01/06 with complaints of chest pain over his pacemaker site. He reports that the pain usually comes and goes but this pain woke him up in the middle the night and did not subside. He tried Tylenol with no relief. He reports that he is always short of breath and wears oxygen continuously at home. He c/o of vomiting, diarrhea, cough, and no appetite for several days prior to admission. He is a hospice patient. He currently resides with his sister and [id number] who provide his care. Admitted for sepsis/shock with RLL pneumonia and possible UTI. Currently patient is on a Levophed drip at 10 mcg for hypotension. His white count is 46 and is currently on azithromycin, ertapenem, and vancomycin. PFSH PFS Medical History CAD (coronary artery disease) Dyspnea Ischemic cardiomyopathy NYHA class 3 heart failure with reduced ejection fraction Systolic hea
--- NOTE | 2022-01-06 14:31 | SW/DCPLANNER ---
This patient is currently established with [facility]. Kiya w/ Hospice stated that nurse (Olimpia) did come to [facility] evaluated patient and stated that patient's stay is related to Hospice diagnosis. Patient information has been faxed to Kiya yarbrough/ Hospice. Discharge date is unknown at this time.
--- NOTE | 2022-01-06 14:42 | PC.NURSE ---
rounded on patient who is resting in bed with eyes closed. call light within reach.
[2022-01-06 17:13] LABS: POC Glucose,Bedside 146 (70-110)
--- NOTE | 2022-01-06 17:25 | PC.NURSE ---
Pt has been alert and oriented x4. Lungs are clear but diminished. He remains on RA w/O2 sats measuring greater than 92%. He's denied any nausea. Treated x1 with prn pain meds with favorable results noted. His andre is to bedside draining cloudy, patricia colored urine. 300 mls out thus far. +1 edema noted to left arm, it has been elevated on a pillow. Appetite is poor with him refusing meals. Glucose was 165 and 146 on checks. Paced on telemetry. Unstageable noted to buttocks. He has agreed to repositioning a few times this shift. Levo gtt is currently infusing at 10mcg/min. No other questions or complaints at this time. Bed is locked and in the lowest position, call light is within reach.
--- NOTE | 2022-01-06 18:39 | PC.NURSE ---
levo increased to 12 mcg/min
[2022-01-07] VITALS (11 sets, daily range): BP systolic 62–102; BP diastolic 27–59; PULSE 70–83; RESP 14–21; TEMP 36.6–36.9; O2SAT 70–94; BMI 28.0
[2022-01-07 01:04] LABS: POC Glucose,Bedside 141 (70-110)
--- NOTE | 2022-01-07 03:15 | PC.NURSE ---
bp 89/36 (50), increased levo drip to 14mcg/min
[2022-01-07 06:21] LABS: POC Glucose,Bedside 138 (70-110)
[2022-01-07 06:39] LABS: Anion Gap 17.9 mEq/L (5-15); Calcium 7.5 mg/dl (8.4-10.2); Chloride 100 mmol/L (98-107); Glucose 118 mg/dl (74-100); Potassium 4.9 mmoL/L (3.5-5.1); Sodium 123 mmol/L (136-145)
[2022-01-07 06:45] LABS: Creatinine Clearance Estimated 13 mL/min (50-200); Estimated Glomerular Filt Rate 10 ml/min (>60); GFR (African American) 12 ML/MIN (>60)
[2022-01-07 06:54] LABS: Blood Urea Nitrogen 106 mg/dl (9-20); Carbon Dioxide 10 mmol/L (22.0-30.0)
--- NOTE | 2022-01-07 06:57 | PC.NURSE ---
notified MD Freeman of critical labs call from lab (co2 10, BUN 106, Cr 5.9), no new orders at this time
--- NOTE | 2022-01-07 08:34 | CA_ITS ---
APPROVED REPORT EXAM: Comprehensive 2D, Doppler, and color-flow Echocardiogram Offal Worker: Zehra Ly, RT(R) Ht: 5 ft 4 in Wt: 164lbs BSA: 1.80 BP: 104/49 mmHg Indications: PNEUMONIA,SEPTIC SHOCK,CAD,CM,AICD,A-FIB,CKD,DM,SMOKER,COPD,HLD Echo Enhancing Agent Indication: Endocardial border delineation Agent(s) / Amount(s) Used: Definity 2 cc 2D Dimensions LVOT 1.96 cm (M/F) 1.5-2.5 M-Mode Dimensions RVDd 3.08 cm (0.9-2.6) LA Diam 4.95 cm (1.9-4.0) LVDd 5.94 cm (3.5-5.7) Ao Diam 2.22 cm (2.0-3.7) LVDs 5.40 cm (3.5-5.7) IVSd 0.68 cm (0.6-1.1) PWd 0.50 cm (0.6-1.1) EF (Teich) 19.70% FS 9.10% EDV (Teich) 175.90 mL ESV (Teich) 141.30 mL Aortic Valve LVOT Max 114.00 (70-110 cm/s) LVOT VTI 17.05 cm AoV Peak Maldonado. 211.00 (50-130 cm/s) AO Peak GR. 17.90 mmHg AO Mean GR. 8.80 (<5 mmHg) AO VTI 26.68 (18-25 cm) RIYA (VTI) 1.93 (2.5-4.5 cm2) Left Ventricle Technically difficult study because of the patient factors and poor acoustic windows, Definity contrast was utilized to delineate the endocardial surfaces. Left atrium is mildly enlarged, left ventricle is mildly dilated, severe left ventricular systolic dysfunction, estimated ejection fraction 20 to 25%, there is marked hypokinesis involving mid to distal septum, anterior Anterior apical, apex and anterolateral wall, there is no left ventricular thrombus seen. Diastolic parameters are inconclusive. Right Ventricle Right atrium and right ventricle are normal size and contractility, AICD lead seen in right ventricle. Aortic Valve Aortic valve is thickened and calcified with restriction in the leaflet mobility, the mean gradient across aortic valve is 10 mmHg, valve area is calculated in the study 1.8 cm??? represents mild aortic stenosis, there is no significant aortic insufficiency. Mitral Valve Mitral valve leaflets are minimally thickened, there is mild mitral regurgitation. Tricuspid Valve Tricuspid valve is grossly normal, there is mild tricuspid regurgitation, tricuspid regurgitation jet velocity is inadequate for calculation of the right ventricular systolic pressure. Pulmonic Valve Pulmonic valve is poorly visualized. Great Vessels Aortic root is normal size. Inferior vena cava is poorly visualized. Pericardium No significant pericardial effusion noted. Conclusion 1. Technically difficult study because of the patient factors and poor acoustic windows. Definity contrast was utilized to delineate the endocardial surfaces. 2. Dilated left ventricle with severe left ventricular systolic dysfunction, estimated ejection fraction 20 to 25% with segmental wall motion abnormality described above, diastolic parameters are inconclusive, there is no left ventricular thrombus seen. 3. Thickened and calcified aortic valve likely with mild aortic stenosis, there is no aortic insufficiency. 4. Mild mitral and tricuspid regurgitation. 5. No significant pericardial effusion. 6. Inferior vena cava is poorly visualized Electronically signed by : Dwight Gallardo MD 01/08/2022 06:46:29
--- NOTE | 2022-01-07 11:02 | DIET.NUTRFU ---
Patient continues to refuse meals, during rounds patient told provider he is just not hungry and would rather refuse meals then get nauseated. patient is receiving zofran for nausea. He is also receiving ABT tx, IVF, protonix and insulin. Yesterday he was offered supplements to help meet needs and he refused. He has increased needs d/t skin breakdown. Hospice care is in place at home. Renal labs elevated but at baseline. Will continue to monitor po intake.
--- NOTE | 2022-01-07 11:02 | PC.NURSE ---
pt verbalized that he wants to go back home with hospice care. He adamantly refuses intubation and dialysis. Reviewed POC with him.
--- NOTE | 2022-01-07 11:22 | P.PN_ITS ---
Subjective Subjective Date: 01/07/22 Time: 11:23 Principal diagnosis: sepsis Interval history: 66-year-old white male in bed in no acute distress. Levophed continues for blood pressure support Patient reiterated that he does not want dialysis. He is DNR and was in hospice at home. Exam Data for Last 24 hours Vital signs and Labs for Last 24 Hours: Temp Pulse Resp BP Pulse Ox 97.8 F 78 14 97/48 L 90 L 01/07/22 08:00 01/07/22 08:00 01/07/22 08:00 01/07/22 08:00 01/07/22 08:00 Laboratory Results - last 24 hr 01/06/22 16:51: POC Glucose 146 H 01/06/22 21:40: POC Glucose 141 H 01/07/22 05:38: POC Glucose 138 H 01/07/22 05:52: Sodium 123 L, Potassium 4.9, Chloride 100, Carbon Dioxide 10 L D , Anion Gap 17.9 H, BUN 106 H*, Creatinine 5.90 H D, Estimated Creat Clear 13, Estimated GFR 10 L*, Est GFR ( Amer) 12 L*, Glucose 118 H, Calcium 7.5 L I & O for Last 24 hours: Intake & Output 01/04/22 01/05/22 01/06/22 01/07/22 11:59 11:59 11:59 11:59 Intake Total 1253 / 1253 3906 / 3906 3725.74 / 3725.74 Output Total 50 / 50 300 / 300 795 / 795 Balance 1203 / 1203 3606 / 3606 2930.74 / 2930.74 Weight 164 lb 7 oz 164 lb 7 oz 164 lb 6.732 oz Microbiology Reports for the Last 24 Hours: Microbiology 01/04/22 14:00 Blood Blood Culture - Final Strep dysgalactiae ssp equisi 01/04/22 14:00 Blood Blood Culture - Final Staphylococcus haemolyticus *Routine Respiratory Exam Respiratory: Present decreased breath sounds and diminished air movement *Routine Cardiovascular Exam Cardiovascular: Present RRR; Absent murmur, gallop or rubs *Routine Extremities Exam Extremities: Present edema Progress Note: A&P Assessment and plan (1) Severe sepsis with acute organ dysfunction: Status: Acute (2) Anemia: Status: Acute (3) Acute hyponatremia: Status: Acute (4) PAD (peripheral artery disease): Status: Chronic (5) Ischemic cardiomyopathy: Status: Chronic (6) AICD (automatic cardioverter/defibrillator) present: Status: Chronic (7) CHF (congestive heart failure), NYHA class IV: Status: Chronic (8) Diabetes mellitus: Status: Chronic (9) Edema: Status: Acute (10) CAD (coronary artery disease): Status: Chronic (11) Chronic kidney failure: Status: Acute Assessment and Plan Assessment and Plan for All Diagnoses:: 1. Sepsis, on Zithromax 2. History of LV thrombus and chronic A. fib, on low-dose Xarelto 3. Hyponatremia, slowly improving with sodium up to 123 today 4. CAD/ischemic cardiomyopathy/AICD-cardiac meds on hold due to hypotension with Levophed support 5. CHF and chronic kidney failure stage IV-V, patient refuses dialysis. 6. DNR Poor prognosis Patient does not seem to understand the gravity of the situation. He feels that since his bowels are moving that his kidneys will eventually improve and he will get better. Nothing further to add at this time.
[2022-01-07 11:43] LABS: POC Glucose,Bedside 146 (70-110)
--- NOTE | 2022-01-07 12:53 | PC.NURSE ---
Hospice SW (Pamela Aaron) @
--- NOTE | 2022-01-07 13:06 | P.PN_ITS ---
Subjective *Date: 01/08/22 *Time: 08:30 Interval history: pt reports feeling some better but still with limited po intake and abn renal function - on abx - Medical Exam Vital signs and Labs for Last 24 Hours: Temp Pulse Resp BP Pulse Ox 98.4 F 78 14 97/48 L 90 L 01/07/22 11:36 01/07/22 08:00 01/07/22 08:00 01/07/22 08:00 01/07/22 08:00 Laboratory Results - last 24 hr 01/06/22 16:51: POC Glucose 146 H 01/06/22 21:40: POC Glucose 141 H 01/07/22 05:38: POC Glucose 138 H 01/07/22 05:52: Sodium 123 L, Potassium 4.9, Chloride 100, Carbon Dioxide 10 L D , Anion Gap 17.9 H, BUN 106 H*, Creatinine 5.90 H D, Estimated Creat Clear 13, Estimated GFR 10 L*, Est GFR ( Amer) 12 L*, Glucose 118 H, Calcium 7.5 L 01/07/22 11:35: POC Glucose 146 H I & O for Labs for Last 24 Hours: Intake & Output 01/05/22 01/06/22 01/07/22 01/08/22 11:59 11:59 11:59 11:59 Intake Total 1253 / 1253 3906 / 3906 3725.74 / 3725.74 Output Total 50 / 50 300 / 300 795 / 795 Balance 1203 / 1203 3606 / 3606 2930.74 / 2930.74 Weight 164 lb 7 oz 164 lb 7 oz 164 lb 6.732 oz Microbiology Reports for the Last 24 Hours: Microbiology 01/04/22 14:00 Blood Blood Culture - Final Strep dysgalactiae ssp equisi 01/04/22 14:00 Blood Blood Culture - Final Staphylococcus haemolyticus Head: atraumatic Eyes: as per HPI ENT: mucous membranes dry Neck: trachea midline Respiratory: decreased breath sounds Cardiac: Reg Rate and Rhythm GI: soft Extremities: other (s/p bilat amputations ) Skin: rash Neuro: Cranial Nerve 2-12 Intact
--- NOTE | 2022-01-07 14:48 | PC.NURSE ---
rounded on patient. patient resting with eyes closed. call light within reach.
[2022-01-07 15:24] LABS: Basophils # 0.1 K/mm3 (0-0.2); Basophils % 0.1 % (0.1-2.0); Eosinophils # 0.1 K/mm3 (0.0-0.4); Eosinophils % 0.2 % (0.1-12.0); Hematocrit 29.6 % (42.0-52.0); Hemoglobin 9.1 g/dL (14.1-18.0); Lymphocytes # 0.9 K/mm3 (0.7-4.5); Lymphocytes % 2.3 % (10-50); Mean Corpuscular HGB Conc 30.7 g/dL (31.8-35.4); Mean Corpuscular Hemoglobin 29.8 pg (27.0-31.2); Mean Corpuscular Volume 96.8 fl (80-94); Mean Platelet Volume 8.6 fl (7.4-10.4); Monocytes # 1.7 K/mm3 (0.1-1.0); Monocytes % 4.5 % (1.7-9.3); Neutrophils # 35.3 K/mm3 (1.8-7.8); Neutrophils % 92.9 % (37.0-80.0); Platelet Count 254 K/mm3 (142-424); Red Blood Count 3.06 M/mm3 (4.60-6.20); Red Cell Distribution Width 14.5 % (11.5-17.5)
[2022-01-07 15:27] LABS: MANUAL DIFFERENTIAL MANUAL DIFFERENTIAL (MANUAL DIFF)
[2022-01-07 16:03] LABS: Vancomycin,Trough 15.8 ug/mL (5.0-10.0)
--- NOTE | 2022-01-07 16:13 | P.CONPHA_ITS ---
Pharmacy Consult Date: 01/07/22 Time: 16:13 Referring provider: DR. MYLES Reason for Consult:: VANCOMYCIN LEVELS Allergies Allergy/AdvReac Type Severity Reaction Status Date / Time No Known Allergies Allergy Verified 02/21/21 09:56 Home Medications Medication Instructions Recorded Confirmed Type docusate sodium 100 mg capsule 100 mg PO BID constipation 01/17/21 01/04/22 History lisinopril 2.5 mg tablet 2.5 mg PO DAILY Hypertension 01/17/21 01/04/22 History acetaminophen 325 mg tablet 650 mg PO Q4HP PRN As Needed For 04/12/21 01/04/22 History Fever Or Pain bumetanide 1 mg tablet 1 mg PO DAILY Heart failure 04/12/21 01/04/22 History isosorbide mononitrate 30 mg 30 mg PO DAILY Hypertension 04/12/21 01/04/22 History tablet,extended release 24 hr pantoprazole 40 mg tablet,delayed 40 mg PO DAILY acid reflux 04/12/21 01/04/22 History release rivaroxaban 20 mg tablet 20 mg PO QPMWITHMEAL atrial fib 04/12/21 01/05/22 History oxycodone 5 mg capsule 5 mg PO Q6HP PRN Pain 01/04/22 01/05/22 History sennosides 8.6 mg tablet (senna) 8.6 mg PO DAILYP PRN Constipation 01/04/22 01/05/22 History bisacodyl 10 mg rectal suppository 10 mg RI DAILY PRN Constipation 01/05/22 01/05/22 History bisoprolol fumarate 5 mg tablet 2.5 mg PO DAILY Hypertension 01/05/22 01/05/22 History ipratropium 20 mcg-albuterol 100 1 puff inhalation QID PRN asthma 01/05/22 01/05/22 History mcg/actuation mist for inhalation (Combivent Respimat) lactulose 10 gram/15 mL oral 30 ml PO DAILYP PRN Constipation 01/05/22 01/05/22 History solution levothyroxine 125 mcg tablet 62.5 mcg PO DAILYDM hypothyroidism 01/05/22 01/05/22 History New Prescriptions to Start Prescriptions: Height: 1.63 m Weight: 74.58 kg Laboratory Results:: Laboratory Results - last 24 hr 01/06/22 16:51: POC Glucose 146 H 01/06/22 21:40: POC Glucose 141 H 01/07/22 05:38: POC Glucose 138 H 01/07/22 05:52: Sodium 123 L, Potassium 4.9, Chloride 100, Carbon Dioxide 10 L D , Anion Gap 17.9 H, BUN 106 H*, Creatinine 5.90 H D, Estimated Creat Clear 13, Estimated GFR 10 L*, Est GFR ( Amer) 12 L*, Glucose 118 H, Calcium 7.5 L 01/07/22 11:35: POC Glucose 146 H 01/07/22 15:15: Vancomycin Trough 15.8 H 01/07/22 15:15: WBC 38.0 H*, RBC 3.06 L, Hgb 9.1 L, Hct 29.6 L, MCV 96.8 H, MCH 29.8, MCHC 30.7 L, RDW 14.5, Plt Count 254 D, MPV 8.6, Neut % (Auto) 92.9 H, Lymph % (Auto) 2.3 L, [place] % (Auto) 4.5, Eos % (Auto) 0.2, Baso % (Auto) 0.1, Neut # (Auto) 35.3 H, Lymph # (Auto) 0.9, [place] # (Auto) 1.7 H, Eos # (Auto) 0.1, Baso # (Auto) 0.1 Medical History: Medical History CAD (coronary artery disease) Dyspnea Ischemic cardiomyopathy NYHA class 3 heart failure with reduced ejection fraction Systolic heart failure Tobacco use Assessment and Plan Assessment and plan all Dx Assessment and Plan for all problems:: VANCOMYCIN LEVEL WAS 15.8 MCG/ML TODAY PRIOR TO DOSE. RECOMMEND CONTINUING WITH VANCOMYCIN 1000 MG Q48H AT THIS TIME.
--- NOTE | 2022-01-07 16:30 | PC.NURSE ---
Hospice staff (Kwame Connell RN and Pamela SUTTON) @ BS. Pt is lethargic, confused, and is not answering questions appropriately. Sister (Leyda) contacted by phone. She wishes for inpt hospice admit for EOL care. She will be at bedside @ 6pm and wishes for meds to be stopped at that time, except for comfort meds. Francesca Harris notified and agrees to inpt hospice admit. Pt switched to inpt hospice @ 1630pm. job order clerk notified. Pt is a DNR. Comfort meds for the following entered per Dr. Burton (who is oncall for Dr. Freeman): Morphine 2mg IV q4hrs prn, Ativan 0.5mg IV q4hrs prn, and Robinul 0.2mg IV q4hrs prn.
[2022-01-07 17:20] LABS: Lymphocytes % 4 % (10-50); Monocytes % 2 % (2-9); Neutrophils % 94 % (42-76); Platelet Estimate Normal; Total Cells Counted 100
[2022-01-07 17:21] LABS: Anisocytosis 1+; Burr Cells 2+; Hypochromasia 2+; Ovalocytes 1+
[2022-01-08] VITALS (10 sets, daily range): BP systolic 61–92; BP diastolic 21–48; PULSE 70–98; RESP 18–20; TEMP 36.1–36.6; O2SAT 92–96; BMI 29.8
--- NOTE | 2022-01-08 03:58 | PC.NURSE ---
Pt Hospice comfort car. responds to staff. Has declined any pain medication thus far. Has refused repositioning at times this shift. Pt is currently on 1.5 L O2 NC with sat of 93%. 2+ Bilateral edema noted to upper extremities. F/C draining to bedside with 100 ml total output. No BM. Call light within reach. Family at bedside.
--- NOTE | 2022-01-08 08:18 | EXP.PN ---
Subjective *Date: 01/08/22 *Time: 13:08 Interval history: continues to decline hypotensive overnight signif leukocytosis worsening renal function Exam Data for Last 24 hours Vital signs and Labs for Last 24 Hours: Temp Pulse Resp BP Pulse Ox 97.9 F 75 19 82/48 L 93 L 01/08/22 04:11 01/08/22 04:11 01/08/22 04:11 01/08/22 04:11 01/08/22 04:11 Laboratory Results - last 24 hr 01/07/22 11:35: POC Glucose 146 H 01/07/22 15:15: Vancomycin Trough 15.8 H 01/07/22 15:15: WBC 38.0 H*, RBC 3.06 L, Hgb 9.1 L, Hct 29.6 L, MCV 96.8 H, MCH 29.8, MCHC 30.7 L, RDW 14.5, Plt Count 254 D, MPV 8.6, Neut % (Auto) 92.9 H, Lymph % (Auto) 2.3 L, [place] % (Auto) 4.5, Eos % (Auto) 0.2, Baso % (Auto) 0.1, Neut # (Auto) 35.3 H, Lymph # (Auto) 0.9, [place] # (Auto) 1.7 H, Eos # (Auto) 0.1, Baso # (Auto) 0.1, Total Counted 100, Neutrophils % (Manual) 94 H, Lymphocytes % (Manual) 4 L, Monocytes % (Manual) 2, Platelet Estimate Normal, Hypochromasia 2+, Anisocytosis 1+, Ovalocytes 1+, Liliana Cells 2+ I & O for Last 24 hours: Intake & Output 01/05/22 01/06/22 01/07/22 01/08/22 23:59 23:59 23:59 23:59 Intake Total 2949 / 2949 3629.74 / 3629.74 4573 / 4573 Output Total 50 / 50 645 / 645 450 / 450 0 / 0 Balance 2899 / 2899 2984.74 / 2984.74 4123 / 4123 0 / 0 Weight 164 lb 7 oz 164 lb 6.732 oz 164 lb 6.732 oz 174 lb 14.4 oz Microbiology Reports for the Last 24 Hours: Microbiology 01/04/22 14:00 Blood Blood Culture - Final Strep dysgalactiae ssp equisi 01/04/22 14:00 Blood Blood Culture - Final Staphylococcus haemolyticus Constitutional Constitutional: no acute distress and chronically ill appearing *Routine HEENT Exam Head: Present normocephalic *Routine Neck Exam Neck: Present supple *Routine Respiratory Exam Respiratory: Present CTA bilaterally *Routine Cardiovascular Exam Cardiovascular: Present RRR *Routine Abdominal Exam Abdominal: Present soft; Absent tenderness *Routine Extremities Exam Extremities: Absent cyanosis *Routine Skin Exam Skin: Absent cyanosis *Routine Neurological Exam Neurological: Present alert Assessment and Plan *Assessment and plan (1) Acute sepsis: Status: Acute Category: Medical Code(s): A41.9 - Sepsis, unspecified organism Plan inpatient hospice/supportive care appears comfortable
--- NOTE | 2022-01-08 09:37 | PC.NURSE ---
rounded with md. patient resting in bed. no complaints of pain. only states i want to go home . patient remains comfort care at this time.
--- NOTE | 2022-01-08 10:51 | DIET.NUTRFU ---
Patient continues to refuse all meals, he is under hospice care and comfort measures are in place. No aggressive tx at this time. He did not want any supplements started. He is receiving morphine and IVF with zofran as needed. Provider indicated that the patient has indicated he is ready to .
--- NOTE | 2022-01-08 13:11 | PC.NURSE ---
late entry: rounded on patient. family at bedside, requested pain medication for patient which was given at that time. patient does appear to have some discomfort grimacing and moaning out at times. educated family to let us know if any signs of discomfort present. no questions or concerns from them. encouraged them to ring out as needed.
--- NOTE | 2022-01-08 15:17 | PC.NURSE ---
Patient remains comfort care, on 1.5LNC, family at bedside, medicated for comfort per emar this shift, has been turned q2h and provided oral care and suctioning.
--- NOTE | 2022-01-08 19:34 | PC.NURSE ---
Q 2 turned pt this shift. Oral care provided. Pt resting at this time with eyes.
--- NOTE | 2022-01-08 20:00 | PC.NURSE ---
Pt is not responding at this time. Respirations more wet and agonal. VS have declined. O2 increased to 2L NC. Pt remains comfort care.
--- NOTE | 2022-01-08 20:26 | PC.NURSE ---
Family notified of pt decline.
[2022-01-09] VITALS: PULSE 75
--- NOTE | 2022-01-09 03:10 | PC.NURSE ---
Pt noted to be agonal breathing. HR declining. No O2 sat. family at bedside.
--- NOTE | 2022-01-09 03:42 | PC.NURSE ---
Pt asystole. MD notified. Family remains at bedside.
--- NOTE | 2022-01-09 04:01 | EXP.DEATH.NO ---
Pronouncement Note Date and Time of Date of : 01/09/22 Time of : 03:39 PCOD Preliminary cause of : Sepsis Contributing Factors (1) Acute sepsis: Additional Data Confirmation of : no pulse, no respirations and pupils fixed and dilated Family: at bedside Attending/PCP notified?: Yes Attending physician: Jonny Freeman MD Was code activated?: No Autopsy requested?: No principal examiner notified?: No Organ bank notified?: Yes Advance directives: Yes
--- NOTE | 2022-01-09 04:03 | EXP.DC.SUM ---
General Admission date:: 01/04/22 Discharge date: 01/09/22 HPI HPI HPI: 66 yo male arrived at ER via ems with complaints of weakness/pain. Poor historian. History of AICD,, ischemic cardiomyopathy, bilateral aka. Currently a hospice patient. Workup included cxr and labwork. Infiltrative process RLL noted, and urine growing gram negative rods. May have been collected from the bag; if so may be contaminate. Pain localized to left anterior chest in region of implanted device. Palpation reproduces pain. Device present over 1 year. Hospital Course Hospital Course Hospital Course: pt with sepsis and had persistent decline despite abx and vasopressors and was seen by dylan - abigail with history of myocardial infarction approximately 2004 with drug-eluting stent placement at that time A.? Cardiac catheterization 05/2017, recommendation for medical management ANGIOGRAPHIC RESULTS: 1.? The left main artery? has an ostial 20-30% nonflow limiting stenosis 2.? The left anterior descending artery? has a very proximal stent which is widely patent with minimal in-stent restenosis. Immediately proximal to the stent is a 10% stenosis and distal to the stent is a 30-40% stenosis. The mid LAD then has additional 30 and 40% mid vessel stenoses first diagonal artery is a 2.25 mm vessel and has a proximal 99% stenosis. 3.? The ramus intermedius is a 2.5 mm vessel and has an ostial proximal 80-90% stenosis 4.? The circumflex artery? appears to be a dominant system and has mid vessel 40% stenoses. 5.? The right coronary artery is proximally occluded with the distal segment filling via left to right collaterals 6.? The PALACIOS ventriculogram reveals severe left ventricular dilatation ejection fraction 10-15% 7.? The left ventricular end-diastolic pressure 30 mmHg IMPRESSION: 1.? Ischemic cardiomyopathy as described above 2.? Severe stenoses in the first diagonal artery and first ramus intermedius 3.? Severe left ventricular dilatation with severely reduced ejection fraction 4.? Elevated LVEDP PLAN: 1.? I would recommend medical management at this time. Although the diagonal artery and ramus intermedius could be stented I don't believe these stenoses are contributing to patient's cardiomyopathy. Based on the elevated LVEDP there is room for additional diuretics 2.? LDL less than 55 3.? Standard therapy for systolic heart failure 4.? Risk factor modification B.? Echo, 03/2021,?1.? Dilated left ventricle, severe reduced left ventricular systolic function, visually estimated ejection fraction 25%, left ventricle is globally hypokinetic, diastolic parameters are inconclusive. 2.? Mild mitral and tricuspid regurgitation. 3.? No significant pericardial effusion noted. C.? 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 History of LV thrombus and chronic atrial fibrillation, chronic anticoagulation therapy with Xarelto 3.? PAD A.? History of right [id number] amputation B.? LE arteriogram, 11/2019, medical therapy unless limb threatening ischemia C.? Left below the knee amputation, 01/2021 after failing outpatient management and development of osteomyelitis 4.? Diabetes mellitus, type II 5.? Continued tobacco use with COPD 6.? Hyperlipidemia, on statin therapy with LDL of 50, 01/2021 7.? Chronic anemia with hemoglobin running 9-10. 8.? CKD, stage 5 with GFR 11-12 and Cr 4.8-5.3 since 04/2021 (new at that time) History of present illness: This is a 66-year-old male who presented to the ER on Saturday 01/06 with complaints of chest pain over his pacemaker site.? He reports that the pain usually comes and goes but this pain woke him up in the middle the night and did not subside.? He tried Tylenol with no relief.? He reports that he is always short of breath and wears oxygen continuously at home.? He c/o of vomiting, diarrhea, cough, and no appetite for several days prior to admission. He is a hospice patient.? He current
--- NOTE | 2022-01-09 05:04 | PC.NURSE ---
TOD 0339. Pt pronounced by MD Freeman. RENATO called at [phone]. Reference # [id number]. Jigna Medina. Renato need to call back for possible candidate for donation. RENATO called back at [phone]. Pt ruled out for donation. post mortem care provided. Pt family requested [facility]. [facility] notified at [phone]. Family in room.
--- NOTE | 2022-01-09 06:09 | PC.NURSE ---
Pt left with [facility] at 0602.
== END 2022-01-09 06:02 | disposition expired | DRG 871 ==
LOC: ER 16:14 → 2ND 17:06
PROVIDERS: Admitting Provider Family Medicine; Emergency Provider Emergency Medicine; PCP Emergency Medicine; Visit Provider Emergency Medicine
DX: A41.50 Gram-negative sepsis, unspecified (principal); J18.9 Pneumonia, unspecified organism; R65.21 Severe sepsis with septic shock; N39.0 Urinary tract infection, site not specified; Z51.5 Encounter for palliative care; E87.1 Hypo-osmolality and hyponatremia; N18.5 Chronic kidney disease, stage 5; I48.20 Chronic atrial fibrillation, unspecified; I50.20 Unspecified systolic (congestive) heart failure; I25.10 Atherosclerotic heart disease of native coronary artery without angina pectoris; I25.5 Ischemic cardiomyopathy; I49.3 Ventricular premature depolarization; I73.9 Peripheral vascular disease, unspecified; Z66 Do not resuscitate; D63.1 Anemia in chronic kidney disease; E11.22 Type 2 diabetes mellitus with diabetic chronic kidney disease; E78.5 Hyperlipidemia, unspecified; Z87.891 Personal history of nicotine dependence; E11.51 Type 2 diabetes mellitus with diabetic peripheral angiopathy without gangrene; Z99.81 Dependence on supplemental oxygen; I25.2 Old myocardial infarction; Z89.512 Acquired absence of left leg below knee
CPT/HCPCS: 36415; 71045; 71250; 74176; 80048; 80053; 80202; 81001; 82962; 83605; 83880; 84484; 85007; 85025; 87040; 87077; 87086; 87088; 87186; 93005; 93306; 94640; 99285; C9803; J0696; J1335; J2405; J3370; Q9957; U0003; U0005